=== PATIENT | male | born 1940 | race Caucasian/White ===

== ENCOUNTER → 2017-09-01 10:52 | Outpatient (CLI) | payer MEDICARE, OTHER, SELFPAY ==
[2017-09-01 13:25] LABS: BUN Creatinine Ratio 23.3 (6-22); Calcium 9.1 mg/dL (8.4-10.2); Estimated Glomerular Filt Rate > 60.0 mL/min (>60); Glucose 84 mg/dL (80-110); HEMOLYSIS < 15 (0-50); Potassium 4.6 mmol/L (3.4-5.1); Sodium 142 mmol/L (137-145)
== END ==
PROVIDERS: Family Provider Internal Medicine; PCP Internal Medicine; Visit Provider Internal Medicine
DX: I10 Essential (primary) hypertension (principal)
CPT/HCPCS: 36415; 80048

== ENCOUNTER 2018-10-09 16:04 | Inpatient (IN) | payer MEDICARE, OTHER, SELFPAY ==
[2018-10-09] VITALS (11 sets, daily range): BP systolic 101–149; BP diastolic 64–86; PULSE 66–85; RESP 10–22; TEMP 36.3–37.1; O2SAT 95–98; BMI 24.4
--- NOTE | 2018-10-09 | DI.RAD.S_ITS ---
PROCEDURE: XR HIP W PEL IF DONE RT 2V INDICATIONS: ORIF RIGHT HIP TECHNIQUE: 6 operative views of the hip were acquired. COMPARISON: [facility], , XR HIP W PEL IF DONE RT 2V, 10/09/2018, 19:44. FINDINGS: 6 images demonstrate ORIF of the right hip. There is no evidence of complications. IMPRESSION: Operative imaging required during ORIF of the right hip. Dictated by: Mulugeta Matos M.D. on 10/09/2018 at 20:41 Approved by: Mulugeta Matos M.D. on 10/09/2018 at 20:42
--- NOTE | 2018-10-09 | DI.RAD.S_ITS ---
PROCEDURE: XR HIP W PEL IF DONE RT 2V INDICATIONS: ORIF RIGHT HIP POST OPERATIVE TECHNIQUE: 2 views of the hip were acquired. COMPARISON: [facility], CR, XR HIP W PEL IF DONE RT 2V, 10/09/2018, 18:13. FINDINGS: Bones: Expected immediate postoperative appearance, status post ORIF of the right hip. No evidence of hardware failure or loosening. Soft tissues: No suspicious soft tissue calcifications or masses. IMPRESSION: Expected immediate postoperative appearance of the right hip. Dictated by: Mulugeta Matos M.D. on 10/09/2018 at 20:42 Approved by: Mulugeta Matos M.D. on 10/09/2018 at 20:43
--- NOTE | 2018-10-09 16:53 | PM.HP.1 ---
History of Present Illness Date Patient Seen: 10/09/18 Time Patient Seen: 16:53 Chief complaint: RIGHT HIP FRACTURE Narrative: This is a 78-year-old gentleman who tripped today and fell and noted the acute onset of right hip pain. He was in [place] at the time and was seen at [facility] where a right hip fracture was diagnosed. All of his cares previously been at [facility] as well as his primary care doctor and he requested to be transferred to [facility] for orthopedic consultation repair of his hip and medical management. He notes severe right hip pain. Patient History Medical History Essential hypertension (Chronic 07/25/17) Allergic rhinitis due to other allergen (Chronic 09/16/11) Back pain (Acute) Eczema (Acute) Former cigarette smoker (Acute) Irregular heartbeat (Acute) Social History Smoking Status: Former smoker alcohol intake: current Family & Social History Tobacco & Substance use: Tobacco type cigarettes Smoking Status Former smoker alcohol intake current Substance Use Type does not use Meds Home Medications Medication Instructions Recorded Confirmed Type cholecalciferol (vitamin D3) 5,000 5,000 unit PO DAILY 09/26/18 10/05/18 History unit capsule cyanocobalamin (vitamin B-12) 1,000 mcg PO DAILY 09/26/18 10/05/18 History 1,000 mcg capsule thyroid (pork) 15 mg tablet 15 mg PO DAILY 09/26/18 10/05/18 History Allergies Allergy/AdvReac Type Severity Reaction Status Date / Time colistin [COLISTIN] Allergy Unknown PAIN AND Verified 09/26/18 13:14 SWELLING (FROM CORTISPORIN TC) hydrocortisone Allergy Unknown LOCAL PAIN Verified 09/26/18 13:14 [HYDROCORTISONE] AND SWELLING (FROM CORTISPORIN TC) neomycin [NEOMYCIN] Allergy Unknown LOCAL PAIN Verified 09/26/18 13:14 AND SWELLING (FROM CORTISPORIN TC) THONZONIUM Allergy Unknown LOCAL PAIN Uncoded 09/26/18 13:14 AND SWELLING (FROM CORTISPORIN TC) Review of Systems Review of Systems He specifically denied being lightheaded dizzy having chest pain or other syncopal symptoms prior to his fall. He stated that he just tripped. He does have a history of a longstanding tremor but has not been diagnosed with Parkinson's. He does not get up at night to urinate. He notes that he is being been feeling well with no recent abdominal problems lung problems he does have some mild eczema on his leg. Exam Narrative Exam Narrative: He is alert he is oriented, his HEENT is atraumatic, pupils are equal round and reactive, lungs are clear, cor is regular rate and rhythm there is no murmur abdomen is benign, the right lower extremity is remarkable for moderate foreshortening with an external rotation deformity of his right leg he is able to fire his toe flexors and extensors in bilateral lower extremities, there is adequate capillary refill, skins noted to be intact. Objective Labs Labs: Hematocrit 40 at [facility], x-rays show a comminuted right intertrochanteric hip fracture, his chest x-ray is benign Assessment & Plan Assessment & Plan narrative: Impression comminuted right intertrochanteric proximal femur fracture. Plan is for open reduction internal fixation with a dynamic hip screw. The procedure, alternatives, and risks including but not limited to bleeding, infection, failure of fixation, malunion, nonunion, failure of bone and possibility of additional requirements for operative intervention or additional surgeries was discussed in detail. It is a comminuted proximal femur fracture. Risk of anesthetic or medical complications including but not limited to bleeding, infection, stroke, cardiovascular event or even were discussed in detail. He will likely at best be only partial weight-bearing postoperatively. He understands and agrees and consents to surgery.
[2018-10-09] MEDS: LACTATED RINGERS 1,000 ML 42 ML IV ×2 (17:38→19:20)
[2018-10-09] MEDS: CEFAZOLIN 2 GM/100 ML FROZ.PIGGY IV (17:40)
--- NOTE | 2018-10-09 18:28 | SUR.OPER ---
Head on pillow. Supine on fracture table with operative leg secured in traction. Other leg secured in padded stirrup. Arms across chest, secured with sheet.
[2018-10-09] MEDS: BUPIVACAINE 0.5% W/ EPI (PF) VIAL 30 ML INJ (18:33)
--- NOTE | 2018-10-09 20:16 | SUR.PHASEI ---
stable pacu stay, report attempted x2 RN not available
--- NOTE | 2018-10-09 20:23 | SUR.PHASEI ---
Ashutosh returned called, report given. pt left pacu in stable condition.
--- NOTE | 2018-10-09 20:29 | P.OP_ITS ---
Operative Date/Time/Diagnoses Date of procedure: 10/09/18 Time of procedure: 17:29 Pre-op diagnosis: Right intertrochanteric hip fracture Post-op diagnosis: same Procedure & Clinicians Procedure: Open reduction internal fixation right intertrochanteric hip fracture Same procedure as scheduled: Yes Indications: This is a 78-year-old gentleman who fell and sustained a right intertrochanteric hip fracture. The procedure alternatives risks benefits and complications was discussed in detail and he is brought to the operating room for open reduction internal fixation. Surgeon: Shannan Sun Click Yes if Unassisted: Yes Anesthesia Type: Spinal Operative Notes Findings: Comminuted fracture, anatomic reduction, fairly good quality bone. Closure Type: primary Specimen(s): none sent Prosthetic devices, grafts, tissues, transplants, or devices: Dynamic hip screw 135?, 4 hole sideplate Estimated Blood Loss (mL): 250 Blood products transfused: none Procedure in detail: Patient was brought to the operating room and underwent the induction of a spinal anesthetic. He was carefully positioned on the fracture table. A time-out was performed. His right lower extremity was prepped and draped in a standard sterile fashion. He was given IV antibiotics and transiemic acid. A lateral skin incision was made dissection was carried out through skin and subcutaneous tissues. Hemostasis was achieved with the Bovie cautery. The lateral fascia was incised. Vastus lateralis was retracted anteriorly and was gently elevated off of the lateral femur. Hemostasis was achieved posteriorly. A Lyons retractor was placed around the femur. Guide was placed along the femur and a pin was placed in the femoral head slightly posterior but in the central aspect of the femoral head. AP and lateral image confirmed the position of the guidewire. It was advanced and then measured and the dynamic hip screw Reamer was used to prepare the screw insertion to site. A 4 hole side plate was applied. I used the set screw to further impact the fracture and then removed it. Side plate was filled using standard AO technique. AP lateral and oblique images confirmed anatomic reduction and acceptable position of the fixation. The hip was meticulously irrigated with normal saline. Final hemostasis was achieved. Marcaine was injected. The wound was closed with interrupted Vicryl, barbed stitches and surgical glue. The wound was dressed sterilely. An Aquacel was applied. Patient was transferred to recovery room in satisfactory condition. Complications: none Condition: stable Disposition: Acute Care Plan for aftercare: Aspirin for DVT prophylaxis. Out of bed 50 lb weight- bearing on the right lower extremity. Patient has a supportive family and the goal is discharged to home when safe.
--- NOTE | 2018-10-09 20:39 | SUR.PHASEI ---
Pt left with georges and chealsea in [address] and in stable condition.
--- NOTE | 2018-10-09 20:52 | PC.NURSE ---
2034 - Patient brought to room from PACU in bed by nursing staff. Family at bedside. Report given to receiving nurse JEANIE Gloria. Alert and oriented with pleasant affect. Denies pain at this time. Oriented to room and call light, call light within reach.
[2018-10-09] MEDS: LACTATED RINGERS 1,000 ML 125 ML IV (21:06)
--- NOTE | 2018-10-09 22:12 | PC.NURSE ---
Pt awake, watching TV. Denies discomfort at this time. Tele shows NSR per ICU staff. Aquacell dsg to right hip CDI. SCD in place, IS to 3000 Lungs clear, SpO2 97% RA Stable post op course. Call two [facility] w/in reach, Bed alarm on for pt safety. Continue w/plan of care.
[2018-10-10] MEDS: CEFAZOLIN 2 GM/100 ML FROZ.PIGGY IV ×2 (02:42→10:14)
[2018-10-10 04:25] VITALS: BP 139/65; PULSE 70; RESP 16; TEMP 37.1; O2SAT 99
[2018-10-10] MEDS: LACTATED RINGERS 1,000 ML 125 ML IV (05:26)
[2018-10-10] MEDS: ACETAMINOPHEN 325 MG TABLET 975 MG PO ×3 (05:54→19:59)
[2018-10-10 05:58] LABS: Hematocrit 33.5 % (41-53); Hemoglobin 11.5 g/dL (13.5-17.5); Mean Corpuscular HGB Conc 34.3 % (30-36); Mean Corpuscular Volume 90.4 fL (80-100); Platelet Count 159 X10^3/uL (150-400); Red Blood Cell Count 3.71 X10^6/uL (4.5-5.9); Red Cell Distribution Width 12.8 % (11.6-14.8); White Blood Cell Count 9.6 X10^3/uL (4.5-11.0)
--- NOTE | 2018-10-10 06:49 | PM.CN ---
History of Present Illness Date Patient Seen: 10/10/18 Chief complaint: RIGHT HIP FRACTURE Reason for consult: Medical care Narrative: 78-year-old male who I see only rarely, last seen in August 2017, who apparently fell while in [place] sustaining a fracture to his right hip. He was evaluated at [facility] and his request was transported to [facility] for definitive care with Dr. Shannan Sun accepting patient in transfer and surgically repairing his hip. Patient's only medical problem that has been followed on a long-term basis appears to be mild hypertension. Patient was started on lisinopril little over year ago but appears to have discontinued this on his own. [facility] Medical History Essential hypertension (Chronic 07/25/17) Allergic rhinitis due to other allergen (Chronic 09/16/11) Back pain (Chronic) Eczema (Chronic) Irregular heartbeat (Chronic) Former cigarette smoker (Inactive) Social History household members: family Smoking Status: Former smoker alcohol intake: current Social History household members: family Smoking Status: Former smoker alcohol intake: current Meds Home Medications Medication Instructions Recorded Confirmed Type cholecalciferol (vitamin D3) 5,000 5,000 unit PO DAILY 09/26/18 10/09/18 History unit capsule cyanocobalamin (vitamin B-12) 1,000 mcg PO DAILY 09/26/18 10/09/18 History 1,000 mcg capsule thyroid (pork) 15 mg tablet 15 mg PO DAILY 09/26/18 10/09/18 History Allergies Allergy/AdvReac Type Severity Reaction Status Date / Time colistin [COLISTIN] Allergy Unknown PAIN AND Verified 09/26/18 13:14 SWELLING (FROM CORTISPORIN TC) hydrocortisone Allergy Unknown LOCAL PAIN Verified 09/26/18 13:14 [HYDROCORTISONE] AND SWELLING (FROM CORTISPORIN TC) neomycin [NEOMYCIN] Allergy Unknown LOCAL PAIN Verified 09/26/18 13:14 AND SWELLING (FROM CORTISPORIN TC) THONZONIUM Allergy Unknown LOCAL PAIN Uncoded 09/26/18 13:14 AND SWELLING (FROM CORTISPORIN TC) Review of Systems Constitutional Constitutional: Denies excessive sweating, Denies fever(s), Denies headache(s), Denies weakness, Denies weight gain and Denies weight loss Eyes Eyes: Denies change in vision, Denies itchy eyes, Denies loss of vision and Denies other visual disturbances ENT Ears, Nose, Mouth, and Throat: No difficulty swallowing, No headache(s) and No neck pain Cardiovascular Cardiovascular: Denies chest pain, Denies fainting, Denies fast heart rate, Denies irregular heart rhythm, Denies rapid, pounding, or irregular heartbeat, Denies shortness of breath, Denies shortness of breath with activity and Denies slow heart rate Respiratory Respiratory: Denies dyspnea and Denies dyspnea on exertion Gastrointestinal Gastrointestinal: Denies abdominal pain, Denies bloating, Denies change in bowel habits, Denies change in stool character, Denies dysphagia, Denies nausea, Denies vomiting and Denies hematemesis Genitourinary Genitourinary: Denies hematuria, Denies difficulty urinating and Denies urinary frequency Musculoskeletal Musculoskeletal: Denies neck pain Integumentary/Breasts Skin/Breast: Denies bleeding lesions, Denies change in pigmentation, Denies changing lesions, Denies new lesions, Denies rash, Denies skin swelling, Denies sores and Denies jaundice Neurologic Neurologic: Denies behavioral changes, Denies confusion, Denies syncope, Denies headache(s), Denies loss of vision, Denies memory loss and Denies weakness Psychiatric Psychiatric: Denies behavioral changes, Denies change in appetite, Denies confusion, Denies difficulty concentrating, Denies auditory hallucinations, Denies memory loss, Denies mood swings and Denies suicidal ideation Endocrine Endocrine: Denies excessive sweating and Denies palpitations Hematologic/Lymphatic Hematologic/Lymphatic: Denies easy bleeding, Denies easy bruising and Denies lymphadenopathy Allergic/Immunologic Allergic/Immunologic: Denies itchy eyes Exam Vital Signs (past 8 hours): - 10/09/18 23:32 10/10/18 04:25 Temperature 98.5 F 98.8 F Pulse Rate 74 70 Respiratory Rate 16 16 Blood Pressure 139/65 139/65 Pulse Oximetry 97 99 Oxygen Delivery Method Room Air Oxygen Flow Rate 0 Narrative Exam Narrative: HEENT-unremarkable, normocephalic atraumatic Neck-no lymphadenopathy no bruits Lungs-clear anteriorly and posteriorly no wheezes no crackles good breath sounds Heart-regular rate and rhythm, no murmur, rub, or gallop. normal S1-S2 Abdomen-positive bowel tones, soft, nontender, nondistended, no hepatosplenomegaly, no masses palpable Neuro-normal to screening exam, gait not tested Extremities-no cyanosis clubbing or edema Objective Labs Result Diagrams: 10/10/18 05:24 Labs: Laboratory Results - last 24 hr 10/10/18 05:24 WBC 9.6 RBC 3.71 L Hgb 11.5 L Hct 33.5 L MCV 90.4 MCH 31.0 MCHC 34.3 RDW 12.8 Plt Count 159 Assessment & Plan Assessment & Plan narrative: 1. 78-year-old male now status post ORIF fractured hip. Postoperative care and decision making regarding discharge, and whether patient can be discharged home versus alternative facility will be determined by Orthopedic Surgery 2. Hypertension-patient has self-discontinued his antihypertensives. Continue follow numbers here and can restart lisinopril at any point should he be significantly hypertensive. At this point however, if anything, he is modestly hypotensive. Otherwise medically he is quite stable with no active issues. Standard orthopedic surgery postoperative VTE prophylaxis appears to have been ordered. I will sign off the case at this point as are no active medical issues on this patient. The remainder of his care in the hospital really will be postoperative orthopedic care. Please re-consult if further input regarding medical issues is desired.
--- NOTE | 2018-10-10 06:55 | P.CONS_ITS ---
History of Present Illness Date Patient Seen: 10/10/18 Chief complaint: RIGHT HIP FRACTURE Reason for consult: Medical care Narrative: 78-year-old male who I see only rarely, last seen in August 2017, who apparently fell while in [place] sustaining a fracture to his right hip. He was evaluated at [facility] and his request was transported to [facility] for definitive care with Dr. Shannan Sun accepting patient in transfer and surgically repairing his hip. Patient's only medical problem that has been followed on a long-term basis appears to be mild hypertension. Patient was started on lisinopril little over year ago but appears to have discontinued this on his own. [facility] Medical History Essential hypertension (Chronic 07/25/17) Allergic rhinitis due to other allergen (Chronic 09/16/11) Back pain (Chronic) Eczema (Chronic) Irregular heartbeat (Chronic) Former cigarette smoker (Inactive) Social History household members: family Smoking Status: Former smoker alcohol intake: current Social History household members: family Smoking Status: Former smoker alcohol intake: current Meds Home Medications Medication Instructions Recorded Confirmed Type cholecalciferol (vitamin D3) 5,000 5,000 unit PO DAILY 09/26/18 10/09/18 History unit capsule cyanocobalamin (vitamin B-12) 1,000 mcg PO DAILY 09/26/18 10/09/18 History 1,000 mcg capsule thyroid (pork) 15 mg tablet 15 mg PO DAILY 09/26/18 10/09/18 History Allergies Allergy/AdvReac Type Severity Reaction Status Date / Time colistin [COLISTIN] Allergy Unknown PAIN AND Verified 09/26/18 13:14 SWELLING (FROM CORTISPORIN TC) hydrocortisone Allergy Unknown LOCAL PAIN Verified 09/26/18 13:14 [HYDROCORTISONE] AND SWELLING (FROM CORTISPORIN TC) neomycin [NEOMYCIN] Allergy Unknown LOCAL PAIN Verified 09/26/18 13:14 AND SWELLING (FROM CORTISPORIN TC) THONZONIUM Allergy Unknown LOCAL PAIN Uncoded 09/26/18 13:14 AND SWELLING (FROM CORTISPORIN TC) Review of Systems Constitutional Constitutional: Denies excessive sweating, Denies fever(s), Denies headache(s), Denies weakness, Denies weight gain and Denies weight loss Eyes Eyes: Denies change in vision, Denies itchy eyes, Denies loss of vision and Denies other visual disturbances ENT Ears, Nose, Mouth, and Throat: No difficulty swallowing, No headache(s) and No neck pain Cardiovascular Cardiovascular: Denies chest pain, Denies fainting, Denies fast heart rate, Denies irregular heart rhythm, Denies rapid, pounding, or irregular heartbeat, Denies shortness of breath, Denies shortness of breath with activity and Denies slow heart rate Respiratory Respiratory: Denies dyspnea and Denies dyspnea on exertion Gastrointestinal Gastrointestinal: Denies abdominal pain, Denies bloating, Denies change in bowel habits, Denies change in stool character, Denies dysphagia, Denies nausea, Denies vomiting and Denies hematemesis Genitourinary Genitourinary: Denies hematuria, Denies difficulty urinating and Denies urinary frequency Musculoskeletal Musculoskeletal: Denies neck pain Integumentary/Breasts Skin/Breast: Denies bleeding lesions, Denies change in pigmentation, Denies changing lesions, Denies new lesions, Denies rash, Denies skin swelling, Denies sores and Denies jaundice Neurologic Neurologic: Denies behavioral changes, Denies confusion, Denies syncope, Denies headache(s), Denies loss of vision, Denies memory loss and Denies weakness Psychiatric Psychiatric: Denies behavioral changes, Denies change in appetite, Denies confusion, Denies difficulty concentrating, Denies auditory hallucinations, Denies memory loss, Denies mood swings and Denies suicidal ideation Endocrine Endocrine: Denies excessive sweating and Denies palpitations Hematologic/Lymphatic Hematologic/Lymphatic: Denies easy bleeding, Denies easy bruising and Denies lymphadenopathy Allergic/Immunologic Allergic/Immunologic: Denies itchy eyes Exam Vital Signs (past 8 hours): - 10/09/18 23:32 10/10/18 04:25 Temperature 98.5 F 98.8 F Pulse Rate 74 70 Respiratory Rate 16 16 Blood Pressure 139/65 139/65 Pulse Oximetry 97 99 Oxygen Delivery Method Room Air Oxygen Flow Rate 0 Narrative Exam Narrative: HEENT-unremarkable, normocephalic atraumatic Neck-no lymphadenopathy no bruits Lungs-clear anteriorly and posteriorly no wheezes no crackles good breath sounds Heart-regular rate and rhythm, no murmur, rub, or gallop. normal S1-S2 Abdomen-positive bowel tones, soft, nontender, nondistended, no hepatosplenomegaly, no masses palpable Neuro-normal to screening exam, gait not tested Extremities-no cyanosis clubbing or edema Objective Labs Result Diagrams: 10/10/18 05:24 Labs: Laboratory Results - last 24 hr 10/10/18 05:24 WBC 9.6 RBC 3.71 L Hgb 11.5 L Hct 33.5 L MCV 90.4 MCH 31.0 MCHC 34.3 RDW 12.8 Plt Count 159 Assessment & Plan Assessment & Plan narrative: 1. 78-year-old male now status post ORIF fractured hip. Postoperative care and decision making regarding discharge, and whether patient can be discharged home versus alternative facility will be determined by Orthopedic Surgery 2. Hypertension-patient has self-discontinued his antihypertensives. Continue follow numbers here and can restart lisinopril at any point should he be significantly hypertensive. At this point however, if anything, he is modestly hypotensive. Otherwise medically he is quite stable with no active issues. Standard orthopedic surgery postoperative VTE prophylaxis appears to have been ordered. I will sign off the case at this point as are no active medical issues on this patient. The remainder of his care in the hospital really will be postoperative orthopedic care. Please re-consult if further input regarding medical issues is desired.
[2018-10-10 07:28] VITALS: BP 102/52; PULSE 65; RESP 18; TEMP 36.9; O2SAT 100
[2018-10-10] MEDS: THYROID, PORK 30 MG TABLET 15 MG PO (08:16)
[2018-10-10] MEDS: CYANOCOBALAMIN (VITAMIN B-12) 500 MCG TABLET 1000 MCG PO (08:16)
[2018-10-10] MEDS: POLYETHYLENE GLYCOL 3350 17 GM POWD.PACK PO (08:16)
[2018-10-10] MEDS: ASPIRIN EC 81 MG TABLET PO ×2 (08:16→19:59)
[2018-10-10] MEDS: DOCUSATE 100 MG CAPSULE PO ×2 (08:16→19:59)
[2018-10-10] MEDS: CHOLECALCIFEROL (VITAMIN D3) 5,000 UNIT TABLET 5000 UNIT PO (08:16)
--- NOTE | 2018-10-10 09:57 | PT.IIE ---
Current Diagnoses Unspecified fracture of right femur, initial encounter for closed fracture (10/09/18) Surgery Performed Operation Date: 10/09/18 17:00 Actual Procedures p ORIF Hip/Intramedullary Hip Screw(Right) - Shannan Sun MD Medical History Essential hypertension (Chronic 07/25/17) Allergic rhinitis due to other allergen (Chronic 09/16/11) Back pain (Chronic) Eczema (Chronic) Irregular heartbeat (Chronic) Former cigarette smoker (Inactive) Physical Therapy Inpatient Evaluation/Re-Eval M1 PT/OT-IP Prior Functional Status Start: 10/10/18 12:14 Freq: NEEDED Status: Active Protocol: Document 10/10/18 09:57 AB (Rec: 10/10/18 12:25 AB [id number]) Medical Review Prior Functional Status Medical History Reviewed Yes Communication able to make needs known Mobility and Gait pt stated that he is independent with all mobilities and ambulation without AD Social History Household Members children Living Arrangements House Number of Floors (Floors) Two Floors Number of Stairs To Enter/Railing? pt lives with his son but plans to stay in his daughter' s house and her daughter can assist him information regarding home set up is regarding pt's daughter 's house pt will stay on main floor has 3 in step to enter the house Home Environment Standard Height Toilet Tub/Shower Home Equipment Hand Held Shower Grab Bars In Shower Employment Status Retired M2 PT-IP Current Condition Start: 10/10/18 12:14 Freq: NEEDED Status: Active Protocol: Document 10/10/18 09:57 AB (Rec: 10/10/18 12:25 AB [id number]) Physical Therapy Current Condition Current Condition Evaluation Date 10/10/18 Treatment Diagnosis R intertrochanteric hip fx s/p ORIF; difficulty in walking Onset Date 10/09/18 Weight Bearing Status Weight Bearing Status Touch Down Weight Bearing Allowed Weight Bearing Amount (enter % TDWB RLE: 50# max or #) (%) M3 PT-IP Subjective Start: 10/10/18 12:14 Freq: NEEDED Status: Active Protocol: Document 10/10/18 09:57 AB (Rec: 10/10/18 12:25 AB [id number]) Subjective Physical Therapy Visit Type Type Initial Evaluation Visit Start Time 09:57 Visit Stop Time 10:51 Total Visit Minutes 54 Number of RADIOLOGY TEACHER Visits 0 Physical Therapy Visit Comments Patient Comments pt agreeable to do PT Therapy Pain Assessment Pain When Pain Assessed During Mobility Pain Present Pain Present Pain Reported Location Right Hip Intensity 11 Scale Used Numeric (1 - 10) Pain Management Techniques Apply Cold Re-positioning Timing of Activity with Medications M4 PT-IP Mobility and Gait Start: 10/10/18 12:14 Freq: NEEDED Status: Active Protocol: Document 10/10/18 09:57 AB (Rec: 10/10/18 12:25 AB [id number]) PT-Bed Mobility Assessment Supine to Sit Supine to Sit Moderate Assistance Scooting Scooting to Edge of Bed Moderate Assistance PT-Transfer Assessment Sit to and From Stand Sit to and from Stand Maximum Assistance 1 Person Assistance 2 Person Assistance Use of Upper Extremities Equipment Transfer Assistive Device Front Wheeled Walker Orthotic/Prosthetic Devices or Brace: No Transfers Transfer Destination Chair Transfer Technique Stand Step Pivot Transfer Ability Level of Assist Maximum Assistance 2 Person Assistance Use of Upper Extremities Comments Mobility Comments pt required assistance to maintain TDWB on RLE Gait Assessment Comments Gait Comments unable at this time PT-Balance Assessment Sitting Balance and Reactions Static Sitting Balance Ability Good Dynamic Sitting Balance Ability Fair Standing Balance and Reactions Static Standing Balance Ability Fair Dynamic Standing Balance Ability Poor Device Used FWW M5 PT-IP Objective Assessments Start: 10/10/18 12:14 Freq: NEEDED Status: Active Protocol: Document 10/10/18 09:57 AB (Rec: 10/10/18 12:25 AB [id number]) Orientation Orientation/Cognition Level of Alertness Alert Orientation Name Place Situation Gross Range of Motion Lower Extremity ROM Assessment Within Functional Limits Impairments R hip tightness during PROM Strength Lower Extremity Strength Assessment Right Impaired Hip 3-/5 Knee 3-/5 Coordination Assessment Gross Coordination Gross Coordination WNL Sensation Assessment Sensation Gross Sensation WNL Muscle Tone Muscle Tone WNL Yes M6 PT-IP Treatment Start: 10/10/18 12:14 Freq: NEEDED Status: Active Protocol: Document 10/10/18 09:57 AB (Rec: 10/10/18 12:25 AB [id number]) Physical Therapy Treatment Exercises Exercises Quad Sets Heel Slides Education Education Provided Precautions Weight Bearing Status Post-Op Packet Safety M7 PT-IP Assessment and Plan Start: 10/10/18 12:14 Freq: NEEDED Status: Active Protocol: Document 10/10/18 09:57 AB (Rec: 07/03/19 12:25 AB [id number]) PT Summary Assessment and Plan Potential Rehabilitation Potential Good Status of Condition at Evaluation Evolving Summary Impairments Pain ROM Strength Balance Coordination Bed Mobility Transfers Gait Activity Tolerance Assessment Summary pt requiring max A x 1-2 for transfers using FWW at this time and requires assist to maintain RLE weight bearing restriction. pt unable to tolerate much activity with c/ o increase pain on R hip with mobility. pt will need SNF rehab to improve strength and functional independence. Goals Bed Mobility Goal Standby Assistance Transfer Goal Contact Guard Assistance Front Wheeled Walker Gait Goal Contact Guard Assistance Front Wheel Walker Gait Distance 50 Other Goals up/down 3 inch step using FWW min A Days to Meet Goals 10 Frequency of Treatment Frequency Of Treatment Twice a Day Treatment Plan Physical Therapy Treatment Plan Bed Mobility Training Transfer Training Gait Training Therapeutic Exercise Balance Retraining Post Op Education Discharge Planning Hot or Cold Pack Neuromuscular Re-ed Coordination Retraining Manual Therapy Recommendations To Nursing Amount of Assist Needed 2 Person Assist Mechanical Lift Discharge Recommendations PT Discharge Recommendations SNF Rehab Equipment Needed for Home Before FWW and w/c if pt is going Discharge home
[2018-10-10] MEDS: OXYCODONE IR 5 MG TABLET PO (10:12)
--- NOTE | 2018-10-10 11:07 | PM.PN.1 ---
Subjective Date Patient Seen: 10/10/18 Time Patient Seen: 09:07 Interval history: PAtient is POD#1 s/p open reduction internal fixation right intertrochanteric hip fracture with Dr. Sun. He is doing well post operatively. Pain is being well managed mostly with Tylenol. He has not been out of bed or worked with PT yet. Mckeon catheter in place. He denies chest pain, shortness of breath, fever, chills. Exam Vital Signs (past 8 hours): - 10/10/18 04:25 10/10/18 07:28 Temperature 98.8 F 98.5 F Pulse Rate 70 65 Respiratory Rate 16 18 Blood Pressure 139/65 102/52 L Pulse Oximetry 99 100 Oxygen Delivery Method Room Air Oxygen Flow Rate 0 Narrative Exam Narrative: Pleasant 78 year old male resting in bed. No acute distress, alert and oriented. Dressing in place over right hip is clean, dry, and intact. Intact flexion/extension of the foot. Palpable pedal pulses. Calves soft, compressible bilaterally. Objective Labs Result Diagrams: 10/10/18 05:24 Labs: Laboratory Results - last 24 hr 10/10/18 05:24 WBC 9.6 RBC 3.71 L Hgb 11.5 L Hct 33.5 L MCV 90.4 MCH 31.0 MCHC 34.3 RDW 12.8 Plt Count 159 Assessment & Plan Assessment & Plan narrative: Per Dr. Sun's operative notepatient is to be out of bed 50 lb weight-bearing on the right lower extremity. Goals for today are to mobilize with PT and continue pain control. Possible discharge to home tomorrow.
[2018-10-10 11:25] VITALS: BP 92/59; PULSE 80; RESP 16; TEMP 36.4; O2SAT 99
[2018-10-10] MEDS: HYDROMORPHONE 2 MG TABLET PO (13:24)
--- NOTE | 2018-10-10 13:40 | PT.IPTN ---
Current Diagnoses Unspecified fracture of right femur, initial encounter for closed fracture (10/09/18) Surgery Performed Operation Date: 10/09/18 17:00 Actual Procedures p ORIF Hip/Intramedullary Hip Screw(Right) - Shannan Sun MD Physical Therapy Treatment Note M2 PT-IP Current Condition Start: 10/10/18 12:14 Freq: NEEDED Status: Active Protocol: Document 10/10/18 09:57 AB (Rec: 10/10/18 12:25 AB [id number]) Physical Therapy Current Condition Current Condition Evaluation Date 10/10/18 Treatment Diagnosis R intertrochanteric hip fx s/p ORIF; difficulty in walking Onset Date 10/09/18 Weight Bearing Status Weight Bearing Status Touch Down Weight Bearing Allowed Weight Bearing Amount (enter % TDWB RLE: 50# max or #) (%) M3 PT-IP Subjective Start: 10/10/18 12:14 Freq: NEEDED Status: Active Protocol: Document 10/10/18 13:40 AB (Rec: 10/10/18 17:59 AB [id number]) Subjective Physical Therapy Visit Type Type Treatment Note Visit Start Time 13:40 Visit Stop Time 14:15 Total Visit Minutes 25 Number of DIESEL FLEET MECHANIC Visits 0 Physical Therapy Visit Comments Patient Comments pt agreeable to do PT Therapy Pain Assessment Pain When Pain Assessed At Rest Pain Present Pain Present Pain Reported Location Right Hip Intensity 8 Scale Used Numeric (1 - 10) M4 PT-IP Mobility and Gait Start: 10/10/18 12:14 Freq: NEEDED Status: Active Protocol: Document 10/10/18 13:40 AB (Rec: 10/10/18 17:59 AB [id number]) PT-Bed Mobility Assessment Sit to Supine Sit to Supine Maximum Assistance 2 Person Assistance Bedrails PT-Transfer Assessment Sit to and From Stand Sit to and from Stand Maximum Assistance 2 Person Assistance Use of Upper Extremities Equipment Transfer Assistive Device Bed Rail Front Wheeled Walker Orthotic/Prosthetic Devices or Brace: No Transfers Transfer Destination Bed Bedside Commode Transfer Technique Stand Step Pivot Transfer Ability Level of Assist Maximum Assistance 2 Person Assistance Use of Upper Extremities Comments Mobility Comments pt requested to use the toilet . positioned bedside commode next to pt. Pt completed sit to stand from chair requiring max A x 2 and max cues and completed stand step transfer using FWW max A x 2 and max cues. required assistance and max cues to maintain TDWB on RLE. pt was able to complete sit to stand from the bedside commode max A x 2 and max cues and maintain standing max A x 2 using FWW while NAC assisted with hygiene care. pt completed stand step pivot transfer to the bed using FWW max A x 2 and max cues. Has to position bed closer to pt towards end of transfer due to pt having difficulty with stepping backwards. Pt presents with (+) R hand tremors Gait Assessment Comments Gait Comments unable at this time M5 PT-IP Objective Assessments Start: 10/10/18 12:14 Freq: NEEDED Status: Active Protocol: Document 10/10/18 09:57 AB (Rec: 10/10/18 12:25 AB [id number]) Orientation Orientation/Cognition Level of Alertness Alert Orientation Name Place Situation Gross Range of Motion Lower Extremity ROM Assessment Within Functional Limits Impairments R hip tightness during PROM Strength Lower Extremity Strength Assessment Right Impaired Hip 3-/5 Knee 3-/5 Coordination Assessment Gross Coordination Gross Coordination WNL Sensation Assessment Sensation Gross Sensation WNL Muscle Tone Muscle Tone WNL Yes M6 PT-IP Treatment Start: 10/10/18 12:14 Freq: NEEDED Status: Active Protocol: Document 10/10/18 13:40 AB (Rec: 10/10/18 17:59 AB [id number]) Physical Therapy Treatment Education Education Provided Precautions Weight Bearing Status Safety M7 PT-IP Assessment and Plan Start: 10/10/18 12:14 Freq: NEEDED Status: Active Protocol: Document 10/10/18 13:40 AB (Rec: 10/10/18 17:59 AB [id number]) PT Summary Assessment and Plan Potential Rehabilitation Potential Good Summary Impairments Pain ROM Strength Balance Coordination Sensation Tone Cognition Bed Mobility Transfers Gait Activity Tolerance Progress Towards Goals Slow Progress due to Medical Issues Slow Progress due to Activity Tolerance Assessment Summary pt continues to require 2 person assist with transfers and has decrease activity tolerance. also requires assistance with maintaining TDWB on RLE. Pt will benefit from SNF rehab. Goals Bed Mobility Goal Standby Assistance Transfer Goal Contact Guard Assistance Front Wheeled Walker Gait Goal Contact Guard Assistance Front Wheel Walker Gait Distance 50 Other Goals up/down 3 inch step using FWW min A Days to Meet Goals 10 Frequency of Treatment Frequency Of Treatment Twice a Day Treatment Plan Physical Therapy Treatment Plan Bed Mobility Training Transfer Training Gait Training Therapeutic Exercise Balance Retraining Post Op Education Discharge Planning Hot or Cold Pack Neuromuscular Re-ed Coordination Retraining Manual Therapy Recommendations To Nursing Amount of Assist Needed 2 Person Assist Mechanical Lift Discharge Recommendations PT Discharge Recommendations SNF Rehab Equipment Needed for Home Before FWW and w/c if pt is going Discharge home
--- NOTE | 2018-10-10 13:51 | CM.DANOTE ---
Addendum entered by Yarely Rivas LPN 10/10/18 15:09: September/[facility] called back to confirm acceptance at [facility] when stable for same. Pt is updated and given [facility] brochure. He notes relief at the plan. Confirms that after snf rehab he plans to still go to his daughter's home for further recovery and she lives right across from an OUTPT PT clinic where he plans to go after the snf stay. Original Note: Discharge Planning/Care Management DCP: continued: Case received, EMR reviewed and met with pt. Introduced self and role. Pt is a 78 year old male who admitted yesterday afternoon to care of [facility]: Dr. Sun. PCP: Dr. Garsia: consulting Payer: Medicare and [employer]. Pt had surgery yesterday with Dr. Sun to repair his R hip fracture. PT Tg saw pt this morning and recommended snf rehab. Pt is very agreeable to same and wishes [facility]. (he has initially planned to go to his daughter's home for care but at this point he is a 2 person max assist for mobility. OT is co-treating this afternoon. P: [facility]/referral given to September who is reviewing with acceptance anticipated. PASRR: not started. Likely d/c to snf 4/5 or > Advanced directive, confirm from FAMILY Start: 10/09/18 20:44 Freq: Q24H Status: Active Protocol: Document 10/09/18 21:17 KMD (Rec: 10/09/18 21:17 KMD [id number]) Advance Directive, confirm on record Time 21:17 Person contacted Patient Copy received No CM Discharge Assessment Start: 10/10/18 13:49 Freq: Status: Active Protocol: Document 10/10/18 13:50 ITV (Rec: 10/10/18 13:51 ITV [id number]) Discharge Planning Assessment Advance Directives? Yes: Durable Power of Cement Block Maker , Living Will with Health Care Directive, HIPAA jose carlos of medical records Advance Directives on File No History Provided By Patient Medical Record Prior Living Arrangements House Household Members children Comment lives with son. Has planned to go to daughter's home after surgery. Independent with ADL's Yes Is patient alert and oriented? Yes Discharge Plan Alf Facility Referrals Initiated Alf Medicare Choice List Provided Yes SNF/HH Preference [facility] Whiteboard Updated in Patient Room with Yes name and ext. # of Digital Content Manager Review Status In Process
--- NOTE | 2018-10-10 14:49 | PC.NURSE ---
In the morning, Pt rates pain at 0/10 with rest and severe pain with movement after oxycodone 5mg; similary, after lunch patient rates pain 0/10 at rest and severe pain with movement after administration of 2 mg dilaudid; pt thinks that Tylenol works better but declines any more pain medication, at this time; Mckeon still in place; SL; Tele SR, VSS; RA; PPP and C/M/S to right foot present; Aquacell to right hip c/d/i; bed alarm active due to hx of fall; patient is using call light, as needed
[2018-10-10 16:05] VITALS: BP 101/57; PULSE 75; RESP 18; TEMP 36.6; O2SAT 98
--- NOTE | 2018-10-10 18:59 | OT.IP.EVAL ---
Current Diagnoses Unspecified fracture of right femur, initial encounter for closed fracture (10/09/18) Surgery Performed Operation Date: 10/09/18 17:00 Actual Procedures p ORIF Hip/Intramedullary Hip Screw(Right) - Shannan Sun MD Past Medical History Essential hypertension (Chronic 07/25/17) Allergic rhinitis due to other allergen (Chronic 09/16/11) Back pain (Chronic) Eczema (Chronic) Irregular heartbeat (Chronic) Former cigarette smoker (Inactive) Occupational Therapy Inpatient Evaluation/Re-Eval M1 PT/OT-IP Prior Functional Status Start: 10/10/18 18:29 Freq: NEEDED Status: Active Protocol: Document 10/10/18 13:40 [facility] (Rec: 10/10/18 18:58 [facility] [id number]) Medical Review Prior Functional Status Medical History Reviewed Yes Communication able to make needs known Mobility and Gait pt stated that he is independent with all mobilities and ambulation without AD Social History Household Members children Living Arrangements House Number of Floors (Floors) Two Floors Number of Stairs To Enter/Railing? pt lives with his son but plans to stay in his daughter' s house and her daughter can assist him information regarding home set up is regarding pt's daughter 's house pt will stay on main floor has 3 in step to enter the house Home Environment Standard Height Toilet Tub/Shower Home Equipment Hand Held Shower Grab Bars In Shower Employment Status Retired M2 OT-IP Current Condition Start: 10/10/18 18:29 Freq: Status: Active Protocol: Document 10/10/18 13:40 [facility] (Rec: 10/10/18 18:58 [facility] [id number]) Occupational Therapy Current Condition Current Condition Evaluation Date 10/10/18 Treatment Diagnosis Right Hip Intertrochan Diagnosis Onset Date 10/09/18 Weight Bearing Status Weight Bearing Status Partial Weight Bearing Allowed Weight Bearing Amount (enter % 50 lbs for RLE or #) (%) M3 OT- IP Subjective and Pain Start: 10/10/18 18:29 Freq: Status: Active Protocol: Document 10/10/18 13:40 [facility] (Rec: 10/10/18 18:58 [facility] [id number]) OT- Subjective Occupational Therapy Visit Type Type Initial Evaluation Visit Start Time 13:40 Visit Stop Time 14:15 Total Visit Minutes 35 Notes PT/OT co-txt due to extensive assist for transfer. Occupational Therapy Visit Comments Patient Comments Pt wanting to use the BSC. OT Pain Assessment Pain When Pain Assessed During Mobility Pain Present Pain Present Pain Reported Location Right Hip Intensity 4 M4 OT- IP ADL's Start: 10/10/18 18:29 Freq: Status: Active Protocol: Document 10/10/18 13:40 [facility] (Rec: 10/10/18 18:58 [facility] [id number]) OT ADL-Grooming General Evaluation Grooming Ability Standby Assistance Areas Needing Assistance Retrieving/Set-up of Grooming Items Comments OT Grooming Comments After set-up pt able to do all grooming needs while seated. OT ADL-Oral Care General Eval Oral Care Ability Independent OT ADL-Dressing General Eval Lower Body Dressing Ability Maximum Assistance Areas Needing Assistance Socks OT ADL-Toileting General Evaluation Toileting Ability Maximum Assistance Areas Needing Assistance Manage Clothing Perform Perineal Hygiene Comments OT Toileting Comments MAX A X 2 to stand pt while aid able to assist for hygiene and brief management needs. OT ADL-Bathing Comments OT Bathing Comments Not ready at this time, sponge bath more appropriate. M5 OT- IP IADL's Start: 10/10/18 18:29 Freq: Status: Active Protocol: Document 10/10/18 13:40 [facility] (Rec: 10/10/18 18:58 [facility] [id number]) OT-Instrumental Activities of Daily Living Home Safety Awareness Home Safety Comments Prior pt states did all medications, money management, and drives. M6 OT- IP Functional Cognition Start: 10/10/18 18:29 Freq: Status: Active Protocol: Document 10/10/18 13:40 [facility] (Rec: 10/10/18 18:58 [facility] [id number]) Cognitive Factors Limiting Selfcare Function Cognitive Ability Level of Alertness Alert Patient Orientation Name Place Situation Attention Span Ability Capable of Focused Attention Capable of Sustained Attention Ability to Follow Commands Able to Follow Multi-Step Commands Safety Awareness Underestimates Need for Assistance Cognitive Comments Cognitive Assessment Comments Pt able to follow multiple commands and state needs. OT- Vision and Hearing OT- Hearing Assessment OT- Hearing Assessment WFL M7 OT- IP Mobility and Balance Start: 10/10/18 18:29 Freq: Status: Active Protocol: Document 10/10/18 13:40 [facility] (Rec: 10/10/18 18:58 [facility] [id number]) OT- Bed Mobility Assessment Sit to Supine Sit to Supine Assist Maximum Assistance 2 Person Assistance Scooting Scooting to Edge of Bed Maximum Assistance 2 Person Assistance OT-Transfer Assessment Sit to and From Stand Sit to and from Stand Maximum Assistance 2 Person Assistance Transfers Transfer Ability Maximum Assistance 2 Person Assistance Technique Transfer Destination Bed Bedside Commode Chair Devices Transfer Assistive Devices Gait Belt Front Wheeled Walker Comments Mobility Comments MAX A X2 to stand and to be able to follow 50lbs WB status for RLE. Pt needing assist for balance, guide FWW, and to be sure pt following weight bearing status. Pt take small hop or slide his left foot for transfer with FWW and MAX A X2. OT- Balance Assessment Sitting Balance and Reactions Static Sitting Balance Ability Normal Dynamic Sitting Balance Ability Good Standing Balance and Reactions Static Standing Balance Ability Poor M8 OT- IP Objective Assessments Start: 10/10/18 18:29 Freq: Status: Active Protocol: Document 10/10/18 13:40 [facility] (Rec: 10/10/18 18:58 [facility] [id number]) OT Gross Range of Motion Upper Extremity Range of Motion Assessment Bilaterally Impaired ROM Impairments Pt states has bad shoulders 0- 80 shoulder flexion. OT Strength Upper Extremity Strength Elbow 4/5 Forearm 4/5 Wrist 4/5 Hand 4/5 OT- Coordination Assessment Upper Extremity Finger to Nose Test Within Functional Limits Comments Coordination Comments Pt needing assist to open film on toothpaste top. M9 OT- IP Assessment and Plan Start: 10/10/18 18:29 Freq: Status: Active Protocol: Document 10/10/18 13:40 [facility] (Rec: 10/10/18 18:58 [facility] [id number]) OT Summary Assessment and Plan Potential Rehabilitation Potential Good Analytic Complexity at Evaluation Low Summary OT Impairments Pain Range of Motion Strength Balance Coordination Functional Mobility Dressing Toileting Bathing Toilet Transfers Shower Transfers Progress Towards Goals Slow Progress due to Pain Slow Progress due to Medical Issues Slow Progress due to Activity Tolerance Assessment Summary Pt low complexity and main barrier is steps, now only able to do transfers only with MAX A X2 and FWW, needing extensive assist for ADl needs and will benefit from skilled rehab prior to going home. Goals Dressing Goal Minimal Assistance Toileting Goal Standby Assistance Bathing Goal Minimal Assistance Toilet Transfer Goal Minimal Assistance Shower Transfer Goal Moderate Assistance Days to Meet Goals 10 Frequency of Treatment Frequency Of Treatment Once a Day Treatment Plan OT Treatment Plan ADL Training Functional Mobility Patient/Family Education Discharge Planning Other Treatment Recommendations and Next Practice LB dressing with AED Treatment Focus Discharge Recommendations OT Discharge Recommendations SNF Rehab Home Equipment Needs Tub bench, BSC, FWW, LB AED
[2018-10-10 19:30] VITALS: BP 114/64; PULSE 76; RESP 18; TEMP 37; O2SAT 98
[2018-10-10] MEDS: diphenhydrAMINE 50 MG/ML VIAL 25 MG IV (22:18)
--- NOTE | 2018-10-10 22:24 | PC.NURSE ---
Pt reports he is not happy with taking narcotics, they haven't been working, I like tylenol. Scheduled APAP given and effective for pain and remains 2-3/. No residual urine in bladder after removal of jones @ 1700. Pt is urinating using urinal x 2. 98%RA, LS clear. Right hip aquacell CDI. LAC SL. BP a bit hypotensive this shift, but asymptomatic. 1PA FWW. Pt reports doing exercises while lying in bed. Bed alarm on.
[2018-10-10 23:45] VITALS: BP 113/55; PULSE 71; RESP 16; TEMP 37.2; O2SAT 95
[2018-10-11] MEDS: OXYCODONE IR 5 MG TABLET PO ×2 (00:38→06:35)
--- NOTE | 2018-10-11 00:43 | PC.NURSE ---
patient sadiq has refused any q 2 turning
[2018-10-11 03:30] VITALS: BP 122/83; PULSE 74; RESP 16; TEMP 37.4; O2SAT 96
[2018-10-11] MEDS: ACETAMINOPHEN 325 MG TABLET 975 MG PO ×3 (07:36→20:01)
[2018-10-11 07:45] VITALS: BP 112/67; PULSE 72; RESP 16; TEMP 36.8; O2SAT 97
--- NOTE | 2018-10-11 08:09 | P.PN_ITS ---
Subjective Date Patient Seen: 10/11/18 Time Patient Seen: 08:06 Interval history: Patient is POD#2 s/p open reduction internal fixation right intertrochanteric hip fracture with Dr. Sun. He is doing well post operatively. Had some issues with pain control yesterday and felt that oxycodone 5mg did not help, feels he gets more relief with Tylenol. Mobilized some with PT yesterday but remains a 2 person assist which he feels was limited by pain. Mckeon catheter removed yesterday. Denies chest pain, shortness of breath, fevers. Exam Vital Signs (past 8 hours): - 10/11/18 03:30 Temperature 99.3 F Pulse Rate 74 Respiratory Rate 16 Blood Pressure 122/83 Pulse Oximetry 96 Oxygen Delivery Method Room Air Oxygen Flow Rate 0 Narrative Exam Narrative: 78 year old male resting comfortably in bed, in no acute distress. Alert and oriented. Dressing in place over right hip is clean, dry, and intact. Active dorsiflexion and plantar flexion of the ankle. Palpable pulses. Calves soft, compressible. Objective Labs Result Diagrams: 10/10/18 05:24 Assessment & Plan Post-op Postoperative Procedures Operation Date: 10/09/18 17:00 Actual Procedures Side Surgeon p ORIF Hip/Intramedullary Hip Screw Right Shannan Nathan Sun MD Continue to mobilize with physical therapy today. Increased oxycodone to 10mg for severe pain as needed. Patient may require SNF if no improvement in mobility .
[2018-10-11] MEDS: ASPIRIN EC 81 MG TABLET PO ×2 (08:44→20:01)
[2018-10-11] MEDS: CYANOCOBALAMIN (VITAMIN B-12) 500 MCG TABLET 1000 MCG PO (08:44)
[2018-10-11] MEDS: THYROID, PORK 30 MG TABLET 15 MG PO (08:44)
[2018-10-11] MEDS: CHOLECALCIFEROL (VITAMIN D3) 5,000 UNIT TABLET 5000 UNIT PO (08:45)
[2018-10-11] MEDS: DOCUSATE 100 MG CAPSULE PO ×2 (08:45→20:01)
[2018-10-11] MEDS: SODIUM CHLORIDE 0.9% FLUSH 10 ML IV ×2 (08:46→20:01)
[2018-10-11] MEDS: POLYETHYLENE GLYCOL 3350 17 GM POWD.PACK PO (08:46)
[2018-10-11 11:15] VITALS: BP 114/62; PULSE 73; RESP 16; TEMP 37.2; O2SAT 96
--- NOTE | 2018-10-11 13:29 | PT.IPTN ---
Current Diagnoses Unspecified fracture of right femur, initial encounter for closed fracture (10/09/18) Surgery Performed Operation Date: 10/09/18 17:00 Actual Procedures p ORIF Hip/Intramedullary Hip Screw(Right) - Shannan Sun MD Physical Therapy Treatment Note M2 PT-IP Current Condition Start: 10/10/18 12:14 Freq: NEEDED Status: Active Protocol: Document 10/10/18 09:57 AB (Rec: 10/10/18 12:25 AB [id number]) Physical Therapy Current Condition Current Condition Evaluation Date 10/10/18 Treatment Diagnosis R intertrochanteric hip fx s/p ORIF; difficulty in walking Onset Date 10/09/18 Weight Bearing Status Weight Bearing Status Touch Down Weight Bearing Allowed Weight Bearing Amount (enter % TDWB RLE: 50# max or #) (%) M3 PT-IP Subjective Start: 10/10/18 12:14 Freq: NEEDED Status: Active Protocol: Document 10/11/18 13:24 [facility] (Rec: 10/11/18 13:29 [facility] [id number]) Subjective Physical Therapy Visit Type Type Treatment Note Visit Start Time 13:00 Visit Stop Time 13:25 Total Visit Minutes 25 Number of BEHAVIORAL HEALTH ASSISTANT Visits 0 Physical Therapy Visit Comments Patient Comments Pt agress to PT and reports his pain currently is 1/10 Therapy Pain Assessment Pain When Pain Assessed At Rest Pain Present Pain Present Pain Reported Location Right Hip Intensity 1 Pain Management Techniques Apply Cold Re-positioning Timing of Activity with Medications M4 PT-IP Mobility and Gait Start: 10/10/18 12:14 Freq: NEEDED Status: Active Protocol: Document 10/10/18 13:40 AB (Rec: 10/10/18 17:59 AB [id number]) PT-Bed Mobility Assessment Sit to Supine Sit to Supine Maximum Assistance 2 Person Assistance Bedrails PT-Transfer Assessment Sit to and From Stand Sit to and from Stand Maximum Assistance 2 Person Assistance Use of Upper Extremities Equipment Transfer Assistive Device Bed Rail Front Wheeled Walker Orthotic/Prosthetic Devices or Brace: No Transfers Transfer Destination Bed Bedside Commode Transfer Technique Stand Step Pivot Transfer Ability Level of Assist Maximum Assistance 2 Person Assistance Use of Upper Extremities Comments Mobility Comments pt requested to use the toilet . positioned bedside commode next to pt. Pt completed sit to stand from chair requiring max A x 2 and max cues and completed stand step transfer using FWW max A x 2 and max cues. required assistance and max cues to maintain TDWB on RLE. pt was able to complete sit to stand from the bedside commode max A x 2 and max cues and maintain standing max A x 2 using FWW while NAC assisted with hygiene care. pt completed stand step pivot transfer to the bed using FWW max A x 2 and max cues. Has to position bed closer to pt towards end of transfer due to pt having difficulty with stepping backwards. Pt presents with (+) R hand tremors Gait Assessment Comments Gait Comments unable at this time M5 PT-IP Objective Assessments Start: 10/10/18 12:14 Freq: NEEDED Status: Active Protocol: Document 10/10/18 09:57 AB (Rec: 10/10/18 12:25 AB [id number]) Orientation Orientation/Cognition Level of Alertness Alert Orientation Name Place Situation Gross Range of Motion Lower Extremity ROM Assessment Within Functional Limits Impairments R hip tightness during PROM Strength Lower Extremity Strength Assessment Right Impaired Hip 3-/5 Knee 3-/5 Coordination Assessment Gross Coordination Gross Coordination WNL Sensation Assessment Sensation Gross Sensation WNL Muscle Tone Muscle Tone WNL Yes M6 PT-IP Treatment Start: 10/10/18 12:14 Freq: NEEDED Status: Active Protocol: Document 10/11/18 13:24 [facility] (Rec: 10/11/18 13:29 [facility] [id number]) Physical Therapy Treatment Exercises Exercises Quad Sets Heel Slides Education Education Provided Precautions Weight Bearing Status Safety M7 PT-IP Assessment and Plan Start: 10/10/18 12:14 Freq: NEEDED Status: Active Protocol: Document 10/11/18 13:24 [facility] (Rec: 10/11/18 13:29 [facility] [id number]) PT Summary Assessment and Plan Potential Rehabilitation Potential Good Summary Impairments Pain ROM Strength Balance Coordination Sensation Tone Cognition Bed Mobility Transfers Gait Activity Tolerance Progress Towards Goals Slow Progress due to Medical Issues Slow Progress due to Activity Tolerance Assessment Summary pt continues to require 2 person assist with transfers but did better today with assisting with both bed mobility and transfers. He is aware of his precautions and maintained his 50% weightbearing precautions. Pt will benefit from SNF rehab. Goals Bed Mobility Goal Standby Assistance Transfer Goal Contact Guard Assistance Front Wheeled Walker Gait Goal Contact Guard Assistance Front Wheel Walker Gait Distance 50 Other Goals up/down 3 inch step using FWW min A Days to Meet Goals 10 Frequency of Treatment Frequency Of Treatment Twice a Day Treatment Plan Physical Therapy Treatment Plan Bed Mobility Training Transfer Training Gait Training Therapeutic Exercise Balance Retraining Post Op Education Discharge Planning Hot or Cold Pack Neuromuscular Re-ed Coordination Retraining Manual Therapy Recommendations To Nursing Amount of Assist Needed 2 Person Assist Mechanical Lift Discharge Recommendations PT Discharge Recommendations SNF Rehab Equipment Needed for Home Before FWW and w/c if pt is going Discharge home
--- NOTE | 2018-10-11 14:30 | PC.NURSE ---
PT given tylenol twice this shift, which is routine. He states that tylenol is working better than percolone. PA in and pt did have his oxycodone increased to 10mg if he wants to have it. Up with PT x2, states that he is doing better with moving today then yesterday. Grandsons visited earlier. Pt is sitting up in chair and comfortable.
[2018-10-11 15:15] VITALS: BP 120/61; PULSE 71; RESP 18; TEMP 36.8; O2SAT 98
--- NOTE | 2018-10-11 16:00 | OT.IP.TRT ---
Current Diagnoses Unspecified fracture of right femur, initial encounter for closed fracture (10/09/18) Surgery Performed Operation Date: 10/09/18 17:00 Actual Procedures p ORIF Hip/Intramedullary Hip Screw(Right) - Shannan Sun MD Occupational Therapy Treatment Note M2 OT-IP Current Condition Start: 10/10/18 18:29 Freq: Status: Active Protocol: Document 10/10/18 13:40 [facility] (Rec: 10/10/18 18:58 [facility] [id number]) Occupational Therapy Current Condition Current Condition Evaluation Date 10/10/18 Treatment Diagnosis Right Hip Intertrochan Diagnosis Onset Date 10/09/18 Weight Bearing Status Weight Bearing Status Partial Weight Bearing Allowed Weight Bearing Amount (enter % 50 lbs for RLE or #) (%) M3 OT- IP Subjective and Pain Start: 10/10/18 18:29 Freq: Status: Active Protocol: Document 10/11/18 15:56 [facility] (Rec: 10/11/18 16:00 [facility] [email or web address]) OT- Subjective Occupational Therapy Visit Type Type Progress Note Visit Start Time 13:40 Visit Stop Time 13:57 Total Visit Minutes 17 Occupational Therapy Visit Comments Patient Comments I will give it a try on my left leg. (in response to LB dressing) OT Pain Assessment Pain When Pain Assessed At Rest Pain Present Pain Present Pain Reported Location Right Hip Intensity 4 Scale Used Numeric (1 - 10) Management Techniques Modification of Treatment Re-positioning Timing of Activity with Medications M4 OT- IP ADL's Start: 10/10/18 18:29 Freq: Status: Active Protocol: Document 10/11/18 15:56 [facility] (Rec: 10/11/18 16:00 [facility] [id number]) OT [id number] Comments OT Self-Feeding Comments Not meal time OT ADL-Grooming General Evaluation Grooming Ability Standby Assistance Areas Needing Assistance Retrieving/Set-up of Grooming Items Face Washing Comments OT Grooming Comments Seated in chair at sink OT ADL-Oral Care General Eval Oral Care Ability Standby Assistance Areas of Assistance Brushing Teeth Retrieving/Set-Up of Items Comments Oral Care Comments Seated in chair at sink OT ADL-Dressing General Eval Lower Body Dressing Ability Minimal Assistance Areas Needing Assistance Socks Assistive Devices Dressing Assistive Devices Dressing Stick Customer Development Representative Sock Aid Comments OT Dressing Comments Doffed and donned sock to the LLE. OT ADL-Toileting Comments OT Toileting Comments Pt declined need M5 OT- IP IADL's Start: 10/10/18 18:29 Freq: Status: Active Protocol: Document 10/10/18 13:40 [facility] (Rec: 10/10/18 18:58 [facility] [id number]) OT-Instrumental Activities of Daily Living Home Safety Awareness Home Safety Comments Prior pt states did all medications, money management, and drives. M6 OT- IP Functional Cognition Start: 10/10/18 18:29 Freq: Status: Active Protocol: Document 10/10/18 13:40 [facility] (Rec: 10/10/18 18:58 [facility] [id number]) Cognitive Factors Limiting Selfcare Function Cognitive Ability Level of Alertness Alert Patient Orientation Name Place Situation Attention Span Ability Capable of Focused Attention Capable of Sustained Attention Ability to Follow Commands Able to Follow Multi-Step Commands Safety Awareness Underestimates Need for Assistance Cognitive Comments Cognitive Assessment Comments Pt able to follow multiple commands and state needs. OT- Vision and Hearing OT- Hearing Assessment OT- Hearing Assessment WFL M7 OT- IP Mobility and Balance Start: 10/10/18 18:29 Freq: Status: Active Protocol: Document 10/10/18 13:40 [facility] (Rec: 10/10/18 18:58 [facility] [id number]) OT- Bed Mobility Assessment Sit to Supine Sit to Supine Assist Maximum Assistance 2 Person Assistance Scooting Scooting to Edge of Bed Maximum Assistance 2 Person Assistance OT-Transfer Assessment Sit to and From Stand Sit to and from Stand Maximum Assistance 2 Person Assistance Transfers Transfer Ability Maximum Assistance 2 Person Assistance Technique Transfer Destination Bed Bedside Commode Chair Devices Transfer Assistive Devices Gait Belt Front Wheeled Walker Comments Mobility Comments MAX A X2 to stand and to be able to follow 50lbs WB status for RLE. Pt needing assist for balance, guide FWW, and to be sure pt following weight bearing status. Pt take small hop or slide his left foot fro transfer with FWW and MAX A X2. OT- Balance Assessment Sitting Balance and Reactions Static Sitting Balance Ability Normal Dynamic Sitting Balance Ability Good Standing Balance and Reactions Static Standing Balance Ability Poor M8 OT- IP Objective Assessments Start: 10/10/18 18:29 Freq: Status: Active Protocol: Document 10/10/18 13:40 [facility] (Rec: 10/10/18 18:58 [facility] [id number]) OT Gross Range of Motion Upper Extremity Range of Motion Assessment Bilaterally Impaired ROM Impairments Pt states has bad shoulders 0- 80 shoulder flexion. OT Strength Upper Extremity Strength Elbow 4/5 Forearm 4/5 Wrist 4/5 Hand 4/5 OT- Coordination Assessment Upper Extremity Finger to Nose Test Within Functional Limits Comments Coordination Comments Pt needing assist to open film on toothpaste top. M9 OT- IP Assessment and Plan Start: 10/10/18 18:29 Freq: Status: Active Protocol: Document 10/11/18 15:56 [facility] (Rec: 10/11/18 16:00 [facility] [id number]) OT Summary Assessment and Plan Potential Rehabilitation Potential Good Analytic Complexity at Evaluation Low Summary OT Impairments Pain Range of Motion Strength Balance Coordination Functional Mobility Dressing Toileting Bathing Toilet Transfers Shower Transfers Progress Towards Goals Slow Progress due to Pain Slow Progress due to Medical Issues Slow Progress due to Activity Tolerance Assessment Summary Pt is progressing and is agreeable to participating in self care. Pt's main barrier at this time is his mobility. Goals Dressing Goal Minimal Assistance Toileting Goal Standby Assistance Bathing Goal Minimal Assistance Toilet Transfer Goal Minimal Assistance Shower Transfer Goal Moderate Assistance Days to Meet Goals 9 Frequency of Treatment Frequency Of Treatment Once a Day Treatment Plan OT Treatment Plan ADL Training Functional Mobility Patient/Family Education Discharge Planning Other Treatment Recommendations and Next Practice LB dressing with AED Treatment Focus Discharge Recommendations OT Discharge Recommendations SNF Rehab Home Equipment Needs Tub bench, BSC, FWW, LB AED
[2018-10-11 19:35] VITALS: BP 125/71; PULSE 74; RESP 18; TEMP 37.4; O2SAT 99
[2018-10-11] MEDS: MAGNESIUM HYDROXIDE 30 ML UDC PO (20:03)
[2018-10-12 01:05] VITALS: BP 127/70; PULSE 71; RESP 18; TEMP 37; O2SAT 98
[2018-10-12 05:00] VITALS: BP 120/70; PULSE 81; RESP 18; TEMP 37.2; O2SAT 97
[2018-10-12] MEDS: OXYCODONE/ACETAMINOPHEN 5/325 TABLET 1 TAB PO (06:18)
[2018-10-12 07:45] VITALS: BP 120/60; PULSE 63; RESP 16; TEMP 37.3; O2SAT 97
--- NOTE | 2018-10-12 10:01 | OT.IP.TRT ---
Current Diagnoses Unspecified fracture of right femur, initial encounter for closed fracture (10/09/18) Surgery Performed Operation Date: 10/09/18 17:00 Actual Procedures p ORIF Hip/Intramedullary Hip Screw(Right) - Shannan Sun MD Occupational Therapy Treatment Note M2 OT-IP Current Condition Start: 10/10/18 18:29 Freq: Status: Active Protocol: Document 10/10/18 13:40 [facility] (Rec: 10/10/18 18:58 [facility] [id number]) Occupational Therapy Current Condition Current Condition Evaluation Date 10/10/18 Treatment Diagnosis Right Hip Intertrochan Diagnosis Onset Date 10/09/18 Weight Bearing Status Weight Bearing Status Partial Weight Bearing Allowed Weight Bearing Amount (enter % 50 lbs for RLE or #) (%) M3 OT- IP Subjective and Pain Start: 10/10/18 18:29 Freq: Status: Active Protocol: Document 10/12/18 09:47 [facility] (Rec: 10/12/18 10:01 [facility] [id number]) OT- Subjective Occupational Therapy Visit Type Type Treatment Note Visit Start Time 09:08 Visit Stop Time 09:47 Total Visit Minutes 39 Occupational Therapy Visit Comments Patient Comments Pt agreeable to get up to do grooming. OT Pain Assessment Pain When Pain Assessed During Mobility Pain Present Pain Present Pain Reported Location Right Hip Intensity 12 Scale Used Numeric (1 - 10) M4 OT- IP ADL's Start: 10/10/18 18:29 Freq: Status: Active Protocol: Document 10/12/18 09:47 [facility] (Rec: 10/12/18 10:01 [facility] [id number]) OT ADL-Grooming General Evaluation Grooming Ability Contact Guard Assistance Areas Needing Assistance Retrieving/Set-up of Grooming Items Face Washing Comments OT Grooming Comments CGA with FWW for balance. Pt able to hold to counter for balance while standing to do grooming needs and good safety awareness for 50# WB. OT ADL-Oral Care General Eval Oral Care Ability Standby Assistance Areas of Assistance Brushing Teeth Retrieving/Set-Up of Items OT ADL-Dressing General Eval Lower Body Dressing Ability Moderate Assistance Areas Needing Assistance Socks Assistive Devices Dressing Assistive Devices Dressing Stick Sock Aid Comments OT Dressing Comments MODA to help lift R foot into sock aid and guide sock aid to celsa right sock. Pt independent with left foot with sock aid. OT ADL-Bathing Bathing Type Bathing Type Sponge Bath General Evaluation Bathing Ability Moderate Assistance Areas Needing Assistance Wash/Dry Back Wash/Dry Lower Extremities Comments OT Bathing Comments SPonge bath while sitting in the recliner, pt needing assist to wash/dry back and LLE. Pt able to get front perineal area and not wanting to stand again to get his bottom at this time. M5 OT- IP IADL's Start: 10/10/18 18:29 Freq: Status: Active Protocol: Document 10/10/18 13:40 [facility] (Rec: 10/10/18 18:58 [facility] [id number]) OT-Instrumental Activities of Daily Living Home Safety Awareness Home Safety Comments Prior pt states did all medications, money management, and drives. M6 OT- IP Functional Cognition Start: 10/10/18 18:29 Freq: Status: Active Protocol: Document 10/12/18 09:47 [facility] (Rec: 10/12/18 10:01 [facility] [id number]) Cognitive Factors Limiting Selfcare Function Cognitive Ability Level of Alertness Alert Patient Orientation Name Place Situation Attention Span Ability Capable of Focused Attention Capable of Sustained Attention Ability to Follow Commands Able to Follow Multi-Step Commands Memory Description No Deficits Noted Safety Awareness Underestimates Need for Assistance Cognitive Comments Cognitive Assessment Comments Occasional VC for safety of right LE management needs. M7 OT- IP Mobility and Balance Start: 10/10/18 18:29 Freq: Status: Active Protocol: Document 10/12/18 09:47 [facility] (Rec: 10/12/18 10:01 [facility] [email or web address]) OT- Bed Mobility Assessment Supine to Sit Supine to Sit Assist Maximum Assistance 1 Person Assistance Head of Bed Elevated OT-Transfer Assessment Sit to and From Stand Sit to and from Stand Maximum Assistance 1 Person Assistance Transfers Transfer Ability Moderate Assistance 1 Person Assistance Technique Transfer Destination Bed Chair Devices Transfer Assistive Devices Gait Belt Front Wheeled Walker Comments Mobility Comments Heavy use of FWW or armrests to come to stand. Once up able to maintain 50lb weight bearing status and do transfer , with MODA amd MODA to help lower to the recliner as pt tends to give out due to weakness. OT- Balance Assessment Sitting Balance and Reactions Static Sitting Balance Ability Normal Dynamic Sitting Balance Ability Good Standing Balance and Reactions Static Standing Balance Ability Fair M8 OT- IP Objective Assessments Start: 10/10/18 18:29 Freq: Status: Active Protocol: Document 10/10/18 13:40 [facility] (Rec: 10/10/18 18:58 [facility] [id number]) OT Gross Range of Motion Upper Extremity Range of Motion Assessment Bilaterally Impaired ROM Impairments Pt states has bad shoulders 0- 80 shoulder flexion. OT Strength Upper Extremity Strength Elbow 4/5 Forearm 4/5 Wrist 4/5 Hand 4/5 OT- Coordination Assessment Upper Extremity Finger to Nose Test Within Functional Limits Comments Coordination Comments Pt needing assist to open film on toothpaste top. M9 OT- IP Assessment and Plan Start: 10/10/18 18:29 Freq: Status: Active Protocol: Document 10/12/18 09:47 [facility] (Rec: 10/12/18 10:01 [facility] [email or web address]) OT Summary Assessment and Plan Potential Rehabilitation Potential Good Analytic Complexity at Evaluation Low Summary OT Impairments Pain Range of Motion Strength Balance Coordination Functional Mobility Dressing Toileting Bathing Toilet Transfers Shower Transfers Progress Towards Goals Progressing Toward Goals Assessment Summary Pt able to do grooming while standing today and participate in sponge bath. Pt's main limitation is his strength and mobility. Pt looking to go to skilled rehab soon. Goals Grooming Goal Standby Assistance Dressing Goal Minimal Assistance Toileting Goal Standby Assistance Bathing Goal Minimal Assistance Toilet Transfer Goal Minimal Assistance Shower Transfer Goal Moderate Assistance OT-Other Goals grooming done in standing Days to Meet Goals 7 Frequency of Treatment Frequency Of Treatment Once a Day Treatment Plan OT Treatment Plan ADL Training Functional Mobility Patient/Family Education Discharge Planning Discharge Recommendations OT Discharge Recommendations SNF Rehab Home Equipment Needs Tub bench, BSC, FWW, LB AED
--- NOTE | 2018-10-12 10:05 | PM.DS.1 ---
History of Present Illness Date Patient Seen: 10/12/18 Time Patient Seen: 10:05 Chief complaint: RIGHT HIP FRACTURE Narrative: Hospital day 4, postop day 3 following right intertrochanteric fracture with dynamic hip screw done on 10/09/[address] Sun. Patient's BP remained stable. 50 lb weight-bearing to right leg. He has been seen by PT/OT who both recommend SNF because of 2 person assist. Pain control with Tylenol. He states oxycodone is not do anything for him. Patient also seen today by Dr. Sun. Discharge Providers Date of admission: 10/09/18 16:04 Discharge Date: 10/12/18 Primary care physician: Kt Garsia MD Consults: 10/09/18 20:34 Consult to Discharge Planning Routine Comment: Consult to Physical Therapy Evaluate & Treat Comment: 50 lbs max right LE, home when safe Physician Instructions: Evaluate and Treat Consult to Physician Routine Comment: Consulting Provider: Kt Garsia Reason for consultation: medical Has provider been notified: Yes Consult to Respiratory Therapy Evaluate & Treat Comment: Physician Instructions: Evaluate and treat 10/10/18 11:56 Consult to Occupational Therapy Evaluate & Treat Comment: hip fracture Physician Instructions: Evaluate and treat 10/10/18 13:35 Consult to Occupational Therapy Evaluate & Treat Comment: Physician Instructions: Evaluate and treat Discharge provider: Chintan Curry PA-C Summary Discharge Diagnosis: Status post right intertrochanteric hip fracture with dynamic hip screw Hospital Course: Patient sustained a fall on 10/09/2018 and brought to [facility]. He was seen by Dr. Sun and had surgery for right intertrochanteric fracture with dynamic hip screw placed. He remained stable postoperatively. Knee did it continued 2 person assist for transfers and help with ambulation. 50 lb weight-bearing to right leg. Patient was ready for discharge to SNF on postop day 3 for further rehab. Status at Discharge Cognitive/behavioral status at discharge: oriented Functional status at discharge: uses cane/walker Overall status at discharge: patient is progressing back to baseline Time Spent with Patient Less than 30 minutes Exam Vital Signs (past 8 hours): - 10/12/18 05:00 10/12/18 07:45 Temperature 98.9 F 99.2 F Pulse Rate 81 63 Respiratory Rate 18 16 Blood Pressure 120/70 120/60 Pulse Oximetry 97 97 Oxygen Delivery Method Room Air Oxygen Flow Rate 0 Narrative Exam Narrative: Alert, oriented no acute distress resting in bed. Legs. Aquacel dressing to right hip is dry without drainage or inflammation. No calf pain or swelling. Pulses symmetrical. Objective Labs Result Diagrams: 10/10/18 05:24 Discharge Plan Discharge Plan Patient Disposition: SNF Transfer to: [facility] Under care of provider: Facility MD or PCP Transportation: Facility vehicle Discharge comment: 50 lb weight-bearing to right leg I certify the postop hospital nursing home care is medically necessary on a continuing basis for any conditions for which he/ she received care during this hospitalization.: Yes The receiving facility has agreed to accept transfer and provide medical treatment.: Yes Discharge Med Rec/Prescriptions Prescriptions: New acetaminophen 325 mg Tablet 975 mg PO TID Qty: 60 RF: 0 aspirin 81 mg Tablet,Delayed Release (Dr/Ec) 81 mg PO BID Qty: 60 RF: 0 hydromorphone 2 mg Tablet 2 mg PO Q3H PRN (Reason: Pain, Severe (7-10)) Qty: 15 RF: 0 Continued cholecalciferol (vitamin D3) 5,000 unit capsule 5,000 unit PO DAILY RF: 0 cyanocobalamin (vitamin B-12) 1,000 mcg capsule 1,000 mcg PO DAILY RF: 0 thyroid (pork) [Kerrick Thyroid] 15 mg tablet 15 mg PO DAILY RF: 0 Follow up/Referrals: Kt Garsia MD [Primary Care Provider] - Discharge Health Status Brief summary of current health status: Patient had of fall causing right hip fracture. He underwent right hip dynamic hip screw surgery on 10/09/2018. Has remained stable. Needs continued assist for transfers and ambulation. Multidrug resistant organism: No MDRO Provider Discharge Instructions Diet: Diet as Tolerated Liquid consistency: Normal/Thin Food texture: Regular Activity: Ambulate as tolerated with 50 lb weight-bearing to the right leg. Use walker as needed and assist. Skin/Wound/Dressing Care Report to your healthcare provider any signs of infection, such as:: chills, fever, night sweats, increased pain, unusual drainage and unusual redness Dressing: Keep Aquacel dressing to right hip in place until postop visit. Special Rehabilitation Services Reason for rehabilitation: Post-operative therapy Rehab type: Physical therapy and Occupational therapy Visit Report/Discharge Packet Instructions: DI for Open Reduction Internal Fixation Surgery Discharge Data Primary Care Provider: Kt Garsia Attending Provider: Shannan Sun Admit Date/Time: 10/09/18 16:04
--- NOTE | 2018-10-12 10:06 | CM.DPC ---
DCP: continued: Case discussed in Team Rounds and ortho GAEL Curry noted that pt was stable for transition to snf level care today. He is currently completing the orders. Left a vm on the admission cell/[facility] and with request for time of w/c van transport. September has called back: 1530 is only time they can manage. Will have day shift RN call report and will have all orders faxed to [facility] this morning. PASRR is completed: Will check d/c orders and then fax to [facility], give copy to [facility] to scan to EMR and place original into snf packet. Will update pt and his nursing team now.
--- NOTE | 2018-10-12 10:09 | P.DS_ITS ---
History of Present Illness Date Patient Seen: 10/12/18 Time Patient Seen: 10:05 Chief complaint: RIGHT HIP FRACTURE Narrative: Hospital day 4, postop day 3 following right intertrochanteric f racture with dynamic hip screw done on 10/09/[address] Sun. Patient's BP remained stable. 50 lb weight-bearing to right leg. He has been seen by PT/OT who both recommend SNF because of 2 person assist. Pain control with Tylenol. He states oxycodone is not do anything for him. Patient also seen today by Dr. Sun. Discharge Providers Date of admission: 10/09/18 16:04 Discharge Date: 10/12/18 Primary care physician: Kt Garsia MD Consults: 10/09/18 20:34 Consult to Discharge Planning Routine Comment: Consult to Physical Therapy Evaluate & Treat Comment: 50 lbs max right LE, home when safe Physician Instructions: Evaluate and Treat Consult to Physician Routine Comment: Consulting Provider: Kt Garsia Reason for consultation: medical Has provider been notified: Yes Consult to Respiratory Therapy Evaluate & Treat Comment: Physician Instructions: Evaluate and treat 10/10/18 11:56 Consult to Occupational Therapy Evaluate & Treat Comment: hip fracture Physician Instructions: Evaluate and treat 10/10/18 13:35 Consult to Occupational Therapy Evaluate & Treat Comment: Physician Instructions: Evaluate and treat Discharge provider: Chintan Curry PA-C Summary Discharge Diagnosis: Status post right intertrochanteric hip fracture with dynamic hip screw Hospital Course: Patient sustained a fall on 10/09/2018 and brought to [facility]. He was seen by Dr. Sun and had surgery for right intertrochanteric fracture with dynamic hip screw placed. He remained stable postoperatively. Knee did it continued 2 person assist for transfers and help with ambulation. 50 lb weight-bearing to right leg. Patient was ready for discharge to SNF on postop day 3 for further rehab. Status at Discharge Cognitive/behavioral status at discharge: oriented Functional status at discharge: uses cane/walker Overall status at discharge: patient is progressing back to baseline Time Spent with Patient Less than 30 minutes Exam Vital Signs (past 8 hours): - 10/12/18 05:00 10/12/18 07:45 Temperature 98.9 F 99.2 F Pulse Rate 81 63 Respiratory Rate 18 16 Blood Pressure 120/70 120/60 Pulse Oximetry 97 97 Oxygen Delivery Method Room Air Oxygen Flow Rate 0 Narrative Exam Narrative: Alert, oriented no acute distress resting in bed. Legs. Aquacel dressing to right hip is dry without drainage or inflammation. No calf pain or swelling. Pulses symmetrical. Objective Labs Result Diagrams: 10/10/18 05:24 Discharge Plan Discharge Plan Patient Disposition: SNF Transfer to: [facility] Under care of provider: Facility MD or PCP Transportation: Facility vehicle Discharge comment: 50 lb weight-bearing to right leg I certify the postop hospital prison care is medically necessary on a continuing basis for any conditions for which he/ she received care during this hospitalization.: Yes The receiving facility has agreed to accept transfer and provide medical treatment.: Yes Discharge Med Rec/Prescriptions Prescriptions: New acetaminophen 325 mg Tablet 975 mg PO TID Qty: 60 RF: 0 aspirin 81 mg Tablet,Delayed Release (Dr/Ec) 81 mg PO BID Qty: 60 RF: 0 hydromorphone 2 mg Tablet 2 mg PO Q3H PRN (Reason: Pain, Severe (7-10)) Qty: 15 RF: 0 Continued cholecalciferol (vitamin D3) 5,000 unit capsule 5,000 unit PO DAILY RF: 0 cyanocobalamin (vitamin B-12) 1,000 mcg capsule 1,000 mcg PO DAILY RF: 0 thyroid (pork) [Ke[place] Thyroid] 15 mg tablet 15 mg PO DAILY RF: 0 Follow up/Referrals: Kt Garsia MD [Primary Care Provider] - Discharge Health Status Brief summary of current health status: Patient had of fall causing right hip fracture. He underwent right hip dynamic hip screw surgery on 10/09/2018. Has remained stable. Needs continued assist for transfers and ambulation. Multidrug resistant organism: No MDRO Provider Discharge Instructions Diet: Diet as Tolerated Liquid consistency: Normal/Thin Food texture: Regular Activity: Ambulate as tolerated with 50 lb weight-bearing to the right leg. Use walker as needed and assist. Skin/Wound/Dressing Care Report to your healthcare provider any signs of infection, such as:: chills, fever, night sweats, increased pain, unusual drainage and unusual redness Dressing: Keep Aquacel dressing to right hip in place until postop visit. Special Rehabilitation Services Reason for rehabilitation: Post-operative therapy Rehab type: Physical therapy and Occupational therapy Visit Report/Discharge Packet Instructions: DI for Open Reduction Internal Fixation Surgery Discharge Data Primary Care Provider: Kt Garsia Attending Provider: Shannan Sun Admit Date/Time: 10/09/18 16:04
[2018-10-12] MEDS: CYANOCOBALAMIN (VITAMIN B-12) 500 MCG TABLET 1000 MCG PO (10:15)
[2018-10-12] MEDS: CHOLECALCIFEROL (VITAMIN D3) 5,000 UNIT TABLET 5000 UNIT PO (10:16)
[2018-10-12] MEDS: THYROID, PORK 30 MG TABLET 15 MG PO (10:18)
[2018-10-12] MEDS: POLYETHYLENE GLYCOL 3350 17 GM POWD.PACK PO (10:18)
[2018-10-12] MEDS: ACETAMINOPHEN 325 MG TABLET 975 MG PO ×2 (10:19→14:37)
[2018-10-12] MEDS: DOCUSATE 100 MG CAPSULE PO (10:19)
[2018-10-12] MEDS: ASPIRIN EC 81 MG TABLET PO (10:19)
[2018-10-12] MEDS: SODIUM CHLORIDE 0.9% FLUSH 10 ML IV (10:20)
--- NOTE | 2018-10-12 11:05 | PT.IPTN ---
Current Diagnoses Unspecified fracture of right femur, initial encounter for closed fracture (10/09/18) Surgery Performed Operation Date: 10/09/18 17:00 Actual Procedures p ORIF Hip/Intramedullary Hip Screw(Right) - Shannan Sun MD Physical Therapy Treatment Note M2 PT-IP Current Condition Start: 10/10/18 12:14 Freq: NEEDED Status: Active Protocol: Document 10/10/18 09:57 AB (Rec: 10/10/18 12:25 AB [id number]) Physical Therapy Current Condition Current Condition Evaluation Date 10/10/18 Treatment Diagnosis R intertrochanteric hip fx s/p ORIF; difficulty in walking Onset Date 10/09/18 Weight Bearing Status Weight Bearing Status Touch Down Weight Bearing Allowed Weight Bearing Amount (enter % TDWB RLE: 50# max or #) (%) M3 PT-IP Subjective Start: 10/10/18 12:14 Freq: NEEDED Status: Active Protocol: Document 10/12/18 11:05 GGD (Rec: 10/12/18 12:05 GGD [id number]) Subjective Physical Therapy Visit Type Type Treatment Note Visit Start Time 10:40 Visit Stop Time 11:05 Total Visit Minutes 25 Number of MEASUREMENT SUPERINTENDENT Visits 1 Physical Therapy Visit Comments Patient Comments Pt willing to work with therapy. Therapy Pain Assessment Pain When Pain Assessed At Rest Pain Present Pain Present Pain Reported M4 PT-IP Mobility and Gait Start: 10/10/18 12:14 Freq: NEEDED Status: Active Protocol: Document 10/12/18 11:05 GGD (Rec: 10/12/18 12:05 GGD [id number]) PT-Transfer Assessment Sit to and From Stand Sit to and from Stand Maximum Assistance 1 Person Assistance Use of Upper Extremities Equipment Transfer Assistive Device Gait Belt Front Wheeled Walker Orthotic/Prosthetic Devices or Brace: No Transfers Transfer Destination Chair Transfer Ability Level of Assist Minimal Assistance 1 Person Assistance Use of Upper Extremities Gait Assessment Gait Gait Assistance Required: Minimum Assistance Distance (Feet) 10 Able to Maintain Weight Bearing Status Yes During Gait Assistive Devices Assistive Device Gait Belt Front Wheeled Walker Orthotic/Prosthetic Devices or Brace: Yes Gait Deviations General Gait Pattern Antalgic Decreased Stride Length Decreased Feet Clearance Factors Limiting Gait Function Factors Limiting Gait Function Decreased Activity Tolerance Limited Range of Motion Pain Poor Balance M5 PT-IP Objective Assessments Start: 10/10/18 12:14 Freq: NEEDED Status: Active Protocol: Document 10/10/18 09:57 AB (Rec: 10/10/18 12:25 AB [id number]) Orientation Orientation/Cognition Level of Alertness Alert Orientation Name Place Situation Gross Range of Motion Lower Extremity ROM Assessment Within Functional Limits Impairments R hip tightness during PROM Strength Lower Extremity Strength Assessment Right Impaired Hip 3-/5 Knee 3-/5 Coordination Assessment Gross Coordination Gross Coordination WNL Sensation Assessment Sensation Gross Sensation WNL Muscle Tone Muscle Tone WNL Yes M6 PT-IP Treatment Start: 10/10/18 12:14 Freq: NEEDED Status: Active Protocol: Document 10/12/18 11:05 GGD (Rec: 10/12/18 12:05 GGD [id number]) Physical Therapy Treatment Exercises Exercises Gluteal Sets Quad Sets Heel Slides Education Education Provided Precautions Weight Bearing Status M7 PT-IP Assessment and Plan Start: 10/10/18 12:14 Freq: NEEDED Status: Active Protocol: Document 10/12/18 11:05 GGD (Rec: 10/12/18 12:05 GGD [id number]) PT Summary Assessment and Plan Summary Assessment Summary Pt needed less assist with sit to stand. He was able to progress short distance gait. Pt would benefit from SNF rehab to improve functional mobility. Frequency of Treatment Frequency Of Treatment Twice a Day Treatment Plan Physical Therapy Treatment Plan Bed Mobility Training Transfer Training Gait Training Therapeutic Exercise Balance Retraining Post Op Education Discharge Planning Hot or Cold Pack Neuromuscular Re-ed Coordination Retraining Manual Therapy Recommendations To Nursing Amount of Assist Needed 2 Person Assist Discharge Recommendations PT Discharge Recommendations SNF Rehab
[2018-10-12 11:14] VITALS: BP 123/55; PULSE 74; RESP 16; TEMP 36.9; O2SAT 100
--- NOTE | 2018-10-12 12:14 | PC.NURSE ---
Addendum entered by Lisa Gomes R.N. 10/12/18 15:16: Report called to [facility] and pt will be picked up here at 1530. Original Note: Pt is discharging to care center today. Given tylenol for pain and discomfort. Up with 2pa to xfer and with bed mobility. Dressing to r.hip is cdi.
[2018-10-12] MEDS: BISACODYL 10 MG SUPP PR (12:45)
--- NOTE | 2018-10-12 15:50 | PC.NURSE ---
Pt off ac unit via wheelchair with facility staff member. All belongings with pt and discharge packet given to facility staff. Denies further questions/or needs.
== END 2018-10-12 15:45 | DRG 482 ==
PROVIDERS: Admitting Provider Orthopaedic Surgery; PCP Internal Medicine; Visit Provider Orthopaedic Surgery
PROC: 0QS604Z Reposition Right Upper Femur with Internal Fixation Device, Open Approach (ICD-10-PCS; CPT 27245; principal; 2018-10-09 17:00)
DX: S72.144A Nondisplaced intertrochanteric fracture of right femur, initial encounter for closed fracture (principal); W01.0XXA Fall on same level from slipping, tripping and stumbling without subsequent striking against object, initial encounter; Z87.891 Personal history of nicotine dependence
CPT/HCPCS: 36415; 73502; 76000; 85027; 94762; 97116; 97162; 97165; 97530; 97535; 99223; J0690; J1100; J1200; J2250; J2274; J2405; J2704; J3010

== ENCOUNTER → 2019-02-13 15:40 | Outpatient (CLI) | payer MEDICARE, OTHER, SELFPAY ==
[2018-10-09 20:43] VITALS: BMI 24.4
== END ==
PROVIDERS: Family Provider Internal Medicine; PCP Internal Medicine; Visit Provider Specialist
DX: I49.9 Cardiac arrhythmia, unspecified (principal)
CPT/HCPCS: 93005; 93010; 99213

== ENCOUNTER 2019-02-18 11:33 | Day surgery (SDC) | payer MEDICARE, OTHER, SELFPAY ==
[2018-10-09 20:43] VITALS: BMI 24.4
[2019-02-11 15:14] VITALS: BMI 25.0
[2019-02-18] VITALS (8 sets, daily range): BP systolic 126–163; BP diastolic 71–85; PULSE 63–74; RESP 11–16; TEMP 36.2–37; O2SAT 95–99; BMI 24.4
[2019-02-18] MEDS: LACTATED RINGERS 1,000 ML 100 ML IV (14:24)
--- NOTE | 2019-02-18 14:56 | PM.PREOP ---
Pre-operative Note Interval Note History & Physical reviewed/Exam performed by Physician: Yes Changes to H&P: No
--- NOTE | 2019-02-18 15:01 | PM.PREOP ---
Pre-operative Note Interval Note History & Physical reviewed/Exam performed by Physician: Yes Changes to H&P: No
[2019-02-18] MEDS: CEFAZOLIN 2 GM/100 ML FROZ.PIGGY IV (15:05)
--- NOTE | 2019-02-18 15:30 | SUR.OPER ---
Supine on padded OR bed, head on pillow, arms secured on padded arm boards at <90 degrees abduction, legs uncrossed, safety belt at thigh, tape over blanket over lower legs. Supine on padded OR bed, head on pillow, arms secured on padded arm boards at <90 degrees abduction, legs uncrossed, safety belt at thigh, tape over blanket over lower legs.
[2019-02-18] MEDS: BUPIVACAINE 0.5% (PF) VIAL 30 ML INJ (15:39)
--- NOTE | 2019-02-18 16:54 | PM.OP.1 ---
Operative Date/Time/Diagnoses Date of procedure: 02/18/19 Time of procedure: 16:30 Pre-op diagnosis: Right inguinal hernia reducible Post-op diagnosis: same (Large indirect sac With large lipoma in the region.) Procedure & Clinicians Procedure: Repair with plug and patch technique Same procedure as scheduled: Yes Indications: Symptomatic right inguinal hernia Surgeon: Carlo Espinoza Click Yes if Unassisted: Yes Anesthesia Type: General Operative Notes Findings: Large lipoma anterior to the cord. Cord contained a large hernia sac. Closure Type: primary Specimen(s): none sent Prosthetic devices, grafts, tissues, transplants, or devices: Mesh Estimated Blood Loss (mL): 5 Blood products transfused: none Procedure in detail: The patient was placed supine on the operating room table and underwent general LMA anesthesia. He was prepped and draped in the usual fashion. A transverse incision was made overlying the right internal ring and carried down to the level of the external oblique. The external oblique was opened parallel with its fibers through the external ring. The cord structures were elevated. There was a large lipoma that was pedunculated in the area and attached to the cremaster externally. It was from surrounding structures and ligated at the base of its protrusion. The cremaster was opened proximally and search made for an indirect sac. One was found and from surrounding structures. It was a large chronic sac. It had no contents. It was suture ligated with a 2 0 silk suture.. The floor was examined and was found to be mildly weakened. The patient had a medium plug placed in the defect created by the hernia sac. It was tacked into place with 0 Tycron sutures. The cremaster was closed over it with 3 0 Vicryl.. A patch was placed across the floor and tacked at the pubic tubercle, the posterior lamella of the anterior rectus sheath, the ilioinguinal ligament, and superior lateral to the cord. The opening was modified as necessary to prevent tight constriction of the cord. Sutures of 0 Tycron were used to secure the mesh. The external oblique was closed with a running 3 0 Vicryl. The subcu was closed with interrupted 3 0 Vicryl. The skin was closed with a running 4 0 Vicryl subcuticular stitch and Steri-Strips. Dressing was applied, the patient was awakened, and the patient was taken to the recovery area in good condition. Complications: none Post-operative Condition: stable Disposition: PACU
[2019-02-18] MEDS: OXYCODONE IR 5 MG TABLET PO (17:47)
== END 2019-02-18 18:38 | disposition home or self-care (01) ==
PROVIDERS: Family Provider Internal Medicine; PCP Internal Medicine; Visit Provider Specialist
PROC: (CPT 49505; principal; 2019-02-18 13:45)
DX: K40.90 Unilateral inguinal hernia, without obstruction or gangrene, not specified as recurrent (principal); E03.9 Hypothyroidism, unspecified; I10 Essential (primary) hypertension; R00.8 Other abnormalities of heart beat; D17.5 Benign lipomatous neoplasm of intra-abdominal organs
CPT/HCPCS: 49505; 94762; C1781; J0690; J1100; J2405; J2704; J3010

== ENCOUNTER 2019-05-08 08:50 | Emergency (ER) | payer MEDICARE, OTHER, SELFPAY ==
[2019-05-06 10:38] VITALS: BMI 24.4
[2019-05-08 09:03] VITALS: BP 193/86; PULSE 61; RESP 14; TEMP 36.9; O2SAT 100; BMI 24.4
--- NOTE | 2019-05-08 10:14 | DI.RAD.S_ITS ---
PROCEDURE: XR FINGER LT MIN 2V INDICATIONS: abscess, r/o foreign body TECHNIQUE: AP hand, 2 views of the first finger(s) acquired. COMPARISON: None. FINDINGS: Bones: No fractures or dislocations. No suspicious bony lesions. Mild to moderate multifocal joint space narrowing and degenerative change. Soft tissues: No suspicious soft tissue calcifications. Punctate calcifications in the fourth/fifth metacarpal interdigital space. No radiopaque foreign body. IMPRESSION: No acute osseous abnormality. No radiopaque foreign body. Ultrasound could be considered for further evaluation for non-radiopaque foreign body or abscess. Dictated by: Gutierrez Lugo M.D. on 05/08/2019 at 10:30 Approved by: Gutierrez Lugo M.D. on 05/08/2019 at 10:36
--- NOTE | 2019-05-08 11:19 | ED_ITS ---
HPI - Skin/Abscess/Foreign Bdy <KEON Alexander - Last Filed: 05/08/19 22:26> General Chief complaint: Skin/Abscess/Foreign Body Stated complaint: INFECTED LEFT INDEX FINGER Time Seen by Provider: 05/08/19 10:49 Source: patient Mode of arrival: Ambulatory Limitations: no limitations History of Present Illness HPI narrative: 78-year-old male presents emergency department complaining of finger swelling to his left index finger for the past week from a sliver. Patient was started on Keflex on 05/02/19, and then started on Bactrim on 05/06/19. Patient states over the past 2 days he has noted increased swelling and pain. Patient states he squeezed his finger last night and noted a moderate amount of purulent drainage. Today he has had serosanguineous drainage. Patient is worried that it might getting worse. Patient denies any fevers, chills, nausea, vomiting, diarrhea, chest pain, shortness of breath, or other concerns. Related Data Home Medications Medication Instructions Recorded Confirmed acetaminophen [Tylenol] 650 mg PO Q4-6H PRN 02/18/19 05/06/19 Previous Rx's Medication Instructions Recorded sulfamethoxazole 800 1 tab PO Q12H #14 tab 05/06/19 mg-trimethoprim 160 mg tablet omeprazole 20 mg PO DAILY 14 Days #14 cap 05/08/19 Allergies Allergy/AdvReac Type Severity Reaction Status Date / Time colistin [COLISTIN] Allergy Unknown PAIN AND Verified 05/08/19 09:03 SWELLING (FROM CORTISPORIN TC) THONZONIUM Allergy Unknown LOCAL PAIN Uncoded 05/06/19 10:48 AND SWELLING (FROM CORTISPORIN TC) Review of Systems <KEON Alexander - Last Filed: 05/08/19 22:26> Review of Systems Narrative: REVIEW OF SYSTEMS: GENERAL: Denies fever or chills. HENT: No head trauma. EYES: No double vision or vision loss. CARDIOVASCULAR: No chest pain or syncope. RESPIRATORY: No shortness of breath or cough. GASTROINTESTINAL: No nausea, vomiting, diarrhea, or constipation. GENITOURINARY: No flank pain or dysuria. MUSCULOSKELETAL: Complains of left index finger pain and swelling, see HPI. INTEGUMENTARY: No rash, lesions, or pruritus. NEURO: No numbness, tingling. PSYCH: No behavior or mood changes. Patient History <KEON Alexander - Last Filed: 05/08/19 22:26> Medical History Acquired hypothyroidism (Chronic) Allergic rhinitis due to other allergen (Chronic 09/16/11) Back pain (Chronic) Eczema (Chronic) Essential hypertension (Chronic 07/25/17) Former cigarette smoker (Inactive) Irregular heartbeat (Chronic) Surgical History History of hip surgery (Acute 10/09/18) S/P right inguinal hernia repair (Acute ~02/2019) Social History household members: children Smoking Status: Former smoker alcohol intake: current Smoking Status: Former smoker alcohol intake frequency: holidays/special occasions only Substance Use Type: does not use Exam <KEON Alexander - Last Filed: 05/08/19 22:26> Initial Vital Signs Initial Vital Signs: Vital Signs Temperature 98.4 F 05/08/19 09:03 Pulse Rate 61 05/08/19 09:03 Respiratory Rate 14 05/08/19 09:03 Blood Pressure 193/86 H 05/08/19 09:03 Pulse Oximetry 100 05/08/19 09:03 PHYSICAL EXAMINATION: GENERAL: Well groomed, alert, and cooperative. Answers questions promptly and appropriately. Vital signs noted. HENT: Normocephalic, atraumatic. EYES: Symmetrical, sclera white, no periorbital swelling. CARDIOVASCULAR: S1 and S2 sounds normal. Regular rate and rhythm, no murmurs, clicks, or bruits. No pedal edema. RESPIRATORY: Normal respiratory rate, trachea midline, airway patent. No stri norma, nasal flaring or accessory muscle use. Lungs are clear in all mckeon. MUSCULOSKELETAL: Significant erythematous swelling from MCP to the MIP joint. Very limited flexion due to significant swelling, full extension. Equal flexor and extension strength against resistance. Normal gait and coordination. Equal tone and mass bilaterally. No spinal tenderness or deformities. EXTREMITIES: CMS intact. No pedal edema. SKIN: Warm, dry, soft, appropriate color for ethnicity. No lesions, rashes, or wounds. NEURO: Alert and Oriented X 3. No sensory deficits. PSYCH: Appropriate affect and mood. <Kt Pichardo MD - Last Filed: 05/09/19 20:13> Initial Vital Signs Initial Vital Signs: Vital Signs Temperature 98.4 F 05/08/19 09:03 Pulse Rate 61 05/08/19 09:03 Respiratory Rate 14 05/08/19 09:03 Blood Pressure 193/86 H 05/08/19 09:03 Pulse Oximetry 100 05/08/19 09:03 Course <KEON Alexander - Last Filed: 05/08/19 22:26> Orders Ordered: ED Orders 05/08/19 10:10 Wound Culture and Gram Stain Stat 05/08/19 10:14 XR finger LT min 2V Stat 05/08/19 11:45 Complete Blood Count AUTO DIFF Stat Comprehensive Metabolic Panel Stat Erythrocyte Sedimentation Rate Stat Consultations Consultation #1: I spoke with Dr. Ladd about concern for tenosynovitis and failed 2 trials of outpatient antibiotics, Dr. Ladd stated that he would like to see the patient in the office this afternoon. Patient is to present directly to the [facility] office for an appointment at 2:10pm. Patient was instructed per request to not eat or drink anything until he was evaluated and instructed to do so. Patient was discharged without laboratory results, no as IV antibiotics indicated after discussion with Dr. Ladd as they will not change the plan of care at this time. Time: 11:40 Consultation #2: Patient staffed with Dr. Pichardo Vital Signs Vital signs: Vital Signs - 8 hr 05/08/19 09:03 Temperature 98.4 F Pulse Rate 61 Respiratory Rate 14 Blood Pressure 193/86 H Pulse Oximetry 100 <Kt Pichardo MD - Last Filed: 05/09/19 20:13> Orders Ordered: ED Orders 05/08/19 10:10 Wound Culture and Gram Stain Stat 05/08/19 10:14 XR finger LT min 2V Stat 05/08/19 11:45 Complete Blood Count AUTO DIFF Stat Comprehensive Metabolic Panel Stat Erythrocyte Sedimentation Rate Stat Vital Signs Vital signs: Vital Signs - 8 hr 05/08/19 09:03 Temperature 98.4 F Pulse Rate 61 Respiratory Rate 14 Blood Pressure 193/86 H Pulse Oximetry 100 MDM - Skin/Abscess/Foreign Bdy <KEON Alexander - Last Filed: 05/08/19 22:26> Medical Records Attestation: I reviewed the patient's medical records. Lab Data Attestation: I reviewed the patient's lab results. Result diagrams: 05/08/19 11:45 05/08/19 11:45 Labs: Lab Results 05/08/19 05/08/19 Range/Units 11:45 11:45 WBC 5.0 (4.5-11.0) X10^3/uL RBC 4.37 L (4.5-5.9) X10^6/uL Hgb 13.5 (13.5-17.5) g/dL Hct 39.5 L (41-53) % MCV 90.2 (80-100) fL MCH 30.9 (26-34) PG MCHC 34.3 (30-36) % RDW 12.2 (11.6-14.8) % Plt Count 185 (150-400) X10^3/uL Neut % (Auto) 65.8 (50-75) % Lymph % (Auto) 24.6 L (25-40) % [place] % (Auto) 7.0 (3-14) % Eos % (Auto) 1.6 L (2-4) % Baso % (Auto) 1.0 (0-2) % Neut # (Auto) 3300 (5225-2924) /uL Lymph # (Auto) 1200 (5107-0746) /uL [place] # (Auto) 300 (0-900) /uL Eos # (Auto) 100 (0-450) /uL Baso # (Auto) 100 (0-100) /uL ESR 13 (0-15) MM/HR Sodium 139 (137-145) mmol/L Potassium 4.1 (3.4-5.1) mmol/L Chloride 105 (98-107) mmol/L Carbon Dioxide 25 (22-32) mmol/L BUN 15 (9-20) mg/dL Creatinine 1.00 (0.66-1.25) mg/dL Estimated GFR > 60.0 (>60) mL/min BUN/Creatinine Ratio 15.0 (6-22) Glucose 92 (80-110) mg/dL Calcium 9.1 (8.4-10.2) mg/dL Total Bilirubin 1.1 (0.2-1.3) mg/dL AST 23 (17-59) IU/L ALT 13 (<50) IU/L Alkaline Phosphatase 82 (38-126) U/L Total Protein 7.3 (6.3-8.2) g/dL Albumin 4.2 (3.5-5.0) g/dL Globulin 3.1 (1.7-4.1) g/dL Albumin/Globulin Ratio 1.4 (1.0-2.8) Imaging Data Finger Xray: Radiologist's Impression: [address] [address] XRay Report Signed Patient: Dariusz Aguilar GMR#: [id number] : 3Acct:[id number] Age/Sex: 78 / MDate of Service: 05/08/19 Loc: ED Accession Number: [id number] Procedure: XR finger LT min 2V Ordering Provider: Kt Pichardo MD PROCEDURE: XR FINGER LT MIN 2V INDICATIONS: abscess, r/o foreign body TECHNIQUE: AP hand, 2 views of the first finger(s) acquired. COMPARISON: None. FINDINGS: Bones: No fractures or dislocations. No suspicious bony lesions. Mild to moderate multifocal joint space narrowing and degenerative change. Soft tissues: No suspicious soft tissue calcifications. Punctate calcifications in the fourth/fifth metacarpal interdigital space. No radiopaque foreign body. IMPRESSION: No acute osseous abnormality. No radiopaque foreign body. Ultrasound could be considered for further evaluation for non-radiopaque foreign body or abscess. Dictated by: Gutierrez Lugo M.D. on 05/08/2019 at 10:30 Approved by: Gutierrez Lugo M.D. on 05/08/2019 at 10:36 [facility] Narrative Medical decision making narrative: 78-year-old male who presents to the emergency department for continued finger swelling despite to different outpatient antibiotics. There is an increased concern for tenosynovitis, abscess, significant cellulitis with failed outpatient treatment, and retained foreign body. After consultation with orthopedic, patient was discharged and told to go directly to the office for further examination. Patient was not septic, he was hemodynamically stable and states he is capable of presenting to the office. He was instructed not to eat or drink anything per request of an orthopedic. Patient agrees with plan of care reveals understanding. <Kt Pichardo MD - Last Filed: 05/09/19 20:13> Lab Data Labs: Lab Results 05/08/19 05/08/19 Range/Units 11:45 11:45 WBC 5.0 (4.5-11.0) X10^3/uL RBC 4.37 L (4.5-5.9) X10^6/uL Hgb 13.5 (13.5-17.5) g/dL Hct 39.5 L (41-53) % MCV 90.2 (80-100) fL MCH 30.9 (26-34) PG MCHC 34.3 (30-36) % RDW 12.2 (11.6-14.8) % Plt Count 185 (150-400) X10^3/uL Neut % (Auto) 65.8 (50-75) % Lymph % (Auto) 24.6 L (25-40) % [place] % (Auto) 7.0 (3-14) % Eos % (Auto) 1.6 L (2-4) % Baso % (Auto) 1.0 (0-2) % Neut # (Auto) 3300 (9944-3318) /uL Lymph # (Auto) 1200 (8610-2501) /uL [place] # (Auto) 300 (0-900) /uL Eos # (Auto) 100 (0-450) /uL Baso # (Auto) 100 (0-100) /uL ESR 13 (0-15) MM/HR Sodium 139 (137-145) mmol/L Potassium 4.1 (3.4-5.1) mmol/L Chloride 105 (98-107) mmol/L Carbon Dioxide 25 (22-32) mmol/L BUN 15 (9-20) mg/dL Creatinine 1.00 (0.66-1.25) mg/dL Estimated GFR > 60.0 (>60) mL/min BUN/Creatinine Ratio 15.0 (6-22) Glucose 92 (80-110) mg/dL Calcium 9.1 (8.4-10.2) mg/dL Total Bilirubin 1.1 (0.2-1.3) mg/dL AST 23 (17-59) IU/L ALT 13 (<50) IU/L Alkaline Phosphatase 82 (38-126) U/L Total Protein 7.3 (6.3-8.2) g/dL Albumin 4.2 (3.5-5.0) g/dL Globulin 3.1 (1.7-4.1) g/dL Albumin/Globulin Ratio 1.4 (1.0-2.8) Discharge Plan Departure Patient Disposition: Home Clinical Impression: Finger swelling Cellulitis Qualifiers: Site of cellulitis: extremity Site of cellulitis of extremity: upper extremity Laterality: left Qualified Code(s): L03.114 - Cellulitis of left upper limb Discharge Date/Time: 05/08/19 12:08 Instructions: DI for Wound Infection Activity Restrictions/Additional Instructions: Thank you for entrusting me with your care today. As discussed, in concerned that you have an infection deep in the tissues of the finger. I spoke with Dr. Ladd, an orthopedic surgeon who suggested you be seen in the office immediately. Please drive directly to [address] [place] [address] for an appointment at 2:10PM. Office . Do not eat or drink anything until you are evaluated by the doctor. Prescriptions: New omeprazole 20 mg capsule,delayed release(DR/EC) 20 mg PO DAILY 14 Days Qty: 14 RF: 0 No Action sulfamethoxazole-trimethoprim 800-160 mg tablet 1 tab PO Q12H Qty: 14 RF: 0 acetaminophen [Tylenol] 325 mg Capsule 650 mg PO Q4-6H PRN (Reason: Pain (Scale Score 1-3)) RF: 0 Referrals: Kt Garsia MD [Primary Care Provider] -
[2019-05-08 11:53] LABS: Add Manual Diff / Slide Review NO; Basophils Absolute Auto 100 /uL (0-100); Eosinophils Absolute Auto 100 /uL (0-450); Eosinophils Percent Auto 1.6 % (2-4); Hematocrit 39.5 % (41-53); Hemoglobin 13.5 g/dL (13.5-17.5); Lymphocytes Absolute Auto 1200 /uL (1100-4500); Lymphocytes Percent Auto 24.6 % (25-40); Mean Corpuscular HGB Conc 34.3 % (30-36); Mean Corpuscular Hemoglobin 30.9 PG (26-34); Mean Corpuscular Volume 90.2 fL (80-100); Monocytes Absolute Auto 300 /uL (0-900); Neutrophils Absolute Auto 3300 /uL (1500-7000); Neutrophils Percent Auto 65.8 % (50-75); Platelet Count 185 X10^3/uL (150-400); Red Blood Cell Count 4.37 X10^6/uL (4.5-5.9); Red Cell Distribution Width 12.2 % (11.6-14.8)
[2019-05-08 12:06] LABS: Alanine Aminotransferase 13 IU/L (<50); Albumin 4.2 g/dL (3.5-5.0); Albumin Globulin Ratio 1.4 (1.0-2.8); Alkaline Phosphatase 82 U/L (38-126); Aspartate Aminotransferase 23 IU/L (17-59); Bilirubin Total 1.1 mg/dL (0.2-1.3); Blood Urea Nitrogen 15 mg/dL (9-20); Calcium 9.1 mg/dL (8.4-10.2); Carbon Dioxide 25 mmol/L (22-32); Chloride 105 mmol/L (98-107); Estimated Glomerular Filt Rate > 60.0 mL/min (>60); Globulin 3.1 g/dL (1.7-4.1); Glucose 92 mg/dL (80-110); HEMOLYSIS 22 (0-50); Potassium 4.1 mmol/L (3.4-5.1); Sodium 139 mmol/L (137-145); Total Protein 7.3 g/dL (6.3-8.2)
[2019-05-08 12:07] VITALS: BP 180/75; PULSE 76; RESP 16; O2SAT 97
[2019-05-08 12:13] LABS: Erythrocyte Sedimentation Rate 13 MM/HR (0-15)
== END 2019-05-08 12:08 | disposition home or self-care (01) ==
PROVIDERS: Emergency Provider Nurse Practitioner; Family Provider Internal Medicine; PCP Internal Medicine
DX: L03.114 Cellulitis of left upper limb (principal); M79.89 Other specified soft tissue disorders
CPT/HCPCS: 36415; 73140; 80053; 85025; 85651; 87070; 87077; 87186; 87205; 99284

== ENCOUNTER 2019-06-25 08:22 | Day surgery (SDC) | payer MEDICARE, OTHER, SELFPAY ==
[2019-05-06 10:38] VITALS: BMI 24.4
[2019-06-25] MEDS: PROPARACAINE 0.5% OPHTH SOL 2 DROPS EYE-OP (09:25)
[2019-06-25] MEDS: CATARACT EYE COMPOUND (10 DROPS/SYRINGE) 3 DROPS EYE-OP (09:27)
[2019-06-25 09:33] VITALS: BP 161/84; PULSE 63; RESP 17; TEMP 36.7; O2SAT 99; BMI 24.7
--- NOTE | 2019-06-25 10:37 | PM.PREOP ---
Pre-operative Note Interval Note History & Physical reviewed/Exam performed by Physician: No Changes to H&P: No
--- NOTE | 2019-06-25 10:37 | PM.OP.1 ---
Operative Date/Time/Diagnoses Pre-op diagnosis: Nuclear Cataract Left eye Post-op diagnosis: same Procedure & Clinicians Same procedure as scheduled: Yes Surgeon: Vishal Thomas Anesthesia Type: MAC +/- and Sedation Operative Notes Procedure in detail: Patient brought to the operating suite. Tetracaine drops placed in the left eye. Patient was prepped and draped in sterile manner. Wire lid speculum was placed in the eye. Betadine drops were placed on the eye. This was irrigated. Lidocaine jelly was placed on the eye. A paracentesis port was created with a side-port blade. 0.1 mL 1% preservative free lidocaine was injected into the anterior chamber. The anterior chamber was deepened with viscoelastic. 2.6 mm keratome was used to create a temporal clear corneal incision. Cystotome and Utrata forceps were used to create continuous tear capsulorrhexis. Balanced salt solution was used to hydro dissect the nucleus. The phacoemulsification handpiece was inserted and the nucleus was removed using the stop and chop technique. The irrigation aspiration handpiece was inserted and the remaining cortex was removed. Anterior chamber was deepened with viscoelastic. An Lovell ZCB00 intraocular lens with a power of 19.0 was injected into the capsular bag. Irrigation aspiration handpiece was inserted and the remaining viscoelastic was removed. Incision was hydrated with balanced salt solution and found to be leak free with pressure with Weck-Annabella sponges. 0.1 mL Vigamox injected anterior chamber. 0.3 mL Kenalog 10 mg was injected subconjunctivally. Lid speculum was removed. The patient left the operating room in excellent condition. Complications: none Post-operative Condition: stable Disposition: same day surgery
[2019-06-25] MEDS: PHENYLEPHRINE/LIDOCAINE VIAL (OR) 0.2 ML EYE-OP (11:01)
[2019-06-25] MEDS: CHONDROIDTIN/SOD HYALURONATE 1.05 ML SYRINGE INTRAOCULA (11:01)
[2019-06-25] MEDS: MOXIFLOXACIN INJ 5 MG/ML VIAL EYE-OP (11:01)
[2019-06-25] MEDS: TRIAMCINOLONE 50 MG/5 ML VIAL INJ (11:01)
[2019-06-25] MEDS: LIDOCAINE JELLY 2% 5 ML 1 APPLIC TOP (11:02)
[2019-06-25] MEDS: TETRACAINE 0.5% OPHTH DROPS 4 ML 2 DROPS EYE-OP (11:02)
[2019-06-25] MEDS: BALANCED SALT IRRIG SOLN NO.2 500 ML, EPINEPHrine 1 MG IRR (11:02)
[2019-06-25 11:15] VITALS: BP 155/79; PULSE 62; RESP 14; TEMP 36.6; O2SAT 100
== END 2019-06-25 11:50 | disposition home or self-care (01) ==
PROVIDERS: Family Provider Internal Medicine; PCP Internal Medicine; Referring Provider Internal Medicine; Visit Provider Ophthalmology
PROC: (CPT 66984; principal; 2019-06-25 10:15)
DX: H25.12 Age-related nuclear cataract, left eye (principal); I10 Essential (primary) hypertension
CPT/HCPCS: 66984; J0171; J2250; J3010; J3301

== ENCOUNTER → 2019-09-07 13:48 | Outpatient (CLI) | payer MEDICARE, OTHER, SELFPAY ==
[2019-09-05 10:35] VITALS: BMI 24.4
[2019-09-09 02:15] LABS: COVID19 Sendout Not Detected (Not Detect)
== END ==
PROVIDERS: PCP Internal Medicine; Visit Provider Physician Assistant
DX: Z01.818 Encounter for other preprocedural examination (principal)
CPT/HCPCS: 87635

== ENCOUNTER 2019-09-10 07:21 | Day surgery (SDC) | payer MEDICARE, OTHER, SELFPAY ==
[2019-09-05 10:35] VITALS: BMI 24.4
[2019-09-10] MEDS: PROPARACAINE 0.5% OPHTH SOL 2 DROPS EYE-OP (07:42)
[2019-09-10 07:45] VITALS: BP 135/78; PULSE 8; RESP 15; TEMP 36.7; O2SAT 100
[2019-09-10] MEDS: CATARACT EYE COMPOUND (10 DROPS/SYRINGE) 3 DROPS EYE-OP (07:46)
[2019-09-10 07:48] VITALS: BMI 24.7
--- NOTE | 2019-09-10 08:45 | PM.PREOP ---
Pre-operative Note Interval Note History & Physical reviewed/Exam performed by Physician: Yes Changes to H&P: No
--- NOTE | 2019-09-10 08:45 | PM.OP.1 ---
Operative Date/Time/Diagnoses Pre-op diagnosis: Nuclear cataract right eye Procedure & Clinicians Procedure: Cataract Surgery Same procedure as scheduled: Yes Surgeon: Vishal Thomas Anesthesia Type: MAC +/- and Sedation Operative Notes Procedure in detail: Patient brought to the operating suite. Tetracaine drops placed in the right eye. Patient was prepped and draped in sterile manner. Wire lid speculum was placed in the eye. Betadine drops were placed on the eye. This was irrigated. Lidocaine jelly was placed on the eye. A paracentesis port was created with a side-port blade. 0.1 mL 1% preservative free lidocaine was injected into the anterior chamber. The anterior chamber was deepened with viscoelastic. 2.6 mm keratome was used to create a temporal clear corneal incision. Cystotome and Utrata forceps were used to create continuous tear capsulorrhexis. Balanced salt solution was used to hydro dissect the nucleus. The phacoemulsification handpiece was inserted and the nucleus was removed using the stop and chop technique. The irrigation aspiration handpiece was inserted and the remaining cortex was removed. Anterior chamber was deepened with viscoelastic. An Lovell ZCB00 intraocular lens with a power of 19.5 was injected into the capsular bag. Irrigation aspiration handpiece was inserted and the remaining viscoelastic was removed. Incision was hydrated with balanced salt solution and found to be leak free with pressure with Weck-Annabella sponges. 0.1 mL Vigamox injected anterior chamber. 0.3 mL Kenalog 10 mg was injected subconjunctivally. Lid speculum was removed. The patient left the operating room in excellent condition. Complications: none Post-operative Condition: stable Disposition: same day surgery
--- NOTE | 2019-09-10 08:57 | SUR.OPER ---
Supine on eye stretcher, head on extension cradle secured with tape. Arms tucked at sides with blanket. Pillow under knees.
[2019-09-10] MEDS: PHENYLEPHRINE/LIDOCAINE VIAL (OR) 0.2 ML EYE-OP (09:03)
[2019-09-10] MEDS: MOXIFLOXACIN INJ 5 MG/ML VIAL EYE-OP (09:04)
[2019-09-10] MEDS: TRIAMCINOLONE 50 MG/5 ML VIAL INJ (09:04)
[2019-09-10] MEDS: CHONDROIDTIN/SOD HYALURONATE 1.05 ML SYRINGE INTRAOCULA (09:04)
[2019-09-10] MEDS: LIDOCAINE JELLY 2% 5 ML 1 APPLIC TOP (09:04)
[2019-09-10] MEDS: BALANCED SALT IRRIG SOLN NO.2 500 ML, EPINEPHrine 1 MG IRR (09:05)
[2019-09-10] MEDS: TETRACAINE 0.5% OPHTH DROPS 4 ML 2 DROPS EYE-OP (09:05)
[2019-09-10 09:20] VITALS: BP 139/81; PULSE 63; RESP 20; TEMP 36.3; O2SAT 98
== END 2019-09-10 09:30 | disposition home or self-care (01) ==
PROVIDERS: PCP Internal Medicine; Referring Provider Ophthalmology; Visit Provider Ophthalmology
PROC: (CPT 66984; principal; 2019-09-10 09:15)
DX: H25.11 Age-related nuclear cataract, right eye (principal); I10 Essential (primary) hypertension
CPT/HCPCS: 66984; J0171; J2250; J3010; J3301

== ENCOUNTER → 2019-11-30 09:57 | Outpatient (CLI) | payer MEDICARE, OTHER, SELFPAY ==
[2019-09-05 10:35] VITALS: BMI 24.4
[2019-12-01 19:11] LABS: COVID19 Sendout Not Detected (Not Detect)
== END ==
PROVIDERS: PCP Internal Medicine; Visit Provider Nurse Practitioner
DX: Z11.59 Encounter for screening for other viral diseases (principal)
CPT/HCPCS: 87635

== ENCOUNTER 2019-12-03 10:27 | Day surgery (SDC) | payer MEDICARE, OTHER, SELFPAY ==
[2019-09-05 10:35] VITALS: BMI 24.4
[2019-12-03 10:57] VITALS: BP 141/80; PULSE 67; RESP 20; TEMP 36.3; O2SAT 98
[2019-12-03 10:59] VITALS: BMI 24.4
--- NOTE | 2019-12-03 12:08 | PM.PREOP ---
Pre-operative Note Interval Note History & Physical reviewed/Exam performed by Physician: Yes Changes to H&P: No
--- NOTE | 2019-12-03 12:08 | PM.OP.1 ---
Operative Date/Time/Diagnoses Date of procedure: 12/03/19 Pre-op diagnosis: Dermatochalasis both upper lids Post-op diagnosis: same Procedure & Clinicians Procedure: Blepharoplasty both upper lids Same procedure as scheduled: Yes Surgeon: Vishal Thomas Anesthesia Type: MAC +/- Operative Notes Procedure in detail: The patient was brought into the operating room. A marking pen and calipers were used to alexandra the excess upper lid skin on both sides. The patient underwent IV sedation. A mixture of 1% lidocaine with epi, Bupivicane, and hayluronidase was preppared. 5ml of this mixture was injected in the both upper lids. Patient was prepped and draped in sterile manor. A 15 blade was used to excise the marked skin of the right upper lid. The orbicularis muscle was excised. The prolapsed fat was excised. Cautery was used to control bleeding. A 6-0 Vicryl suture was used to close the incision. The same procedure was performed on the left upper lid. The patient had good vision and good eyelid closure at the end of surgery. Maxitrol ointment was placed on the incisions. The patient left the operating room in excellent condition. Complications: none Post-operative Condition: stable
[2019-12-03] MEDS: BUPIVACAINE 0.5% (PF) 5 ML, LIDOCAINE 1% W/EPI 5 ML, HYALURONIDASE 150 UNIT INJ (12:45)
[2019-12-03] MEDS: NEOMYCIN/POLY/DEX OPHTH OINT 1 APPLIC EYE-BOTH (12:45)
[2019-12-03 13:08] VITALS: BP 133/80; PULSE 60; RESP 16; TEMP 36.3; O2SAT 100
== END 2019-12-03 13:23 | disposition home or self-care (01) ==
PROVIDERS: PCP Internal Medicine; Referring Provider Internal Medicine; Visit Provider Ophthalmology
PROC: (CPT 15823; principal; 2019-12-03 12:15)
DX: H02.831 Dermatochalasis of right upper eyelid (principal); H02.834 Dermatochalasis of left upper eyelid; I10 Essential (primary) hypertension
CPT/HCPCS: 15823; J2250; J2704; J3010; J3470

== ENCOUNTER → 2020-08-06 08:59 | Outpatient (CLI) | payer MEDICARE, OTHER, SELFPAY ==
[2019-09-05 10:35] VITALS: BMI 24.4
--- NOTE | 2020-08-06 | DI.RAD.S_ITS ---
PROCEDURE: FL BARIUM SWALLOW W SPEECH INDICATIONS: Dysphagia, unspecified COMPARISON: TECHNIQUE: Examination was conducted in conjunction with speech pathology per standard protocol. In the lateral projection, filming was performed of the patient swallowing. AP projection filming may also be performed with patient swallowing. COMPARISON: None. FINDINGS: Function: The oral preparatory phase appears normal, with proper containment. The subsequent oral propulsive phase, pharyngeal phase, and esophageal phase of swallowing also appear normal with all proffered substances. No laryngotracheal penetration or aspiration. No pathologic vallecular pooling. Morphology: No cricopharyngeal bar is identified. No cervical esophageal webs. No Zenker's diverticulum. No strictures. IMPRESSION: No laryngeal penetration or aspiration. Please see speech pathologist's report for detail. Dictated by: Shoaib Venegas M.D. on 08/06/2020 at 11:05 Approved by: Shoaib Venegas M.D. on 08/06/2020 at 11:06
--- NOTE | 2020-08-06 12:31 | ST.SWALLOW ---
Visit Care Team Role Provider Type Milagro Walters PA-C Attending Provider Non-Staff Primary Care Provider Referring Provider Specialty: Medical Address: [address] [place] [address], [id number] Email: ST Modified Barium Swallow Study FRAMING CONSULTANT Modified Barium Swallow Study Start: 08/06/20 10:54 Freq: Status: Active Protocol: Document 08/06/20 10:56 LNK (Rec: 08/06/20 11:26 LNK [id number]) Modified Barium Swallow Study Total Time Visit Start Time 09:30 Visit Stop Time 10:00 Total Visit Minutes 30 Referral Referring Physician Milagro Walters PA-C Reason for Referral dysphagia Setting Setting Outpatient Care Patient Information Identification Type Name,Date of Patient History Pt was seen for a Modified Barium Swallow Study (MBSS) at the referral of hid PCP. Pt reportes that he has been diagnosed with Parkinson's Disease recently. When asked about his swallowing, he reported dthat he has been having two areas of concern: the first is pain below his jaw (right side) that occurs after he has been chewing, at the end of the meal. He added that when he is finished with the meal, the pain goes away. Second, he reported a sense of food getting stuck in his esophagus, pointing to his mid -chest area. He stated that when foods get stuck (solids only - mainly cooked chicken ), he experiences pain and it takes time for the globus sense to go away. This does not occur with liquids, he said. Pt noted that he has not seen an ENT or a GI specialist for this problem Subjective Observations Pt is very soft spoken with a slight dave of speech. With mask on it was hard to hear him talk. Flat affect, shuffling gait and hand tremor noted. This FRAMING CONSULTANT recommends that the pt begin LSVT LOUD and BIG programs. At this early in his Parkinson's, LSVT LOUD has been shown to be very effective in achieving and maintaining adequate vocal loudness and vocal fold strength over time. Patient Positioning Position View Lateral Imaging Lateral View Textures Administered Trials Presented Thin Liquid via Spoon,Thin Liquid via Cup,Pudding Thick Liquid via Spoon,Regular Textures Oral Phase Source: MBSIMP (TM) (C) Bolus Specific Scoring Grid Lip Closure WFL Tongue Control During Bolus Hold WFL Bolus Prep/Mastication WFL Bolus Transport/Lingual Motion WFL A/P Lingual Propulsion Delay Yes: with semi solids and solids, a rocking motion of the tongue was observed Number of Seconds Delayed (seconds) ~1-2 sec Oral Residue Minimal Impairment Residue Clearing Minimal Impairment Nasal Regurgitation No Additional Oral Phase Observations OME indicated structures to be WFL for mastication. Good ROM , strength and accuracy. Natural teeth in good health Pharyngeal Phase Source: MBSIMP (TM) (C) Bolus Specific Scoring Grid Delayed Initiation of Pharyngeal Swallow Yes: Premature spillage to the valeculla pre-swallow response Number of Seconds Delayed (seconds) <1 sec Soft Palate Elevation No Impairment (WNL) Tongue Base Strength/Range of Motion WFL Residue Along the Tongue Base Yes: trace to minimal; cleared with subsequent swallows Laryngeal Elevation WFL Anterior Hyoid Movement WFL Epiglottic Range of Motion WFL Vallecular Residue Yes: trace to minimal; cleared with subsequent swallows Clearance of Vallecular Residue WFL Laryngeal Vestibular Closure WFL Pharyngeal Stripping Wave WFL Posterior Pharyngeal Wall Residue No Upper Esophageal Sphincter Opening WFL Residue in the Pyriform Sinuses Yes: trace to minimal; cleared with subsequent swallows Clearance of Residue in the Pyriform WFL Sinuses Esophageal Clearance Upright Position WFL Pharyngoesophageal Backflow Observed No Additional Pharyngeal Phase Observations Pharyngeal swallow phase was observed to be WFL. Some minimal contrast residue was observed, but cleared with subsequent swallowing. No penetration into the laryngeal vestibule was observed. No aspiration observed. A/P View Textures Administered Trials Presented Barium Tablet A/P View Observations Esophageal Function Slowed Clearing,Poor Motility, Reverse Peristalsis Esophageal Clearance Upright Position Minimal Impairment Additional Observations Esophageal dysmotility observed with the tablet stopping at the mid-chest area , requiring more water. The tablet paused slightly at the LES before clearing into the stomach Esophageal Observations Esophageal Function Esophagus was scanned to observe tablet transition to the stomach. The tablet stopped near the mid chest area. With a second swallow the tablet transitioned eventually to the stomach. Esophageal dysmotility with a slight reversal of the tablet was noted. Clinical Impressions Dysphagia Type No oropharyngeal dysphagia Findings Pt's swallowing was observed to be WNL for the pt's age. Contrast residue was noted within the pharynx but was safely cleared with subsequent swallows. No aspiration of penetration was observed. No penetration into the laryngeal vestibule. Mild tongue rocking to move the bolus AP was noted. Most likely this is related to Parkinsons' diagnosis. Patient Appropriate for Therapy No Recommendations Treatment Plan Additional Therapy Recommendations Suggested that pt alternate solids and liquids to assist bolus flow Recommended Referrals GI Consult Additional Recommended Referrals Referral for LSVT LOUD program to improve pt's vocal strength Compensatory Strategies Recommendations Alternate Liquids/Solids
== END ==
PROVIDERS: PCP Physician Assistant; Referring Provider Physician Assistant; Visit Provider Physician Assistant
DX: R13.10 Dysphagia, unspecified (principal)
CPT/HCPCS: 74230; 92611

== ENCOUNTER 2020-09-27 10:10 | Emergency (ER) | payer MEDICARE, OTHER, SELFPAY ==
[2019-09-05 10:35] VITALS: BMI 24.4
[2020-09-27] VITALS (22 sets, daily range): BP systolic 143–190; BP diastolic 64–83; PULSE 53–72; RESP 14–19; TEMP 36.6; O2SAT 84–100; BMI 23.1
--- NOTE | 2020-09-27 10:32 | DI.RAD.S_ITS ---
PROCEDURE: XR CHEST 1V INDICATIONS: chest pain TECHNIQUE: One view of the chest was acquired. COMPARISON: [facility], , CHEST 2 VIEW, 06/20/2007, 9:30. FINDINGS: Surgical changes and devices: None. Lungs and pleura: Lungs are clear. No pleural effusions or pneumothorax. Bilateral calcified granulomata. Incidental note made of prominent bilateral nipple shadows. Mediastinum: Mediastinal contours appear normal. Heart size is normal. Calcified left hilar lymph nodes. Bones and chest wall: No suspicious bony lesions. Overlying soft tissues appear unremarkable. IMPRESSION: Chronic granulomatous disease. No evidence acute pulmonary process. Dictated by: Mulugeta Matos M.D. on 09/27/2020 at 9:50 Approved by: Mulugeta Matos M.D. on 09/27/2020 at 9:51
[2020-09-27 10:46] LABS: Add Manual Diff / Slide Review NO; Basophils Absolute Auto 100 /uL (0-100); Basophils Percent Auto 0.9 % (0-2); Eosinophils Absolute Auto 200 /uL (0-450); Eosinophils Percent Auto 3.4 % (2-4); Hematocrit 45.8 % (41-53); Hemoglobin 15.4 g/dL (13.5-17.5); Lymphocytes Absolute Auto 1800 /uL (1100-4500); Lymphocytes Percent Auto 24.8 % (25-40); Mean Corpuscular HGB Conc 33.7 % (30-36); Mean Corpuscular Hemoglobin 30.8 PG (26-34); Mean Corpuscular Volume 91.3 fL (80-100); Monocytes Absolute Auto 500 /uL (0-900); Monocytes Percent Auto 6.4 % (3-14); Neutrophils Absolute Auto 4600 /uL (1500-7000); Neutrophils Percent Auto 64.5 % (50-75); Platelet Count 206 X10^3/uL (150-400); Red Blood Cell Count 5.02 X10^6/uL (4.5-5.9); Red Cell Distribution Width 12.9 % (11.6-14.8); White Blood Cell Count 7.1 X10^3/uL (4.5-11.0)
[2020-09-27 10:55] LABS: Alanine Aminotransferase 19 IU/L (<50); Albumin 4.4 g/dL (3.5-5.0); Albumin Globulin Ratio 1.4 (1.0-2.8); Alkaline Phosphatase 83 U/L (38-126); Aspartate Aminotransferase 23 IU/L (17-59); BUN Creatinine Ratio 17.6 (6-22); Bilirubin Total 0.9 mg/dL (0.2-1.3); Blood Urea Nitrogen 15 mg/dL (9-20); Calcium 9.2 mg/dL (8.4-10.2); Carbon Dioxide 26 mmol/L (22-32); Chloride 105 mmol/L (98-107); Creatine Kinase 82 U/L (55-170); Estimated Glomerular Filt Rate > 60.0 mL/min (>60); Globulin 3.2 g/dL (1.7-4.1); Glucose 120 mg/dL (80-110); HEMOLYSIS 25 (0-50); Lipase 64 U/L (23-300); Potassium 3.9 mmol/L (3.4-5.1); Sodium 140 mmol/L (137-145); Total Protein 7.6 g/dL (6.3-8.2)
[2020-09-27 11:07] LABS: NT-proBNP (BNP-Adult 18+) 300 pg/mL (<450); Troponin I < 0.012 ng/mL (0.01-0.034)
[2020-09-27 11:39] LABS: Bacteria Urine None Seen; RBC Urine None Seen (0-5/HPF); WBC Urine None Seen (0-5/HPF)
[2020-09-27 11:40] LABS: Appearance Urine UA CLEAR; Bilirubin Urine UA NEGATIVE (NEGATIVE); Color Urine UA YELLOW; Glucose Urine UA NEGATIVE (Negative); Ketones Urine UA NEGATIVE (NEGATIVE); Leukocyte Esterase Urine UA NEGATIVE (NEGATIVE); Nitrite Urine UA NEGATIVE (Negative); Occult Blood Urine UA NEGATIVE (Negative); Protein Urine UA NEGATIVE (Negative); Urobilinogen Urine UA 0.2 E.U./dL (0.2)
[2020-09-27 11:44] LABS: Culture Indicated Urine Cult Not Indicated; Urine Comments Microscopic Normal
[2020-09-27] MEDS: ASPIRIN 81 MG CHEW TAB 324 MG PO (11:45)
[2020-09-27] MEDS: SODIUM CHLORIDE 0.9% 1,000 ML 150 ML IV (11:46)
[2020-09-27 12:43] LABS: INR 1.2 (0.9-1.3); Prothrombin Time 13.5 SECONDS (10.1-12.7)
[2020-09-27 12:45] LABS: PTT Partial Thromboplastin Tim 30 SECONDS (26.4-36.2)
[2020-09-27 12:55] LABS: Troponin I < 0.012 ng/mL (0.01-0.034)
--- NOTE | 2020-09-27 13:06 | ED.CHESTPAIN ---
HPI - Chest Pain General Chief Complaint: Chest Pain Stated Complaint: CHEST PAIN SEVERAL DAYS,GETTING WORSE Time Seen by Provider: 09/27/20 10:32 Source: patient Mode of arrival: Ambulatory Limitations: no limitations History of Present Illness HPI narrative: This a 80-year-old male who emergency department several days of chest pressure which he describes as left substernal. His worse with movement, particularly rotational. Patient states he has been using a total home gym and using it with upper extremity workouts. Patient states that does seem to exacerbate his symptoms. He did try some Tylenol today which also seemed to help somewhat. He states that he walks regularly and this does not seem to worsen his symptoms. Going upstairs does not seem to worsen his symptoms. He denies any fevers, chills or diaphoresis. No shortness of breath. No nausea or vomiting other GI or urinary symptoms. He has noticed some mild swelling in his lower extremities. Not had any skin changes. Patient does take carbidopa levodopa for Parkinson's. Patient does not take any other medications regularly. He does not have any known cardiac history. He has never had a stress test. Patient. States he did have his hip replaced several years ago. No allergies to medications. No tobacco, occasional alcohol, no illicit. Dr. mullins is his primary care. Patient states he has a half sister with some cardiac history but parents do not have any known cardiac, pulmonary bowel history. Related Data Home Medications Medication Instructions Recorded Confirmed No Known Home Medications 04/02/20 04/02/20 Allergies Allergy/AdvReac Type Severity Reaction Status Date / Time colistin [COLISTIN] Allergy Unknown PAIN AND Verified 04/02/20 09:07 SWELLING (FROM CORTISPORIN TC) THONZONIUM Allergy Unknown LOCAL PAIN Uncoded 04/02/20 09:07 AND SWELLING (FROM CORTISPORIN TC) Review of Systems Review of Systems ROS Unobtainable: All systems reviewed & are unremarkable except as noted in HPI and below Patient History Medical History Acquired hypothyroidism Allergic rhinitis due to other allergen (09/16/11) Back pain Eczema Essential hypertension (07/25/17) Former cigarette smoker Irregular heartbeat Parkinson disease Surgical History History of hip surgery (10/09/18) S/P right inguinal hernia repair (~02/2019) Social History household members: none Smoking Status: Former smoker alcohol intake: current Smoking Status: Former smoker alcohol intake frequency: 0-2 drinks per day Substance Use Type: does not use Exam Narrative Exam Narrative: GENERAL: Alert and oriented x three, tall, thin elderly male in mild distress. HEENT: Head normocephalic, atraumatic, EOMI, pupils reactive, face symmetric, moist mucous membranes NECK: Supple, full range of motion CARDIOVASCULAR: Regular rate and rhythm without murmurs, rubs or gallops. No rash, erythema or skin changes of the anterior chest unable to reproduce pain with palpation. RESPIRATORY: Breath sounds equal bilaterally, no wheezes rales or rhonchi. ABDOMEN: Soft, nontender. Normoactive bowel sounds all 4 quadrants. No guarding or rebound, rigidity, no mass : No CVA tenderness EXTREMITIES: Normal range of motion, no clubbing or edema. Neurovascularly intact NEUROLOGICAL: Cranial nerves II through XII grossly intact. Moving all extremities SKIN: Warm, dry, no petechiae, no rashes or lesions. Initial Vital Signs Initial Vital Signs: Vital Signs Pulse Rate 72 09/27/20 10:14 Respiratory Rate 17 09/27/20 10:14 Pulse Oximetry 84 L 09/27/20 10:14 Scores HEART Score Heart Score history: Moderately Suspicious Heart Score EKG: Normal Heart Score Age: > or = 65 years old Heart Score risk factors: No known risk factors Heart Score troponin: < or = to normal limit Heart Score Total: 3 Course Orders Ordered: Discontinued Medications Aspirin (Aspirin 81 Mg Chew Tab) 324 mg PO NOW ONE Stop: 09/27/20 10:33 Last Admin: 09/27/20 11:45 Dose: 324 mg Documented by: BEBA Sodium Chloride (Normal Saline 0.9%) 1,000 mls @ 150 mls/hr IV CONT ADRIENNE Last Infusion: 09/27/20 14:45 Dose: 0 mls/hr Documented by: Admin: 09/27/20 11:46 Dose: 150 mls/hr Documented by: BEBA Vital Signs Vital signs: Vital Signs - 8 hr 09/27/20 10:14 09/27/20 10:16 09/27/20 10:30 Temperature Pulse Rate 72 66 63 Respiratory Rate 17 17 14 Blood Pressure 190/80 H 163/72 H Pulse Oximetry 84 L 100 99 09/27/20 10:45 09/27/20 10:50 09/27/20 11:00 Temperature 97.8 F Pulse Rate 62 62 62 Respiratory Rate 16 16 17 Blood Pressure 168/79 H 168/79 H 147/69 H Pulse Oximetry 99 98 98 09/27/20 11:15 09/27/20 11:30 09/27/20 11:31 Temperature Pulse Rate 61 63 60 Respiratory Rate 17 18 19 Blood Pressure 166/78 H 160/70 H Pulse Oximetry 97 98 99 09/27/20 11:45 09/27/20 12:00 09/27/20 12:15 Temperature Pulse Rate 62 60 59 L Respiratory Rate 17 16 19 Blood Pressure 144/64 H 143/68 H 143/69 H Pulse Oximetry 98 98 99 09/27/20 12:30 09/27/20 12:45 09/27/20 13:00 Temperature Pulse Rate 59 L 57 L 55 L Respiratory Rate 17 17 15 Blood Pressure 153/73 H 144/69 H 149/73 H Pulse Oximetry 99 99 99 09/27/20 13:15 09/27/20 13:30 09/27/20 13:45 Temperature Pulse Rate 54 L 54 L 53 L Respiratory Rate 16 16 16 Blood Pressure 147/73 H 154/73 H 165/79 H Pulse Oximetry 99 98 98 09/27/20 14:00 09/27/20 14:15 Temperature Pulse Rate 53 L 54 L Respiratory Rate 17 17 Blood Pressure 164/75 H 158/75 H Pulse Oximetry 99 99 MDM - Chest Pain Lab Data Attestation: I reviewed the patient's lab results. Result diagrams: 09/27/20 10:20 09/27/20 10:20 Labs: Lab Results 09/27/20 09/27/20 09/27/20 Range/Units 10:20 10:20 11:30 WBC 7.1 (4.5-11.0) X10^3/uL RBC 5.02 (4.5-5.9) X10^6/uL Hgb 15.4 (13.5-17.5) g/dL Hct 45.8 (41-53) % MCV 91.3 (80-100) fL MCH 30.8 (26-34) PG MCHC 33.7 (30-36) % RDW 12.9 (11.6-14.8) % Plt Count 206 (150-400) X10^3/uL Neut % (Auto) 64.5 (50-75) % Lymph % (Auto) 24.8 L (25-40) % [place] % (Auto) 6.4 (3-14) % Eos % (Auto) 3.4 (2-4) % Baso % (Auto) 0.9 (0-2) % Neut # (Auto) 4600 (7605-5484) /uL Lymph # (Auto) 1800 (3607-4437) /uL [place] # (Auto) 500 (0-900) /uL Eos # (Auto) 200 (0-450) /uL Baso # (Auto) 100 (0-100) /uL PT (10.1-12.7) SECONDS INR (0.9-1.3) APTT (26.4-36.2) SECONDS Sodium 140 (137-145) mmol/L Potassium 3.9 (3.4-5.1) mmol/L Chloride 105 (98-107) mmol/L Carbon Dioxide 26 (22-32) mmol/L BUN 15 (9-20) mg/dL Creatinine 0.85 (0.66-1.25) mg/dL Estimated GFR > 60.0 (>60) mL/min BUN/Creatinine Ratio 17.6 (6-22) Glucose 120 H (80-110) mg/dL Calcium 9.2 (8.4-10.2) mg/dL Total Bilirubin 0.9 (0.2-1.3) mg/dL AST 23 (17-59) IU/L ALT 19 (<50) IU/L Alkaline Phosphatase 83 (38-126) U/L Total Creatine Kinase 82 (55-170) U/L CK-MB (CK-2) TNP CK-MB (CK-2) Rel Index TNP Troponin I < 0.012 (0.01-0.034) ng/mL NT-Pro-B Natriuret Pep 300 (<450) pg/mL Total Protein 7.6 (6.3-8.2) g/dL Albumin 4.4 (3.5-5.0) g/dL Globulin 3.2 (1.7-4.1) g/dL Albumin/Globulin Ratio 1.4 (1.0-2.8) Lipase 64 (23-300) U/L Urine Color Yellow Urine Appearance Clear Urine pH 7.0 (4.5-8.0) Ur Specific [place] 1.010 (1.000-1.035) Urine Protein Negative (Negative) Urine Glucose (UA) Negative (Negative) g/dL Urine Ketones Negative (NEGATIVE) Urine Occult Blood Negative (Negative) Urine Nitrate Negative (Negative) Urine Bilirubin Negative (NEGATIVE) Urine Urobilinogen 0.2 (0.2) E.U./dL Ur Leukocyte Esterase Negative (NEGATIVE) Urine RBC None seen (0-5/HPF) Urine WBC None seen (0-5/HPF) Urine Bacteria None seen (None) Ur Culture Indicated? Cult not indicated Micro UA Comment Microscopic normal 09/27/20 09/27/20 Range/Units 12:19 12:28 WBC (4.5-11.0) X10^3/uL RBC (4.5-5.9) X10^6/uL Hgb (13.5-17.5) g/dL Hct (41-53) % MCV (80-100) fL MCH (26-34) PG MCHC (30-36) % RDW (11.6-14.8) % Plt Count (150-400) X10^3/uL Neut % (Auto) (50-75) % Lymph % (Auto) (25-40) % [place] % (Auto) (3-14) % Eos % (Auto) (2-4) % Baso % (Auto) (0-2) % Neut # (Auto) (8725-6768) /uL Lymph # (Auto) (6012-9013) /uL [place] # (Auto) (0-900) /uL Eos # (Auto) (0-450) /uL Baso # (Auto) (0-100) /uL PT 13.5 H (10.1-12.7) SECONDS INR 1.2 (0.9-1.3) APTT 30 (26.4-36.2) SECONDS Sodium (137-145) mmol/L Potassium (3.4-5.1) mmol/L Chloride (98-107) mmol/L Carbon Dioxide (22-32) mmol/L BUN (9-20) mg/dL Creatinine (0.66-1.25) mg/dL Estimated GFR (>60) mL/min BUN/Creatinine Ratio (6-22) Glucose (80-110) mg/dL Calcium (8.4-10.2) mg/dL Total Bilirubin (0.2-1.3) mg/dL AST (17-59) IU/L ALT (<50) IU/L Alkaline Phosphatase (38-126) U/L Total Creatine Kinase (55-170) U/L CK-MB (CK-2) CK-MB (CK-2) Rel Index Troponin I < 0.012 (0.01-0.034) ng/mL NT-Pro-B Natriuret Pep (<450) pg/mL Total Protein (6.3-8.2) g/dL Albumin (3.5-5.0) g/dL Globulin (1.7-4.1) g/dL Albumin/Globulin Ratio (1.0-2.8) Lipase (23-300) U/L Urine Color Urine Appearance Urine pH (4.5-8.0) Ur Specific [place] (1.000-1.035) Urine Protein (Negative) Urine Glucose (UA) (Negative) g/dL Urine Ketones (NEGATIVE) Urine Occult Blood (Negative) Urine Nitrate (Negative) Urine Bilirubin (NEGATIVE) Urine Urobilinogen (0.2) E.U./dL Ur Leukocyte Esterase (NEGATIVE) Urine RBC (0-5/HPF) Urine WBC (0-5/HPF) Urine Bacteria (None) Ur Culture Indicated? Micro UA Comment Imaging Data Chest x-ray: Radiologist's Impression: [address] [id number] ReportSigned Patient: Dariusz Aguilar GMR#: [id number]: 3Acct:[id number]/Sex: 80 / MDate of Service: 09/27/20Loc: EDAccession Number: [id number] Procedure: XR chest 1V Ordering Provider: Ksenia Martell D.O. PROCEDURE: XR CHEST 1V INDICATIONS: chest pain TECHNIQUE: One view of the chest was acquired. COMPARISON: [facility], , CHEST 2 VIEW, 06/20/2007, 9:30. FINDINGS: Surgical changes and devices: None. Lungs and pleura: Lungs are clear. No pleural effusions or pneumothorax. Bilateral calcified granulomata. Incidental note made of prominent bilateral nipple shadows. Mediastinum: Mediastinal contours appear normal. Heart size is normal. Calcified left hilar lymph nodes. Bones and chest wall: No suspicious bony lesions. Overlying soft tissues appear unremarkable. IMPRESSION: Chronic granulomatous disease. No evidence acute pulmonary process. Dictated by: Mulugeta Matos M.D. on 09/27/2020 at 9:50 Approved by: Mulugeta Matos M.D. on 09/27/2020 at 9:51 ECG Data Attestation: I personally reviewed and interpreted this ECG as follows: Prior ECG tracings: available for review Interpretation: Sinus rhythm, rate of 66 P are 156 QRS 90 and QTC of 421. No acute ST elevation appreciated. Patient EKG appears similar from 02/13/19. Sinus Kevin rate of 59 P are 172 QRS 86 and QTC of 427. No acute ST elevation depression noted. MDM Narrative Medical decision making narrative: This is a 80-year-old male comes in with complaint of chest pain which has been intermittent and worsened with movement. Discussed with patient this may be musculoskeletal but there was some concern for cardiac involvement. He is a symptomatic here. He states his symptoms have been constant without any resolution at any point with no acute EKG and negative troponin. His symptoms do not seem consistent with unstable angina. Patient was offered observation he prefers to return home plan for an aspirin daily contact his primary care to set up for stress testing in the short-term. Discharge Plan Departure Patient Disposition: Home Clinical Impression: Chest pain Instructions: DI for Chest Pain Activity Restrictions/Additional Instructions: Follow-up with your physician this week for recheck and stress testing as elected to return home today. I would recommend taking an aspirin 81mg daily until gone You may continue home medications as prescribed. You may try Tylenol to a 1000 mg every 8 hours as needed for pain. Please return for new or worsening chest pain, shortness of breath, lightheadedness or passing out, diaphoresis or sweatiness, persistent nausea or vomiting, worsening swelling in her extremities or other new or concerning symptoms. Prescriptions: No Action No Known Home Medications RF: 0 Referrals: Milagro Mullins PA-C [Primary Care Provider] -
== END 2020-09-27 14:45 | disposition home or self-care (01) ==
PROVIDERS: Emergency Provider Emergency Medicine; PCP Physician Assistant
DX: R07.9 Chest pain, unspecified (principal)
CPT/HCPCS: 36415; 71045; 80053; 81001; 82550; 83690; 83880; 84484; 85025; 85610; 85730; 93005; 93010; 96360; 96361; 99284

== ENCOUNTER 2021-01-06 10:36 | Observation (INO) | payer MEDICARE, OTHER, SELFPAY ==
[2019-09-05 10:35] VITALS: BMI 24.4
[2021-01-06] VITALS (11 sets, daily range): BP systolic 143–183; BP diastolic 75–88; PULSE 52–64; RESP 14–19; TEMP 36.1–36.9; O2SAT 96–100; BMI 24.4; BMI 25.0
--- NOTE | 2021-01-06 10:43 | DI.RAD.S_ITS ---
PROCEDURE: XR HIP W PEL IF DONE LT 2V INDICATIONS: fall with hip pain TECHNIQUE: AP pelvis x2 with lateral view(s) of the left hip(s). COMPARISON: , CT, CT PEL WO CON, 01/06/2021, 11:14. , CR, XR HIP W PEL IF DONE RT 2V, 10/09/2018, 19:44. , CR, XR HIP W PEL IF DONE RT 2V, 10/09/2018, 18:13. FINDINGS: Bones: Subtle lucency left intertrochanteric. No dislocations. Pelvic ring appears intact. No suspicious bony lesions. Prior right dynamic hip screw fixation. Soft tissues: The visualized bowel gas pattern is normal. No suspicious soft tissue calcifications. Vascular calcifications. IMPRESSION: Suspect nondisplaced left hip intertrochanteric fracture. Right dynamic hip screw appears stable. Dictated by: Gutierrez Lugo M.D. on 01/06/2021 at 11:40 Approved by: Gutierrez Lugo M.D. on 01/06/2021 at 11:42
--- NOTE | 2021-01-06 11:06 | DI.CT.S_ITS ---
PROCEDURE: CT PEL WO CON INDICATIONS: fall with hip pain TECHNIQUE: Noncontrast 3 mm axial sections acquired through the bony pelvis, with coronal and sagittal reformatting. COMPARISON: [facility], CR, XR HIP W PEL IF DONE LT 2V, 01/06/2021, 10:37. FINDINGS: Image quality: Excellent. Bones: Mildly comminuted fracture of the greater trochanter and base of the femoral neck/intertrochanteric region, which is concordant with the radiographic appearance on the prior study. Remaining osseous structures appear grossly intact. There is anatomic alignment of the left hip joint. Scattered degenerative subchondral sclerosis and spurring. Chronic bilateral L5 pars defects. Lumbar spondylosis and facet disease. Grade 1 anterolisthesis of L5 on S1. Soft tissues: Left gluteal and periarticular soft tissue swelling. No intrapelvic acute abnormalities. Incidentally noted enlarged prostate. Bilateral fat containing inguinal hernias also noted. IMPRESSION: Mildly comminuted fracture of the left greater trochanter and base of the femoral neck. Associated adjacent soft tissue swelling. Dictated by: Derek Patel M.D. on 01/06/2021 at 12:02 Approved by: Derek Patel M.D. on 01/06/2021 at 12:10
[2021-01-06 11:18] LABS: Add Manual Diff / Slide Review NO; Basophils Absolute Auto 100 /uL (0-100); Eosinophils Absolute Auto 200 /uL (0-450); Eosinophils Percent Auto 2.7 % (2-4); Hematocrit 43.8 % (41-53); Hemoglobin 14.8 g/dL (13.5-17.5); Lymphocytes Absolute Auto 800 /uL (1100-4500); Lymphocytes Percent Auto 11.3 % (25-40); Mean Corpuscular HGB Conc 33.7 % (30-36); Mean Corpuscular Hemoglobin 30.8 PG (26-34); Mean Corpuscular Volume 91.4 fL (80-100); Monocytes Absolute Auto 400 /uL (0-900); Monocytes Percent Auto 5.8 % (3-14); Neutrophils Absolute Auto 5900 /uL (1500-7000); Neutrophils Percent Auto 79.2 % (50-75); Platelet Count 187 X10^3/uL (150-400); Red Cell Distribution Width 12.6 % (11.6-14.8); White Blood Cell Count 7.4 X10^3/uL (4.5-11.0)
[2021-01-06 11:34] LABS: Alanine Aminotransferase 8 IU/L (<50); Albumin 4.6 g/dL (3.5-5.0); Albumin Globulin Ratio 1.6 (1.0-2.8); Alkaline Phosphatase 80 U/L (38-126); Aspartate Aminotransferase 22 IU/L (17-59); BUN Creatinine Ratio 19.4 (6-22); Bilirubin Total 0.8 mg/dL (0.2-1.3); Blood Urea Nitrogen 18 mg/dL (9-20); Carbon Dioxide 29 mmol/L (22-32); Chloride 106 mmol/L (98-107); Estimated Glomerular Filt Rate > 60.0 mL/min (>60); Globulin 2.9 g/dL (1.7-4.1); Glucose 93 mg/dL (80-110); HEMOLYSIS < 15 (0-50); Sodium 141 mmol/L (137-145); Total Protein 7.5 g/dL (6.3-8.2)
[2021-01-06] MEDS: fentaNYL 100 MCG/2 ML INJ 50 MCG IV (11:37)
--- NOTE | 2021-01-06 11:44 | ED.LOWEXIN ---
HPI - Extremity Injury (Lower) General Chief Complaint: Extremity Injury, Lower Stated Complaint: Lt Hip Pain Post Fall Time Seen by Provider: 01/06/21 10:36 Source: patient Mode of arrival: EMS Limitations: no limitations History of Present Illness HPI Narrative: 80-year-old male former smoker with history of Parkinson's presents by EMS for evaluation of left hip pain after a fall from ground level. He has taken directly into room to an activated as a modified trauma. He was in his normal state of health and states he frequently has troubles with balance given his Parkinson's. He got tangled up in his own feet and fell onto his left hip. He denies any head neck or back pain. He has full recall of the event. He has severe pain in his left hip with motion, palpation or attempts at ambulation. He denies any numbness, tingling or weakness Related Data Home Medications Medication Instructions Recorded Confirmed carbidopa 25 mg-levodopa 100 mg 25 - 100 tab TID 01/06/21 01/06/21 tablet Allergies Allergy/AdvReac Type Severity Reaction Status Date / Time colistin [COLISTIN] Allergy Unknown PAIN AND Verified 01/06/21 10:46 SWELLING (FROM CORTISPORIN TC) THONZONIUM Allergy Unknown LOCAL PAIN Uncoded 04/02/20 09:07 AND SWELLING (FROM CORTISPORIN TC) Review of Systems Review of Systems Narrative: GENERAL: Denies chills, fatigue, malaise, fever, sweats. HEENT: Denies sinus pain, ear pain, sore throat, difficulty swallowing, dizziness. RESPIRATORY: Denies dyspnea, cough, wheezing, hemoptysis, sputum. CARDIOVASCULAR: Denies chest pain, palpitations, orthopnea, edema, GASTROINTESTINAL: Denies nausea, vomiting, abdominal pain, diarrhea, constipation, melena. : Denies dysuria, frequency, incontinence, hematuria, urinary retention. MUSCULOSKELETAL: See HPI SKIN: Denies rash, skin lesions, or other NEUROLOGIC: Denies weakness, headache, numbness, change in speech, confusion, seizures, incoordination. PSYCHIATRIC: No concerning psychosocial issues. 12 point review of systems is negative except for those stated above Patient History Medical History Acquired hypothyroidism Allergic rhinitis due to other allergen (09/16/11) Back pain Eczema Essential hypertension (07/25/17) Former cigarette smoker Irregular heartbeat Parkinson disease Surgical History History of hip surgery (10/09/18) S/P right inguinal hernia repair (~02/2019) Social History household members: none Smoking Status: Former smoker alcohol intake: current Smoking Status: Former smoker alcohol intake frequency: 0-2 drinks per day Substance Use Type: does not use Exam Narrative Exam Narrative: GENERAL: 80] year old patient appears stated age. Well-developed patient, in mild distress. GCS 15 HEAD: Atraumatic. Normocephalic. EYES: Pupils equal round and reactive. Extraocular motions intact. No scleral icterus. No injection or drainage. ENT: Nose without bleeding, purulent drainage. Throat without erythema, tonsillar hypertrophy or exudate. Airway patent. NECK: Trachea midline. Non tender CARDIOVASCULAR: Regular rate and rhythm without murmurs, gallops, or rubs. RESPIRATORY: Clear to auscultation. Breath sounds equal bilaterally. No wheezes, rales, or rhonchi. GASTROINTESTINAL: Abdomen soft, non-tender, nondistended. EXTREMITIES: Pain on palpation of left hip, closed, isolated and neurovascularly intact. No shortening or external rotation BACK: Nontender without deformity or crepitance. No flank tenderness. NEURO: AOx3. SKIN: No rash or erythema of visible areas Initial Vital Signs Initial Vital Signs: Vital Signs Temperature 97.5 F L 01/06/21 10:40 Pulse Rate 62 01/06/21 10:40 Respiratory Rate 14 01/06/21 10:40 Blood Pressure 183/88 H 01/06/21 10:40 Pulse Oximetry 99 01/06/21 10:40 Course Orders Ordered: Acetaminophen (Acetaminophen 325 Mg Tablet) 975 mg PO Q8H PRN PRN Reason: Pain, Mild (1-3) Hydrocodone Bitart/Acetaminophen (Hydrocodone/Acet 5/325 Tablet) 1 tab PO Q4HR PRN PRN Reason: Pain, Moderate (4-6) Last Admin: 01/07/21 04:51 Dose: 1 tab Documented by: Admin: 01/07/21 01:15 Dose: 1 tab Documented by: Admin: 01/06/21 16:00 Dose: 1 tab Documented by: JAREN Bisacodyl (Bisacodyl 10 Mg Supp) 10 mg TX DAILY PRN PRN Reason: Constipation Carbidopa/Levodopa (Carbidopa-Levodopa 25/100 Tablet) 1 each PO TID [facility] Last Admin: 01/06/21 20:43 Dose: 1 each Documented by: Admin: 01/06/21 16:00 Dose: 1 each Documented by: JAREN Docusate Sodium (Docusate 100 Mg Capsule) 100 mg PO BID [facility] Last Admin: 01/06/21 20:43 Dose: 100 mg Documented by: JAREN Enoxaparin Sodium (Enoxaparin 40 Mg/0.4 Ml Syringe) 40 mg SUBCUT DAILY [facility] Last Admin: 01/06/21 15:31 Dose: 40 mg Documented by: JAREN Ibuprofen (Ibuprofen 600 Mg Tablet) 600 mg PO Q6HR PRN PRN Reason: Fever/Mild Pain (1-3) Influenza Virus Vaccine (Influenza Hd Vaccine 0.7 Ml Syringe) 0.7 ml IM .ONCE ONE Stop: 01/07/21 09:01 Ketorolac Tromethamine (Ketorolac 30 Mg/Ml Vial) 30 mg IV Q6HR PRN PRN Reason: Pain, Severe (7-10) Stop: 01/11/21 14:45 Last Admin: 01/06/21 15:27 Dose: 30 mg Documented by: JAREN Naloxone HCl (Naloxone 0.4 Mg/Ml Vial) 0.2 mg IV Q2MIN PRN PRN Reason: Opiate Reversal Ondansetron HCl (Ondansetron 4 Mg/2 Ml Inj) 4 mg IV Q8HR PRN PRN Reason: Nausea And Vomiting Sodium Chloride (Sodium Chloride 0.9% Flush) 10 ml IV PRN PRN PRN Reason: Flush Sodium Chloride (Sodium Chloride 0.9% Flush) 10 ml IV BID [facility] Discontinued Medications Fentanyl (Fentanyl 100 Mcg/2 Ml Inj) 50 mcg IV NOW ONE Stop: 01/06/21 11:24 Last Admin: 01/06/21 11:37 Dose: 50 mcg Documented by: ALFONSO Consultations Consultation #1: case discussed with ortho, recommends admit to hospitalist, not likely surgical but will see patient Consultation #2: discussed with hospitalist, happy to admit Vital Signs Vital signs: Vital Signs - 8 hr 09/29/21 10:40 01/06/21 11:19 01/06/21 11:44 Temperature 97.5 F L Pulse Rate 62 64 Pulse Rate [Bilateral Radial] 60 Respiratory Rate 14 Blood Pressure 183/88 H Pulse Oximetry 99 99 01/06/21 11:45 01/06/21 12:00 01/06/21 12:30 Temperature Pulse Rate 62 59 L 61 Pulse Rate [Bilateral Radial] Respiratory Rate Blood Pressure 154/75 H 156/76 H 162/77 H Pulse Oximetry 98 99 100 MDM - Extremity Injury (Lower) Lab Data Result diagrams: 01/06/21 11:09 01/06/21 11:09 Labs: Lab Results 01/06/21 01/06/21 01/06/21 Range/Units 11:09 11:09 11:09 WBC 7.4 (4.5-11.0) X10^3/uL RBC 4.80 (4.5-5.9) X10^6/uL Hgb 14.8 (13.5-17.5) g/dL Hct 43.8 (41-53) % MCV 91.4 (80-100) fL MCH 30.8 (26-34) PG MCHC 33.7 (30-36) % RDW 12.6 (11.6-14.8) % Plt Count 187 (150-400) X10^3/uL Neut % (Auto) 79.2 H (50-75) % Lymph % (Auto) 11.3 L (25-40) % [place] % (Auto) 5.8 (3-14) % Eos % (Auto) 2.7 (2-4) % Baso % (Auto) 1.0 (0-2) % Neut # (Auto) 5900 (9088-9694) /uL Lymph # (Auto) 800 L (9006-8240) /uL [place] # (Auto) 400 (0-900) /uL Eos # (Auto) 200 (0-450) /uL Baso # (Auto) 100 (0-100) /uL Sodium 141 (137-145) mmol/L Potassium 4.0 (3.4-5.1) mmol/L Chloride 106 (98-107) mmol/L Carbon Dioxide 29 (22-32) mmol/L BUN 18 (9-20) mg/dL Creatinine 0.93 (0.66-1.25) mg/dL Estimated GFR > 60.0 (>60) mL/min BUN/Creatinine Ratio 19.4 (6-22) Glucose 93 (80-110) mg/dL Calcium 9.0 (8.4-10.2) mg/dL Total Bilirubin 0.8 (0.2-1.3) mg/dL AST 22 (17-59) IU/L ALT 8 (<50) IU/L Alkaline Phosphatase 80 (38-126) U/L Total Protein 7.5 (6.3-8.2) g/dL Albumin 4.6 (3.5-5.0) g/dL Globulin 2.9 (1.7-4.1) g/dL Albumin/Globulin Ratio 1.6 (1.0-2.8) SARS-CoV-2 (PCR) Negative (Negative) Imaging Data Extremity x-ray #1: Radiologist's Impression: [address] [address] XRay Report Signed Patient: Dariusz Aguilar MR#: [id number] : 1940 Acct:[id number] Age/Sex: 80 / M Date of Service: 01/06/21 Loc: ED Accession Number: [id number] ?? Procedure: XR hip w pel if done LT 2V Ordering Provider: Kavon Mclean D.O. PROCEDURE:? XR HIP W PEL IF DONE LT 2V ? INDICATIONS:? fall with hip pain ? TECHNIQUE:? AP pelvis x2 with lateral view(s) of the left hip(s).? ? COMPARISON:? [facility], CT, CT PEL WO CON, 01/06/2021, 11:14.? [facility], CR, XR HIP W PEL IF DONE RT 2V, 10/09/2018, 19:44.? [facility], CR, XR HIP W PEL IF DONE RT 2V, 10/09/2018, 18:13. ? FINDINGS:? ? Bones:? Subtle lucency left intertrochanteric.? No dislocations.? Pelvic ring appears intact.? No suspicious bony lesions.? Prior right dynamic hip screw fixation. ? Soft tissues:? The visualized bowel gas pattern is normal.? No suspicious soft tissue calcifications.? Vascular calcifications.? ? ? IMPRESSION:? Suspect nondisplaced left hip intertrochanteric fracture. ? Right dynamic hip screw appears stable. ? ? ? Dictated by: Gutierrez Lugo M.D. on 01/06/2021 at 11:40 ? ? Approved by: Gutierrez Lugo M.D. on 01/06/2021 at 11:42 ? Pelvis CT: Radiologist's Impression: [address] [address] [address] Scan Report Signed Patient: Dariusz Aguilar MR#: [id number] : 1940 Acct:[id number] Age/Sex: 80 / M Date of Service: 01/06/21 Loc: ED Accession Number: [id number] ?? Procedure: CT pelvis wo con Ordering Provider: Kavon Mclean D.O. PROCEDURE:? CT PEL WO CON ? INDICATIONS:? fall with hip pain ? TECHNIQUE:? Noncontrast 3 mm axial sections acquired through the bony pelvis, with coronal and sagittal reformatting.? ? COMPARISON:? [facility], CR, XR HIP W PEL IF DONE LT 2V, 01/06/2021, 10:37. ? FINDINGS:? Image quality:? Excellent.? ? Bones:? Mildly comminuted fracture of the greater trochanter and base of the femoral neck/intertrochanteric region, which is concordant with the radiographic appearance on the prior study.? Remaining osseous structures appear grossly intact.? There is anatomic alignment of the left hip joint. Scattered degenerative subchondral sclerosis and spurring.? ? Chronic bilateral L5 pars defects.? Lumbar spondylosis and facet disease.? Grade 1 anterolisthesis of L5 on S1. ? Soft tissues:? Left gluteal and periarticular soft tissue swelling.? No intrapelvic acute abnormalities.? Incidentally noted enlarged prostate.? Bilateral fat containing inguinal hernias also noted. ? IMPRESSION:? ? Mildly comminuted fracture of the left greater trochanter and base of the femoral neck.? Associated adjacent soft tissue swelling. ? Dictated by: Derek Patel M.D. on 01/06/2021 at 12:02 ? ? Approved by: Derek Patel M.D. on 01/06/2021 at 12:10 ? Discharge Plan Departure Patient Disposition: Admitted As Inpatient Clinical Impression: Closed fracture of left hip Qualifiers: Encounter type: initial encounter Qualified Code(s): S72.002A - Fracture of unspecified part of neck of left femur, initial encounter for closed fracture Admit Date/Time: 01/06/21 13:24 Admit Provider: Rubia Stoll
[2021-01-06 12:09] LABS: COVID19 - ADMIT (NP swab/PCR) Negative (Negative)
--- NOTE | 2021-01-06 14:49 | PC.NURSE ---
Patient admitted to room 221, he states that he has Parkinsons and he was trying to ambulate but his feet would not move and he fell. Patient has some abrasions to his left knee, dry feet, and bruising to his l.hand and shoulder. He is in pain with movement but at rest does better. putting orders in for patient at this time. He is alert and oriented x3. He has a wallet that he wants to keep in his pants and this has been put into a belongings bag with his other items. Resting supine at this time.
[2021-01-06] MEDS: KETOROLAC 30 MG/ML VIAL IV (15:27)
[2021-01-06] MEDS: ENOXAPARIN 40 MG/0.4 ML SYRINGE SUBCUT (15:31)
--- NOTE | 2021-01-06 15:40 | P.HP_ITS ---
History of Present Illness History of Present Illness Date Patient Seen: 01/06/21 Chief complaint: Decreased LOC Narrative: The patient is a 80-year-old male with a history of Parkinson's di sease, hypothyroidism, hypertension, who tripped and fell today. He has significant right hip pain. He was seen and evaluated in the emergency room for significant pain. He underwent an x-ray of the hip in addition to a pelvic CT. The pelvic CT revealed a comminuted fracture of the left greater trochanter and at the base of the femoral neck. There was associated soft tissue swelling. Based on consultation with Orthopedic surgery was felt that this is non operative. The patient is admitted for pain control as it is difficult for him to ambulate. He does live at home with his daughter. He is hopeful that once his pain is controlled he will be able to return home. Patient states that as long as he is not moving he does not have pain however with any activity as significant pain in the hip. Patient History Medical History Acquired hypothyroidism Allergic rhinitis due to other allergen (09/16/11) Back pain Eczema Essential hypertension (07/25/17) Former cigarette smoker Irregular heartbeat Parkinson disease Surgical History History of hip surgery (10/09/18) S/P right inguinal hernia repair (~02/2019) Family & Social History Social History: household members none Safety & Behavioral: Feels Safe in Current Yes Environment Been Physically Hurt or No Threatened By a Person Tobacco & Substance use: Tobacco type cigarettes,pipe Smoking Status Former smoker alcohol intake current alcohol intake frequency 0-2 drinks per day Substance Use Type does not use Meds Home Medications and Allergies Home Medications Medication Instructions Recorded Confirmed Type carbidopa 25 mg-levodopa 100 mg 25 - 100 tab TID 01/06/21 01/06/21 History tablet Allergies Allergy/AdvReac Type Severity Reaction Status Date / Time colistin [COLISTIN] Allergy Unknown PAIN AND Verified 01/06/21 10:46 SWELLING (FROM CORTISPORIN TC) THONZONIUM Allergy Unknown LOCAL PAIN Uncoded 04/02/20 09:07 AND SWELLING (FROM CORTISPORIN TC) Review of Systems Review of Systems Narrative: Ten point review of systems is negative Exam Vital Signs (past 8 hours): - 01/06/21 10:40 01/06/21 11:19 01/06/21 11:44 Temperature 97.5 F L Pulse Rate 62 64 Pulse Rate [Bilateral Radial] 60 Respiratory Rate 14 Blood Pressure 183/88 H Pulse Oximetry 99 99 01/06/21 11:45 01/06/21 12:00 01/06/21 12:30 Temperature Pulse Rate 62 59 L 61 Pulse Rate [Bilateral Radial] Respiratory Rate Blood Pressure 154/75 H 156/76 H 162/77 H Pulse Oximetry 98 99 100 Oxygen Delivery Method Room Air Narrative Exam Narrative: Pleasant elderly male lying in bed in no acute distress [facility] Other: HEENT: Normocephalic atraumatic, extraocular muscles are intact, oropharynx is clear, neck is supple without adenopathy Resp Other: Lungs: Clear to auscultation Cardio Other: Cardiac exam: Regular rate and rhythm normal S1-S2 GI Other: Abdomen: Soft nontender nondistended Back/Spine/Pelvis Other: Left hip tender to palpation Neuro Other: No tremor, nonfocal Psych Other: No agitation, hallucinations, or delusions Objective Labs Result Diagrams: 01/06/21 11:09 01/06/21 11:09 Labs: Laboratory Results - last 24 hr 01/06/21 01/06/21 01/06/21 11:09 11:09 11:09 WBC 7.4 RBC 4.80 Hgb 14.8 Hct 43.8 MCV 91.4 MCH 30.8 MCHC 33.7 RDW 12.6 Plt Count 187 Neut % (Auto) 79.2 H Lymph % (Auto) 11.3 L [place] % (Auto) 5.8 Eos % (Auto) 2.7 Baso % (Auto) 1.0 Neut # (Auto) 5900 Lymph # (Auto) 800 L [place] # (Auto) 400 Eos # (Auto) 200 Baso # (Auto) 100 Sodium 141 Potassium 4.0 Chloride 106 Carbon Dioxide 29 BUN 18 Creatinine 0.93 Estimated GFR > 60.0 BUN/Creatinine Ratio 19.4 Glucose 93 Calcium 9.0 Total Bilirubin 0.8 AST 22 ALT 8 Alkaline Phosphatase 80 Total Protein 7.5 Albumin 4.6 Globulin 2.9 Albumin/Globulin Ratio 1.6 SARS-CoV-2 (PCR) Negative Assessment & Plan Assessment & Plan narrative: 80-year-old male admitted to the hospital following a ground level fall -patient sustained a comminuted fracture of the greater trochanter and base of femur femoral neck intertrochanteric area -non operative conservative treatment recommended -will consult PT and OT -Tylenol, hydrocodone for pain -DVT prophylaxis Parkinson's disease Continue carbidopa levodopa at home dose Hypertension -patient reports his blood pressure is not treated likely related to his Parkinson's disease will continue to monitor Patient reports he is a full code His daughter, is his surrogate decision maker The goal is for the patient to return home Time Spent With Patient Critical Care time: I spent a total of [] minutes of critical care time on this patient's care today; this time is exclusive of procedural time.
--- NOTE | 2021-01-06 15:46 | PT-IP ANOTE ---
Physical therapy order received and chart reviewed. Noted X-rays show Suspect nondisplaced left hip intertrochanteric fracture. Will hold physical therapy evaluation until he has a weight bearing status and cleared for gait/mobility.
[2021-01-06] MEDS: HYDROCODONE/ACET 5/325 TABLET 1 TAB PO (16:00)
[2021-01-06] MEDS: CARBIDOPA-LEVODOPA 25/100 TABLET 1 EACH PO ×2 (16:00→20:43)
--- NOTE | 2021-01-06 19:54 | PM.HP.1 ---
History of Present Illness History of Present Illness Date Patient Seen: 01/06/21 Time Patient Seen: 20:00 Date of Onset of Symptoms: 01/06/21 Chief complaint: Decreased LOC Narrative: left hip pain after ground level fall. H/O parkinson's and prior right hip fracture Patient History Medical History Acquired hypothyroidism Allergic rhinitis due to other allergen (09/16/11) Back pain Eczema Essential hypertension (07/25/17) Former cigarette smoker Irregular heartbeat Parkinson disease Surgical History History of hip surgery (10/09/18) S/P right inguinal hernia repair (~02/2019) Family & Social History Social History: household members none Prior Living Arrangements House Safety & Behavioral: Feels Safe in Current Yes Environment Been Physically Hurt or No Threatened By a Person Suicidal Ideation Description None Suicide Plan Description No Plan Tobacco & Substance use: Tobacco type cigarettes,pipe Smoking Status Former smoker alcohol intake current alcohol intake frequency 0-2 drinks per day Substance Use Type does not use Meds Home Medications and Allergies Home Medications Medication Instructions Recorded Confirmed Type carbidopa 25 mg-levodopa 100 mg 25 - 100 tab TID 01/06/21 01/06/21 History tablet Allergies Allergy/AdvReac Type Severity Reaction Status Date / Time colistin [COLISTIN] Allergy Unknown PAIN AND Verified 01/06/21 10:46 SWELLING (FROM CORTISPORIN TC) THONZONIUM Allergy Unknown LOCAL PAIN Uncoded 04/02/20 09:07 AND SWELLING (FROM CORTISPORIN TC) Review of Systems Allergic/Immunologic Comments: He notes that he was not lightheaded prior to his fall, he did not notice any significant weakness. He notes with his Parkinson's occasionally when he starts to walk his feet just cannot go in almost a spastic way and that is why he fell. Did not have any chest pain or other problems prior to his fall. Exam Vital Signs (past 8 hours): - 01/06/21 12:00 01/06/21 12:30 01/06/21 16:35 Temperature 98.5 F Pulse Rate 59 L 61 61 Respiratory Rate 19 Blood Pressure 156/76 H 162/77 H 155/76 H Pulse Oximetry 99 100 100 01/06/21 16:58 Temperature Pulse Rate Respiratory Rate Blood Pressure Pulse Oximetry 100 Oxygen Delivery Method Room Air Oxygen Flow Rate 0 Narrative Exam Narrative: HEENT is benign, lungs are clear, cor regular rate and rhythm abdomen soft and benign, S right lower extremity is remarkable for a healed incision, there is no pain with range of motion in the right hip, his left knee has an obvious anterior contusion, there is a minimal left knee effusion, his left knee is stable, his right hip has focal tenderness over the greater trochanter, there is no specific pain with axial loading, has mild pain with internal and external rotation of his hip, he can fire his toe flexors and extensors distally. Objective Labs Result Diagrams: 01/06/21 11:01/06/21 11:09 Labs: Laboratory Results - last 24 hr 01/06/21 01/06/21 01/06/21 11:09 11:09 11:09 WBC 7.4 RBC 4.80 Hgb 14.8 Hct 43.8 MCV 91.4 MCH 30.8 MCHC 33.7 RDW 12.6 Plt Count 187 Neut % (Auto) 79.2 H Lymph % (Auto) 11.3 L [place] % (Auto) 5.8 Eos % (Auto) 2.7 Baso % (Auto) 1.0 Neut # (Auto) 5900 Lymph # (Auto) 800 L [place] # (Auto) 400 Eos # (Auto) 200 Baso # (Auto) 100 Sodium 141 Potassium 4.0 Chloride 106 Carbon Dioxide 29 BUN 18 Creatinine 0.93 Estimated GFR > 60.0 BUN/Creatinine Ratio 19.4 Glucose 93 Calcium 9.0 Total Bilirubin 0.8 AST 22 ALT 8 Alkaline Phosphatase 80 Total Protein 7.5 Albumin 4.6 Globulin 2.9 Albumin/Globulin Ratio 1.6 SARS-CoV-2 (PCR) Negative Assessment & Plan Assessment and plan (1) Closed fracture of left hip: Qualifiers: Encounter type: initial encounter Qualified Code(s): S72.002A - Fracture of unspecified part of neck of left femur, initial encounter for closed fracture Status: Acute (2) Parkinson disease: Status: Suspected Plan: Dez has an acute left hip trochanteric fracture. I reviewed his x-rays and a CT scan in great detail. I do not see any specific extension along the intertrochanteric line. I think it likely represents a stable fracture which can be treated with close management. He can be weight-bearing as tolerated on the left lower extremity but anticipate that he will need the full-time use of a walker. He feels that he potentially can be discharged to his daughter's house that she has fewer steps and can provide some support. He needs admission for physical therapy and gait training as well as stabilizing his Parkinson's to the best of our ability in order to make him safe for discharge and to prevent additional falls. He can follow-up with me in the office or 1 of my PAs in about 2 weeks with x-rays. Time Spent With Patient Critical Care time: I spent a total of [] minutes of critical care time on this patient's care today; this time is exclusive of procedural time.
[2021-01-06] MEDS: DOCUSATE 100 MG CAPSULE PO (20:43)
[2021-01-07] VITALS (9 sets, daily range): BP systolic 120–149; BP diastolic 75–81; PULSE 60–67; RESP 16–18; TEMP 36.3–36.7; O2SAT 96–99
[2021-01-07] MEDS: HYDROCODONE/ACET 5/325 TABLET 1 TAB PO ×4 (01:15→13:55)
[2021-01-07] MEDS: CARBIDOPA-LEVODOPA 25/100 TABLET 1 EACH PO ×3 (08:31→21:06)
[2021-01-07] MEDS: DOCUSATE 100 MG CAPSULE PO ×2 (08:31→21:05)
[2021-01-07] MEDS: IBUPROFEN 600 MG TABLET PO ×2 (08:40→21:06)
[2021-01-07] MEDS: ACETAMINOPHEN 325 MG TABLET 975 MG PO (08:41)
[2021-01-07] MEDS: SODIUM CHLORIDE 0.9% FLUSH 10 ML IV ×2 (08:43→21:06)
--- NOTE | 2021-01-07 08:43 | CM.DANOTE ---
Addendum entered by Stacia Austin R.N. 01/07/21 15:29: Jayne at [facility] has confirmed acceptance for patient. He does not need an updated COVID swab, but does need copy of vaccine card. He is currently sleeping, and have not yet heard back from daughter. Asked pm nurse if she can obtain his card if he has it and make a copy for care management. Went ahead and completed his PASSR. He will be going over on a Medicare COVID waiver. Addendum entered by Stacia Austin R.N. 01/07/21 15:02: Spoke to patient and he is willing to go to a skilled facility for short term if needed. He gave this telehealth case manager permission to call his daughter as well. Attempted to get in touch with patient's daughter, left her a message to call this telehealth case manager back. Jayne will review, at [facility] to see if he is appropriate. Will fax referral over to [facility] as well, as she indicated that they do have openings as well., and accept COVID waiver. Addendum entered by Stacia Austin R.N. 01/07/21 14:39: Patient is having increased pain upon ambulation and is not yet ready to go home. He is hoping to go home with family, but may possibly need skilled rehab. Asked Jayne at [facility] if she can review for possible COVID waiver. She will review today. Will speak to patient again and ask if it would be permissable to call his daughter. Original Note: DCP: Case received, EMR reviewed and met with patient. Introduced self and role. Was able to obtain information from patient regarding his current living situation, as well as his baseline activity status prior to hospitalization. DCP assessment completed with information currently available. Patient is a 80 year old male who admitted yesterday afternoon to the care of the hospitalist team. PCP: Dr. Walters. Payer: confirmed: Medicare/[employer]. Patient came to the hospital via ambulance secondary to a ground level fall that occurred at home. Patient had tripped, he has history of Parkinson's, and ended up landing on his hip. He inherited a comminuted fracture non displaced of his greater trochanter. He has already had ortho consult, is non-operative. He is here for pain control and to work with P.T. Met with patient in his room. He was sitting up in bed, alert and oriented. He confirmed that he resides alone, does not have a life line. Stated, he has Parkinsons, and sometimes his feet don't always work well. He stated that he does not use any DME, but has walker and wheel-chair available if needed. He did say that he is still driving. Patient also indicated that he should be able to stay with his daughter at discharge, who lives nearby. Briefly mentioned home health option to patient. Daughter will be in some time today. He has not yet worked with P.T. as of yet. P: DCP to continue to follow for needs. Will have to see how he does with P.T, and will attempt to meet with daughter today. Stacia Austin RN/Optical Technician Discharge Planning/Care Management CM Discharge Assessment Start: 01/07/21 08:41 Freq: Status: Active Protocol: Document 01/07/21 08:41 (Rec: 01/07/21 08:43 [id number]) Discharge Planning Assessment Assigned Studio Operations Engineer In Charge Stacia Austin RN/Optical Technician Advance Directives? Yes: Durable Power of Skiver Operator , Living Will with Health Care Directive, HIPAA jose carlos of medical records Advance Directives on File No History Provided By Patient,Medical Record Prior Living Arrangements House Household Members none Type of transporation used prior to Drives own vehicle admit Independent with ADL's Yes Is patient alert and oriented? Yes Needs Assistance With Home Chores / Shopping DME Already Rented / Owned Wheelchair,FWW / Walker Patient/Family Preference Home with Home Health Comment May be an option for patient, he has not yet worked with P.T . Barriers to Discharge Yes Comment Lives alone, but he indicated that he can stay with his daughter. Discharge Plan Home with Home Health Transportation Arrangement Family Additional Comment Have not yet initiated referral, will see how he does with P.T, Whiteboard Updated in Patient Room with Yes name and ext. # of Studio Operations Engineer In Charge Review Status In Process Next Review Type Continued Stay Review
[2021-01-07] MEDS: ENOXAPARIN 40 MG/0.4 ML SYRINGE SUBCUT (09:00)
--- NOTE | 2021-01-07 10:35 | PT.IIE ---
Current Diagnoses Parkinson's disease (01/06/21) Fracture of unspecified part of neck of left femur, initial encounter for closed fracture (01/06/21) Medical History (Last Reviewed 01/06/21 @ 19:55 by Shannan Sun MD) Acquired hypothyroidism Allergic rhinitis due to other allergen (09/16/11) Back pain Eczema Essential hypertension (07/25/17) Former cigarette smoker Irregular heartbeat Parkinson disease Physical Therapy Inpatient Evaluation/Re-Eval M1 PT/OT-IP Prior Functional Status Start: 01/07/21 12:43 Freq: NEEDED Status: Active Protocol: Document 01/07/21 10:35 DLM (Rec: 01/07/21 13:26 DLM [id number]) Medical Review Prior Functional Status Medical History Reviewed Yes Diet/Fluid Consistency Regular Communication WNL Mobility and Gait Independent without a device, walks miles for exercise, tremors from Parkinsons is managed with medication, when he first gets up sometimes he has trouble with his feet not doing what he tells them Activities of Daily Living and IADL's Independent Prior Functional Level (Other details) he attended SNF rehab after right hip sx in 2019 with good recovery Social History Household Members none Living Arrangements House Number of Floors (Floors) One Floor Number of Stairs To Enter/Railing? one step, no rail Home Environment Standard Height Toilet Home Equipment Front Wheel Walker Additional Social History Comment he reports his Son has a FWW he can use M2 PT-IP Current Condition Start: 01/07/21 12:43 Freq: NEEDED Status: Active Protocol: Document 01/07/21 10:35 DLM (Rec: 01/07/21 13:26 DLM [id number]) Physical Therapy Current Condition Current Condition Evaluation Date 01/07/21 Treatment Diagnosis fall with left intertrochanteric fx, impaired gait Onset Date 01/06/21 Precautions Other Precautions No active left hip abduction due to fracture WBAT left LE with use of FWW Weight Bearing Status Weight Bearing Status Weight Bear as Tolerated M3 PT-IP Subjective Start: 01/07/21 12:43 Freq: NEEDED Status: Active Protocol: Document 01/07/21 10:35 DLM (Rec: 01/07/21 13:26 DLM [id number]) Subjective Physical Therapy Visit Type Type Initial Evaluation Visit Start Time 10:00 Visit Stop Time 10:35 Total Visit Minutes 35 Number of OUTSIDE ENERGY SALES REPRESENTATIVES Visits 0 Physical Therapy Visit Comments Patient Comments He does not want to go to SNF Patient Goals He wants to discharge home with help from his Son Therapy Pain Assessment Pain When Pain Assessed During Mobility Pain Present Pain Present Pain Reported Location Left Hip Intensity 10 Scale Used Numeric (0 - 10) Description Aching,Sharp,With Movement Pain Behaviors Facial Grimacing,Moaning, Wincing Pain Management Techniques Modification of Treatment,Re- positioning M4 PT-IP Mobility and Gait Start: 01/07/21 12:43 Freq: NEEDED Status: Active Protocol: Document 01/07/21 10:35 DLM (Rec: 01/07/21 13:26 DL [id number]) PT-Bed Mobility Assessment Supine to Sit Supine to Sit Minimal Assistance,Moderate Assistance Scooting Scooting to Edge of Bed Minimal Assistance,Moderate Assistance PT-Transfer Assessment Sit to and From Stand Sit to and from Stand Minimal Assistance,Moderate Assistance,Use of Upper Extremities Equipment Transfer Assistive Device Gait Belt,Front Wheeled Walker Transfers Transfer Destination Chair Transfer Technique Stand Step Pivot Transfer Ability Level of Assist Minimal Assistance,Use of Upper Extremities Comments Mobility Comments Pt up to recliner, he report pain is ok weight bearing but severe when he tries to lift left LE to take a step. He has a posterior lean with initial standing that he needed extra time and assist to manage. Gait Assessment Gait Gait Assistance Required: Minimum Assistance Distance (Feet) 3 Assistive Devices Assistive Device Gait Belt,Front Wheeled Walker Gait Deviations General Gait Pattern Decreased Stride Length Factors Limiting Gait Function Factors Limiting Gait Function Decreased Activity Tolerance, Decreased Strength, Incoordination,Limited Range of Motion,Pain,Poor Balance Comments Gait Comments left hip pain during swing phase of gait limits his distance of gait at this time. Pt up to recliner at this time with needs close. Stair Climbing Assessment Comments Stair Climbing Comments unable this visit PT-Balance Assessment Sitting Balance and Reactions Static Sitting Balance Ability Good Dynamic Sitting Balance Ability Good Standing Balance and Reactions Static Standing Balance Ability Fair Dynamic Standing Balance Ability Fair Device Used FWW M5 PT-IP Objective Assessments Start: 01/07/21 12:43 Freq: NEEDED Status: Active Protocol: Document 01/07/21 10:35 DLM (Rec: 01/07/21 13:26 DL [id number]) Orientation Orientation/Cognition Level of Alertness Alert Orientation Name,Age,Birthday,Month,Date, Year,Day of Week,Place, Situation Language Function Ability No Deficits Noted Safety Awareness Understands Safety Issues Memory Description No Deficits Noted Gross Range of Motion Upper Extremity ROM Assessment Within Functional Limits Lower Extremity ROM Assessment Left Impaired Impairments pain left hip limits ROM Strength Upper Extremity Strength Assessment Within Functional Limits Lower Extremity Strength Assessment Left Impaired Hip flexion 2+/5 Knee ext 3-/5 Ankle DF 5/5 Comments Strength Comments he c/o increase left hip pain with manual muscle testing left UE Coordination Assessment Gross Coordination Gross Coordination Impaired Assessment Coordination Comments good functional coordination of UE's for reaching for items and eating, mild incoordination of feet, no tremors noted at this time Sensation Assessment Sensation Gross Sensation WNL Comments Sensation Comments no numbness/tingling reported by pt Muscle Tone Comments Muscle Tone Comments mild rigidity noted throughout M6 PT-IP Treatment Start: 01/07/21 12:43 Freq: NEEDED Status: Active Protocol: Document 01/07/21 10:35 DLM (Rec: 01/07/21 13:26 [facility] [id number]) Physical Therapy Treatment Exercises Exercises Ankle Pumps Education Education Provided Precautions,Weight Bearing Status,Safety M7 PT-IP Assessment and Plan Start: 01/07/21 12:43 Freq: NEEDED Status: Active Protocol: Document 01/07/21 10:35 DLM (Rec: 01/07/21 13:26 DL [id number]) PT Summary Assessment and Plan Potential Rehabilitation Potential Good Status of Condition at Evaluation Evolving Summary Impairments Pain,ROM,Strength,Balance, Coordination,Tone,Bed Mobility ,Transfers,Gait,Activity Tolerance Assessment Summary Dariusz is alert and resting in bed. He agreed to get up with therapy. He shows good effort with therapy. His left hip pain with lifting his left LE limited his ability to ambulate. He is motivated to return home but his distances of gait are not functional for household distance yet. Will continue to work towards his goal of home but depending on his progress he may needs SNF rehab before home. Goals Bed Mobility Goal Independent Transfer Goal Standby Assistance,Front Wheeled Walker Gait Goal Standby Assistance,Front Wheel Walker Gait Distance 150 feet Other Goals up and down one step with FWW and CG/min assist Days to Meet Goals 3 Frequency of Treatment Frequency Of Treatment Twice a Day Treatment Plan Physical Therapy Treatment Plan Bed Mobility Training,Transfer Training,Gait Training, Therapeutic Exercise,Balance Retraining,Discharge Planning, Hot or Cold Pack,Neuromuscular Re-ed,Coordination Retraining Other Recommendations and Next Treatment assess if wheelchair use is an Focus option at home Recommendations To Nursing Amount of Assist Needed 1 Person Assist Discharge Recommendations PT Discharge Recommendations Home vs SNF Other Discharge Recommendations pt wants to discharge home with Son to help, he needs to be able to ambulate household distances to go home Transportation Needs at Discharge Private Vehicle
[2021-01-07] MEDS: INFLUENZA HD VACCINE 0.7 ML SYRINGE IM (11:02)
--- NOTE | 2021-01-07 13:52 | P.PN_ITS ---
Subjective Subjective Interval history: The patient is a 80 y/o male who tripped and fell yesterday. He sustained a left hip trochanteric fracture. It is felt to be a stable fracture which can be treated conservatively. Patient reports continued pain with ambulation/weight bearing. He got up with PT and was unable to get to a commode. Exam Vital Signs (past 8 hours): - 01/07/21 07:00 01/07/21 07:22 01/07/21 11:00 Temperature 97.5 F L 97.3 F L Pulse Rate 60 67 Respiratory Rate 16 16 Blood Pressure 148/75 H 120/75 Pulse Oximetry 99 96 99 Oxygen Delivery Method Room Air Oxygen Flow Rate 0 Narrative Exam Narrative: Pleasant gentleman resting comfortably in no obvious distress Resp Other: Lungs clear to auscultation Cardio Other: Cardiac exam: Regular rate and rhythm normal S1-S2 GI Other: Abdomen: Soft and nontender Extrem Other: Extremity no edema Objective Labs Result Diagrams: 01/06/21 11:09 01/06/21 11:09 [facility] Medical History Acquired hypothyroidism Allergic rhinitis due to other allergen (09/16/11) Back pain Eczema Essential hypertension (07/25/17) Former cigarette smoker Irregular heartbeat Parkinson disease Surgical History History of hip surgery (10/09/18) S/P right inguinal hernia repair (~02/2019) Social History household members: none Smoking Status: Former smoker alcohol intake: current Assessment & Plan Assessment & Plan narrative: 80-year-old male admitted to the hospital following a ground level fall -patient sustained a comminuted fracture of the greater trochanter and base of femoral neck/ non displaced -non operative conservative treatment recommended, patient was in significant pain today and unable to tolerate ambulation -continue PT -he may require SNF at discharge if unable to be independent --Tylenol, hydrocodone for pain -DVT prophylaxis Parkinson's disease Continue carbidopa levodopa at home dose Hypertension -patient reports his blood pressure is not treated likely related to his Parkinson's disease will continue to monitor Patient reports he is a full code Time Spent With Patient Critical Care time: I spent a total of [] minutes of critical care time on this patient's care today; this time is exclusive of procedural time.
[2021-01-07] MEDS: KETOROLAC 30 MG/ML VIAL IV (13:55)
--- NOTE | 2021-01-07 15:38 | PT.IPTN ---
Current Diagnoses Parkinson's disease (01/06/21) Fracture of unspecified part of neck of left femur, initial encounter for closed fracture (01/06/21) Physical Therapy Treatment Note M2 PT-IP Current Condition Start: 01/07/21 12:43 Freq: NEEDED Status: Active Protocol: Document 01/07/21 10:35 DLM (Rec: 01/07/21 13:26 DLM [id number]) Physical Therapy Current Condition Current Condition Evaluation Date 01/07/21 Treatment Diagnosis fall with left intertrochanteric fx, impaired gait Onset Date 01/06/21 Precautions Other Precautions No active left hip abduction due to fracture WBAT left LE with use of FWW Weight Bearing Status Weight Bearing Status Weight Bear as Tolerated M3 PT-IP Subjective Start: 01/07/21 12:43 Freq: NEEDED Status: Active Protocol: Document 01/07/21 15:18 CLB (Rec: 01/07/21 16:12 CLB [id number]) Subjective Physical Therapy Visit Type Type Treatment Note Visit Start Time 15:18 Visit Stop Time 15:38 Total Visit Minutes 20 Notes CG training with izzy Mcintosh 10:30 on Monday 01/08 Number of LOCAL COMPANY REFRIGERATED TRUCK DRIVER Visits 1 Physical Therapy Visit Comments Patient Comments He does not want to go to SNF Patient Goals Plans to d/c home to daughters home. Therapy Pain Assessment Pain When Pain Assessed During Mobility Pain Present Pain Present Pain Reported Location Left Hip Intensity 10 Scale Used Numeric (0 - 10) Description Aching,Sharp,With Movement Pain Behaviors Facial Grimacing,Moaning, Wincing Pain Management Techniques Modification of Treatment,Re- positioning M4 PT-IP Mobility and Gait Start: 01/07/21 12:43 Freq: NEEDED Status: Active Protocol: Document 01/07/21 15:18 CLB (Rec: 01/07/21 16:12 CLB [id number]) PT-Bed Mobility Assessment Sit to Supine Sit to Supine Minimal Assistance,1 Person Assistance PT-Transfer Assessment Sit to and From Stand Sit to and from Stand Contact Guard Assistance,1 Person Assistance,Use of Upper Extremities Equipment Transfer Assistive Device Gait Belt,Front Wheeled Walker Transfers Transfer Destination Bed Transfer Technique Stand Step Pivot Transfer Ability Level of Assist Contact Guard Assistance,1 Person Assistance,Use of Upper Extremities Comments Mobility Comments Pt in recliner standing CGA and ambulated to foot of bed then ambulated backwards to bedside. Pt then side stepped to right towards HOB. Pt performed standing hip/knee flx stating there is no pain with that movement. Pt sat with raised bed for ease of sitting as pt states his bed is high. Pt then required Min A of LE's onto bed. Pt left in bed with all needs within reach and SCD's on. Bed alarm on. Daughter present. Gait Assessment Gait Gait Assistance Required: Contact Guard Assist,1 Person Assist Distance (Feet) 3 Assistive Devices Assistive Device Gait Belt,Front Wheeled Walker Gait Deviations General Gait Pattern Decreased Stride Length Factors Limiting Gait Function Factors Limiting Gait Function Decreased Activity Tolerance, Decreased Strength, Incoordination,Limited Range of Motion,Pain,Poor Balance Comments Gait Comments left hip pain during swing phase of gait limits his distance of gait at this time. Stair Climbing Assessment Comments Stair Climbing Comments Does not have step at daughter home. PT-Balance Assessment Sitting Balance and Reactions Static Sitting Balance Ability Good Dynamic Sitting Balance Ability Good Standing Balance and Reactions Static Standing Balance Ability Fair Dynamic Standing Balance Ability Fair Device Used FWW M5 PT-IP Objective Assessments Start: 01/07/21 12:43 Freq: NEEDED Status: Active Protocol: Document 01/07/21 10:35 DLM (Rec: 01/07/21 13:26 DLM [id number]) Orientation Orientation/Cognition Level of Alertness Alert Orientation Name,Age,Birthday,Month,Date, Year,Day of Week,Place, Situation Language Function Ability No Deficits Noted Safety Awareness Understands Safety Issues Memory Description No Deficits Noted Gross Range of Motion Upper Extremity ROM Assessment Within Functional Limits Lower Extremity ROM Assessment Left Impaired Impairments pain left hip limits ROM Strength Upper Extremity Strength Assessment Within Functional Limits Lower Extremity Strength Assessment Left Impaired Hip flexion 2+/5 Knee ext 3-/5 Ankle DF 5/5 Comments Strength Comments he c/o increase left hip pain with manual muscle testing left UE Coordination Assessment Gross Coordination Gross Coordination Impaired Assessment Coordination Comments good functional coordination of UE's for reaching for items and eating, mild incoordination of feet, no tremors noted at this time Sensation Assessment Sensation Gross Sensation WNL Comments Sensation Comments no numbness/tingling reported by pt Muscle Tone Comments Muscle Tone Comments mild rigidity noted throughout M6 PT-IP Treatment Start: 01/07/21 12:43 Freq: NEEDED Status: Active Protocol: Document 01/07/21 15:18 CLB (Rec: 01/07/21 16:12 CLB [id number]) Physical Therapy Treatment Exercises Exercises Ankle Pumps Education Education Provided Precautions,Weight Bearing Status,Safety M7 PT-IP Assessment and Plan Start: 01/07/21 12:43 Freq: NEEDED Status: Active Protocol: Document 01/07/21 15:18 CLB (Rec: 01/07/21 16:12 CLB [id number]) PT Summary Assessment and Plan Potential Rehabilitation Potential Good Status of Condition at Evaluation Evolving Summary Impairments Pain,ROM,Strength,Balance, Coordination,Tone,Bed Mobility ,Transfers,Gait,Activity Tolerance Assessment Summary Pt improving with sit-stand but continues to be limited with ambulation distance due to 10/10 pain when advancing LLE. Pt plans to d/c to daughter's home and her boyfriend to assist. Daughter will get walker and has WC for home use if needed but pt may require SNF rehab before returning home depending on progress. Will continue to assess. Goals Bed Mobility Goal Independent Transfer Goal Standby Assistance,Front Wheeled Walker Gait Goal Standby Assistance,Front Wheel Walker Gait Distance 150 feet Other Goals up and down one step with FWW and CG/min assist Days to Meet Goals 3 Frequency of Treatment Frequency Of Treatment Twice a Day Treatment Plan Physical Therapy Treatment Plan Bed Mobility Training,Transfer Training,Gait Training, Therapeutic Exercise,Balance Retraining,Discharge Planning, Hot or Cold Pack,Neuromuscular Re-ed,Coordination Retraining Other Recommendations and Next Treatment CG training with daughter Dayna Focus @ 10:30 assess if wheelchair use is an option at home Recommendations To Nursing Amount of Assist Needed 1 Person Assist Discharge Recommendations PT Discharge Recommendations Home vs SNF Other Discharge Recommendations pt wants to discharge home with Son to help, he needs to be able to ambulate household distances to go home Transportation Needs at Discharge Private Vehicle
--- NOTE | 2021-01-07 18:43 | PC.NURSE ---
Addendum entered by Angeli Hamm R.N. 01/07/21 21:48: Pt reports needs to use commode to stool. Two assist with difficulty to transfer to commode. Pt is reluctant to put weight on LLE. No stool, but passing flatus. Ibuprofen administered to manage pain. Returned to bed and ice to left hip. Reports pain improved with rest. Original Note: Pt resting quietly in bed @ beginning of shift. Ice placed to left hip. Pt denies pain @ rest. BL feet are cool to touch with weak pedal pulses BL. Brawny discoloration to feet BL. Pt admits to full sensation to BL LE's. BL calf scd's in place. Mentating appropriately. Encouraged to call for needs.
[2021-01-08 00:04] VITALS: BP 151/71; PULSE 67; RESP 18; TEMP 36.6; O2SAT 98
[2021-01-08 04:08] VITALS: BP 149/89; PULSE 59; RESP 18; TEMP 36.1; O2SAT 98
[2021-01-08] MEDS: ACETAMINOPHEN 325 MG TABLET 975 MG PO (05:43)
[2021-01-08] MEDS: IBUPROFEN 600 MG TABLET PO (07:10)
[2021-01-08 07:22] VITALS: BP 138/78; PULSE 64; RESP 14; TEMP 36.3; O2SAT 96
[2021-01-08 07:42] VITALS: O2SAT 96
[2021-01-08 08:00] VITALS: O2SAT 97
[2021-01-08] MEDS: CARBIDOPA-LEVODOPA 25/100 TABLET 1 EACH PO (08:39)
[2021-01-08] MEDS: ENOXAPARIN 40 MG/0.4 ML SYRINGE SUBCUT (08:39)
[2021-01-08] MEDS: SODIUM CHLORIDE 0.9% FLUSH 10 ML IV (08:39)
[2021-01-08] MEDS: DOCUSATE 100 MG CAPSULE PO (08:39)
[2021-01-08] MEDS: HYDROCODONE/ACET 5/325 TABLET 1 TAB PO (10:21)
--- NOTE | 2021-01-08 10:35 | CM.DPC ---
Addendum entered by Stacia Austin R.N. 01/08/21 11:37: Received signed orders and prescription for patient. Faxed over prescription, signed med sheets, DC Summary, and recent COVID swab over to [facility]. PASSR included as well. Addendum entered by Stacia Austin R.N. 01/08/21 11:21: YESY Dent, finished working with patient and indicated, he wants to go to custodial, he is having pain when he tries to move. DaughterYvonne, is in room. Gave her Jayne's phone number at [facility], and she will take a picture of his vaccine card and text it to September. Updated Dr. Stoll, and she will work on orders. Updated Jayne at [facility], and she set up time of oyster picker between [phone]. Updated white board in main nursing station. Also, updated nurse, Yvonne. Will await orders and fax over to [facility]. Original Note: DCP Cont: Daughter, Yvonne, is here for caregiver training with P.T. Introduced self and role. Let her know, and reminded patient that if he needs some skilled rehab, he can go to [facility] today, she would just need to provide proof of his COVID vaccine. He stated that his card is not with him, but at home in his drawer. Daughter indicated that she can get it and bring it. Jayne at [facility] indicated that patient's daughter can take a picture and send it via text to Jayne at [facility] as well. P: DCP to either set up patient to go to [facility], or home with home health. Will see what the therapy team recommends. Stacia Austin, JEANIE/Mucker [place]fferdam
--- NOTE | 2021-01-08 10:55 | PT.IPTN ---
Current Diagnoses Parkinson's disease (01/06/21) Fracture of unspecified part of neck of left femur, initial encounter for closed fracture (01/06/21) Physical Therapy Treatment Note M2 PT-IP Current Condition Start: 01/07/21 12:43 Freq: NEEDED Status: Active Protocol: Document 01/07/21 10:35 DLM (Rec: 01/07/21 13:26 DLM [id number]) Physical Therapy Current Condition Current Condition Evaluation Date 01/07/21 Treatment Diagnosis fall with left intertrochanteric fx, impaired gait Onset Date 01/06/21 Precautions Other Precautions No active left hip abduction due to fracture WBAT left LE with use of FWW Weight Bearing Status Weight Bearing Status Weight Bear as Tolerated M3 PT-IP Subjective Start: 01/07/21 12:43 Freq: NEEDED Status: Active Protocol: Document 01/08/21 10:26 CLB (Rec: 01/08/21 12:07 CLB [id number]) Subjective Physical Therapy Visit Type Type Treatment Note Visit Start Time 10:26 Visit Stop Time 10:55 Total Visit Minutes 29 Notes daughter present for CG training Number of ENVIRONMENTAL HEALTH MANAGER Visits 2 Physical Therapy Visit Comments Patient Comments Pt states he wants to go to SNF due to high pain and the extra help he will get there. Therapy Pain Assessment Pain When Pain Assessed During Mobility Pain Present Pain Present Pain Reported Location Left Hip Intensity 8 Scale Used Numeric (0 - 10) Description Aching,Sharp,With Movement Pain Behaviors Facial Grimacing,Moaning, Wincing Pain Management Techniques Modification of Treatment,Re- positioning,Timing of Activity with Medications M4 PT-IP Mobility and Gait Start: 01/07/21 12:43 Freq: NEEDED Status: Active Protocol: Document 01/08/21 10:26 CLB (Rec: 01/08/21 12:07 CLB [id number]) PT-Bed Mobility Assessment Sit to Supine Sit to Supine Minimal Assistance,1 Person Assistance Scooting Scooting to Edge of Bed Standby Assistance PT-Transfer Assessment Sit to and From Stand Sit to and from Stand Contact Guard Assistance,1 Person Assistance,Use of Upper Extremities Equipment Transfer Assistive Device Gait Belt,Front Wheeled Walker Transfers Transfer Destination Chair Transfer Technique Stand Step Pivot Transfer Ability Level of Assist Contact Guard Assistance,1 Person Assistance,Use of Upper Extremities Comments Mobility Comments Pt daughter assisted pt LLE off bed then pt able to sit up and scoot to EOB. Pt bed raised and pt able to stand with daughter providing CGA. Pt ambulated ~7ft w/FWW/CGA using small step to gait and heavy use of UE's. Pt sat in chair requiring CGA. Pt left in chair pain 4/10 once sitting. Pt states he thinks it best to go to rehab. RN and CM Shayna informed of pt decision. Gait Assessment Gait Gait Assistance Required: Contact Guard Assist,1 Person Assist Distance (Feet) 7 Assistive Devices Assistive Device Gait Belt,Front Wheeled Walker Gait Deviations General Gait Pattern Antalgic,Decreased Stride Length,Step-to Gait Factors Limiting Gait Function Factors Limiting Gait Function Decreased Activity Tolerance, Decreased Strength, Incoordination,Limited Range of Motion,Pain,Poor Balance Comments Gait Comments see mobility comments PT-Balance Assessment Sitting Balance and Reactions Static Sitting Balance Ability Good Dynamic Sitting Balance Ability Good Standing Balance and Reactions Static Standing Balance Ability Fair Dynamic Standing Balance Ability Fair Device Used FWW M5 PT-IP Objective Assessments Start: 01/07/21 12:43 Freq: NEEDED Status: Active Protocol: Document 01/07/21 10:35 DLM (Rec: 01/07/21 13:26 DLM [id number]) Orientation Orientation/Cognition Level of Alertness Alert Orientation Name,Age,Birthday,Month,Date, Year,Day of Week,Place, Situation Language Function Ability No Deficits Noted Safety Awareness Understands Safety Issues Memory Description No Deficits Noted Gross Range of Motion Upper Extremity ROM Assessment Within Functional Limits Lower Extremity ROM Assessment Left Impaired Impairments pain left hip limits ROM Strength Upper Extremity Strength Assessment Within Functional Limits Lower Extremity Strength Assessment Left Impaired Hip flexion 2+/5 Knee ext 3-/5 Ankle DF 5/5 Comments Strength Comments he c/o increase left hip pain with manual muscle testing left UE Coordination Assessment Gross Coordination Gross Coordination Impaired Assessment Coordination Comments good functional coordination of UE's for reaching for items and eating, mild incoordination of feet, no tremors noted at this time Sensation Assessment Sensation Gross Sensation WNL Comments Sensation Comments no numbness/tingling reported by pt Muscle Tone Comments Muscle Tone Comments mild rigidity noted throughout M6 PT-IP Treatment Start: 01/07/21 12:43 Freq: NEEDED Status: Active Protocol: Document 01/07/21 15:18 CLB (Rec: 01/07/21 16:12 CLB [id number]) Physical Therapy Treatment Exercises Exercises Ankle Pumps Education Education Provided Precautions,Weight Bearing Status,Safety M7 PT-IP Assessment and Plan Start: 01/07/21 12:43 Freq: NEEDED Status: Active Protocol: Document 01/08/21 10:26 CLB (Rec: 01/08/21 12:07 CLB [id number]) PT Summary Assessment and Plan Potential Rehabilitation Potential Good Status of Condition at Evaluation Evolving Summary Impairments Pain,ROM,Strength,Balance, Coordination,Tone,Bed Mobility ,Transfers,Gait,Activity Tolerance Progress Towards Goals Slow Progress due to Pain Assessment Summary Pt continues to have high pain level during mobility which is effecting pt's ability to ambulate household distances safely. Pt will benefit from SNF rehab to improve activity tolerance and functional mobility. Goals Bed Mobility Goal Independent Transfer Goal Standby Assistance,Front Wheeled Walker Gait Goal Standby Assistance,Front Wheel Walker Gait Distance 150 feet Other Goals up and down one step with FWW and CG/min assist Days to Meet Goals 3 Frequency of Treatment Frequency Of Treatment Twice a Day Treatment Plan Physical Therapy Treatment Plan Bed Mobility Training,Transfer Training,Gait Training, Therapeutic Exercise,Balance Retraining,Discharge Planning, Hot or Cold Pack,Neuromuscular Re-ed,Coordination Retraining Recommendations To Nursing Amount of Assist Needed 1 Person Assist Discharge Recommendations PT Discharge Recommendations SNF Rehab Transportation Needs at Discharge Wheelchair/Cabulance
--- NOTE | 2021-01-08 11:07 | P.DS_ITS ---
History of Present Illness History of Present Illness Chief complaint: Decreased LOC Narrative: The patient is a 80-year-old male with a history of Parkinson's disease, hypothyroidism, hypertension, who tripped and fell today. He has significant right hip pain. He was seen and evaluated in the emergency room for significant pain. He underwent an x-ray of the hip in addition to a pelvic CT. The pelvic CT revealed a comminuted fracture of the left greater trochanter and at the base of the femoral neck. There was associated soft tissue swelling. Based on consultation with Orthopedic surgery was felt that this is non operative. The patient is admitted for pain control as it is difficult for him to ambulate. He does live at home with his daughter. He is hopeful that once his pain is controlled he will be able to return home. Patient states that as long as he is not moving he does not have pain however with any activity as significant pain in the hip. Discharge Providers Provider Date of admission: 01/06/21 13:24 Discharge Date: 01/08/21 Primary care physician: Milagro Walters PA-C Consults: 01/06/21 14:45 Consult to Physical Therapy Evaluate & Treat Comment: Physician Instructions: Evaluate and Treat 01/06/21 20:00 Consult to Physical Therapy Evaluate & Treat Comment: Left hip troch fracture, WBAT, no abduction exe Physician Instructions: Evaluate and Treat Discharge provider: Rubia Stoll MD Summary Hospital Course Discharge Diagnosis: 1. Acute left hip trochanteric fracture 2. Parkinson's disease 3. Probable underlying osteoporosis Hospital Course: Patient was admitted to the hospital following a fall due to his Parkinson's disease. He suffered a left hip trochanteric fracture. This was nondisplaced and felt to be stable. He did not require surgery for this fracture. The patient can be weight-bearing as tolerated. It was also recommended that he needed a full-time walker. He was seen by physical therapy. He was unable to manage going from bed to chair. The daughter came in for caregiver training today and it was decided that the patient would best be served by going [facility] prior to returning home. Patient is agreeable to the plan. Arrangements will be made for him to go to [facility] today. Patient has no complaints. His only complaint is pain when ambulating. Otherwise at rest he has no specific complaints Status at Discharge Cognitive/behavioral status at discharge: oriented Functional status at discharge: uses cane/walker Overall status at discharge: patient is progressing back to baseline Exam Vital Signs (past 8 hours): - 01/08/21 04:08 01/08/21 07:22 01/08/21 07:42 Temperature 97 F L 97.4 F L Pulse Rate 59 L 64 Respiratory Rate 18 14 Blood Pressure 149/89 H 138/78 Pulse Oximetry 98 96 96 01/08/21 08:00 Temperature Pulse Rate Respiratory Rate Blood Pressure Pulse Oximetry 97 Oxygen Delivery Method Room Air Oxygen Flow Rate 0 Narrative Exam Narrative: Pleasant male sitting in bed in no obvious distress Resp Other: Lungs: Clear to auscultation Cardio Other: Cardiac exam: Regular rate and rhythm normal S1-S2 GI Other: Abdomen: Soft and nontender Extrem Other: Extremities: No edema Objective Labs Result Diagrams: 01/06/21 11:09 01/06/21 11:09 [facility] Medical History Acquired hypothyroidism Allergic rhinitis due to other allergen (09/16/11) Back pain Eczema Essential hypertension (07/25/17) Former cigarette smoker Irregular heartbeat Parkinson disease Surgical History History of hip surgery (10/09/18) S/P right inguinal hernia repair (~02/2019) Social History household members: none Smoking Status: Former smoker alcohol intake: current Discharge Assessment & Plan Assessment and Plan Assessment: 1. Left hip trochanter fracture, non operative treatment, weight-bearing as tolerated 2. Parkinson's disease 3. Probable osteoporosis Plan of Treatment: Patient will discharge on his usual Parkinson's medication He will continue PT OT and rehab bed [facility] Will defer initiating treatment for osteoporosis until his fracture has healed Discharge Plan Discharge Plan Patient Disposition: SNF Transfer to: [facility] Transportation: Cabulance Consult as needed: Dental, Hearing, Mental health, Podiatry and Vision I certify the [facility] care is medically necessary on a continuing basis for any conditions for which he/ she received care during this hospitalization.: Yes The receiving facility has agreed to accept transfer and provide medical treatment.: Yes Discharge orders & Medications Prescriptions: New hydrocodone-acetaminophen 5-325 mg Tablet 1 tab PO Q4HR PRN (Reason: Pain, Moderate (4-6)) Qty: 20 RF: 0 Continued carbidopa-levodopa 25-100 mg tablet 25 - 100 tab TID RF: 0 Follow up/Referrals: Milagro Walters PA-C [Primary Care Provider] - Discharge Health Status Multidrug resistant organism: No MDRO Diet/Activity/Treatments Diet: Diet as Tolerated and Low-sodium Liquid consistency: Normal/Thin Food texture: Regular [facility] Reason for rehabilitation: Recovery r/t decondition Rehab type: Physical therapy and Occupational therapy Discharge Data Primary Care Provider: Milagro Walters Attending Provider: Rubia Stoll
--- NOTE | 2021-01-08 12:43 | PC.NURSE ---
Report called to Katie at [facility]. Verbalized understanding, denied any further questions.
--- NOTE | 2021-01-08 13:50 | CM.DANOTE ---
Patient discharged to [facility]. [facility] employee and [place], escorted patient out in wheelchair. All belongings given back to patient and discharge paperwork given to facility designee.
== END 2021-01-08 13:51 ==
LOC: ED 13:15 → AC 15:02
PROVIDERS: Admitting Provider Internal Medicine; Emergency Provider Emergency Medicine; PCP Physician Assistant; Referring Provider Emergency Medicine; Visit Provider Internal Medicine
DX: S72.145A Nondisplaced intertrochanteric fracture of left femur, initial encounter for closed fracture (principal); G20 Parkinson's disease; Y92.009 Unspecified place in unspecified non-institutional (private) residence as the place of occurrence of the external cause; W01.0XXA Fall on same level from slipping, tripping and stumbling without subsequent striking against object, initial encounter; E03.9 Hypothyroidism, unspecified; I10 Essential (primary) hypertension; Z20.822 Contact with and (suspected) exposure to COVID-19
CPT/HCPCS: 36415; 72192; 73502; 80053; 85025; 87635; 90471; 90662; 94760; 96372; 96374; 96375; 96376; 97116; 97162; 97530; 99284; C9803; G0378; J1650; J1885; J3010

== ENCOUNTER 2021-07-13 14:15 | Outpatient (RCR) | payer MEDICARE, OTHER, SELFPAY ==
[2021-01-06 16:58] VITALS: BMI 25.0
[2021-06-09 15:15] VITALS: BP 130/72
--- NOTE | 2021-06-09 17:39 | PT.OIE ---
Current Diagnoses Parkinson's disease (06/09/21) Difficulty in walking, not elsewhere classified (06/09/21) Abnormal posture (06/09/21) Past Medical History (Last Reviewed 01/06/21 @ 19:55 by Shannan Sun MD) Acquired hypothyroidism Allergic rhinitis due to other allergen (09/16/11) Back pain Eczema Essential hypertension (07/25/17) Former cigarette smoker History of hip surgery (10/09/18) Irregular heartbeat Parkinson disease S/P right inguinal hernia repair (~02/2019) Past Surgical History (Last Reviewed 01/06/21 @ 19:55 by Shannan Snu MD) History of hip surgery (10/09/18) S/P right inguinal hernia repair (~02/2019) Visit Care Team Role Provider Type Milagro Walters PA-C Attending Provider Non-Staff Family Provider Primary Care Provider Referring Provider Specialty: Medical Address: [address] [place] [address] Email: Physical Therapy Initial Evaluation PT-OP-A Visit Information Start: 06/06/21 15:44 Freq: Status: Active Protocol: Document 06/09/21 15:15 AW (Rec: 06/06/21 16:19 AW [id number]) Out-Patient Physical Therapy Visit Information Visit Information Visit Type Initial Evaluation Visit Start Time 14:15 Visit Stop Time 15:15 Total Visit Minutes 60 Visit Number 1 Evaluation Information Evaluation Date 06/09/21 PT-OP-B Current Condition Start: 06/06/21 15:44 Freq: Status: Active Protocol: Document 06/09/21 15:15 AW (Rec: 06/06/21 16:19 AW [id number]) Current Condition History of Current Condition Onset Date 2017 Current Complaints freezing of gait; decreased balance; falls History of Current Condition In , Dariusz began to notice a tremor in his left hand. He also began to appreciate declining balance and freezing of gait to the point that he could no longer dance and falls frequency increased. He was referred to neurology (sees Dr. Alvarez at [facility]) and was diagnosed with Parkinson's disease. One fall in October 2018 resulted in right femur fracture. Another fall in December 2020 resulted in left femur fracture which was treated non-operatively. He was discharged from the hospital to SNF rehab. After a month, he went home with home health and some family assist . He now uses a 4WW in the house most of the time. He occasionally uses a cane when out of the house. He always uses a cart for grocery shopping. He lives alone. He states he has trouble sleeping but CBD gummies help. He is independent to modified independent with ADL's and he does drive. He uses an improvised tub bench to sit and wash his teeth. He has to pull on pant legs to cross legs and don shoes and socks. Pt reports left knee pain. Orthovisc injections have been somewhat helpful. He now wears a brace on his left knee . Pt endorses some difficulty with swallowing and plans to do LOUD after completing BIGSteven Arzola typically takes his carbidopa-levodopa 3x daily - first thing in the morning (06 :30), 10-11:00, and 15:00. Prior Treatments and Tests PT for knee and hip. No PT for PD. Treatment Goals Patient/Caregiver Goals Have better balance and feel more confident about starting out. Reduce freezing of gait Prior Functional Status Baseline Function- ADL's Independent Baseline Function- Mobility Independent PT-OP-C Subjective Start: 06/06/21 15:44 Freq: Status: Active Protocol: Document 06/09/21 15:15 AW (Rec: 06/10/21 14:16 AW [id number]) OP-PT Subjective Patient Comments Patient Comments My biggest problem is just getting started. OP-PT Pain Assessment Pain Assessment Grid Paper Pain Assessment Grid Completed No: Pt reports significant left knee and right hip pain. PT-OP-D Balance Start: 06/06/21 15:44 Freq: Status: Active Protocol: Document 06/09/21 15:15 AW (Rec: 06/10/21 14:16 AW [id number]) Balance Tests Romberg Romberg WNL EO and EC PT-OP-E Functional Tests Start: 06/06/21 15:44 Freq: Status: Active Protocol: Document 06/09/21 15:15 AW (Rec: 06/10/21 14:16 AW [id number]) Functional Tests 2 Minute Walk Test Distance 357 feet Device Used no AD; SBA; 2 episodes FOG Comments average gait speed 0.91 m/s Dynamic Gait Index (DGI) Score 18 DGI Impairment Rating 20 to <40% Impaired (Score 15- 19) Five Times Sit to Stand Test Score 12.6 seconds Comments standard height chair; no use of UE PT-OP-H Neuro Start: 06/06/21 15:44 Freq: Status: Active Protocol: Document 06/09/21 15:15 AW (Rec: 06/10/21 14:26 AW [id number]) Sensation Evaluation Gross Sensation Gross Sensation WNL Coordination Evaluation Comments Coordination Comments Finger to nose and foot tapping in seated WNL. rapid alternating pronation/ supination mildly impaired secondary to LUE tremor. Deep Tendon Reflex & Clonus Assessment Deep Tendon Reflex Bilateral Achilles Deep Tendon Reflex 1+ Diminished Bilateral Patellar Deep Tendon Reflex 1+ Diminished Vital Signs Blood Pressure Sitting Blood Pressure (90/60-120/80 mmHg) 130/72 H Blood Pressure Source Manual Cuff,Right Upper Extremity PT-OP-J Posture/Palpation/Skin Start: 06/06/21 15:44 Freq: Status: Active Protocol: Document 06/09/21 15:15 AW (Rec: 06/10/21 14:26 AW [id number]) Posture Evaluation Comments Posture Comments Significantly forward head with tragus 10 cm ahead of A/C joint. Rigidity through trunk . Pt has bilateral genu varum with left more affected than right. PT-OP-M Strength Start: 06/06/21 15:44 Freq: Status: Active Protocol: Document 06/09/21 15:15 AW (Rec: 06/10/21 14:26 AW [id number]) Shoulder Strength Shoulder Manual Muscle Testing bilat Flexion 4+ Good+ Abduction (C5) 4+ Good+ External Rotation 4+ Good+ Internal Rotation 5 Normal Hip Strength Hip Manual Muscle Testing bilat Flexion (L2) 4+ Good+ Abduction 4 Good External Rotation 4+ Good+ Internal Rotation 4+ Good+ Knee Strength Knee Manual Muscle Testing bilat Flexion (S2) 4+ Good+ Extension (L3) 5 Normal Ankle/Foot Strength Ankle and Foot Manual Muscle Testing bilat Dorsiflexion (L4) 5 Normal Plantarflexion (S1) 4+ Good+ PT-OP-Q Treatments Start: 06/06/21 15:44 Freq: Status: Active Protocol: Document 06/09/21 15:15 AW (Rec: 06/10/21 14:29 AW [id number]) Therapeutic Exercises Sitting Exercises BIG sit to stand Sitting Exercise Name BIG sit to stand Reps/Minutes 2x10 Comments cues for anterior weight shift , arms forward Self-Care/Home Management Treatment Education Patient Education Fall Risk Other Education Educated pt extensively on LSVT protocol and rationale for amplitude-based therapy. Pt verbalized understanding of re-calibration goals and agrees to daily homework. PT-OP-T Assessment and Plan Start: 06/06/21 15:44 Freq: Status: Active Protocol: Document 06/09/21 15:15 AW (Rec: 06/10/21 14:31 AW [id number]) Physical Therapy Assessment Rehab Potential Rehabilitation Potential Good Evaluation Complexity Number of Personal Factors/Comorbidities 3 or More Number of Body Systems Impaired 4 or More Clinical Presentation at Evaluation Evolving Impairments Impairments Balance,Gait,Pain,Posture, Sensation,Tone,Transfers Other Concerns Fall Risk elevated per DGI score Goals Four Impairment gait speed Short Term Goal (STG) Pt will improve self-selected gait speed on 2MWT from 0.96 m /s to 1.1 m/s for functional community ambulation. STG Duration 06/25/21 Fpc Goal (LTG) Pt will improve self-selected gait speed on 2MWT from 0.96 m /s to 1.2 m/s or greater for functional community ambulation. LTG Duration 07/16/21 Three Impairment balance Fpc Goal (LTG) Pt will improve DGI score from 1824 to 21/24 or greater as a measure of reduced falls risk. LTG Duration 07/16/21 Two Impairment freezing of gait Short Term Goal (STG) Pt will identify FOG triggers and PT will incorporate at least two into daily treatment . STG Duration 06/25/21 Fpc Goal (LTG) Pt will successfully implement strategies to reduce FOG episodes by 50% LTG Duration 07/16/21 One Impairment lacks HEP Solid Waste Facility Operator Goal (LTG) Pt will be independent with LSVT BIG daily maximal exercises to improve movement amplitude and sustain therapy gains. LTG Duration 07/16/21 Assessment Summary Assessment Dariusz attends physical therapy with complaints of impaired balance, freezing of gait, and reduced confidence with community ambulation secondary to Parkinson's disease. He presents with increased falls risk, increased difficulty with functional tasks, and impaired mobility. He has significant falls history including injurious falls resulting in fractured femurs. Dariusz is an excellent candidate for LSVT BIG which is an evidence-based treatment protocol shown to improve gait speed, step length, balance, and function with activities of daily living in people with movement disorders. Treatment will focus on increasing amplitude of movement as well as patient self-calibration so that the patient can effectively override the primary impairments of bradykinesia and hypokinesia. Physical Therapy Plan Frequency and Duration Frequency of Treatment 4x/Week Duration of Treatment 16 treatment visits Plan of Care Start Date 06/09/21 Plan of Care End Date 07/16/21 Therapeutic Interventions Therapeutic Interventions Balance Training,Gait Training ,Home Exercise Program, Neuromuscular Re-education, Self-Care/Home Management, Therapeutic Activities, Therapeutic Exercises Modalities Cold Pack/Ice Massage,Hot Packs Next Visit Focus/Plan Next Note Type Treatment Note Next Visit Plan Initiate instruction in daily maximal exercises and assess for safety of independent performance at home (seated vs standard). Initiate BIG walking with cues for FOG to stop BIG, stand BIG, shift weight onto one leg, and step BIG. Issue handout for home exercise as well as exercise log.
--- NOTE | 2021-06-09 17:42 | PT.OPPOC ---
Physical, Occupational & Speech Therapy At [facility] Current Diagnoses Parkinson's disease (06/09/21) Difficulty in walking, not elsewhere classified (06/09/21) Abnormal posture (06/09/21) Visit Care Team Role Provider Type Milagro Walters PA-C Attending Provider Non-Staff Family Provider Primary Care Provider Referring Provider Specialty: Medical Address: [address] [place] [address], [id number] Email: Plan Of Care PT-OP-T Assessment and Plan Start: 06/06/21 15:44 Freq: Status: Active Protocol: Document 06/09/21 15:15 AW (Rec: 06/10/21 14:31 AW [id number]) Physical Therapy Assessment Rehab Potential Rehabilitation Potential Good Evaluation Complexity Number of Personal Factors/Comorbidities 3 or More Number of Body Systems Impaired 4 or More Clinical Presentation at Evaluation Evolving Impairments Impairments Balance,Gait,Pain,Posture, Sensation,Tone,Transfers Other Concerns Fall Risk elevated per DGI score Goals Four Impairment gait speed Short Term Goal (STG) Pt will improve self-selected gait speed on 2MWT from 0.96 m /s to 1.1 m/s for functional community ambulation. STG Duration 06/25/21 [facility] Goal (LTG) Pt will improve self-selected gait speed on 2MWT from 0.96 m /s to 1.2 m/s or greater for functional community ambulation. LTG Duration 07/16/21 Three Impairment balance Apprentice Painter Neckties Goal (LTG) Pt will improve DGI score from 1824 to 21/24 or greater as a measure of reduced falls risk. LTG Duration 07/16/21 Two Impairment freezing of gait Short Term Goal (STG) Pt will identify FOG triggers and PT will incorporate at least two into daily treatment . STG Duration 06/25/21 Apprentice Painter Neckties Goal (LTG) Pt will successfully implement strategies to reduce FOG episodes by 50% LTG Duration 07/16/21 One Impairment lacks HEP [facility] Goal (LTG) Pt will be independent with LSVT BIG daily maximal exercises to improve movement amplitude and sustain therapy gains. LTG Duration 07/16/21 Assessment Summary Assessment Dariusz attends physical therapy with complaints of impaired balance, freezing of gait, and reduced confidence with community ambulation secondary to Parkinson's disease. He presents with increased falls risk, increased difficulty with functional tasks, and impaired mobility. He has significant falls history including injurious falls resulting in fractured femurs. Dariusz is an excellent candidate for LSVT BIG which is an evidence-based treatment protocol shown to improve gait speed, step length, balance, and function with activities of daily living in people with movement disorders. Treatment will focus on increasing amplitude of movement as well as patient self-calibration so that the patient can effectively override the primary impairments of bradykinesia and hypokinesia. Physical Therapy Plan Frequency and Duration Frequency of Treatment 4x/Week Duration of Treatment 16 treatment visits Plan of Care Start Date 06/09/21 Plan of Care End Date 07/16/21 Therapeutic Interventions Therapeutic Interventions Balance Training,Gait Training ,Home Exercise Program, Neuromuscular Re-education, Self-Care/Home Management, Therapeutic Activities, Therapeutic Exercises Modalities Cold Pack/Ice Massage,Hot Packs Next Visit Focus/Plan Next Note Type Treatment Note Next Visit Plan Initiate instruction in daily maximal exercises and assess for safety of independent performance at home (seated vs standard). Initiate BIG walking with cues for FOG to stop BIG, stand BIG, shift weight onto one leg, and step BIG. Issue handout for home exercise as well as exercise log. Plan of Care Dates Plan of Care Start Date 06/09/21 Plan of Care End Date 07/16/21 Electronically Signed by: Anum Bowers PT 06/10/21 1189 Please Sign and Return: I have reviewed this Plan of Care and certify that the skilled therapy services above are required to meet the patient?s needs. Physician Signature Date Printed Name and Credentials Clinical Instructor Signature Printed Name and Credentials
--- NOTE | 2021-06-14 13:44 | PT.OTN ---
Current Diagnoses Parkinson's disease (06/14/21) Difficulty in walking, not elsewhere classified (06/14/21) Abnormal posture (06/14/21) Physical Therapy Treatment Note PT-OP-A Visit Information Start: 06/06/21 15:44 Freq: Status: Active Protocol: Document 06/14/21 09:57 MA (Rec: 06/14/21 11:02 MA [id number]) Out-Patient Physical Therapy Visit Information Visit Information Visit Type Treatment Note Visit Start Time 10:00 Visit Stop Time 10:55 Total Visit Minutes 55 Visit Number 2 Number of MAT PUNCHER Visits 1 PT-OP-B Current Condition Start: 06/06/21 15:44 Freq: Status: Active Protocol: Document 06/09/21 15:15 AW (Rec: 06/06/21 16:19 AW [id number]) Current Condition History of Current Condition Onset Date 2017 Current Complaints freezing of gait; decreased balance; falls History of Current Condition In , Dariusz began to notice a tremor in his left hand. He also began to appreciate declining balance and freezing of gait to the point that he could no longer dance and falls frequency increased. He was referred to neurology (sees Dr. Alvarez at [facility]) and was diagnosed with Parkinson's disease. One fall in October 2018 resulted in right femur fracture. Another fall in December 2020 resulted in left femur fracture which was treated non-operatively. He was discharged from the hospital to SNF rehab. After a month, he went home with home health and some family assist . He now uses a 4WW in the house most of the time. He occasionally uses a cane when out of the house. He always uses a cart for grocery shopping. He lives alone. He states he has trouble sleeping but CBD gummies help. He is independent to modified independent with ADL's and he does drive. He uses an improvised tub bench to sit and wash his teeth. He has to pull on pant legs to cross legs and don shoes and socks. Pt reports left knee pain. Orthovisc injections have been somewhat helpful. He now wears a brace on his left knee . Pt endorses some difficulty with swallowing and plans to do LOUD after completing BIG. Dariusz typically takes his carbidopa-levodopa 3x daily - first thing in the morning (06 :30), 10-11:00, and 15:00. Prior Treatments and Tests PT for knee and hip. No PT for PD. Treatment Goals Patient/Caregiver Goals Have better balance and feel more confident about starting out. Reduce freezing of gait Prior Functional Status Baseline Function- ADL's Independent Baseline Function- Mobility Independent PT-OP-C Subjective Start: 06/06/21 15:44 Freq: Status: Active Protocol: Document 06/14/21 09:57 MA (Rec: 06/14/21 13:30 MA [id number]) OP-PT Subjective Patient Comments Patient Comments Pt is ready to start BIG program and states he sometimes freezes when initiating a movement but once he gets going he is fine. PT-OP-D Balance Start: 06/06/21 15:44 Freq: Status: Active Protocol: Document 06/09/21 15:15 AW (Rec: 06/10/21 14:16 AW [id number]) Balance Tests Romberg Romberg WNL EO and EC PT-OP-E Functional Tests Start: 06/06/21 15:44 Freq: Status: Active Protocol: Document 06/09/21 15:15 AW (Rec: 06/10/21 14:16 AW [id number]) Functional Tests 2 Minute Walk Test Distance 357 feet Device Used no AD; SBA; 2 episodes FOG Comments average gait speed 0.91 m/s Dynamic Gait Index (DGI) Score 18 DGI Impairment Rating 20 to <40% Impaired (Score 15- 19) Five Times Sit to Stand Test Score 12.6 seconds Comments standard height chair; no use of UE PT-OP-H Neuro Start: 06/06/21 15:44 Freq: Status: Active Protocol: Document 06/09/21 15:15 AW (Rec: 06/10/21 14:26 AW [id number]) Sensation Evaluation Gross Sensation Gross Sensation WNL Coordination Evaluation Comments Coordination Comments Finger to nose and foot tapping in seated WNL. rapid alternating pronation/ supination mildly impaired secondary to LUE tremor. Deep Tendon Reflex & Clonus Assessment Deep Tendon Reflex Bilateral Achilles Deep Tendon Reflex 1+ Diminished Bilateral Patellar Deep Tendon Reflex 1+ Diminished Vital Signs Blood Pressure Sitting Blood Pressure (90/60-120/80 mmHg) 130/72 H Blood Pressure Source Manual Cuff,Right Upper Extremity PT-OP-J Posture/Palpation/Skin Start: 06/06/21 15:44 Freq: Status: Active Protocol: Document 06/09/21 15:15 AW (Rec: 06/10/21 14:26 AW [id number]) Posture Evaluation Comments Posture Comments Significantly forward head with tragus 10 cm ahead of A/C joint. Rigidity through trunk . Pt has bilateral genu varum with left more affected than right. PT-OP-M Strength Start: 06/06/21 15:44 Freq: Status: Active Protocol: Document 06/09/21 15:15 AW (Rec: 06/10/21 14:26 AW [id number]) Shoulder Strength Shoulder Manual Muscle Testing bilat Flexion 4+ Good+ Abduction (C5) 4+ Good+ External Rotation 4+ Good+ Internal Rotation 5 Normal Hip Strength Hip Manual Muscle Testing bilat Flexion (L2) 4+ Good+ Abduction 4 Good External Rotation 4+ Good+ Internal Rotation 4+ Good+ Knee Strength Knee Manual Muscle Testing bilat Flexion (S2) 4+ Good+ Extension (L3) 5 Normal Ankle/Foot Strength Ankle and Foot Manual Muscle Testing bilat Dorsiflexion (L4) 5 Normal Plantarflexion (S1) 4+ Good+ PT-OP-Q Treatments Start: 06/06/21 15:44 Freq: Status: Active Protocol: Document 06/14/21 09:57 MA (Rec: 06/14/21 11:02 MA [id number]) Therapeutic Activity Therapeutic Activity Handwriting Reps/Minutes 5' Comments BIG writing with breaks for finger flicks Gait Training Gait Activity Hurdles Description 6 hurdles Level of Assistance dilan rails prn Surface level Distance/Duration 2x fwd, 2x laterally Treatment Focus BIG steps BIG Device Used none Level of Assistance CGA-SBA Surface level Distance/Duration 200 ft Treatment Focus arm swings, increasing step height and length Stairs Description 6 therapy stairs Level of Assistance Right rail Distance/Duration 2x 4 steps Treatment Focus big steps, getting whole foot on step Neuro Re-Education Treatment Other Activities Sit<>stand Details std height chair Reps/Duration x10 Sideways rock & reach Details CGA Reps/Duration x10 ea Rock & reach Details modified using chair Reps/Duration x10 ea Comments needed occassional Min A for balance backwards step Details chair prn Reps/Duration x10 ea sideways step Details chair prn Reps/Duration x10 ea fwd step Details chair prn Reps/Duration x10 ea [id number] Details std height chair- finger flicks x10 Reps/Duration x10 Floor to ceiling Details std height chair- finger flicks x10 Reps/Duration x10 Comments pt has shd pain Self-Care/Home Management Treatment Education Patient Education Body Mechanics,Fall Risk,Home Exercise Program,Posture, Safety Other Education Dispensed LSVT BIG exercise packet, exercise log, and functional task form. Discussed the purpose of BIG program, how to safely perform exercises at home to avoid LOB, and discussed pt's posture. PT-OP-T Assessment and Plan Start: 06/06/21 15:44 Freq: Status: Active Protocol: Document 06/14/21 09:57 MA (Rec: 06/14/21 11:02 MA [id number]) Physical Therapy Assessment Goals Four Impairment gait speed Short Term Goal (STG) Pt will improve self-selected gait speed on 2MWT from 0.96 m /s to 1.1 m/s for functional community ambulation. STG Duration 06/25/21 Residential Goal (LTG) Pt will improve self-selected gait speed on 2MWT from 0.96 m /s to 1.2 m/s or greater for functional community ambulation. LTG Duration 07/16/21 Three Impairment balance Residential Goal (LTG) Pt will improve DGI score from 18/24 to 21/24 or greater as a measure of reduced falls risk. LTG Duration 07/16/21 Two Impairment freezing of gait Short Term Goal (STG) Pt will identify FOG triggers and PT will incorporate at least two into daily treatment . STG Duration 06/25/21 Invasive Manager Goal (LTG) Pt will successfully implement strategies to reduce FOG episodes by 50% LTG Duration 07/16/21 One Impairment lacks HEP Residential Goal (LTG) Pt will be independent with LSVT BIG daily maximal exercises to improve movement amplitude and sustain therapy gains. LTG Duration 07/16/21 Assessment Summary Assessment Dez is able to complete all BIG exercises but requires some modifications with arm movements due to dilan shd pain. Pt's had previously told him he needed a L shd replacement but pt does not want to do sx. Dez is able to do all standing exercises with a chair beside him for balance as needed. He does require his hand to be on the chair during rock & reach exercise and requires 2x Janeen for lateral LOB. Pt is able to complete stairs with R single rail but requires minor cues to get most of foot on step to avoid posterior LOB. He is Min A when stepping over 6 hurdles both fwd and laterally . Pt tends to shuffle when turning 180 degrees like when going to sit in a chair. Worked on BIG walking and 'big ' turns, trying to take 3-4 big steps to turn vs ~8 small shuffling steps. Pt fills out functional task form at end of session and lists five tasks he has most difficutly with including handwriting, standing up from a chair, freezing during gait, getting out of his car, and buttoning clothing. Pt will benefit greatly from BIG program to address these listed issues as well as improve balance and gait. Physical Therapy Plan Frequency and Duration Frequency of Treatment 4x/Week Duration of Treatment 16 treatment visits Plan of Care Start Date 06/09/21 Plan of Care End Date 07/16/21 Therapeutic Interventions Therapeutic Interventions Balance Training,Gait Training ,Home Exercise Program, Neuromuscular Re-education, Self-Care/Home Management, Therapeutic Activities, Therapeutic Exercises Modalities Cold Pack/Ice Massage,Hot Packs Next Visit Focus/Plan Next Note Type Treatment Note Next Visit Plan BIG exercises with chair prn for standing exercises. Pt requires hand on chair for rock/reach exercise and CGA. Continue BIG walking with cues for FOG to stop BIG, stand BIG, shift weight onto one leg , and step BIG. If weather permits, practice car transfers.
--- NOTE | 2021-06-15 17:00 | PT.OTN ---
Current Diagnoses Parkinson's disease (06/15/21) Difficulty in walking, not elsewhere classified (06/15/21) Abnormal posture (06/15/21) Physical Therapy Treatment Note PT-OP-A Visit Information Start: 06/06/21 15:44 Freq: Status: Active Protocol: Document 06/15/21 14:10 AW (Rec: 06/15/21 15:30 AW [id number]) Out-Patient Physical Therapy Visit Information Visit Information Visit Type Treatment Note Visit Start Time 14:30 Visit Stop Time 15:30 Total Visit Minutes 60 Visit Number 3 Number of MANUFACTURING ACCOUNTANT Visits 0 Evaluation Information Evaluation Date 06/09/21 PT-OP-B Current Condition Start: 06/06/21 15:44 Freq: Status: Active Protocol: Document 06/09/21 15:15 AW (Rec: 06/06/21 16:19 AW [id number]) Current Condition History of Current Condition Onset Date 2017 Current Complaints freezing of gait; decreased balance; falls History of Current Condition In , Dariusz began to notice a tremor in his left hand. He also began to appreciate declining balance and freezing of gait to the point that he could no longer dance and falls frequency increased. He was referred to neurology (sees Dr. Alvarez at [facility]) and was diagnosed with Parkinson's disease. One fall in October 2018 resulted in right femur fracture. Another fall in December 2020 resulted in left femur fracture which was treated non-operatively. He was discharged from the hospital to SNF rehab. After a month, he went home with home health and some family assist . He now uses a 4WW in the house most of the time. He occasionally uses a cane when out of the house. He always uses a cart for grocery shopping. He lives alone. He states he has trouble sleeping but CBD gummies help. He is independent to modified independent with ADL's and he does drive. He uses an improvised tub bench to sit and wash his teeth. He has to pull on pant legs to cross legs and don shoes and socks. Pt reports left knee pain. Orthovisc injections have been somewhat helpful. He now wears a brace on his left knee . Pt endorses some difficulty with swallowing and plans to do LOUD after completing BIG. Dariusz typically takes his carbidopa-levodopa 3x daily - first thing in the morning (06 :30), 10-11:00, and 15:00. Prior Treatments and Tests PT for knee and hip. No PT for PD. Treatment Goals Patient/Caregiver Goals Have better balance and feel more confident about starting out. Reduce freezing of gait Prior Functional Status Baseline Function- ADL's Independent Baseline Function- Mobility Independent PT-OP-C Subjective Start: 06/06/21 15:44 Freq: Status: Active Protocol: Document 06/15/21 14:10 AW (Rec: 06/15/21 16:40 AW [id number]) OP-PT Subjective Patient Comments Patient Comments Pt has no questions about HEP, feels ready to engage. PT-OP-D Balance Start: 06/06/21 15:44 Freq: Status: Active Protocol: Document 06/09/21 15:15 AW (Rec: 06/10/21 14:16 AW [id number]) Balance Tests Romberg Romberg WNL EO and EC PT-OP-E Functional Tests Start: 06/06/21 15:44 Freq: Status: Active Protocol: Document 06/09/21 15:15 AW (Rec: 06/10/21 14:16 AW [id number]) Functional Tests 2 Minute Walk Test Distance 357 feet Device Used no AD; SBA; 2 episodes FOG Comments average gait speed 0.91 m/s Dynamic Gait Index (DGI) Score 18 DGI Impairment Rating 20 to <40% Impaired (Score 15- 19) Five Times Sit to Stand Test Score 12.6 seconds Comments standard height chair; no use of UE PT-OP-H Neuro Start: 06/06/21 15:44 Freq: Status: Active Protocol: Document 06/09/21 15:15 AW (Rec: 06/10/21 14:26 AW [id number]) Sensation Evaluation Gross Sensation Gross Sensation WNL Coordination Evaluation Comments Coordination Comments Finger to nose and foot tapping in seated WNL. rapid alternating pronation/ supination mildly impaired secondary to LUE tremor. Deep Tendon Reflex & Clonus Assessment Deep Tendon Reflex Bilateral Achilles Deep Tendon Reflex 1+ Diminished Bilateral Patellar Deep Tendon Reflex 1+ Diminished Vital Signs Blood Pressure Sitting Blood Pressure (90/60-120/80 mmHg) 130/72 H Blood Pressure Source Manual Cuff,Right Upper Extremity PT-OP-J Posture/Palpation/Skin Start: 06/06/21 15:44 Freq: Status: Active Protocol: Document 06/09/21 15:15 AW (Rec: 06/10/21 14:26 AW [id number]) Posture Evaluation Comments Posture Comments Significantly forward head with tragus 10 cm ahead of A/C joint. Rigidity through trunk . Pt has bilateral genu varum with left more affected than right. PT-OP-M Strength Start: 06/06/21 15:44 Freq: Status: Active Protocol: Document 06/09/21 15:15 AW (Rec: 06/10/21 14:26 AW [id number]) Shoulder Strength Shoulder Manual Muscle Testing bilat Flexion 4+ Good+ Abduction (C5) 4+ Good+ External Rotation 4+ Good+ Internal Rotation 5 Normal Hip Strength Hip Manual Muscle Testing bilat Flexion (L2) 4+ Good+ Abduction 4 Good External Rotation 4+ Good+ Internal Rotation 4+ Good+ Knee Strength Knee Manual Muscle Testing bilat Flexion (S2) 4+ Good+ Extension (L3) 5 Normal Ankle/Foot Strength Ankle and Foot Manual Muscle Testing bilat Dorsiflexion (L4) 5 Normal Plantarflexion (S1) 4+ Good+ PT-OP-Q Treatments Start: 06/06/21 15:44 Freq: Status: Active Protocol: Document 06/15/21 14:10 AW (Rec: 06/15/21 15:30 AW [id number]) Therapeutic Activity Therapeutic Activity buttoning Name buttoning Reps/Minutes 3' Comments Unbuttoned and buttoned 5 shirt buttons in sitting. One rep for demonstration and one rep cued for BIG energy conservation director, push, and pull. Untimed but pt did improve time and had less fumbling on cued rep. Handwriting Reps/Minutes 5' Comments BIG writing with breaks for finger flicks. Started with OOO across page with emphasis on maintaining size all the way across. Ended with writing name across page as many times as possible with BIG letters. Pt needs cues to think BIG, not fast. Gait Training Gait Activity turns Description turns Device Used none Level of Assistance CGA>SBA Surface carpet Treatment Focus arresting FOG Comments - 90-degree transfers chair <> chair 3 steps or less - 180 and 360-deg turns slow and fast with cues for 4 S's BIG Device Used none Level of Assistance CGA-SBA Surface level Distance/Duration 15 min Treatment Focus arm swings, increasing step height and length Comments Around clinic several laps and through as many doorways as possible. Cued 4 S's for FOG episodes as needed. Neuro Re-Education Treatment Other Activities Sit<>stand Details std height chair Reps/Duration 2x10 Sideways rock & reach Details CGA Reps/Duration x10 ea Comments with chair support Rock & reach Details modified using chair Reps/Duration x10 ea Comments Cues for BIG weight shift and arm swing backwards step Details modified with chair Reps/Duration x10 ea Comments Assessed with and without chair. Pt able to generate bigger movement with chair support. sideways step Details chair prn Reps/Duration x10 ea Comments Cued increased foot clearance on return step fwd step Details chair prn Reps/Duration x10 ea Comments Cued increased foot clearance on return step [id number] Details std height chair- finger flicks x10 Reps/Duration x10 Floor to ceiling Details std height chair- finger flicks x10 Reps/Duration x10 Comments noted uncued postural correction; cued for BIG hands Self-Care/Home Management Treatment Education Patient Education Fall Risk,Safety Other Education Asked pt to identify FOG triggers. His list includes: - any time feels hurried ( doorbell, phone rings) - narrow doorways - turns - initiation PT-OP-T Assessment and Plan Start: 06/06/21 15:44 Freq: Status: Active Protocol: Document 06/15/21 14:10 AW (Rec: 06/15/21 15:30 AW [id number]) Physical Therapy Assessment Goals Four Impairment gait speed Short Term Goal (STG) Pt will improve self-selected gait speed on 2MWT from 0.96 m /s to 1.1 m/s for functional community ambulation. STG Duration 06/25/21 Penitentiary Goal (LTG) Pt will improve self-selected gait speed on 2MWT from 0.96 m /s to 1.2 m/s or greater for functional community ambulation. LTG Duration 07/16/21 Three Impairment balance Penit[facility]iary Goal (LTG) Pt will improve DGI score from 18/24 to 21/24 or greater as a measure of reduced falls risk. LTG Duration 07/16/21 Two Impairment freezing of gait Short Term Goal (STG) Pt will identify FOG triggers and PT will incorporate at least two into daily treatment . STG Duration 06/25/21 Buttonhole Maker Goal (LTG) Pt will successfully implement strategies to reduce FOG episodes by 50% LTG Duration 07/16/21 One Impairment lacks HEP Buttonhole Maker Goal (LTG) Pt will be independent with LSVT BIG daily maximal exercises to improve movement amplitude and sustain therapy gains. LTG Duration 07/16/21 Assessment Summary Assessment Reviewed maximal daily exercises and pt did require chair support for several. Educated pt that primary target of BIG therapy is amplitude and that balance will follow. Chair support required for several exercises to increase amplitude. PT will continually assess for safety and amplitude without the chair. BIG gait today included several fast stops and starts as well as passing through doorways multiple times in an attempt to elicit FOG. Reviewed 4 S's to mitigate freezing episodes and pt understands well. Physical Therapy Plan Frequency and Duration Frequency of Treatment 4x/Week Duration of Treatment 16 treatment visits Plan of Care Start Date 06/09/21 Plan of Care End Date 07/16/21 Therapeutic Interventions Therapeutic Interventions Balance Training,Gait Training ,Home Exercise Program, Neuromuscular Re-education, Self-Care/Home Management, Therapeutic Activities, Therapeutic Exercises Modalities Cold Pack/Ice Massage,Hot Packs Next Visit Focus/Plan Next Note Type Treatment Note Next Visit Plan Continue maximal daily exercises, functional tasks to include handwriting, buttoning, (any others?), BIG walking with as many freezing triggers as possible. If weather permits, practice car transfers.
--- NOTE | 2021-06-16 16:11 | PT.OTN ---
Current Diagnoses Parkinson's disease (06/16/21) Difficulty in walking, not elsewhere classified (06/16/21) Abnormal posture (06/16/21) Physical Therapy Treatment Note PT-OP-A Visit Information Start: 06/06/21 15:44 Freq: Status: Active Protocol: Document 06/16/21 14:43 AW (Rec: 06/16/21 15:17 AW [id number]) Out-Patient Physical Therapy Visit Information Visit Information Visit Type Treatment Note Visit Start Time 14:15 Visit Stop Time 15:15 Total Visit Minutes 60 Visit Number 4 Number of PARKING INSPECTOR Visits 0 Evaluation Information Evaluation Date 06/09/21 PT-OP-B Current Condition Start: 06/06/21 15:44 Freq: Status: Active Protocol: Document 06/09/21 15:15 AW (Rec: 06/06/21 16:19 AW [id number]) Current Condition History of Current Condition Onset Date 2017 Current Complaints freezing of gait; decreased balance; falls History of Current Condition In , Dariusz began to notice a tremor in his left hand. He also began to appreciate declining balance and freezing of gait to the point that he could no longer dance and falls frequency increased. He was referred to neurology (sees Dr. Alvarez at [facility]) and was diagnosed with Parkinson's disease. One fall in October 2018 resulted in right femur fracture. Another fall in December 2020 resulted in left femur fracture which was treated non-operatively. He was discharged from the hospital to SNF rehab. After a month, he went home with home health and some family assist . He now uses a 4WW in the house most of the time. He occasionally uses a cane when out of the house. He always uses a cart for grocery shopping. He lives alone. He states he has trouble sleeping but CBD gummies help. He is independent to modified independent with ADL's and he does drive. He uses an improvised tub bench to sit and wash his teeth. He has to pull on pant legs to cross legs and don shoes and socks. Pt reports left knee pain. Orthovisc injections have been somewhat helpful. He now wears a brace on his left knee . Pt endorses some difficulty with swallowing and plans to do LOUD after completing BIG. Dariusz typically takes his carbidopa-levodopa 3x daily - first thing in the morning (06 :30), 10-11:00, and 15:00. Prior Treatments and Tests PT for knee and hip. No PT for PD. Treatment Goals Patient/Caregiver Goals Have better balance and feel more confident about starting out. Reduce freezing of gait Prior Functional Status Baseline Function- ADL's Independent Baseline Function- Mobility Independent PT-OP-C Subjective Start: 06/06/21 15:44 Freq: Status: Active Protocol: Document 06/16/21 14:43 AW (Rec: 06/16/21 15:17 AW [id number]) OP-PT Subjective Patient Comments Patient Comments I did my exercises this morning. PT-OP-D Balance Start: 06/06/21 15:44 Freq: Status: Active Protocol: Document 06/09/21 15:15 AW (Rec: 06/10/21 14:16 AW [id number]) Balance Tests Romberg Romberg WNL EO and EC PT-OP-E Functional Tests Start: 06/06/21 15:44 Freq: Status: Active Protocol: Document 06/09/21 15:15 AW (Rec: 06/10/21 14:16 AW [id number]) Functional Tests 2 Minute Walk Test Distance 357 feet Device Used no AD; SBA; 2 episodes FOG Comments average gait speed 0.91 m/s Dynamic Gait Index (DGI) Score 18 DGI Impairment Rating 20 to <40% Impaired (Score 15- 19) Five Times Sit to Stand Test Score 12.6 seconds Comments standard height chair; no use of UE PT-OP-H Neuro Start: 06/06/21 15:44 Freq: Status: Active Protocol: Document 06/09/21 15:15 AW (Rec: 06/10/21 14:26 AW [id number]) Sensation Evaluation Gross Sensation Gross Sensation WNL Coordination Evaluation Comments Coordination Comments Finger to nose and foot tapping in seated WNL. rapid alternating pronation/ supination mildly impaired secondary to LUE tremor. Deep Tendon Reflex & Clonus Assessment Deep Tendon Reflex Bilateral Achilles Deep Tendon Reflex 1+ Diminished Bilateral Patellar Deep Tendon Reflex 1+ Diminished Vital Signs Blood Pressure Sitting Blood Pressure (90/60-120/80 mmHg) 130/72 H Blood Pressure Source Manual Cuff,Right Upper Extremity PT-OP-J Posture/Palpation/Skin Start: 06/06/21 15:44 Freq: Status: Active Protocol: Document 06/09/21 15:15 AW (Rec: 06/10/21 14:26 AW [id number]) Posture Evaluation Comments Posture Comments Significantly forward head with tragus 10 cm ahead of A/C joint. Rigidity through trunk . Pt has bilateral genu varum with left more affected than right. PT-OP-M Strength Start: 06/06/21 15:44 Freq: Status: Active Protocol: Document 06/09/21 15:15 AW (Rec: 06/10/21 14:26 AW [id number]) Shoulder Strength Shoulder Manual Muscle Testing bilat Flexion 4+ Good+ Abduction (C5) 4+ Good+ External Rotation 4+ Good+ Internal Rotation 5 Normal Hip Strength Hip Manual Muscle Testing bilat Flexion (L2) 4+ Good+ Abduction 4 Good External Rotation 4+ Good+ Internal Rotation 4+ Good+ Knee Strength Knee Manual Muscle Testing bilat Flexion (S2) 4+ Good+ Extension (L3) 5 Normal Ankle/Foot Strength Ankle and Foot Manual Muscle Testing bilat Dorsiflexion (L4) 5 Normal Plantarflexion (S1) 4+ Good+ PT-OP-Q Treatments Start: 06/06/21 15:44 Freq: Status: Active Protocol: Document 06/16/21 14:43 AW (Rec: 06/16/21 15:17 AW [id number]) Therapeutic Activity Therapeutic Activity buttoning Name buttoning Reps/Minutes 5' Comments Unbuttoned and buttoned 4 shirt buttons in sitting. Timed reps aldo 58 and 37. Cued pt to slide fingers along selvage edge to find next hole. Cued to get mad at that button. Handwriting Reps/Minutes 5' Comments BIG writing with breaks for finger flicks. Name in print and cursive. [place] [employer]. Micrographia most evident at end of line. Pt needs cues to think BIG, not fast. Gait Training Gait Activity turns Description turns Device Used none Level of Assistance CGA>SBA Surface carpet Treatment Focus arresting FOG Comments - 180-degree transfers chair < > chair 3 steps or less - 180 and 360-deg turns slow and fast with cues for 4 S's - Noted improvement in fluid movement and no FOG today BIG Device Used none Level of Assistance CGA-SBA Surface level Distance/Duration 15 min Treatment Focus arm swings, increasing step height and length Comments Around clinic two laps and up elevator to second level to elicit FOG. Down 28 stairs near lobby with R rail down. Cued 4 S's for FOG episodes as needed. Neuro Re-Education Treatment Other Activities Sit<>stand Details std height chair Reps/Duration x10 Comments added blue foam on chair since pt is so tall Sideways rock & reach Details SBA Reps/Duration x10 ea Comments with chair support Rock & reach Details modified using chair Reps/Duration x10 ea Comments Cues for BIG weight shift and arm swing backwards step Details modified with chair Reps/Duration x10 ea Comments Improved weight shift today and PT noticed self-correction of arm swing on last reps sideways step Details chair prn Reps/Duration x10 ea Comments Cued increased foot clearance on return step fwd step Details chair prn Reps/Duration x10 ea Comments Cued increased foot clearance with external cue of meter stick on floor [id number] Details std height chair- finger flicks x10 Reps/Duration x10 Floor to ceiling Details std height chair- finger flicks x10 Reps/Duration x10 Comments noted uncued postural correction; cued for BIG hands Self-Care/Home Management Treatment Education Patient Education Home Exercise Program Other Education Assigned homework to approach chairs with BIG steps and turn completely to chair before sitting. PT-OP-T Assessment and Plan Start: 06/06/21 15:44 Freq: Status: Active Protocol: Document 06/16/21 14:43 AW (Rec: 06/16/21 15:17 AW [id number]) Physical Therapy Assessment Goals Four Impairment gait speed Short Term Goal (STG) Pt will improve self-selected gait speed on 2MWT from 0.96 m /s to 1.1 m/s for functional community ambulation. STG Duration 06/25/21 Residential Goal (LTG) Pt will improve self-selected gait speed on 2MWT from 0.96 m /s to 1.2 m/s or greater for functional community ambulation. LTG Duration 07/16/21 Three Impairment balance Residential Goal (LTG) Pt will improve DGI score from 18/24 to 21/24 or greater as a measure of reduced falls risk. LTG Duration 07/16/21 Two Impairment freezing of gait Short Term Goal (STG) Pt will identify FOG triggers and PT will incorporate at least two into daily treatment . STG Duration 06/25/21 Residential Goal (LTG) Pt will successfully implement strategies to reduce FOG episodes by 50% LTG Duration 07/16/21 One Impairment lacks HEP Residential Goal (LTG) Pt will be independent with LSVT BIG daily maximal exercises to improve movement amplitude and sustain therapy gains. LTG Duration 07/16/21 Assessment Summary Assessment Pt is requiring fewer cues with exercises. PT noted self- correction in exercises and in approach to chairs, indicating recalibration in process. Fast stops and passing through elevator doors are good FOG triggers to include in future BIG walking. Physical Therapy Plan Frequency and Duration Frequency of Treatment 4x/Week Duration of Treatment 16 treatment visits Plan of Care Start Date 06/09/21 Plan of Care End Date 07/16/21 Therapeutic Interventions Therapeutic Interventions Balance Training,Gait Training ,Home Exercise Program, Neuromuscular Re-education, Self-Care/Home Management, Therapeutic Activities, Therapeutic Exercises Modalities Cold Pack/Ice Massage,Hot Packs Next Visit Focus/Plan Next Note Type Treatment Note Next Visit Plan Continue maximal daily exercises, functional tasks to include handwriting, buttoning, car transfers, donning/doffing coat, BIG walking with as many freezing triggers as possible.
--- NOTE | 2021-06-17 15:44 | PT.OTN ---
Current Diagnoses Parkinson's disease (06/17/21) Difficulty in walking, not elsewhere classified (06/17/21) Abnormal posture (06/17/21) Physical Therapy Treatment Note PT-OP-A Visit Information Start: 06/06/21 15:44 Freq: Status: Active Protocol: Document 06/17/21 14:32 AW (Rec: 06/17/21 15:44 AW [id number]) Out-Patient Physical Therapy Visit Information Visit Information Visit Type Treatment Note Visit Start Time 14:30 Visit Stop Time 15:25 Total Visit Minutes 55 Visit Number 5 Number of DRY HOUSE TENDER Visits 0 Evaluation Information Evaluation Date 06/09/21 PT-OP-B Current Condition Start: 06/06/21 15:44 Freq: Status: Active Protocol: Document 06/09/21 15:15 AW (Rec: 06/06/21 16:19 AW [id number]) Current Condition History of Current Condition Onset Date 2017 Current Complaints freezing of gait; decreased balance; falls History of Current Condition In , Dariusz began to notice a tremor in his left hand. He also began to appreciate declining balance and freezing of gait to the point that he could no longer dance and falls frequency increased. He was referred to neurology (sees Dr. Alvarez at [facility]) and was diagnosed with Parkinson's disease. One fall in October 2018 resulted in right femur fracture. Another fall in December 2020 resulted in left femur fracture which was treated non-operatively. He was discharged from the hospital to SNF rehab. After a month, he went home with home health and some family assist . He now uses a 4WW in the house most of the time. He occasionally uses a cane when out of the house. He always uses a cart for grocery shopping. He lives alone. He states he has trouble sleeping but CBD gummies help. He is independent to modified independent with ADL's and he does drive. He uses an improvised tub bench to sit and wash his teeth. He has to pull on pant legs to cross legs and don shoes and socks. Pt reports left knee pain. Orthovisc injections have been somewhat helpful. He now wears a brace on his left knee . Pt endorses some difficulty with swallowing and plans to do LOUD after completing BIG. Dariusz typically takes his carbidopa-levodopa 3x daily - first thing in the morning (06 :30), 10-11:00, and 15:00. Prior Treatments and Tests PT for knee and hip. No PT for PD. Treatment Goals Patient/Caregiver Goals Have better balance and feel more confident about starting out. Reduce freezing of gait Prior Functional Status Baseline Function- ADL's Independent Baseline Function- Mobility Independent PT-OP-C Subjective Start: 06/06/21 15:44 Freq: Status: Active Protocol: Document 06/17/21 14:32 AW (Rec: 06/17/21 15:44 AW [id number]) OP-PT Subjective Patient Comments Patient Comments Pt reports another freezing trigger is when he walks up to the pool table to set up his shot. PT-OP-D Balance Start: 06/06/21 15:44 Freq: Status: Active Protocol: Document 06/09/21 15:15 AW (Rec: 06/10/21 14:16 AW [id number]) Balance Tests Romberg Romberg WNL EO and EC PT-OP-E Functional Tests Start: 06/06/21 15:44 Freq: Status: Active Protocol: Document 06/09/21 15:15 AW (Rec: 06/10/21 14:16 AW [id number]) Functional Tests 2 Minute Walk Test Distance 357 feet Device Used no AD; SBA; 2 episodes FOG Comments average gait speed 0.91 m/s Dynamic Gait Index (DGI) Score 18 DGI Impairment Rating 20 to <40% Impaired (Score 15- 19) Five Times Sit to Stand Test Score 12.6 seconds Comments standard height chair; no use of UE PT-OP-H Neuro Start: 06/06/21 15:44 Freq: Status: Active Protocol: Document 06/09/21 15:15 AW (Rec: 06/10/21 14:26 AW [id number]) Sensation Evaluation Gross Sensation Gross Sensation WNL Coordination Evaluation Comments Coordination Comments Finger to nose and foot tapping in seated WNL. rapid alternating pronation/ supination mildly impaired secondary to LUE tremor. Deep Tendon Reflex & Clonus Assessment Deep Tendon Reflex Bilateral Achilles Deep Tendon Reflex 1+ Diminished Bilateral Patellar Deep Tendon Reflex 1+ Diminished Vital Signs Blood Pressure Sitting Blood Pressure (90/60-120/80 mmHg) 130/72 H Blood Pressure Source Manual Cuff,Right Upper Extremity PT-OP-J Posture/Palpation/Skin Start: 06/06/21 15:44 Freq: Status: Active Protocol: Document 06/09/21 15:15 AW (Rec: 06/10/21 14:26 AW [id number]) Posture Evaluation Comments Posture Comments Significantly forward head with tragus 10 cm ahead of A/C joint. Rigidity through trunk . Pt has bilateral genu varum with left more affected than right. PT-OP-M Strength Start: 06/06/21 15:44 Freq: Status: Active Protocol: Document 06/09/21 15:15 AW (Rec: 06/10/21 14:26 AW [id number]) Shoulder Strength Shoulder Manual Muscle Testing bilat Flexion 4+ Good+ Abduction (C5) 4+ Good+ External Rotation 4+ Good+ Internal Rotation 5 Normal Hip Strength Hip Manual Muscle Testing bilat Flexion (L2) 4+ Good+ Abduction 4 Good External Rotation 4+ Good+ Internal Rotation 4+ Good+ Knee Strength Knee Manual Muscle Testing bilat Flexion (S2) 4+ Good+ Extension (L3) 5 Normal Ankle/Foot Strength Ankle and Foot Manual Muscle Testing bilat Dorsiflexion (L4) 5 Normal Plantarflexion (S1) 4+ Good+ PT-OP-Q Treatments Start: 06/06/21 15:44 Freq: Status: Active Protocol: Document 06/17/21 14:32 AW (Rec: 06/17/21 15:44 AW [id number]) Therapeutic Activity Therapeutic Activity Don/doff zipper jacket Name don/doff zipper jacket Reps/Minutes 2' Comments Pt demonstrates technique and he mostly struggles to push second arm through sleeve. He can effectively manage zipper without cues buttoning Name buttoning Reps/Minutes 5' Comments Unbuttoned and buttoned 4 shirt buttons in sitting. Timed reps at 58 and 43. First rep pt struggled with bottom button, improved second rep. Handwriting Reps/Minutes 5' Comments BIG writing - Pt's name in print several lines. Also filled out fake checks as PT gave cues for who to pay and how much. Micrographia most evident at end of line. Pt needs cues to think BIG, not fast. Gait Training Gait Activity BIG Device Used none Level of Assistance CGA-SBA Surface level Distance/Duration 20 min Treatment Focus arm swings, increasing step height and length Comments Up elevator to second level, past ED to end of jensen near lab. Pt reports R hip pain with longer steps and needs a seated rest break. Returned to clinic via elevator. No obvious FOG today Neuro Re-Education Treatment Other Activities Sit<>stand Details lg black tx mat Reps/Duration x10 Sideways rock & reach Details SBA Reps/Duration x10 ea Comments with chair support Rock & reach Details modified using chair Reps/Duration x10 ea Comments Cues for BIG weight shift and arm swing. Assessed without chair and balance is improved but amplitude decreases. Continue with chair support at this time backwards step Details modified with chair Reps/Duration x10 ea Comments Improved weight shift today and PT noticed self-correction of arm swing on last reps sideways step Details chair prn (not touched) Reps/Duration x10 ea Comments Cued increased foot clearance on return step. Self- correction noted on last reps fwd step Details chair prn (not touched) Reps/Duration x10 ea Comments Think BIG and think about the meter stick on the floor even though it's not there [id number] Details std height chair- finger flicks x10 Reps/Duration x10 Comments Cues to slow pace and focus on amplitude Floor to ceiling Details std height chair- finger flicks x10 Reps/Duration x10 Comments min cues/shaping today Self-Care/Home Management Treatment Education Patient Education Home Exercise Program Other Education Assigned homework to work on FOG triggers at the pool table this weekend. Pt understands he is to do maximal daily exercises twice daily on his own over the weekend. PT-OP-T Assessment and Plan Start: 06/06/21 15:44 Freq: Status: Active Protocol: Document 06/17/21 14:32 AW (Rec: 06/17/21 15:44 AW [id number]) Physical Therapy Assessment Goals Four Impairment gait speed Short Term Goal (STG) Pt will improve self-selected gait speed on 2MWT from 0.96 m /s to 1.1 m/s for functional community ambulation. STG Duration 06/25/21 Hand Assembler For Puller Over Goal (LTG) Pt will improve self-selected gait speed on 2MWT from 0.96 m /s to 1.2 m/s or greater for functional community ambulation. LTG Duration 07/16/21 Three Impairment balance Residential Goal (LTG) Pt will improve DGI score from 18/24 to 21/24 or greater as a measure of reduced falls risk. LTG Duration 07/16/21 Two Impairment freezing of gait Short Term Goal (STG) Pt will identify FOG triggers and PT will incorporate at least two into daily treatment . STG Duration 06/25/21 Residential Goal (LTG) Pt will successfully implement strategies to reduce FOG episodes by 50% LTG Duration 07/16/21 One Impairment lacks HEP Hand Assembler For Puller Over Goal (LTG) Pt will be independent with LSVT BIG daily maximal exercises to improve movement amplitude and sustain therapy gains. LTG Duration 07/16/21 Assessment Summary Assessment Balance in daily exercises is improving and pt reports improving control over FOG. Continued to include elevator doors and fast stops/starts to address FOG. Pt understands his weekend homework. Physical Therapy Plan Frequency and Duration Frequency of Treatment 4x/Week Duration of Treatment 16 treatment visits Plan of Care Start Date 06/09/21 Plan of Care End Date 07/16/21 Therapeutic Interventions Therapeutic Interventions Balance Training,Gait Training ,Home Exercise Program, Neuromuscular Re-education, Self-Care/Home Management, Therapeutic Activities, Therapeutic Exercises Modalities Cold Pack/Ice Massage,Hot Packs Next Visit Focus/Plan Next Note Type Treatment Note Next Visit Plan Continue maximal daily exercises, functional tasks to include handwriting, buttoning, car transfers, donning/doffing coat, BIG walking with as many freezing triggers as possible. Consider how to simulate moving around a pool table as another freezing trigger and possible hierarchy task.
--- NOTE | 2021-06-21 18:05 | PT.OTN ---
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 He also began to appreciate declining balance and freezing of gait to the point that he could no longer dance and falls frequency increased. He was referred to neurology (sees Dr. Avlarez at [facility]) and was diagnosed with Parkinson's disease. One fall in October 2018 resulted in right femur fracture. Another fall in December 2020 resulted in left femur fracture which was treated non-operatively. He was discharged from the hospital to SNF rehab. After a month, he went home with home health and some family assist . He now uses a 4WW in the house most of the time. He occasionally uses a cane when out of the house. He always uses a cart for grocery shopping. He lives alone. He states he has trouble sleeping but CBD gummies help. He is independent to modified independent with ADL's and he does drive. He uses an improvised tub bench to sit and wash his teeth. He has to pull on pant legs to cross legs and don shoes and socks. Pt reports left knee pain. Orthovisc injections have been somewhat helpful. He now wears a brace on his left knee . Pt endorses some difficulty with swallowing and plans to do LOUD after completing BIG. Dariusz typically takes his carbidopa-levodopa 3x daily - first thing in the morning (06 :30), 10-11:00, and 15:00. Prior Treatments and Tests PT for knee and hip. No PT for PD. Treatment Goals Patient/Caregiver Goals Have better balance and feel more confident about starting out. Reduce freezing of gait Prior Functional Status Baseline Function- ADL's Independent Baseline Function- Mobility Independent PT-OP-C Subjective Start: 06/06/21 15:44 Freq: Status: Active Protocol: Document 06/21/21 14:05 MA (Rec: 06/21/21 15:18 MA [id number]) OP-PT Subjective Patient Comments Patient Comments Pt reports he had some difficulty with one of the excercises due to his hip locking up this weekend. He saw his neurologists this morning who said he looks better since starting BIG program. PT-OP-D Balance Start: 06/06/21 15:44 Freq: Status: Active Protocol: Document 06/09/21 15:15 AW (Rec: 06/10/21 14:16 AW [id number]) Balance Tests Romberg Romberg WNL EO and EC PT-OP-E Functional Tests Start: 06/06/21 15:44 Freq: Status: Active Protocol: Document 06/09/21 15:15 AW (Rec: 06/10/21 14:16 AW [id number]) Functional Tests 2 Minute Walk Test Distance 357 feet Device Used no AD; SBA; 2 episodes FOG Comments average gait speed 0.91 m/s Dynamic Gait Index (DGI) Score 18 DGI Impairment Rating 20 to <40% Impaired (Score 15- 19) Five Times Sit to Stand Test Score 12.6 seconds Comments standard height chair; no use of UE PT-OP-H Neuro Start: 06/06/21 15:44 Freq: Status: Active Protocol: Document 06/09/21 15:15 AW (Rec: 06/10/21 14:26 AW [id number]) Sensation Evaluation Gross Sensation Gross Sensation WNL Coordination Evaluation Comments Coordination Comments Finger to nose and foot tapping in seated WNL. rapid alternating pronation/ supination mildly impaired secondary to LUE tremor. Deep Tendon Reflex & Clonus Assessment Deep Tendon Reflex Bilateral Achilles Deep Tendon Reflex 1+ Diminished Bilateral Patellar Deep Tendon Reflex 1+ Diminished Vital Signs Blood Pressure Sitting Blood Pressure (90/60-120/80 mmHg) 130/72 H Blood Pressure Source Manual Cuff,Right Upper Extremity PT-OP-J Posture/Palpation/Skin Start: 06/06/21 15:44 Freq: Status: Active Protocol: Document 06/09/21 15:15 AW (Rec: 06/10/21 14:26 AW [id number]) Posture Evaluation Comments Posture Comments Significantly forward head with tragus 10 cm ahead of A/C joint. Rigidity through trunk . Pt has bilateral genu varum with left more affected than right. PT-OP-M Strength Start: 06/06/21 15:44 Freq: Status: Active Protocol: Document 06/09/21 15:15 AW (Rec: 06/10/21 14:26 AW [id number]) Shoulder Strength Shoulder Manual Muscle Testing bilat Flexion 4+ Good+ Abduction (C5) 4+ Good+ External Rotation 4+ Good+ Internal Rotation 5 Normal Hip Strength Hip Manual Muscle Testing bilat Flexion (L2) 4+ Good+ Abduction 4 Good External Rotation 4+ Good+ Internal Rotation 4+ Good+ Knee Strength Knee Manual Muscle Testing bilat Flexion (S2) 4+ Good+ Extension (L3) 5 Normal Ankle/Foot Strength Ankle and Foot Manual Muscle Testing bilat Dorsiflexion (L4) 5 Normal Plantarflexion (S1) 4+ Good+ PT-OP-Q Treatments Start: 06/06/21 15:44 Freq: Status: Active Protocol: Document 06/21/21 14:05 MA (Rec: 06/21/21 15:18 MA [id number]) Therapeutic Activity Therapeutic Activity Pool Name playing pool Comments yardstick as pool stick and small ball. Working on walking around the table and lining up without FOG. Cues to Stop, stand, shift weight, and then step improve pt's freezing while lining up. buttoning Name buttoning Reps/Minutes 5' Comments Unbuttoned and buttoned 4 shirt buttons in sitting. Gait Training Gait Activity turns Description turns Device Used none Level of Assistance CGA>SBA Surface carpet Treatment Focus arresting FOG Comments - 180-degree transfers chair < > chair 3 steps or less - 180 and 360-deg turns slow and fast with cues for 4 S's - Noted improvement in fluid movement and no FOG today BIG Device Used none Level of Assistance CGA-SBA Surface level Distance/Duration 10 min Treatment Focus arm swings, increasing step height and length Comments Up stairs to second level, past ED to end of jensen near lab. No obvious FOG today. No rest breaks. Stairs Description lobby stairs Level of Assistance Right rail Distance/Duration x 26 steps Treatment Focus big steps, getting whole foot on step Comments mod A required for first two steps because pt doesn't get foot on step. Cues to step majority of foot on step shows better balance. Pt often catches heel on step while descending. Neuro Re-Education Treatment Balance Activities Uneven Surfaces Details blue pads Comments 1. WBOS EO/EC 2. staggered stance (modified tandem) EO/EC 3. WBOS throwing ball outside [place] 4. staggered stance throwing ball outside [place] Other Activities Sit<>stand Details lg black tx mat Reps/Duration x10 Sideways rock & reach Details SBA Reps/Duration x10 ea Comments with chair support Rock & reach Details modified using chair Reps/Duration x10 ea Comments Cues for BIG weight shift and arm swing. Assessed without chair and balance is improved but amplitude decreases. Continue with chair support at this time backwards step Details modified with chair Reps/Duration x10 ea Comments Improved weight shift today and PT noticed self-correction of arm swing on last reps sideways step Details chair prn (not touched) Reps/Duration x10 ea Comments Cued increased foot clearance on return step. Self- correction noted on last reps fwd step Details chair prn (not touched) Reps/Duration x10 ea Comments Think BIG and think about the meter stick on the floor even though it's not there [id number] Details std height chair- finger flicks x10 Reps/Duration x10 Comments Cues to slow pace and focus on amplitude Floor to ceiling Details std height chair- finger flicks x10 Reps/Duration x10 Comments min cues/shaping today PT-OP-T Assessment and Plan Start: 06/06/21 15:44 Freq: Status: Active Protocol: Document 06/21/21 14:05 MA (Rec: 06/21/21 15:18 MA [id number]) Physical Therapy Assessment Goals Four Impairment gait speed Short Term Goal (STG) Pt will improve self-selected gait speed on 2MWT from 0.96 m /s to 1.1 m/s for functional community ambulation. STG Duration 06/25/21 Clinical Scientist Goal (LTG) Pt will improve self-selected gait speed on 2MWT from 0.96 m /s to 1.2 m/s or greater for functional community ambulation. LTG Duration 07/16/21 Three Impairment balance Clinical Scientist Goal (LTG) Pt will improve DGI score from 18/24 to 21/24 or greater as a measure of reduced falls risk. LTG Duration 07/16/21 Two Impairment freezing of gait Short Term Goal (STG) Pt will identify FOG triggers and PT will incorporate at least two into daily treatment . STG Duration 06/25/21 Penitentiary Goal (LTG) Pt will successfully implement strategies to reduce FOG episodes by 50% LTG Duration 07/16/21 One Impairment lacks HEP Clinical Scientist Goal (LTG) Pt will be independent with LSVT BIG daily maximal exercises to improve movement amplitude and sustain therapy gains. LTG Duration 07/16/21 Assessment Summary Assessment Pt requires cues throughout BIG exercises to slow down to avoid losing amplitude during movements. Dez completes BIG exercises in 20 min this session. Began working on pt's balance on uneven surfaces with pt able to maintain good balance with eyes closed. Pt is challenged by ball toss while balancing. Simulated playing pool with pt freezing when initating walking around table or displaying a festinating gait pattern when trying to line up body with ball. Cues to 'stop, stand, shift weight, and then step' improves pt's freezing gait. Physical Therapy Plan Frequency and Duration Frequency of Treatment 4x/Week Duration of Treatment 16 treatment visits Plan of Care Start Date 06/09/21 Plan of Care End Date 07/16/21 Therapeutic Interventions Therapeutic Interventions Balance Training,Gait Training ,Home Exercise Program, Neuromuscular Re-education, Self-Care/Home Management, Therapeutic Activities, Therapeutic Exercises Modalities Cold Pack/Ice Massage,Hot Packs Next Visit Focus/Plan Next Note Type Treatment Note Next Visit Plan Continue maximal daily exercises, functional tasks to include handwriting, buttoning, car transfers, donning/doffing coat, BIG walking with as many freezing triggers as possible. Consider how to simulate moving around a pool table as another freezing trigger and possible hierarchy task.
--- NOTE | 2021-06-22 17:25 | PT.OTN ---
Current Diagnoses Parkinson's disease (06/22/21) Difficulty in walking, not elsewhere classified (06/22/21) Abnormal posture (06/22/21) Physical Therapy Treatment Note PT-OP-A Visit Information Start: 06/06/21 15:44 Freq: Status: Active Protocol: Document 06/22/21 12:47 AW (Rec: 06/22/21 15:16 AW [id number]) Out-Patient Physical Therapy Visit Information Visit Information Visit Type Treatment Note Visit Start Time 14:15 Visit Stop Time 15:13 Total Visit Minutes 58 Visit Number 7 Number of RAKER BUFFING WHEEL Visits 0 Evaluation Information Evaluation Date 06/09/21 PT-OP-B Current Condition Start: 06/06/21 15:44 Freq: Status: Active Protocol: Document 06/09/21 15:15 AW (Rec: 06/06/21 16:19 AW [id number]) Current Condition History of Current Condition Onset Date 2017 Current Complaints freezing of gait; decreased balance; falls History of Current Condition In , Dariusz began to notice a tremor in his left hand. He also began to appreciate declining balance and freezing of gait to the point that he could no longer dance and falls frequency increased. He was referred to neurology (sees Dr. Alvarez at [facility]) and was diagnosed with Parkinson's disease. One fall in October 2018 resulted in right femur fracture. Another fall in December 2020 resulted in left femur fracture which was treated non-operatively. He was discharged from the hospital to SNF rehab. After a month, he went home with home health and some family assist . He now uses a 4WW in the house most of the time. He occasionally uses a cane when out of the house. He always uses a cart for grocery shopping. He lives alone. He states he has trouble sleeping but CBD gummies help. He is independent to modified independent with ADL's and he does drive. He uses an improvised tub bench to sit and wash his teeth. He has to pull on pant legs to cross legs and don shoes and socks. Pt reports left knee pain. Orthovisc injections have been somewhat helpful. He now wears a brace on his left knee . Pt endorses some difficulty with swallowing and plans to do LOUD after completing BIG. Dariusz typically takes his carbidopa-levodopa 3x daily - first thing in the morning (06 :30), 10-11:00, and 15:00. Prior Treatments and Tests PT for knee and hip. No PT for PD. Treatment Goals Patient/Caregiver Goals Have better balance and feel more confident about starting out. Reduce freezing of gait Prior Functional Status Baseline Function- ADL's Independent Baseline Function- Mobility Independent PT-OP-C Subjective Start: 06/06/21 15:44 Freq: Status: Active Protocol: Document 06/22/21 12:47 AW (Rec: 06/22/21 17:16 AW [id number]) OP-PT Subjective Patient Comments Patient Comments Pt states his neurologist and his girlfriend both gave him feedback that his movement is improving. Pt reports feeling more in control of freezing episodes. Patient Reported Progress Improving PT-OP-D Balance Start: 06/06/21 15:44 Freq: Status: Active Protocol: Document 06/09/21 15:15 AW (Rec: 06/10/21 14:16 AW [id number]) Balance Tests Romberg Romberg WNL EO and EC PT-OP-E Functional Tests Start: 06/06/21 15:44 Freq: Status: Active Protocol: Document 06/09/21 15:15 AW (Rec: 06/10/21 14:16 AW [id number]) Functional Tests 2 Minute Walk Test Distance 357 feet Device Used no AD; SBA; 2 episodes FOG Comments average gait speed 0.91 m/s Dynamic Gait Index (DGI) Score 18 DGI Impairment Rating 20 to <40% Impaired (Score 15- 19) Five Times Sit to Stand Test Score 12.6 seconds Comments standard height chair; no use of UE PT-OP-H Neuro Start: 06/06/21 15:44 Freq: Status: Active Protocol: Document 06/09/21 15:15 AW (Rec: 06/10/21 14:26 AW [id number]) Sensation Evaluation Gross Sensation Gross Sensation WNL Coordination Evaluation Comments Coordination Comments Finger to nose and foot tapping in seated WNL. rapid alternating pronation/ supination mildly impaired secondary to LUE tremor. Deep Tendon Reflex & Clonus Assessment Deep Tendon Reflex Bilateral Achilles Deep Tendon Reflex 1+ Diminished Bilateral Patellar Deep Tendon Reflex 1+ Diminished Vital Signs Blood Pressure Sitting Blood Pressure (90/60-120/80 mmHg) 130/72 H Blood Pressure Source Manual Cuff,Right Upper Extremity PT-OP-J Posture/Palpation/Skin Start: 06/06/21 15:44 Freq: Status: Active Protocol: Document 06/09/21 15:15 AW (Rec: 06/10/21 14:26 AW [id number]) Posture Evaluation Comments Posture Comments Significantly forward head with tragus 10 cm ahead of A/C joint. Rigidity through trunk . Pt has bilateral genu varum with left more affected than right. PT-OP-M Strength Start: 06/06/21 15:44 Freq: Status: Active Protocol: Document 06/09/21 15:15 AW (Rec: 06/10/21 14:26 AW [id number]) Shoulder Strength Shoulder Manual Muscle Testing bilat Flexion 4+ Good+ Abduction (C5) 4+ Good+ External Rotation 4+ Good+ Internal Rotation 5 Normal Hip Strength Hip Manual Muscle Testing bilat Flexion (L2) 4+ Good+ Abduction 4 Good External Rotation 4+ Good+ Internal Rotation 4+ Good+ Knee Strength Knee Manual Muscle Testing bilat Flexion (S2) 4+ Good+ Extension (L3) 5 Normal Ankle/Foot Strength Ankle and Foot Manual Muscle Testing bilat Dorsiflexion (L4) 5 Normal Plantarflexion (S1) 4+ Good+ PT-OP-Q Treatments Start: 06/06/21 15:44 Freq: Status: Active Protocol: Document 06/22/21 12:47 AW (Rec: 06/22/21 15:16 AW [id number]) Therapeutic Exercises Sitting Exercises lumbar flexion stretch Sitting Exercise Name lumbar flexion stretch Comments after exercises to address lbp ; pt reports effective Therapeutic Activity Therapeutic Activity Pool Name playing pool Comments Sit to stand + pvc as pool stick and small ball. Working on walking around the table and lining up without FOG. Cues to Stop, stand, shift weight, and then step improve pt's freezing while lining up. buttoning Name buttoning Reps/Minutes 5' Comments Unbuttoned and buttoned 4 shirt buttons in sitting. Pt frustrated with lack of progress but PT explains different shirt, different results. Handwriting Reps/Minutes 5' Comments BIG writing - Pt's name in print several lines. Girlfriend's and grandkids' names. Improving with more attention to BIG writing as speed decreases. Gait Training Gait Activity turns Description turns Device Used none Level of Assistance CGA>SBA Surface carpet Treatment Focus arresting FOG Comments - 180-degree transfers chair < > chair 3 steps or less - 180 and 360-deg turns slow and fast with cues for 4 S's - decreases # steps in 360 turn from 10 to 6-7. BIG Device Used none Level of Assistance CGA-SBA Surface level Distance/Duration 10 min Treatment Focus arm swings, increasing step height and length Comments Stairs, elevator doors, laps around the gym. Cued pt to think BIG. Will need to work on dual tasking (carrying, cognitive fabby) in future sessions. Stairs Description lobby stairs Level of Assistance Right rail Distance/Duration x 28 steps Treatment Focus big steps, getting whole foot on step Comments Cues but no physical assist required for full foot on step . Neuro Re-Education Treatment Other Activities Sit<>stand Details lg black tx mat Reps/Duration 2x10 Comments second set with blue foam under feet for increased balance challenge. Pt required min assist for weight shift first reps on blue foam but was able to stand without LOB Sideways rock & reach Details SBA Reps/Duration x10 ea Comments with and without chair support ; good amplitude in both conditions Rock & reach Details modified using chair Reps/Duration x10 ea Comments Continue with chair support at this time. Cued head up, look forward. backwards step Details modified with chair Reps/Duration x10 ea sideways step Details chair prn (not touched) Reps/Duration x10 ea Comments Cued increased foot clearance on return step. Self- correction noted on last reps fwd step Details chair prn (not touched) Reps/Duration x10 ea Comments attempted alternating LEs but lost amplitude. Continue with one side at a time [id number] Details std height chair- finger flicks x10 Reps/Duration x10 Comments Cues to slow pace and focus on amplitude Floor to ceiling Details std height chair- finger flicks x10 Reps/Duration x10 Comments cued increased effort from 5/ 10 to 6-7/10 - bigger hands, wider reach, taller posture PT-OP-T Assessment and Plan Start: 06/06/21 15:44 Freq: Status: Active Protocol: Document 06/22/21 12:47 AW (Rec: 06/22/21 15:16 AW [id number]) Physical Therapy Assessment Goals Four Impairment gait speed Short Term Goal (STG) Pt will improve self-selected gait speed on 2MWT from 0.96 m /s to 1.1 m/s for functional community ambulation. STG Duration 06/25/21 Tie Man Goal (LTG) Pt will improve self-selected gait speed on 2MWT from 0.96 m /s to 1.2 m/s or greater for functional community ambulation. LTG Duration 07/16/21 Three Impairment balance Tie Man Goal (LTG) Pt will improve DGI score from 18/24 to 21/24 or greater as a measure of reduced falls risk. LTG Duration 07/16/21 Two Impairment freezing of gait Short Term Goal (STG) Pt will identify FOG triggers and PT will incorporate at least two into daily treatment . STG Duration 06/25/21 Long-Term Goal (LTG) Pt will successfully implement strategies to reduce FOG episodes by 50% LTG Duration 07/16/21 One Impairment lacks HEP Long-Term Goal (LTG) Pt will be independent with LSVT BIG daily maximal exercises to improve movement amplitude and sustain therapy gains. LTG Duration 07/16/21 Assessment Summary Assessment Attempted alternating sides during exercises today but pt unable to maintain amplitude. Will continue with unilateral for now. Increased balance challenge during sit to stand and pt needed min assist for BIG weight shift but was otherwise able to balance on blue foam in standing. Pt reports overall improvement in FOG symptoms. Physical Therapy Plan Frequency and Duration Frequency of Treatment 4x/Week Duration of Treatment 16 treatment visits Plan of Care Start Date 06/09/21 Plan of Care End Date 07/16/21 Therapeutic Interventions Therapeutic Interventions Balance Training,Gait Training ,Home Exercise Program, Neuromuscular Re-education, Self-Care/Home Management, Therapeutic Activities, Therapeutic Exercises Modalities Cold Pack/Ice Massage,Hot Packs Next Visit Focus/Plan Next Note Type Treatment Note Next Visit Plan Practice carrying a load. Dual task gait. Continue maximal daily exercises, functional tasks to include handwriting, buttoning, car transfers, pool table simulation, donning/ doffing coat, BIG walking with as many freezing triggers as possible.
--- NOTE | 2021-06-23 17:08 | PT.OTN ---
Current Diagnoses Parkinson's disease (06/23/21) Difficulty in walking, not elsewhere classified (06/23/21) Abnormal posture (06/23/21) Physical Therapy Treatment Note PT-OP-A Visit Information Start: 06/06/21 15:44 Freq: Status: Active Protocol: Document 06/23/21 13:55 AW (Rec: 06/23/21 15:16 AW [id number]) Out-Patient Physical Therapy Visit Information Visit Information Visit Type Treatment Note Visit Start Time 14:15 Visit Stop Time 15:10 Total Visit Minutes 55 Visit Number 8 Number of [employer] Visits 0 Evaluation Information Evaluation Date 06/09/21 PT-OP-B Current Condition Start: 06/06/21 15:44 Freq: Status: Active Protocol: Document 06/09/21 15:15 AW (Rec: 06/06/21 16:19 AW [id number]) Current Condition History of Current Condition Onset Date 2017 Current Complaints freezing of gait; decreased balance; falls History of Current Condition In , Dariusz began to notice a tremor in his left hand. He also began to appreciate declining balance and freezing of gait to the point that he could no longer dance and falls frequency increased. He was referred to neurology (sees Dr. Alvarez at [facility]) and was diagnosed with Parkinson's disease. One fall in October 2018 resulted in right femur fracture. Another fall in December 2020 resulted in left femur fracture which was treated non-operatively. He was discharged from the hospital to SNF rehab. After a month, he went home with home health and some family assist . He now uses a 4WW in the house most of the time. He occasionally uses a cane when out of the house. He always uses a cart for grocery shopping. He lives alone. He states he has trouble sleeping but CBD gummies help. He is independent to modified independent with ADL's and he does drive. He uses an improvised tub bench to sit and wash his teeth. He has to pull on pant legs to cross legs and don shoes and socks. Pt reports left knee pain. Orthovisc injections have been somewhat helpful. He now wears a brace on his left knee . Pt endorses some difficulty with swallowing and plans to do LOUD after completing BIG. Dariusz typically takes his carbidopa-levodopa 3x daily - first thing in the morning (06 :30), 10-11:00, and 15:00. Prior Treatments and Tests PT for knee and hip. No PT for PD. Treatment Goals Patient/Caregiver Goals Have better balance and feel more confident about starting out. Reduce freezing of gait Prior Functional Status Baseline Function- ADL's Independent Baseline Function- Mobility Independent PT-OP-C Subjective Start: 06/06/21 15:44 Freq: Status: Active Protocol: Document 06/23/21 13:55 AW (Rec: 06/23/21 15:16 AW [id number]) OP-PT Subjective Patient Comments Patient Comments I think my balance is better. Pt does report left knee, right hip pain is slightly worse than when began tx. PT-OP-D Balance Start: 06/06/21 15:44 Freq: Status: Active Protocol: Document 06/09/21 15:15 AW (Rec: 06/10/21 14:16 AW [id number]) Balance Tests Romberg Romberg WNL EO and EC PT-OP-E Functional Tests Start: 06/06/21 15:44 Freq: Status: Active Protocol: Document 06/09/21 15:15 AW (Rec: 06/10/21 14:16 AW [id number]) Functional Tests 2 Minute Walk Test Distance 357 feet Device Used no AD; SBA; 2 episodes FOG Comments average gait speed 0.91 m/s Dynamic Gait Index (DGI) Score 18 DGI Impairment Rating 20 to <40% Impaired (Score 15- 19) Five Times Sit to Stand Test Score 12.6 seconds Comments standard height chair; no use of UE PT-OP-H Neuro Start: 06/06/21 15:44 Freq: Status: Active Protocol: Document 06/09/21 15:15 AW (Rec: 06/10/21 14:26 AW [id number]) Sensation Evaluation Gross Sensation Gross Sensation WNL Coordination Evaluation Comments Coordination Comments Finger to nose and foot tapping in seated WNL. rapid alternating pronation/ supination mildly impaired secondary to LUE tremor. Deep Tendon Reflex & Clonus Assessment Deep Tendon Reflex Bilateral Achilles Deep Tendon Reflex 1+ Diminished Bilateral Patellar Deep Tendon Reflex 1+ Diminished Vital Signs Blood Pressure Sitting Blood Pressure (90/60-120/80 mmHg) 130/72 H Blood Pressure Source Manual Cuff,Right Upper Extremity PT-OP-J Posture/Palpation/Skin Start: 06/06/21 15:44 Freq: Status: Active Protocol: Document 06/09/21 15:15 AW (Rec: 06/10/21 14:26 AW [id number]) Posture Evaluation Comments Posture Comments Significantly forward head with tragus 10 cm ahead of A/C joint. Rigidity through trunk . Pt has bilateral genu varum with left more affected than right. PT-OP-M Strength Start: 06/06/21 15:44 Freq: Status: Active Protocol: Document 06/09/21 15:15 AW (Rec: 06/10/21 14:26 AW [id number]) Shoulder Strength Shoulder Manual Muscle Testing bilat Flexion 4+ Good+ Abduction (C5) 4+ Good+ External Rotation 4+ Good+ Internal Rotation 5 Normal Hip Strength Hip Manual Muscle Testing bilat Flexion (L2) 4+ Good+ Abduction 4 Good External Rotation 4+ Good+ Internal Rotation 4+ Good+ Knee Strength Knee Manual Muscle Testing bilat Flexion (S2) 4+ Good+ Extension (L3) 5 Normal Ankle/Foot Strength Ankle and Foot Manual Muscle Testing bilat Dorsiflexion (L4) 5 Normal Plantarflexion (S1) 4+ Good+ PT-OP-Q Treatments Start: 06/06/21 15:44 Freq: Status: Active Protocol: Document 06/23/21 13:55 AW (Rec: 06/23/21 15:16 AW [id number]) Therapeutic Activity Therapeutic Activity buttoning Comments Pt wore shirt with snaps today . Handwriting Reps/Minutes 5' Comments BIG writing - Pt's name in print several lines. Girlfriend's and grandkids' names. Improving with more attention to BIG writing as speed decreases. Gait Training Gait Activity turns Description turns Device Used none Level of Assistance CGA>SBA Surface carpet Treatment Focus arresting FOG Comments - 180-degree transfers chair < > chair while carrying weighted crate 3 steps or less - 180 and 360-deg turns slow and fast with cues for 4 S's - decreases # steps in 360 turn from 10 to 6-7. Hurdles Description 6 hurdles Level of Assistance uni rails prn - not touched Surface level Distance/Duration 2x fwd, 2x laterally Treatment Focus BIG steps Comments carryover to turning tasks BIG Description dual task, carrying Device Used none Level of Assistance CGA-SBA Surface level Distance/Duration 10 min Treatment Focus arm swings, increasing step height and length Comments - Pt picked up crate with weighted balls to carry across the gym and place on a chair. Repeat with cues to think BIG . - Elevator doors - Laps around the gym while pt counting backward from 100 or counting up by three's Neuro Re-Education Treatment Other Activities Sit<>stand Details mesh chair Reps/Duration 1x10; 1 x 7 Comments second set with blue foam on seat and folded yoga mat under feet for increased balance challenge. Pt able to complete without assist Sideways rock & reach Details SBA Reps/Duration x10 ea Comments with and without chair support ; good amplitude in both conditions but better with Rock & reach Details modified using chair Reps/Duration x10 ea Comments Continue with chair support at this time. Cued head up, look forward. backwards step Details modified with chair Reps/Duration x10 ea Comments cued look forward sideways step Details chair prn (not touched) Reps/Duration x10 ea Comments Good rotation fwd step Details chair prn (not touched) Reps/Duration x10 ea [id number] Details std height chair- finger flicks x10 Reps/Duration x10 Comments Shaping for hip extension but pt unable to tolerate much. Able to improve tall posture in response to cues Floor to ceiling Details std height chair- finger flicks x10 Reps/Duration x10 Comments uncued BIG hands today PT-OP-T Assessment and Plan Start: 06/06/21 15:44 Freq: Status: Active Protocol: Document 06/23/21 13:55 AW (Rec: 06/23/21 15:16 AW [id number]) Physical Therapy Assessment Goals Four Impairment gait speed Short Term Goal (STG) Pt will improve self-selected gait speed on 2MWT from 0.96 m /s to 1.1 m/s for functional community ambulation. STG Duration 06/25/21 Loss Control Engineer Goal (LTG) Pt will improve self-selected gait speed on 2MWT from 0.96 m /s to 1.2 m/s or greater for functional community ambulation. LTG Duration 07/16/21 Three Impairment balance Shelter Goal (LTG) Pt will improve DGI score from 18/24 to 21/24 or greater as a measure of reduced falls risk. LTG Duration 07/16/21 Two Impairment freezing of gait Short Term Goal (STG) Pt will identify FOG triggers and PT will incorporate at least two into daily treatment . STG Duration 06/25/21 Loss Control Engineer Goal (LTG) Pt will successfully implement strategies to reduce FOG episodes by 50% LTG Duration 07/16/21 One Impairment lacks HEP Shelter Goal (LTG) Pt will be independent with LSVT BIG daily maximal exercises to improve movement amplitude and sustain therapy gains. LTG Duration 07/16/21 Assessment Summary Assessment Introduced dual task gait today with pt carrying a load and pt counting while walking. Notably, amplitude decreased with added cognitive task. Will continue to work on increasing distraction and cognitive load during gait activities. Physical Therapy Plan Frequency and Duration Frequency of Treatment 4x/Week Duration of Treatment 16 treatment visits Plan of Care Start Date 06/09/21 Plan of Care End Date 07/16/21 Therapeutic Interventions Therapeutic Interventions Balance Training,Gait Training ,Home Exercise Program, Neuromuscular Re-education, Self-Care/Home Management, Therapeutic Activities, Therapeutic Exercises Modalities Cold Pack/Ice Massage,Hot Packs Next Visit Focus/Plan Next Note Type Progress Note Next Visit Plan ASSESS GOALS Continue maximal daily exercises, functional tasks to include handwriting, buttoning, car transfers, pool table simulation, donning/ doffing coat, BIG walking with as many freezing triggers as possible and increased cog load.
--- NOTE | 2021-06-24 11:45 | PT.OTN ---
Current Diagnoses Parkinson's disease (06/24/21) Difficulty in walking, not elsewhere classified (06/24/21) Abnormal posture (06/24/21) Physical Therapy Treatment Note PT-OP-A Visit Information Start: 06/06/21 15:44 Freq: Status: Active Protocol: Document 06/24/21 10:36 AW (Rec: 06/24/21 11:44 AW [id number]) Out-Patient Physical Therapy Visit Information Visit Information Visit Type Progress Note Visit Start Time 10:30 Visit Stop Time 11:30 Total Visit Minutes 60 Visit Number 9 Number of CUSTOMER CONSULTANT Visits 0 Evaluation Information Evaluation Date 06/09/21 PT-OP-B Current Condition Start: 06/06/21 15:44 Freq: Status: Active Protocol: Document 06/09/21 15:15 AW (Rec: 06/06/21 16:19 AW [id number]) Current Condition History of Current Condition Onset Date 2017 Current Complaints freezing of gait; decreased balance; falls History of Current Condition In , Dariusz began to notice a tremor in his left hand. He also began to appreciate declining balance and freezing of gait to the point that he could no longer dance and falls frequency increased. He was referred to neurology (sees Dr. Alvarez at [facility]) and was diagnosed with Parkinson's disease. One fall in October 2018 resulted in right femur fracture. Another fall in December 2020 resulted in left femur fracture which was treated non-operatively. He was discharged from the hospital to SNF rehab. After a month, he went home with home health and some family assist . He now uses a 4WW in the house most of the time. He occasionally uses a cane when out of the house. He always uses a cart for grocery shopping. He lives alone. He states he has trouble sleeping but CBD gummies help. He is independent to modified independent with ADL's and he does drive. He uses an improvised tub bench to sit and wash his teeth. He has to pull on pant legs to cross legs and don shoes and socks. Pt reports left knee pain. Orthovisc injections have been somewhat helpful. He now wears a brace on his left knee . Pt endorses some difficulty with swallowing and plans to do LOUD after completing BIG. Dariusz typically takes his carbidopa-levodopa 3x daily - first thing in the morning (06 :30), 10-11:00, and 15:00. Prior Treatments and Tests PT for knee and hip. No PT for PD. Treatment Goals Patient/Caregiver Goals Have better balance and feel more confident about starting out. Reduce freezing of gait Prior Functional Status Baseline Function- ADL's Independent Baseline Function- Mobility Independent PT-OP-C Subjective Start: 06/06/21 15:44 Freq: Status: Active Protocol: Document 06/24/21 10:36 AW (Rec: 06/24/21 11:44 AW [id number]) OP-PT Subjective Patient Comments Patient Comments Knee feels better today but hip is still bothersome and does limit pt's stride length. PT-OP-D Balance Start: 06/06/21 15:44 Freq: Status: Active Protocol: Document 06/09/21 15:15 AW (Rec: 06/10/21 14:16 AW [id number]) Balance Tests Romberg Romberg WNL EO and EC PT-OP-E Functional Tests Start: 06/06/21 15:44 Freq: Status: Active Protocol: Document 06/09/21 15:15 AW (Rec: 06/10/21 14:16 AW [id number]) Functional Tests 2 Minute Walk Test Distance 357 feet Device Used no AD; SBA; 2 episodes FOG Comments average gait speed 0.91 m/s Dynamic Gait Index (DGI) Score 18 DGI Impairment Rating 20 to <40% Impaired (Score 15- 19) Five Times Sit to Stand Test Score 12.6 seconds Comments standard height chair; no use of UE PT-OP-H Neuro Start: 06/06/21 15:44 Freq: Status: Active Protocol: Document 06/09/21 15:15 AW (Rec: 06/10/21 14:26 AW [id number]) Sensation Evaluation Gross Sensation Gross Sensation WNL Coordination Evaluation Comments Coordination Comments Finger to nose and foot tapping in seated WNL. rapid alternating pronation/ supination mildly impaired secondary to LUE tremor. Deep Tendon Reflex & Clonus Assessment Deep Tendon Reflex Bilateral Achilles Deep Tendon Reflex 1+ Diminished Bilateral Patellar Deep Tendon Reflex 1+ Diminished Vital Signs Blood Pressure Sitting Blood Pressure (90/60-120/80 mmHg) 130/72 H Blood Pressure Source Manual Cuff,Right Upper Extremity PT-OP-J Posture/Palpation/Skin Start: 06/06/21 15:44 Freq: Status: Active Protocol: Document 06/09/21 15:15 AW (Rec: 06/10/21 14:26 AW [id number]) Posture Evaluation Comments Posture Comments Significantly forward head with tragus 10 cm ahead of A/C joint. Rigidity through trunk . Pt has bilateral genu varum with left more affected than right. PT-OP-M Strength Start: 06/06/21 15:44 Freq: Status: Active Protocol: Document 06/09/21 15:15 AW (Rec: 06/10/21 14:26 AW [id number]) Shoulder Strength Shoulder Manual Muscle Testing bilat Flexion 4+ Good+ Abduction (C5) 4+ Good+ External Rotation 4+ Good+ Internal Rotation 5 Normal Hip Strength Hip Manual Muscle Testing bilat Flexion (L2) 4+ Good+ Abduction 4 Good External Rotation 4+ Good+ Internal Rotation 4+ Good+ Knee Strength Knee Manual Muscle Testing bilat Flexion (S2) 4+ Good+ Extension (L3) 5 Normal Ankle/Foot Strength Ankle and Foot Manual Muscle Testing bilat Dorsiflexion (L4) 5 Normal Plantarflexion (S1) 4+ Good+ PT-OP-Q Treatments Start: 06/06/21 15:44 Freq: Status: Active Protocol: Document 06/24/21 10:36 AW (Rec: 06/24/21 11:44 AW [id number]) Therapeutic Activity Therapeutic Activity Pool Name playing pool Comments Sit to stand + pvc as pool stick and small ball. Working on walking around the table and lining up without FOG. Cued pt to line up shot for one pocket and then switched pockets randomly so pt would have to line up differently. FOG observed x 2 but pt able to arrest episode and continue to move with only slight hesitation for re-set. Gait Training Gait Activity 2MWT Description 2MWT Device Used none Level of Assistance IND Surface carpet, tile Distance/Duration 375 feet Treatment Focus assessment Comments Pt completed 2MWT in busy gym. Average gait speed 0.96 m/s which is stable since eval but step length has improved. BIG Description dual task (cog load) Device Used none Level of Assistance CGA-SBA Surface level Distance/Duration 10 min Treatment Focus arm swings, increasing step height and length Comments - Laps around the gym while pt counting backward from random number. Amplitude does decrease with distraction. Neuro Re-Education Treatment Other Activities Sit<>stand Details mesh chair with blue foam on seat Reps/Duration 2x10 Comments second set with band around knees for tracking feedback. Sideways rock & reach Details SBA Reps/Duration x10 ea Comments with and without chair support ; good amplitude in both conditions but better with Rock & reach Details with and without chair Reps/Duration x10 ea Comments Chair available prn but not contacted. Pt swung both arms with good amplitude, imrpoved balance. backwards step Details modified with chair Reps/Duration x10 ea Comments improved forward gaze without cues sideways step Details chair prn (not touched) Reps/Duration x10 ea Comments Good rotation fwd step Details chair prn (not touched) Reps/Duration x10 ea Comments Meter stick on floor for pt to step over. Cued awareness of hip flexion to clear obstacle. [id number] Details std height chair- finger flicks x10 Reps/Duration x10 Comments Able to improve tall posture in response to cues Floor to ceiling Details std height chair- finger flicks x10 Reps/Duration x10 Comments uncued BIG hands today PT-OP-T Assessment and Plan Start: 06/06/21 15:44 Freq: Status: Active Protocol: Document 06/24/21 10:36 AW (Rec: 06/24/21 11:44 AW [id number]) Physical Therapy Assessment Goals Four Impairment gait speed Short Term Goal (STG) Pt will improve self-selected gait speed on 2MWT from 0.96 m /s to 1.1 m/s for functional community ambulation. 06/24/21 2MWT 375 feet 0.96 m/s but with longer stride and improved arm swing. STG Duration 06/25/21 Food Packer Goal (LTG) Pt will improve self-selected gait speed on 2MWT from 0.96 m /s to 1.2 m/s or greater for functional community ambulation. LTG Duration 07/16/21 Three Impairment balance Food Packer Goal (LTG) Pt will improve DGI score from 18/24 to 21/24 or greater as a measure of reduced falls risk. 06/24/21: 23/24 on DGI. 25/30 on FGA. NEW GOAL: Improve FGA score to 28/30 or greater as a measure of reduced falls risk. LTG Duration 07/16/21 Two Impairment freezing of gait Short Term Goal (STG) Pt will identify FOG triggers and PT will incorporate at least two into daily treatment . 06/24/21 GOAL MET - using triggers in daily tx such as starting/stopping, elevator doors, unexpected external stimulus. STG Duration 06/25/21 Halfway Goal (LTG) Pt will successfully implement strategies to reduce FOG episodes by 50% LTG Duration 07/16/21 One Impairment lacks HEP Halfway Goal (LTG) Pt will be independent with LSVT BIG daily maximal exercises to improve movement amplitude and sustain therapy gains. LTG Duration 07/16/21 Progress Towards Goals Progress Towards Goals Progressing Toward Goals Progress Comments Pt has already exceeded initial goal for Dynamic Gait Index. Assessed FGA today and set new goal. Balance has improved significantly. Gait speed remains stable but step length has improved. Freezing of gait episodes have decreased per patient report. Pt has good understanding of rationale for BIG treatment and shows good effort with all activities. Assessment Summary Assessment Reassessed for progress note today and pt is pleased with results. Balance has improved significantly and pt reports decreased freezing of gait episodes. Continue POC. Physical Therapy Plan Frequency and Duration Frequency of Treatment 4x/Week Duration of Treatment 16 treatment visits Plan of Care Start Date 06/09/21 Plan of Care End Date 07/16/21 Therapeutic Interventions Therapeutic Interventions Balance Training,Gait Training ,Home Exercise Program, Neuromuscular Re-education, Self-Care/Home Management, Therapeutic Activities, Therapeutic Exercises Modalities Cold Pack/Ice Massage,Hot Packs Next Visit Focus/Plan Next Note Type Treatment Note Next Visit Plan Continue maximal daily exercises, functional tasks to include handwriting, buttoning, car transfers, pool table simulation, donning/ doffing coat, BIG walking with as many freezing triggers as possible and increased cog load.
--- NOTE | 2021-06-28 18:03 | PT.OTN ---
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 He also began to appreciate declining balance and freezing of gait to the point that he could no longer dance and falls frequency increased. He was referred to neurology (sees Dr. Alvarez at [facility]) and was diagnosed with Parkinson's disease. One fall in October 2018 resulted in right femur fracture. Another fall in December 2020 resulted in left femur fracture which was treated non-operatively. He was discharged from the hospital to SNF rehab. After a month, he went home with home health and some family assist . He now uses a 4WW in the house most of the time. He occasionally uses a cane when out of the house. He always uses a cart for grocery shopping. He lives alone. He states he has trouble sleeping but CBD gummies help. He is independent to modified independent with ADL's and he does drive. He uses an improvised tub bench to sit and wash his teeth. He has to pull on pant legs to cross legs and don shoes and socks. Pt reports left knee pain. Orthovisc injections have been somewhat helpful. He now wears a brace on his left knee . Pt endorses some difficulty with swallowing and plans to do LOUD after completing BIG. Dariusz typically takes his carbidopa-levodopa 3x daily - first thing in the morning (06 :30), 10-11:00, and 15:00. Prior Treatments and Tests PT for knee and hip. No PT for PD. Treatment Goals Patient/Caregiver Goals Have better balance and feel more confident about starting out. Reduce freezing of gait Prior Functional Status Baseline Function- ADL's Independent Baseline Function- Mobility Independent PT-OP-C Subjective Start: 06/06/21 15:44 Freq: Status: Active Protocol: Document 06/28/21 14:02 MA (Rec: 06/28/21 18:03 MA [id number]) OP-PT Subjective Patient Comments Patient Comments Pt reports he was late because he was talking on the phone but he has been doing his exercises at home today. PT-OP-D Balance Start: 06/06/21 15:44 Freq: Status: Active Protocol: Document 06/09/21 15:15 AW (Rec: 06/10/21 14:16 AW [id number]) Balance Tests Romberg Romberg WNL EO and EC PT-OP-E Functional Tests Start: 06/06/21 15:44 Freq: Status: Active Protocol: Document 06/24/21 11:45 AW (Rec: 06/24/21 11:46 AW [id number]) Functional Tests 2 Minute Walk Test Distance 375 Device Used no AD; IND; no FOG episodes Comments average gait speed 0.96 m/s Dynamic Gait Index (DGI) Score 23 DGI Impairment Rating 1 to <20% Impaired (Score 20- 23) Functional Gait Assessment Score 25 Functional Gait Assessment Impairment 1 to <20% Impaired (Score 25- Rating 29) PT-OP-H Neuro Start: 06/06/21 15:44 Freq: Status: Active Protocol: Document 06/09/21 15:15 AW (Rec: 06/10/21 14:26 AW [id number]) Sensation Evaluation Gross Sensation Gross Sensation WNL Coordination Evaluation Comments Coordination Comments Finger to nose and foot tapping in seated WNL. rapid alternating pronation/ supination mildly impaired secondary to LUE tremor. Deep Tendon Reflex & Clonus Assessment Deep Tendon Reflex Bilateral Achilles Deep Tendon Reflex 1+ Diminished Bilateral Patellar Deep Tendon Reflex 1+ Diminished Vital Signs Blood Pressure Sitting Blood Pressure (90/60-120/80 mmHg) 130/72 H Blood Pressure Source Manual Cuff,Right Upper Extremity PT-OP-J Posture/Palpation/Skin Start: 06/06/21 15:44 Freq: Status: Active Protocol: Document 06/09/21 15:15 AW (Rec: 06/10/21 14:26 AW [id number]) Posture Evaluation Comments Posture Comments Significantly forward head with tragus 10 cm ahead of A/C joint. Rigidity through trunk . Pt has bilateral genu varum with left more affected than right. PT-OP-M Strength Start: 06/06/21 15:44 Freq: Status: Active Protocol: Document 06/09/21 15:15 AW (Rec: 06/10/21 14:26 AW [id number]) Shoulder Strength Shoulder Manual Muscle Testing bilat Flexion 4+ Good+ Abduction (C5) 4+ Good+ External Rotation 4+ Good+ Internal Rotation 5 Normal Hip Strength Hip Manual Muscle Testing bilat Flexion (L2) 4+ Good+ Abduction 4 Good External Rotation 4+ Good+ Internal Rotation 4+ Good+ Knee Strength Knee Manual Muscle Testing bilat Flexion (S2) 4+ Good+ Extension (L3) 5 Normal Ankle/Foot Strength Ankle and Foot Manual Muscle Testing bilat Dorsiflexion (L4) 5 Normal Plantarflexion (S1) 4+ Good+ PT-OP-Q Treatments Start: 06/06/21 15:44 Freq: Status: Active Protocol: Document 06/28/21 14:02 MA (Rec: 06/28/21 15:17 MA [id number]) Gym Equipment Shuttle Rebound Throwing Reps/Duration 5' Comments 1. modified tandem stance throwing at rebounder added counting backwards while throwing/catching ball Therapeutic Activity Therapeutic Activity Utensils Name weighted silverware Reps/Minutes 5' Comments working on scooping pom poms out of bowl, stabbing pom poms with fork, pretend cutting buttoning Comments buttoning/unbuttoning chest buttons, breast pockets, and cuff Gait Training Gait Activity turns Description turns Device Used none Level of Assistance CGA>SBA Surface carpet Treatment Focus arresting FOG Comments 1. figure eight around cones 2. turning 180 to sit in chairs Hurdles Description 6 hurdles Level of Assistance uni rails prn - not touched Surface level, uneven with pads between each antonio Distance/Duration 6x fwd Treatment Focus BIG steps Comments carryover to turning tasks turning to sit in chair at end of each lap BIG Description dual task (cog load) Device Used none Level of Assistance CGA-SBA Surface level Distance/Duration 10 min Treatment Focus arm swings, increasing step height and length Comments - Laps around the gym while pt played 'edo' memory game Neuro Re-Education Treatment Other Activities Sit<>stand Details mesh chair with blue foam on seat Reps/Duration 2x10 Comments second set with band around knees for tracking feedback. Sideways rock & reach Details SBA Reps/Duration x10 ea Comments with and without chair support ; good amplitude in both conditions but better with Rock & reach Details with and without chair Reps/Duration x10 ea Comments Chair available prn but not contacted. Pt swung both arms with good amplitude, imrpoved balance. backwards step Details modified with chair Reps/Duration x10 ea Comments improved forward gaze without cues sideways step Details chair prn (not touched) Reps/Duration x10 ea Comments Good rotation fwd step Details chair prn (not touched) Reps/Duration x10 ea Comments Meter stick on floor for pt to step over. Cued awareness of hip flexion to clear obstacle. [id number] Details std height chair- finger flicks x10 Reps/Duration x10 Comments Able to improve tall posture in response to cues Floor to ceiling Details std height chair- finger flicks x10 Reps/Duration x10 Comments uncued BIG hands today PT-OP-T Assessment and Plan Start: 06/06/21 15:44 Freq: Status: Active Protocol: Document 06/28/21 14:02 MA (Rec: 06/28/21 15:17 MA [id number]) Physical Therapy Assessment Goals Four Impairment gait speed Short Term Goal (STG) Pt will improve self-selected gait speed on 2MWT from 0.96 m /s to 1.1 m/s for functional community ambulation. 06/24/21 2MWT 375 feet 0.96 m/s but with longer stride and improved arm swing. STG Duration 06/25/21 Sample Finisher Goal (LTG) Pt will improve self-selected gait speed on 2MWT from 0.96 m /s to 1.2 m/s or greater for functional community ambulation. LTG Duration 07/16/21 Three Impairment balance Sample Finisher Goal (LTG) Pt will improve DGI score from 18/24 to 21/24 or greater as a measure of reduced falls risk. 06/24/21: on DGI. 25/30 on FGA. NEW GOAL: Improve FGA score to 28/30 or greater as a measure of reduced falls risk. LTG Duration 07/16/21 Two Impairment freezing of gait Short Term Goal (STG) Pt will identify FOG triggers and PT will incorporate at least two into daily treatment . 06/24/21 GOAL MET - using triggers in daily tx such as starting/stopping, elevator doors, unexpected external stimulus. STG Duration 06/25/21 Fdc Goal (LTG) Pt will successfully implement strategies to reduce FOG episodes by 50% LTG Duration 07/16/21 One Impairment lacks HEP Sample Finisher Goal (LTG) Pt will be independent with LSVT BIG daily maximal exercises to improve movement amplitude and sustain therapy gains. LTG Duration 07/16/21 Assessment Summary Assessment Dez did well with dual tasks such as playing a memory game while walking and could remember 12 items in order while keeping up with his 'BIG ' walking. He had good balance in modified tandem stance while thowing ball at rebounder when cued to push big when throwing ball fwd. When asked, pt admits he does have some difficulty with eating and often spills on himself as he brings utensils to mouth. Had pt practice with weighted silverware this session on scooping with a spoon and stabbing small objects with fork with pt reporting more control vs when he uses normal silverware at home. Pt continues to have some freezing of gait (FOG) during turns, especially when turning to sit in a chair. Physical Therapy Plan Frequency and Duration Frequency of Treatment 4x/Week Duration of Treatment 16 treatment visits Plan of Care Start Date 06/09/21 Plan of Care End Date 07/16/21 Therapeutic Interventions Therapeutic Interventions Balance Training,Gait Training ,Home Exercise Program, Neuromuscular Re-education, Self-Care/Home Management, Therapeutic Activities, Therapeutic Exercises Modalities Cold Pack/Ice Massage,Hot Packs Next Visit Focus/Plan Next Note Type Treatment Note Next Visit Plan F/u on whether pt bought weighted silverware for home use. Continue maximal daily exercises, functional tasks to include handwriting, buttoning, car transfers, pool table simulation, donning/ doffing coat, BIG walking with as many freezing triggers as possible and increased cog load.
--- NOTE | 2021-06-29 17:06 | PT.OTN ---
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 He also began to appreciate declining balance and freezing of gait to the point that he could no longer dance and falls frequency increased. He was referred to neurology (sees Dr. Alvarez at [facility] [place]) and was diagnosed with Parkinson's disease. One fall in October 2018 resulted in right femur fracture. Another fall in December 2020 resulted in left femur fracture which was treated non-operatively. He was discharged from the hospital to SNF rehab. After a month, he went home with home health and some family assist . He now uses a 4WW in the house most of the time. He occasionally uses a cane when out of the house. He always uses a cart for grocery shopping. He lives alone. He states he has trouble sleeping but CBD gummies help. He is independent to modified independent with ADL's and he does drive. He uses an improvised tub bench to sit and wash his teeth. He has to pull on pant legs to cross legs and don shoes and socks. Pt reports left knee pain. Orthovisc injections have been somewhat helpful. He now wears a brace on his left knee . Pt endorses some difficulty with swallowing and plans to do LOUD after completing BIG. Dariusz typically takes his carbidopa-levodopa 3x daily - first thing in the morning (06 :30), 10-11:00, and 15:00. Prior Treatments and Tests PT for knee and hip. No PT for PD. Treatment Goals Patient/Caregiver Goals Have better balance and feel more confident about starting out. Reduce freezing of gait Prior Functional Status Baseline Function- ADL's Independent Baseline Function- Mobility Independent PT-OP-C Subjective Start: 06/06/21 15:44 Freq: Status: Active Protocol: Document 06/29/21 14:21 AW (Rec: 06/29/21 15:15 AW [id number]) OP-PT Subjective Patient Comments Patient Comments Pt did exercises twice daily over the weekend. His voice is louder today without cues and pt states he has been talking loud to himself at home. Had a busy morning remodeling his garage. PT-OP-D Balance Start: 06/06/21 15:44 Freq: Status: Active Protocol: Document 06/09/21 15:15 AW (Rec: 06/10/21 14:16 AW [id number]) Balance Tests Romberg Romberg WNL EO and EC PT-OP-E Functional Tests Start: 06/06/21 15:44 Freq: Status: Active Protocol: Document 06/24/21 11:45 AW (Rec: 06/24/21 11:46 AW [id number]) Functional Tests 2 Minute Walk Test Distance 375 Device Used no AD; IND; no FOG episodes Comments average gait speed 0.96 m/s Dynamic Gait Index (DGI) Score 23 DGI Impairment Rating 1 to <20% Impaired (Score 20- 23) Functional Gait Assessment Score 25 Functional Gait Assessment Impairment 1 to <20% Impaired (Score 25- Rating 29) PT-OP-H Neuro Start: 06/06/21 15:44 Freq: Status: Active Protocol: Document 06/09/21 15:15 AW (Rec: 06/10/21 14:26 AW [id number]) Sensation Evaluation Gross Sensation Gross Sensation WNL Coordination Evaluation Comments Coordination Comments Finger to nose and foot tapping in seated WNL. rapid alternating pronation/ supination mildly impaired secondary to LUE tremor. Deep Tendon Reflex & Clonus Assessment Deep Tendon Reflex Bilateral Achilles Deep Tendon Reflex 1+ Diminished Bilateral Patellar Deep Tendon Reflex 1+ Diminished Vital Signs Blood Pressure Sitting Blood Pressure (90/60-120/80 mmHg) 130/72 H Blood Pressure Source Manual Cuff,Right Upper Extremity PT-OP-J Posture/Palpation/Skin Start: 06/06/21 15:44 Freq: Status: Active Protocol: Document 06/09/21 15:15 AW (Rec: 06/10/21 14:26 AW [id number]) Posture Evaluation Comments Posture Comments Significantly forward head with tragus 10 cm ahead of A/C joint. Rigidity through trunk . Pt has bilateral genu varum with left more affected than right. PT-OP-M Strength Start: 06/06/21 15:44 Freq: Status: Active Protocol: Document 06/09/21 15:15 AW (Rec: 06/10/21 14:26 AW [id number]) Shoulder Strength Shoulder Manual Muscle Testing bilat Flexion 4+ Good+ Abduction (C5) 4+ Good+ External Rotation 4+ Good+ Internal Rotation 5 Normal Hip Strength Hip Manual Muscle Testing bilat Flexion (L2) 4+ Good+ Abduction 4 Good External Rotation 4+ Good+ Internal Rotation 4+ Good+ Knee Strength Knee Manual Muscle Testing bilat Flexion (S2) 4+ Good+ Extension (L3) 5 Normal Ankle/Foot Strength Ankle and Foot Manual Muscle Testing bilat Dorsiflexion (L4) 5 Normal Plantarflexion (S1) 4+ Good+ PT-OP-Q Treatments Start: 06/06/21 15:44 Freq: Status: Active Protocol: Document 06/29/21 14:21 AW (Rec: 06/29/21 15:15 AW [id number]) Therapeutic Activity Therapeutic Activity Handwriting Reps/Minutes 5' Comments BIG writing - Pt writes grocery list horizontal across page as PT calls out items. Cued to think BIG not fast. Gait Training Gait Activity turns Description turns Device Used none Level of Assistance SBA Surface carpet Treatment Focus arresting FOG Comments Fast turns 360 degrees. No LOB . Minimal FOG and pt is able to use 4 S's Hurdles Description 6 hurdles Level of Assistance uni rails prn - not touched Surface level Distance/Duration 6x fwd Treatment Focus BIG steps Comments carryover to turning tasks turning to sit in chair at end of each lap BIG Description dual task (cog load) Device Used none Level of Assistance CGA-SBA Surface level Distance/Duration 10 min Treatment Focus arm swings, increasing step height and length Comments - Laps around the gym while pt played 'grocery store' memory game Neuro Re-Education Treatment Other Activities Sit<>stand Details mesh chair with blue foam on seat Reps/Duration 2x10 Comments second set with band around knees for tracking feedback. Sideways rock & reach Details SBA Reps/Duration x10 ea Comments NO chair support. Good amplitude. Rock & reach Details with and without chair Reps/Duration x10 ea Comments Still best with chair backwards step Details modified with chair Reps/Duration x10 ea Comments improved forward gaze without cues sideways step Details chair prn (not touched) Reps/Duration x10 ea Comments Good rotation fwd step Details chair prn (not touched) Reps/Duration x10 ea Comments Left knee pain limiting when attempts to respond to high knees. [id number] Details std height chair- finger flicks x10 Reps/Duration x10 Comments Able to improve tall posture in response to cues Floor to ceiling Details std height chair- finger flicks x10 Reps/Duration x10 Comments uncued LOUD voice today PT-OP-T Assessment and Plan Start: 06/06/21 15:44 Freq: Status: Active Protocol: Document 06/29/21 14:21 AW (Rec: 06/29/21 15:15 AW [id number]) Physical Therapy Assessment Goals Four Impairment gait speed Short Term Goal (STG) Pt will improve self-selected gait speed on 2MWT from 0.96 m /s to 1.1 m/s for functional community ambulation. 06/24/21 2MWT 375 feet 0.96 m/s but with longer stride and improved arm swing. STG Duration 06/25/21 Retirement Goal (LTG) Pt will improve self-selected gait speed on 2MWT from 0.96 m /s to 1.2 m/s or greater for functional community ambulation. LTG Duration 07/16/21 Three Impairment balance Retirement Goal (LTG) Pt will improve DGI score from 18/24 to 21/24 or greater as a measure of reduced falls risk. 06/24/21: 23/24 on DGI. 25/30 on FGA. NEW GOAL: Improve FGA score to 28/30 or greater as a measure of reduced falls risk. LTG Duration 07/16/21 Two Impairment freezing of gait Short Term Goal (STG) Pt will identify FOG triggers and PT will incorporate at least two into daily treatment . 06/24/21 GOAL MET - using triggers in daily tx such as starting/stopping, elevator doors, unexpected external stimulus. STG Duration 06/25/21 Retirement Goal (LTG) Pt will successfully implement strategies to reduce FOG episodes by 50% LTG Duration 07/16/21 One Impairment lacks HEP Retirement Goal (LTG) Pt will be independent with LSVT BIG daily maximal exercises to improve movement amplitude and sustain therapy gains. LTG Duration 07/16/21 Assessment Summary Assessment Pt continues with good effort all around. Amplitude in gait does decrease with increased cognitive load. Left knee pain in weightbearing limits gait distance today. Encouraged pt to wear knee compression sleeve tomorrow. Physical Therapy Plan Frequency and Duration Frequency of Treatment 4x/Week Duration of Treatment 16 treatment visits Plan of Care Start Date 06/09/21 Plan of Care End Date 07/16/21 Therapeutic Interventions Therapeutic Interventions Balance Training,Gait Training ,Home Exercise Program, Neuromuscular Re-education, Self-Care/Home Management, Therapeutic Activities, Therapeutic Exercises Modalities Cold Pack/Ice Massage,Hot Packs Next Visit Focus/Plan Next Note Type Treatment Note Next Visit Plan Revisit standing balance with rebounder. F/u on whether pt bought weighted silverware for home use. Continue maximal daily exercises, functional tasks to include handwriting, buttoning, car transfers, pool table simulation, donning/ doffing coat, BIG walking with as many freezing triggers as possible and increased cog load.
--- NOTE | 2021-06-30 15:12 | PT.OTN ---
Current Diagnoses Parkinson's disease (06/30/21) Difficulty in walking, not elsewhere classified (06/30/21) Abnormal posture (06/30/21) Physical Therapy Treatment Note PT-OP-A Visit Information Start: 06/06/21 15:44 Freq: Status: Active Protocol: Document 06/30/21 14:01 AW (Rec: 06/30/21 15:12 AW [id number]) Out-Patient Physical Therapy Visit Information Visit Information Visit Type Treatment Note Visit Start Time 14:15 Visit Stop Time 15:09 Total Visit Minutes 54 Visit Number 12 Number of PORTFOLIO ACCOUNTANT Visits 0 Evaluation Information Evaluation Date 06/09/21 PT-OP-B Current Condition Start: 06/06/21 15:44 Freq: Status: Active Protocol: Document 06/09/21 15:15 AW (Rec: 06/06/21 16:19 AW [id number]) Current Condition History of Current Condition Onset Date 2017 Current Complaints freezing of gait; decreased balance; falls History of Current Condition In , Dariusz began to notice a tremor in his left hand. He also began to appreciate declining balance and freezing of gait to the point that he could no longer dance and falls frequency increased. He was referred to neurology (sees Dr. Alvarez at [facility]) and was diagnosed with Parkinson's disease. One fall in October 2018 resulted in right femur fracture. Another fall in December 2020 resulted in left femur fracture which was treated non-operatively. He was discharged from the hospital to SNF rehab. After a month, he went home with home health and some family assist . He now uses a 4WW in the house most of the time. He occasionally uses a cane when out of the house. He always uses a cart for grocery shopping. He lives alone. He states he has trouble sleeping but CBD gummies help. He is independent to modified independent with ADL's and he does drive. He uses an improvised tub bench to sit and wash his teeth. He has to pull on pant legs to cross legs and don shoes and socks. Pt reports left knee pain. Orthovisc injections have been somewhat helpful. He now wears a brace on his left knee . Pt endorses some difficulty with swallowing and plans to do LOUD after completing BIG. Dariusz typically takes his carbidopa-levodopa 3x daily - first thing in the morning (06 :30), 10-11:00, and 15:00. Prior Treatments and Tests PT for knee and hip. No PT for PD. Treatment Goals Patient/Caregiver Goals Have better balance and feel more confident about starting out. Reduce freezing of gait Prior Functional Status Baseline Function- ADL's Independent Baseline Function- Mobility Independent PT-OP-C Subjective Start: 06/06/21 15:44 Freq: Status: Active Protocol: Document 06/30/21 14:01 AW (Rec: 06/30/21 15:12 AW [id number]) OP-PT Subjective Patient Comments Patient Comments Pt reports significant reduction in freezing episodes - more than 50%. He is wearing sleeve brace on left knee today which he says helps a little. Patient Reported Progress Improving PT-OP-D Balance Start: 06/06/21 15:44 Freq: Status: Active Protocol: Document 06/09/21 15:15 AW (Rec: 06/10/21 14:16 AW [id number]) Balance Tests Romberg Romberg WNL EO and EC PT-OP-E Functional Tests Start: 06/06/21 15:44 Freq: Status: Active Protocol: Document 06/24/21 11:45 AW (Rec: 06/24/21 11:46 AW [id number]) Functional Tests 2 Minute Walk Test Distance 375 Device Used no AD; IND; no FOG episodes Comments average gait speed 0.96 m/s Dynamic Gait Index (DGI) Score 23 DGI Impairment Rating 1 to <20% Impaired (Score 20- 23) Functional Gait Assessment Score 25 Functional Gait Assessment Impairment 1 to <20% Impaired (Score 25- Rating 29) PT-OP-H Neuro Start: 06/06/21 15:44 Freq: Status: Active Protocol: Document 06/09/21 15:15 AW (Rec: 06/10/21 14:26 AW [id number]) Sensation Evaluation Gross Sensation Gross Sensation WNL Coordination Evaluation Comments Coordination Comments Finger to nose and foot tapping in seated WNL. rapid alternating pronation/ supination mildly impaired secondary to LUE tremor. Deep Tendon Reflex & Clonus Assessment Deep Tendon Reflex Bilateral Achilles Deep Tendon Reflex 1+ Diminished Bilateral Patellar Deep Tendon Reflex 1+ Diminished Vital Signs Blood Pressure Sitting Blood Pressure (90/60-120/80 mmHg) 130/72 H Blood Pressure Source Manual Cuff,Right Upper Extremity PT-OP-J Posture/Palpation/Skin Start: 06/06/21 15:44 Freq: Status: Active Protocol: Document 06/09/21 15:15 AW (Rec: 06/10/21 14:26 AW [id number]) Posture Evaluation Comments Posture Comments Significantly forward head with tragus 10 cm ahead of A/C joint. Rigidity through trunk . Pt has bilateral genu varum with left more affected than right. PT-OP-M Strength Start: 06/06/21 15:44 Freq: Status: Active Protocol: Document 06/09/21 15:15 AW (Rec: 06/10/21 14:26 AW [id number]) Shoulder Strength Shoulder Manual Muscle Testing bilat Flexion 4+ Good+ Abduction (C5) 4+ Good+ External Rotation 4+ Good+ Internal Rotation 5 Normal Hip Strength Hip Manual Muscle Testing bilat Flexion (L2) 4+ Good+ Abduction 4 Good External Rotation 4+ Good+ Internal Rotation 4+ Good+ Knee Strength Knee Manual Muscle Testing bilat Flexion (S2) 4+ Good+ Extension (L3) 5 Normal Ankle/Foot Strength Ankle and Foot Manual Muscle Testing bilat Dorsiflexion (L4) 5 Normal Plantarflexion (S1) 4+ Good+ PT-OP-Q Treatments Start: 06/06/21 15:44 Freq: Status: Active Protocol: Document 06/30/21 14:01 AW (Rec: 06/30/21 15:12 AW [id number]) Therapeutic Activity Therapeutic Activity Pool Name playing pool Comments Sit to stand + side stepping around tx table with random cues to switch directions. Pt has more freezing episodes going to the right and states there is an element of pain avoidance related to left knee but also freezing buttoning Comments buttoning/unbuttoning chest buttons. 4 buttons fastened in 31, 37, and 27 seconds. Pt struggled most with top button but responded well to cues for BIG distribution designer Handwriting Reps/Minutes 5' Comments BIG writing - College ruled paper. Pt writes own name, girlfriend's name across page. Cues to slow down and concentrate on BIG. Gait Training Gait Activity turns Description turns Device Used none Level of Assistance SBA Surface carpet Treatment Focus arresting FOG Comments Fast turns 360 degrees. No LOB . Minimal FOG and pt is able to use 4 S's BIG Description dual task (cog load) Device Used none Level of Assistance CGA-SBA Surface level Distance/Duration 10 min Treatment Focus arm swings, increasing step height and length Comments - Laps around the gym while pt counted backward from random numbers. Included narrow passage between tall desks to simulate doors and big turns Neuro Re-Education Treatment Balance Activities Uneven Surfaces Details blue pads Comments 1. WBOS EO 2. staggered stance (modified tandem) EO/EC with weight shifting Other Activities Sit<>stand Details raised black mat Reps/Duration 2x10 Comments Less knee pain today. Sideways rock & reach Details SBA Reps/Duration x10 ea Comments NO chair support. Cued full rotation back and forth. Rock & reach Details no chair Reps/Duration x10 ea Comments Improved arm swing today even without chair backwards step Details no chair Reps/Duration x10 ea Comments improved forward gaze without cues - looking out window sideways step Details no chair Reps/Duration x10 ea Comments Good rotation fwd step Details no chair Reps/Duration x10 ea Comments Left knee pain limiting when attempts to respond to high knees. Coxz-nz-ldby Details std height chair- finger flicks x10 Reps/Duration x10 Comments Able to improve tall posture in response to cues. Still limited in hip extension due to hip pain Floor to ceiling Details std height chair- finger flicks x10 Reps/Duration x10 Comments uncued LOUD voice today PT-OP-T Assessment and Plan Start: 06/06/21 15:44 Freq: Status: Active Protocol: Document 06/30/21 14:01 AW (Rec: 06/30/21 15:12 AW [id number]) Physical Therapy Assessment Goals Four Impairment gait speed Short Term Goal (STG) Pt will improve self-selected gait speed on 2MWT from 0.96 m /s to 1.1 m/s for functional community ambulation. 06/24/21 2MWT 375 feet 0.96 m/s but with longer stride and improved arm swing. STG Duration 06/25/21 Fci Goal (LTG) Pt will improve self-selected gait speed on 2MWT from 0.96 m /s to 1.2 m/s or greater for functional community ambulation. LTG Duration 07/16/21 Three Impairment balance Fci Goal (LTG) Pt will improve DGI score from 1824 to 21/24 or greater as a measure of reduced falls risk. 06/24/21: on DGI. 25/30 on FGA. NEW GOAL: Improve FGA score to 28/30 or greater as a measure of reduced falls risk. LTG Duration 07/16/21 Two Impairment freezing of gait Short Term Goal (STG) Pt will identify FOG triggers and PT will incorporate at least two into daily treatment . 06/24/21 GOAL MET - using triggers in daily tx such as starting/stopping, elevator doors, unexpected external stimulus. STG Duration 06/25/21 Director Of Teenage Activities Goal (LTG) Pt will successfully implement strategies to reduce FOG episodes by 50% LTG Duration 07/16/21 One Impairment lacks HEP Fci Goal (LTG) Pt will be independent with LSVT BIG daily maximal exercises to improve movement amplitude and sustain therapy gains. LTG Duration 07/16/21 Assessment Summary Assessment Left knee pain slightly ortiz controlled today with use of compression sleeve. Several FOG episodes were overcome today with 4 S's during turns, side stepping, and walking narrow passages. Physical Therapy Plan Frequency and Duration Frequency of Treatment 4x/Week Duration of Treatment 16 treatment visits Plan of Care Start Date 06/09/21 Plan of Care End Date 07/16/21 Therapeutic Interventions Therapeutic Interventions Balance Training,Gait Training ,Home Exercise Program, Neuromuscular Re-education, Self-Care/Home Management, Therapeutic Activities, Therapeutic Exercises Next Visit Focus/Plan Next Note Type Treatment Note Next Visit Plan Revisit standing balance. Add carrying objects to gait. with rebounder. Continue maximal daily exercises, functional tasks to include handwriting, buttoning, car transfers, pool table simulation, donning/ doffing coat, BIG walking with as many freezing triggers as possible and increased cog load.
--- NOTE | 2021-07-01 15:28 | PT.OTN ---
Current Diagnoses Parkinson's disease (07/01/21) Difficulty in walking, not elsewhere classified (07/01/21) Abnormal posture (07/01/21) Physical Therapy Treatment Note PT-OP-A Visit Information Start: 06/06/21 15:44 Freq: Status: Active Protocol: Document 07/01/21 14:12 AW (Rec: 07/01/21 15:28 AW [id number]) Out-Patient Physical Therapy Visit Information Visit Information Visit Type Treatment Note Visit Start Time 14:15 Visit Stop Time 15:15 Total Visit Minutes 60 Visit Number 13 Number of FINISHING RANGE OPERATOR Visits 0 Evaluation Information Evaluation Date 06/09/21 PT-OP-B Current Condition Start: 06/06/21 15:44 Freq: Status: Active Protocol: Document 06/09/21 15:15 AW (Rec: 06/06/21 16:19 AW [id number]) Current Condition History of Current Condition Onset Date 2017 Current Complaints freezing of gait; decreased balance; falls History of Current Condition In , Dariusz began to notice a tremor in his left hand. He also began to appreciate declining balance and freezing of gait to the point that he could no longer dance and falls frequency increased. He was referred to neurology (sees Dr. Alvarez at [facility]) and was diagnosed with Parkinson's disease. One fall in October 2018 resulted in right femur fracture. Another fall in December 2020 resulted in left femur fracture which was treated non-operatively. He was discharged from the hospital to SNF rehab. After a month, he went home with home health and some family assist . He now uses a 4WW in the house most of the time. He occasionally uses a cane when out of the house. He always uses a cart for grocery shopping. He lives alone. He states he has trouble sleeping but CBD gummies help. He is independent to modified independent with ADL's and he does drive. He uses an improvised tub bench to sit and wash his teeth. He has to pull on pant legs to cross legs and don shoes and socks. Pt reports left knee pain. Orthovisc injections have been somewhat helpful. He now wears a brace on his left knee . Pt endorses some difficulty with swallowing and plans to do LOUD after completing BIG. Dariusz typically takes his carbidopa-levodopa 3x daily - first thing in the morning (06 :30), 10-11:00, and 15:00. Prior Treatments and Tests PT for knee and hip. No PT for PD. Treatment Goals Patient/Caregiver Goals Have better balance and feel more confident about starting out. Reduce freezing of gait Prior Functional Status Baseline Function- ADL's Independent Baseline Function- Mobility Independent PT-OP-C Subjective Start: 06/06/21 15:44 Freq: Status: Active Protocol: Document 07/01/21 14:12 AW (Rec: 07/01/21 15:28 AW [id number]) OP-PT Subjective Patient Comments Patient Comments Knee feels better today. Pt is doing exercises at home faithfully. PT-OP-D Balance Start: 06/06/21 15:44 Freq: Status: Active Protocol: Document 06/09/21 15:15 AW (Rec: 06/10/21 14:16 AW [id number]) Balance Tests Romberg Romberg WNL EO and EC PT-OP-E Functional Tests Start: 06/06/21 15:44 Freq: Status: Active Protocol: Document 06/24/21 11:45 AW (Rec: 06/24/21 11:46 AW [id number]) Functional Tests 2 Minute Walk Test Distance 375 Device Used no AD; IND; no FOG episodes Comments average gait speed 0.96 m/s Dynamic Gait Index (DGI) Score 23 DGI Impairment Rating 1 to <20% Impaired (Score 20- 23) Functional Gait Assessment Score 25 Functional Gait Assessment Impairment 1 to <20% Impaired (Score 25- Rating 29) PT-OP-H Neuro Start: 06/06/21 15:44 Freq: Status: Active Protocol: Document 06/09/21 15:15 AW (Rec: 06/10/21 14:26 AW [id number]) Sensation Evaluation Gross Sensation Gross Sensation WNL Coordination Evaluation Comments Coordination Comments Finger to nose and foot tapping in seated WNL. rapid alternating pronation/ supination mildly impaired secondary to LUE tremor. Deep Tendon Reflex & Clonus Assessment Deep Tendon Reflex Bilateral Achilles Deep Tendon Reflex 1+ Diminished Bilateral Patellar Deep Tendon Reflex 1+ Diminished Vital Signs Blood Pressure Sitting Blood Pressure (90/60-120/80 mmHg) 130/72 H Blood Pressure Source Manual Cuff,Right Upper Extremity PT-OP-J Posture/Palpation/Skin Start: 06/06/21 15:44 Freq: Status: Active Protocol: Document 06/09/21 15:15 AW (Rec: 06/10/21 14:26 AW [id number]) Posture Evaluation Comments Posture Comments Significantly forward head with tragus 10 cm ahead of A/C joint. Rigidity through trunk . Pt has bilateral genu varum with left more affected than right. PT-OP-M Strength Start: 06/06/21 15:44 Freq: Status: Active Protocol: Document 06/09/21 15:15 AW (Rec: 06/10/21 14:26 AW [id number]) Shoulder Strength Shoulder Manual Muscle Testing bilat Flexion 4+ Good+ Abduction (C5) 4+ Good+ External Rotation 4+ Good+ Internal Rotation 5 Normal Hip Strength Hip Manual Muscle Testing bilat Flexion (L2) 4+ Good+ Abduction 4 Good External Rotation 4+ Good+ Internal Rotation 4+ Good+ Knee Strength Knee Manual Muscle Testing bilat Flexion (S2) 4+ Good+ Extension (L3) 5 Normal Ankle/Foot Strength Ankle and Foot Manual Muscle Testing bilat Dorsiflexion (L4) 5 Normal Plantarflexion (S1) 4+ Good+ PT-OP-Q Treatments Start: 06/06/21 15:44 Freq: Status: Active Protocol: Document 07/01/21 14:12 AW (Rec: 07/01/21 15:28 AW [id number]) Therapeutic Activity Therapeutic Activity Pool Name playing pool Comments Sit to stand + side stepping around tx table with random cues to switch directions. Freezing episodes well-managed with 4 S's buttoning Comments buttoning/unbuttoning chest buttons. 4 buttons fastened in 25, 26, and 27 seconds. Handwriting Reps/Minutes 5' Comments BIG writing - Writing checks x 4. Cues for BIG not fast Gait Training Gait Activity turns Description turns Device Used none Level of Assistance SBA Surface carpet Treatment Focus arresting FOG Comments Two bolsters standing on end used as pillars for pt to figure 8 around normal pattern . Progressed to all steps facing same direction with noted decrease in amplitude. Changed back to forward motion all steps and added counting backwards by 3's. BIG Description dual task (cog load) Device Used none Level of Assistance CGA-SBA Surface level, sidewalk, grassy incline Distance/Duration 15 min Treatment Focus arm swings, increasing step height and length Comments - Outside on sidewalk, grassy hill, up and down curbs. - Laps around the gym while pt counted backward from random numbers. Included narrow passage between tall desks to simulate doors. Included BIG turns Neuro Re-Education Treatment Other Activities Sit<>stand Details mesh chair with blue foam on seat Reps/Duration 2x10 Sideways rock & reach Details SBA Reps/Duration x10 ea Comments NO chair support. Cued full rotation back and forth. Rock & reach Details modified with rail Reps/Duration x10 ea Comments Pt can appreciate bigger movement with rail support backwards step Details modified with rail Reps/Duration x10 ea Comments improved forward gaze without cues - looking out window sideways step Details no chair Reps/Duration x10 ea Comments Good rotation fwd step Details modified with rail Reps/Duration x10 ea Comments Improved foot clearance [id number] Details std height chair- finger flicks x10 Reps/Duration x10 Comments Cued for more rotation Floor to ceiling Details std height chair- finger flicks x10 Reps/Duration x10 Comments Used chair with back support but cued pt to sit TALL. PT-OP-T Assessment and Plan Start: 06/06/21 15:44 Freq: Status: Active Protocol: Document 07/01/21 14:12 AW (Rec: 07/01/21 15:28 AW [id number]) Physical Therapy Assessment Goals Four Impairment gait speed Short Term Goal (STG) Pt will improve self-selected gait speed on 2MWT from 0.96 m /s to 1.1 m/s for functional community ambulation. 06/24/21 2MWT 375 feet 0.96 m/s but with longer stride and improved arm swing. STG Duration 06/25/21 Floor Space Allocator Goal (LTG) Pt will improve self-selected gait speed on 2MWT from 0.96 m /s to 1.2 m/s or greater for functional community ambulation. LTG Duration 07/16/21 Three Impairment balance Floor Space Allocator Goal (LTG) Pt will improve DGI score from 18/24 to 21/24 or greater as a measure of reduced falls risk. 06/24/21: 23/24 on DGI. 25/30 on FGA. NEW GOAL: Improve FGA score to 28/30 or greater as a measure of reduced falls risk. LTG Duration 07/16/21 Two Impairment freezing of gait Short Term Goal (STG) Pt will identify FOG triggers and PT will incorporate at least two into daily treatment . 06/24/21 GOAL MET - using triggers in daily tx such as starting/stopping, elevator doors, unexpected external stimulus. STG Duration 06/25/21 Assisted Goal (LTG) Pt will successfully implement strategies to reduce FOG episodes by 50% LTG Duration 07/16/21 One Impairment lacks HEP Assisted Goal (LTG) Pt will be independent with LSVT BIG daily maximal exercises to improve movement amplitude and sustain therapy gains. LTG Duration 07/16/21 Assessment Summary Assessment Dez had less knee pain today and was able to walk longer distances. Treatment focused on challenging gait with increased cognitive load and pt is improving in self- calibration. Physical Therapy Plan Frequency and Duration Frequency of Treatment 4x/Week Duration of Treatment 16 treatment visits Plan of Care Start Date 06/09/21 Plan of Care End Date 07/16/21 Therapeutic Interventions Therapeutic Interventions Balance Training,Gait Training ,Home Exercise Program, Neuromuscular Re-education, Self-Care/Home Management, Therapeutic Activities, Therapeutic Exercises Modalities Cold Pack/Ice Massage,Hot Packs Next Visit Focus/Plan Next Note Type Treatment Note Next Visit Plan Revisit standing balance. Add carrying objects to gait. with rebounder. Continue maximal daily exercises, functional tasks to include handwriting, buttoning, car transfers, pool table simulation, donning/ doffing coat, BIG walking with as many freezing triggers as possible and increased cog load.
--- NOTE | 2021-07-06 15:15 | PT.OTN ---
Current Diagnoses Parkinson's disease (07/06/21) Difficulty in walking, not elsewhere classified (07/06/21) Abnormal posture (07/06/21) Physical Therapy Treatment Note PT-OP-A Visit Information Start: 06/06/21 15:44 Freq: Status: Active Protocol: Document 07/06/21 14:04 AW (Rec: 07/06/21 15:14 AW [id number]) Out-Patient Physical Therapy Visit Information Visit Information Visit Type Treatment Note Visit Start Time 14:15 Visit Stop Time 15:10 Total Visit Minutes 55 Visit Number 14 Number of ARRT TECHNOLOGIST Visits 0 Evaluation Information Evaluation Date 06/09/21 PT-OP-B Current Condition Start: 06/06/21 15:44 Freq: Status: Active Protocol: Document 06/09/21 15:15 AW (Rec: 06/06/21 16:19 AW [id number]) Current Condition History of Current Condition Onset Date 2017 Current Complaints freezing of gait; decreased balance; falls History of Current Condition In , Dariusz began to notice a tremor in his left hand. He also began to appreciate declining balance and freezing of gait to the point that he could no longer dance and falls frequency increased. He was referred to neurology (sees Dr. Alvarez at [facility]) and was diagnosed with Parkinson's disease. One fall in October 2018 resulted in right femur fracture. Another fall in December 2020 resulted in left femur fracture which was treated non-operatively. He was discharged from the hospital to SNF rehab. After a month, he went home with home health and some family assist . He now uses a 4WW in the house most of the time. He occasionally uses a cane when out of the house. He always uses a cart for grocery shopping. He lives alone. He states he has trouble sleeping but CBD gummies help. He is independent to modified independent with ADL's and he does drive. He uses an improvised tub bench to sit and wash his teeth. He has to pull on pant legs to cross legs and don shoes and socks. Pt reports left knee pain. Orthovisc injections have been somewhat helpful. He now wears a brace on his left knee . Pt endorses some difficulty with swallowing and plans to do LOUD after completing BIG. Dariusz typically takes his carbidopa-levodopa 3x daily - first thing in the morning (06 :30), 10-11:00, and 15:00. Prior Treatments and Tests PT for knee and hip. No PT for PD. Treatment Goals Patient/Caregiver Goals Have better balance and feel more confident about starting out. Reduce freezing of gait Prior Functional Status Baseline Function- ADL's Independent Baseline Function- Mobility Independent PT-OP-C Subjective Start: 06/06/21 15:44 Freq: Status: Active Protocol: Document 07/06/21 14:04 AW (Rec: 07/06/21 15:14 AW [id number]) OP-PT Subjective Patient Comments Patient Comments Pt has been busy working on converting his garage to an apartment. PT-OP-D Balance Start: 06/06/21 15:44 Freq: Status: Active Protocol: Document 06/09/21 15:15 AW (Rec: 06/10/21 14:16 AW [id number]) Balance Tests Romberg Romberg WNL EO and EC PT-OP-E Functional Tests Start: 06/06/21 15:44 Freq: Status: Active Protocol: Document 06/24/21 11:45 AW (Rec: 06/24/21 11:46 AW [id number]) Functional Tests 2 Minute Walk Test Distance 375 Device Used no AD; IND; no FOG episodes Comments average gait speed 0.96 m/s Dynamic Gait Index (DGI) Score 23 DGI Impairment Rating 1 to <20% Impaired (Score 20- 23) Functional Gait Assessment Score 25 Functional Gait Assessment Impairment 1 to <20% Impaired (Score 25- Rating 29) PT-OP-H Neuro Start: 06/06/21 15:44 Freq: Status: Active Protocol: Document 06/09/21 15:15 AW (Rec: 06/10/21 14:26 AW [id number]) Sensation Evaluation Gross Sensation Gross Sensation WNL Coordination Evaluation Comments Coordination Comments Finger to nose and foot tapping in seated WNL. rapid alternating pronation/ supination mildly impaired secondary to LUE tremor. Deep Tendon Reflex & Clonus Assessment Deep Tendon Reflex Bilateral Achilles Deep Tendon Reflex 1+ Diminished Bilateral Patellar Deep Tendon Reflex 1+ Diminished Vital Signs Blood Pressure Sitting Blood Pressure (90/60-120/80 mmHg) 130/72 H Blood Pressure Source Manual Cuff,Right Upper Extremity PT-OP-J Posture/Palpation/Skin Start: 06/06/21 15:44 Freq: Status: Active Protocol: Document 06/09/21 15:15 AW (Rec: 06/10/21 14:26 AW [id number]) Posture Evaluation Comments Posture Comments Significantly forward head with tragus 10 cm ahead of A/C joint. Rigidity through trunk . Pt has bilateral genu varum with left more affected than right. PT-OP-M Strength Start: 06/06/21 15:44 Freq: Status: Active Protocol: Document 06/09/21 15:15 AW (Rec: 06/10/21 14:26 AW [id number]) Shoulder Strength Shoulder Manual Muscle Testing bilat Flexion 4+ Good+ Abduction (C5) 4+ Good+ External Rotation 4+ Good+ Internal Rotation 5 Normal Hip Strength Hip Manual Muscle Testing bilat Flexion (L2) 4+ Good+ Abduction 4 Good External Rotation 4+ Good+ Internal Rotation 4+ Good+ Knee Strength Knee Manual Muscle Testing bilat Flexion (S2) 4+ Good+ Extension (L3) 5 Normal Ankle/Foot Strength Ankle and Foot Manual Muscle Testing bilat Dorsiflexion (L4) 5 Normal Plantarflexion (S1) 4+ Good+ PT-OP-Q Treatments Start: 06/06/21 15:44 Freq: Status: Active Protocol: Document 07/06/21 14:04 AW (Rec: 07/06/21 15:14 AW [id number]) Therapeutic Activity Therapeutic Activity buttoning Comments buttoning/unbuttoning chest buttons. 4 buttons fastened in 35 and 34 seconds. Handwriting Reps/Minutes 5' Comments BIG writing random grocery list items as PT calls out list on [employer] ruled paper Gait Training Gait Activity BIG Description dual task (cog load) Device Used none Level of Assistance CGA-SBA Surface level, sidewalk, paved incline , elevators Distance/Duration 24 min Treatment Focus arm swings, increasing step height and length Comments - Outside on sidewalk, curbs, inclines - Carrying loaded crate - Conversational distraction throughout and pt able to continue with no loss of step length - Pt requires seated rest break x 3 due to R hip fatigue /pain. Step length decreases with distance due to fatigue/ pain Neuro Re-Education Treatment Other Activities Sit<>stand Details mesh chair with blue foam on seat Reps/Duration 2x10 Comments blue foam on seat 1st set; none on 2nd set with good control, no plop Sideways rock & reach Details SBA - alternating, no rail Reps/Duration x10 ea Comments NO chair support. Cued full rotation back and forth. Rock & reach Details modified with rail Reps/Duration x10 ea Comments Pt can appreciate bigger movement with rail support backwards step Details no rail Reps/Duration x10 ea Comments improved amplitude sideways step Details no chair Reps/Duration x10 ea Comments Good rotation fwd step Details alternating, no rail Reps/Duration x10 ea Comments Improved foot clearance Hlag-we-iyob Details std height chair- finger flicks x10 Reps/Duration x10 Comments Cued for more rotation Floor to ceiling Details std height chair- finger flicks x10 Reps/Duration x10 Comments Used chair with back support but cued pt to sit TALL. PT-OP-T Assessment and Plan Start: 06/06/21 15:44 Freq: Status: Active Protocol: Document 07/06/21 14:04 AW (Rec: 07/06/21 15:14 AW [id number]) Physical Therapy Assessment Goals Four Impairment gait speed Short Term Goal (STG) Pt will improve self-selected gait speed on 2MWT from 0.96 m /s to 1.1 m/s for functional community ambulation. 06/24/21 2MWT 375 feet 0.96 m/s but with longer stride and improved arm swing. STG Duration 06/25/21 Newspaper Manager Goal (LTG) Pt will improve self-selected gait speed on 2MWT from 0.96 m /s to 1.2 m/s or greater for functional community ambulation. LTG Duration 07/16/21 Three Impairment balance Newspaper Manager Goal (LTG) Pt will improve DGI score from 18/24 to 21/24 or greater as a measure of reduced falls risk. 06/24/21: 23/24 on DGI. 25/30 on FGA. NEW GOAL: Improve FGA score to 28/30 or greater as a measure of reduced falls risk. LTG Duration 07/16/21 Two Impairment freezing of gait Short Term Goal (STG) Pt will identify FOG triggers and PT will incorporate at least two into daily treatment . 06/24/21 GOAL MET - using triggers in daily tx such as starting/stopping, elevator doors, unexpected external stimulus. STG Duration 06/25/21 Long-Term Goal (LTG) Pt will successfully implement strategies to reduce FOG episodes by 50% LTG Duration 07/16/21 One Impairment lacks HEP Newspaper Manager Goal (LTG) Pt will be independent with LSVT BIG daily maximal exercises to improve movement amplitude and sustain therapy gains. LTG Duration 07/16/21 Assessment Summary Assessment Right hip pain limits gait distance today but he is able to walk 24 minutes on various surfaces with minimal rest breaks. Step length does decrease with distance due to right hip pain and fatigue. Physical Therapy Plan Frequency and Duration Frequency of Treatment 4x/Week Duration of Treatment 16 treatment visits Plan of Care Start Date 06/09/21 Plan of Care End Date 07/16/21 Therapeutic Interventions Therapeutic Interventions Balance Training,Gait Training ,Home Exercise Program, Neuromuscular Re-education, Self-Care/Home Management, Therapeutic Activities, Therapeutic Exercises Modalities Cold Pack/Ice Massage,Hot Packs Next Visit Focus/Plan Next Note Type Treatment Note Next Visit Plan Revisit standing balance. Add carrying objects to gait. with rebounder. Continue maximal daily exercises, functional tasks to include handwriting, buttoning, car transfers, pool table simulation, donning/ doffing coat, BIG walking with as many freezing triggers as possible and increased cog load.
--- NOTE | 2021-07-07 15:15 | PT.OTN ---
Current Diagnoses Parkinson's disease (07/07/21) Difficulty in walking, not elsewhere classified (07/07/21) Abnormal posture (07/07/21) Physical Therapy Treatment Note PT-OP-A Visit Information Start: 06/06/21 15:44 Freq: Status: Active Protocol: Document 07/07/21 14:02 AW (Rec: 07/07/21 15:15 AW [id number]) Out-Patient Physical Therapy Visit Information Visit Information Visit Type Treatment Note Visit Start Time 14:15 Visit Stop Time 15:14 Total Visit Minutes 58 Visit Number 15 Number of ENGINEERING DEPARTMENT CHAIR Visits 0 Evaluation Information Evaluation Date 06/09/21 PT-OP-B Current Condition Start: 06/06/21 15:44 Freq: Status: Active Protocol: Document 06/09/21 15:15 AW (Rec: 06/06/21 16:19 AW [id number]) Current Condition History of Current Condition Onset Date 2017 Current Complaints freezing of gait; decreased balance; falls History of Current Condition In , Dariusz began to notice a tremor in his left hand. He also began to appreciate declining balance and freezing of gait to the point that he could no longer dance and falls frequency increased. He was referred to neurology (sees Dr. Alvarez at [facility]) and was diagnosed with Parkinson's disease. One fall in October 2018 resulted in right femur fracture. Another fall in December 2020 resulted in left femur fracture which was treated non-operatively. He was discharged from the hospital to SNF rehab. After a month, he went home with home health and some family assist . He now uses a 4WW in the house most of the time. He occasionally uses a cane when out of the house. He always uses a cart for grocery shopping. He lives alone. He states he has trouble sleeping but CBD gummies help. He is independent to modified independent with ADL's and he does drive. He uses an improvised tub bench to sit and wash his teeth. He has to pull on pant legs to cross legs and don shoes and socks. Pt reports left knee pain. Orthovisc injections have been somewhat helpful. He now wears a brace on his left knee . Pt endorses some difficulty with swallowing and plans to do LOUD after completing BIG. Dariusz typically takes his carbidopa-levodopa 3x daily - first thing in the morning (06 :30), 10-11:00, and 15:00. Prior Treatments and Tests PT for knee and hip. No PT for PD. Treatment Goals Patient/Caregiver Goals Have better balance and feel more confident about starting out. Reduce freezing of gait Prior Functional Status Baseline Function- ADL's Independent Baseline Function- Mobility Independent PT-OP-C Subjective Start: 06/06/21 15:44 Freq: Status: Active Protocol: Document 07/07/21 14:02 AW (Rec: 07/07/21 15:15 AW [id number]) OP-PT Subjective Patient Comments Patient Comments Pt has already done exercises today and is feeling good. PT-OP-D Balance Start: 06/06/21 15:44 Freq: Status: Active Protocol: Document 06/09/21 15:15 AW (Rec: 06/10/21 14:16 AW [id number]) Balance Tests Romberg Romberg WNL EO and EC PT-OP-E Functional Tests Start: 06/06/21 15:44 Freq: Status: Active Protocol: Document 06/24/21 11:45 AW (Rec: 06/24/21 11:46 AW [id number]) Functional Tests 2 Minute Walk Test Distance 375 Device Used no AD; IND; no FOG episodes Comments average gait speed 0.96 m/s Dynamic Gait Index (DGI) Score 23 DGI Impairment Rating 1 to <20% Impaired (Score 20- 23) Functional Gait Assessment Score 25 Functional Gait Assessment Impairment 1 to <20% Impaired (Score 25- Rating 29) PT-OP-H Neuro Start: 06/06/21 15:44 Freq: Status: Active Protocol: Document 06/09/21 15:15 AW (Rec: 06/10/21 14:26 AW [id number]) Sensation Evaluation Gross Sensation Gross Sensation WNL Coordination Evaluation Comments Coordination Comments Finger to nose and foot tapping in seated WNL. rapid alternating pronation/ supination mildly impaired secondary to LUE tremor. Deep Tendon Reflex & Clonus Assessment Deep Tendon Reflex Bilateral Achilles Deep Tendon Reflex 1+ Diminished Bilateral Patellar Deep Tendon Reflex 1+ Diminished Vital Signs Blood Pressure Sitting Blood Pressure (90/60-120/80 mmHg) 130/72 H Blood Pressure Source Manual Cuff,Right Upper Extremity PT-OP-J Posture/Palpation/Skin Start: 06/06/21 15:44 Freq: Status: Active Protocol: Document 06/09/21 15:15 AW (Rec: 03/03/22 14:26 AW [id number]) Posture Evaluation Comments Posture Comments Significantly forward head with tragus 10 cm ahead of A/C joint. Rigidity through trunk . Pt has bilateral genu varum with left more affected than right. PT-OP-M Strength Start: 06/06/21 15:44 Freq: Status: Active Protocol: Document 06/09/21 15:15 AW (Rec: 06/10/21 14:26 AW [id number]) Shoulder Strength Shoulder Manual Muscle Testing bilat Flexion 4+ Good+ Abduction (C5) 4+ Good+ External Rotation 4+ Good+ Internal Rotation 5 Normal Hip Strength Hip Manual Muscle Testing bilat Flexion (L2) 4+ Good+ Abduction 4 Good External Rotation 4+ Good+ Internal Rotation 4+ Good+ Knee Strength Knee Manual Muscle Testing bilat Flexion (S2) 4+ Good+ Extension (L3) 5 Normal Ankle/Foot Strength Ankle and Foot Manual Muscle Testing bilat Dorsiflexion (L4) 5 Normal Plantarflexion (S1) 4+ Good+ PT-OP-Q Treatments Start: 06/06/21 15:44 Freq: Status: Active Protocol: Document 07/07/21 14:02 AW (Rec: 07/07/21 15:15 AW [id number]) Therapeutic Activity Therapeutic Activity Pool Name playing pool Comments Sit to stand + side stepping around tx table with random cues to switch directions. Freezing episodes well-managed with 4 S's buttoning Comments buttoning/unbuttoning chest buttons. 4 buttons fastened in 35 and 34 seconds. Handwriting Reps/Minutes 5' Comments BIG writing random grocery list items as PT calls out list on [employer] paper Gait Training Gait Activity Hurdles Description 6 hurdles Level of Assistance 4 hurdles, 4 airex pads Treatment Focus BIG steps Comments With BIG turns end of each lap . Started with antonio + pad which was too challenging. Did part practice with hurdles first then pads. FInally added back together and pt able to manage all four with SBA/CGA BIG Description dual task (cog load + carrying ) Device Used none Level of Assistance CGA-SBA Surface indoor tile, carpet Distance/Duration 200' x 5 Treatment Focus arm swings, increasing step height and length Comments - Carrying cup of water - Talking through a recipe Neuro Re-Education Treatment Other Activities Sit<>stand Details green chair Reps/Duration 2x10 Comments much improved control Sideways rock & reach Details SBA - alternating, no rail Reps/Duration x10 ea Comments Chair avail not used Rock & reach Details modified with rail Reps/Duration x10 ea Comments Pt can appreciate bigger movement with rail support backwards step Details with rail Reps/Duration x10 ea Comments improved amplitude sideways step Details rail support Reps/Duration x10 ea Comments Good rotation fwd step Details rail support Reps/Duration x10 ea Comments Improved foot clearance [id number] Details std height chair- finger flicks x10 Reps/Duration x10 Comments Cued for more rotation Floor to ceiling Details std height chair- finger flicks x10 Reps/Duration x10 Comments Used chair with back support but cued pt to sit TALL. PT-OP-T Assessment and Plan Start: 06/06/21 15:44 Freq: Status: Active Protocol: Document 07/07/21 14:02 AW (Rec: 07/07/21 15:15 AW [id number]) Physical Therapy Assessment Goals Four Impairment gait speed Short Term Goal (STG) Pt will improve self-selected gait speed on 2MWT from 0.96 m /s to 1.1 m/s for functional community ambulation. 06/24/21 2MWT 375 feet 0.96 m/s but with longer stride and improved arm swing. STG Duration 06/25/21 Planning Aide Goal (LTG) Pt will improve self-selected gait speed on 2MWT from 0.96 m /s to 1.2 m/s or greater for functional community ambulation. LTG Duration 07/16/21 Three Impairment balance Skilled Nursing Goal (LTG) Pt will improve DGI score from 18/24 to 21/24 or greater as a measure of reduced falls risk. 06/24/21: 23/24 on DGI. 25/30 on FGA. NEW GOAL: Improve FGA score to 28/30 or greater as a measure of reduced falls risk. LTG Duration 07/16/21 Two Impairment freezing of gait Short Term Goal (STG) Pt will identify FOG triggers and PT will incorporate at least two into daily treatment . 06/24/21 GOAL MET - using triggers in daily tx such as starting/stopping, elevator doors, unexpected external stimulus. STG Duration 06/25/21 Skilled Nursing Goal (LTG) Pt will successfully implement strategies to reduce FOG episodes by 50% LTG Duration 07/16/21 One Impairment lacks HEP Planning Aide Goal (LTG) Pt will be independent with LSVT BIG daily maximal exercises to improve movement amplitude and sustain therapy gains. LTG Duration 07/16/21 Assessment Summary Assessment Designed treatment today to focus on amplitude in gait and transitions with shorter bursts of activity to accommodate for hip and knee pain. Pt did very well with all challenges except initial LOB on foam + hurdles. Pt was able to part practice foam and then hurdles before combining again with good result. Physical Therapy Plan Frequency and Duration Frequency of Treatment 4x/Week Duration of Treatment 16 treatment visits Plan of Care Start Date 06/09/21 Plan of Care End Date 07/16/21 Therapeutic Interventions Therapeutic Interventions Balance Training,Gait Training ,Home Exercise Program, Neuromuscular Re-education, Self-Care/Home Management, Therapeutic Activities, Therapeutic Exercises Modalities Cold Pack/Ice Massage,Hot Packs Next Visit Focus/Plan Next Note Type Treatment Note Next Visit Plan Revisit standing balance. Add carrying objects to gait. with rebounder. Continue maximal daily exercises, functional tasks to include handwriting, buttoning, car transfers, pool table simulation, donning/ doffing coat, BIG walking with as many freezing triggers as possible and increased cog load.
--- NOTE | 2021-07-08 16:48 | PT.OTN ---
Current Diagnoses Parkinson's disease (07/08/21) Difficulty in walking, not elsewhere classified (07/08/21) Abnormal posture (07/08/21) Physical Therapy Treatment Note PT-OP-A Visit Information Start: 06/06/21 15:44 Freq: Status: Active Protocol: Document 07/08/21 13:23 AW (Rec: 07/08/21 14:33 AW [id number]) Out-Patient Physical Therapy Visit Information Visit Information Visit Type Treatment Note Visit Start Time 13:30 Visit Stop Time 14:25 Total Visit Minutes 55 Visit Number 16 Number of MEDICAL RECORDS SECRETARY Visits 0 Evaluation Information Evaluation Date 06/09/21 PT-OP-B Current Condition Start: 06/06/21 15:44 Freq: Status: Active Protocol: Document 06/09/21 15:15 AW (Rec: 06/06/21 16:19 AW [id number]) Current Condition History of Current Condition Onset Date 2017 Current Complaints freezing of gait; decreased balance; falls History of Current Condition In , Dariusz began to notice a tremor in his left hand. He also began to appreciate declining balance and freezing of gait to the point that he could no longer dance and falls frequency increased. He was referred to neurology (sees Dr. Alvarez at [facility]) and was diagnosed with Parkinson's disease. One fall in October 2018 resulted in right femur fracture. Another fall in December 2020 resulted in left femur fracture which was treated non-operatively. He was discharged from the hospital to SNF rehab. After a month, he went home with home health and some family assist . He now uses a 4WW in the house most of the time. He occasionally uses a cane when out of the house. He always uses a cart for grocery shopping. He lives alone. He states he has trouble sleeping but CBD gummies help. He is independent to modified independent with ADL's and he does drive. He uses an improvised tub bench to sit and wash his teeth. He has to pull on pant legs to cross legs and don shoes and socks. Pt reports left knee pain. Orthovisc injections have been somewhat helpful. He now wears a brace on his left knee . Pt endorses some difficulty with swallowing and plans to do LOUD after completing BIG. Dariusz typically takes his carbidopa-levodopa 3x daily - first thing in the morning (06 :30), 10-11:00, and 15:00. Prior Treatments and Tests PT for knee and hip. No PT for PD. Treatment Goals Patient/Caregiver Goals Have better balance and feel more confident about starting out. Reduce freezing of gait Prior Functional Status Baseline Function- ADL's Independent Baseline Function- Mobility Independent PT-OP-C Subjective Start: 06/06/21 15:44 Freq: Status: Active Protocol: Document 07/08/21 13:23 AW (Rec: 07/08/21 14:33 AW [id number]) OP-PT Subjective Patient Comments Patient Comments My knee hurts a little more today. Pt reports he went out to play pool last weekend and felt more confident moving around the table. PT-OP-D Balance Start: 06/06/21 15:44 Freq: Status: Active Protocol: Document 06/09/21 15:15 AW (Rec: 06/10/21 14:16 AW [id number]) Balance Tests Romberg Romberg WNL EO and EC PT-OP-E Functional Tests Start: 06/06/21 15:44 Freq: Status: Active Protocol: Document 06/24/21 11:45 AW (Rec: 06/24/21 11:46 AW [id number]) Functional Tests 2 Minute Walk Test Distance 375 Device Used no AD; IND; no FOG episodes Comments average gait speed 0.96 m/s Dynamic Gait Index (DGI) Score 23 DGI Impairment Rating 1 to <20% Impaired (Score 20- 23) Functional Gait Assessment Score 25 Functional Gait Assessment Impairment 1 to <20% Impaired (Score 25- Rating 29) PT-OP-H Neuro Start: 06/06/21 15:44 Freq: Status: Active Protocol: Document 06/09/21 15:15 AW (Rec: 06/10/21 14:26 AW [id number]) Sensation Evaluation Gross Sensation Gross Sensation WNL Coordination Evaluation Comments Coordination Comments Finger to nose and foot tapping in seated WNL. rapid alternating pronation/ supination mildly impaired secondary to LUE tremor. Deep Tendon Reflex & Clonus Assessment Deep Tendon Reflex Bilateral Achilles Deep Tendon Reflex 1+ Diminished Bilateral Patellar Deep Tendon Reflex 1+ Diminished Vital Signs Blood Pressure Sitting Blood Pressure (90/60-120/80 mmHg) 130/72 H Blood Pressure Source Manual Cuff,Right Upper Extremity PT-OP-J Posture/Palpation/Skin Start: 06/06/21 15:44 Freq: Status: Active Protocol: Document 06/09/21 15:15 AW (Rec: 06/10/21 14:26 AW [id number]) Posture Evaluation Comments Posture Comments Significantly forward head with tragus 10 cm ahead of A/C joint. Rigidity through trunk . Pt has bilateral genu varum with left more affected than right. PT-OP-M Strength Start: 06/06/21 15:44 Freq: Status: Active Protocol: Document 06/09/21 15:15 AW (Rec: 06/10/21 14:26 AW [id number]) Shoulder Strength Shoulder Manual Muscle Testing bilat Flexion 4+ Good+ Abduction (C5) 4+ Good+ External Rotation 4+ Good+ Internal Rotation 5 Normal Hip Strength Hip Manual Muscle Testing bilat Flexion (L2) 4+ Good+ Abduction 4 Good External Rotation 4+ Good+ Internal Rotation 4+ Good+ Knee Strength Knee Manual Muscle Testing bilat Flexion (S2) 4+ Good+ Extension (L3) 5 Normal Ankle/Foot Strength Ankle and Foot Manual Muscle Testing bilat Dorsiflexion (L4) 5 Normal Plantarflexion (S1) 4+ Good+ PT-OP-Q Treatments Start: 06/06/21 15:44 Freq: Status: Active Protocol: Document 07/08/21 13:23 AW (Rec: 07/08/21 14:33 AW [id number]) Therapeutic Activity Therapeutic Activity car transfer Comments Pt demonstrated typical in and out of his own vehicle and PT provided feedback on good use of BIG principles. No further repetition required. Pool Name playing pool Comments Sit to stand + side stepping around tx table with random cues to switch directions. Freezing episodes well-managed with 4 S's. Added pushing a chair forward and backward after PT noticed freezing episode during similar task. buttoning Comments buttoning/unbuttoning chest buttons. 4 buttons fastened in 27, 34, and 39 seconds. Handwriting Reps/Minutes 5' Comments BIG writing random grocery list items and phone numbers as PT calls out list. Used [employer] paper Gait Training Gait Activity Hurdles Description 6 hurdles Level of Assistance 4 hurdles, 4 airex pads Treatment Focus BIG steps Comments With BIG turns end of each lap . Started with antonio + pad which was too challenging. Did part practice with hurdles first then pads. FInally added back together and pt able to manage all four with SBA/CGA - Added carrying dumbbells to simulate grocery bags. Pt carried 10# db each hand and improved his performance on uneven and hurdles. BIG Description dual task (cog load + carrying ) Device Used none Level of Assistance CGA-SBA Surface indoor tile, carpet Distance/Duration 200' x 5 Treatment Focus arm swings, increasing step height and length Comments - Carrying cup of water - Talking through a recipe Neuro Re-Education Treatment Other Activities Sit<>stand Details green chair Reps/Duration 2x10 Comments much improved control Sideways rock & reach Details SBA - alternating, no rail Reps/Duration x10 ea Comments Chair avail not used. Good independent performance Rock & reach Details modified with rail Reps/Duration x10 ea Comments Pt can appreciate bigger movement with rail support backwards step Details with rail Reps/Duration x10 ea Comments improved amplitude sideways step Details rail support Reps/Duration x10 ea Comments Good rotation fwd step Details rail support Reps/Duration x10 ea Comments Improved foot clearance Noon-sz-cpyi Details std height chair- finger flicks x10 Reps/Duration x10 Comments Cued for more rotation Floor to ceiling Details std height chair- finger flicks x10 Reps/Duration x10 Comments Used chair with back support but cued pt to sit TALL. PT-OP-T Assessment and Plan Start: 06/06/21 15:44 Freq: Status: Active Protocol: Document 07/08/21 13:23 AW (Rec: 07/08/21 14:33 AW [id number]) Physical Therapy Assessment Goals Four Impairment gait speed Short Term Goal (STG) Pt will improve self-selected gait speed on 2MWT from 0.96 m /s to 1.1 m/s for functional community ambulation. 06/24/21 2MWT 375 feet 0.96 m/s but with longer stride and improved arm swing. STG Duration 06/25/21 Skilled Nursing Goal (LTG) Pt will improve self-selected gait speed on 2MWT from 0.96 m /s to 1.2 m/s or greater for functional community ambulation. LTG Duration 07/16/21 Three Impairment balance Skilled Nursing Goal (LTG) Pt will improve DGI score from 18 to 2124 or greater as a measure of reduced falls risk. 06/24/21: 23/24 on DGI. 25/30 on FGA. NEW GOAL: Improve FGA score to 28/30 or greater as a measure of reduced falls risk. LTG Duration 07/16/21 Two Impairment freezing of gait Short Term Goal (STG) Pt will identify FOG triggers and PT will incorporate at least two into daily treatment . 06/24/21 GOAL MET - using triggers in daily tx such as starting/stopping, elevator doors, unexpected external stimulus. STG Duration 06/25/21 Skilled Nursing Goal (LTG) Pt will successfully implement strategies to reduce FOG episodes by 50% LTG Duration 07/16/21 One Impairment lacks HEP Tail Ripper Goal (LTG) Pt will be independent with LSVT BIG daily maximal exercises to improve movement amplitude and sustain therapy gains. LTG Duration 07/16/21 Assessment Summary Assessment Continued with shorter bursts of activity today and pt improved performance on hurdles and foam pads even while carrying items up to 10# dumbbells. One visit remains in this tx set. Will complete discharge summary next visit. Pt to start LSVT LOUD next week. Physical Therapy Plan Frequency and Duration Frequency of Treatment 4x/Week Duration of Treatment 16 treatment visits Plan of Care Start Date 06/09/21 Plan of Care End Date 07/16/21 Therapeutic Interventions Therapeutic Interventions Balance Training,Gait Training ,Home Exercise Program, Neuromuscular Re-education, Self-Care/Home Management, Therapeutic Activities, Therapeutic Exercises Modalities Cold Pack/Ice Massage,Hot Packs Next Visit Focus/Plan Next Note Type Discharge Summary
--- NOTE | 2021-07-13 15:10 | PT.OTN ---
Current Diagnoses Parkinson's disease (07/13/21) Difficulty in walking, not elsewhere classified (07/13/21) Abnormal posture (07/13/21) Physical Therapy Treatment Note PT-OP-A Visit Information Start: 06/06/21 15:44 Freq: Status: Active Protocol: Document 07/13/21 13:59 AW (Rec: 07/13/21 15:10 AW [id number]) Out-Patient Physical Therapy Visit Information Visit Information Visit Type Discharge Summary Visit Start Time 14:15 Visit Stop Time 15:00 Total Visit Minutes 45 Visit Number 17 Number of PIT CLERK Visits 0 Evaluation Information Evaluation Date 06/09/21 PT-OP-B Current Condition Start: 06/06/21 15:44 Freq: Status: Active Protocol: Document 06/09/21 15:15 AW (Rec: 06/06/21 16:19 AW [id number]) Current Condition History of Current Condition Onset Date 2017 Current Complaints freezing of gait; decreased balance; falls History of Current Condition In , Dariusz began to notice a tremor in his left hand. He also began to appreciate declining balance and freezing of gait to the point that he could no longer dance and falls frequency increased. He was referred to neurology (sees Dr. Alvarez at [facility]) and was diagnosed with Parkinson's disease. One fall in October 2018 resulted in right femur fracture. Another fall in December 2020 resulted in left femur fracture which was treated non-operatively. He was discharged from the hospital to SNF rehab. After a month, he went home with home health and some family assist . He now uses a 4WW in the house most of the time. He occasionally uses a cane when out of the house. He always uses a cart for grocery shopping. He lives alone. He states he has trouble sleeping but CBD gummies help. He is independent to modified independent with ADL's and he does drive. He uses an improvised tub bench to sit and wash his teeth. He has to pull on pant legs to cross legs and don shoes and socks. Pt reports left knee pain. Orthovisc injections have been somewhat helpful. He now wears a brace on his left knee . Pt endorses some difficulty with swallowing and plans to do LOUD after completing BIG. Dariusz typically takes his carbidopa-levodopa 3x daily - first thing in the morning (06 :30), 10-11:00, and 15:00. Prior Treatments and Tests PT for knee and hip. No PT for PD. Treatment Goals Patient/Caregiver Goals Have better balance and feel more confident about starting out. Reduce freezing of gait Prior Functional Status Baseline Function- ADL's Independent Baseline Function- Mobility Independent PT-OP-C Subjective Start: 06/06/21 15:44 Freq: Status: Active Protocol: Document 07/13/21 13:59 AW (Rec: 07/13/21 15:10 AW [id number]) OP-PT Subjective Patient Comments Patient Comments Pt has continued to do daily exercises over the weekend and understands exercise dosing moving forward. PT-OP-D Balance Start: 06/06/21 15:44 Freq: Status: Active Protocol: Document 06/09/21 15:15 AW (Rec: 06/10/21 14:16 AW [id number]) Balance Tests Romberg Romberg WNL EO and EC PT-OP-E Functional Tests Start: 06/06/21 15:44 Freq: Status: Active Protocol: Document 07/13/21 13:59 AW (Rec: 07/13/21 15:10 AW [id number]) Functional Tests 2 Minute Walk Test Distance 407 feet Device Used no AD; IND; no FOG episodes Comments average gait speed 1.04 m/s Functional Gait Assessment Score 26 Functional Gait Assessment Impairment 1 to <20% Impaired (Score 25- Rating 29) PT-OP-H Neuro Start: 06/06/21 15:44 Freq: Status: Active Protocol: Document 06/09/21 15:15 AW (Rec: 06/10/21 14:26 AW [id number]) Sensation Evaluation Gross Sensation Gross Sensation WNL Coordination Evaluation Comments Coordination Comments Finger to nose and foot tapping in seated WNL. rapid alternating pronation/ supination mildly impaired secondary to LUE tremor. Deep Tendon Reflex & Clonus Assessment Deep Tendon Reflex Bilateral Achilles Deep Tendon Reflex 1+ Diminished Bilateral Patellar Deep Tendon Reflex 1+ Diminished Vital Signs Blood Pressure Sitting Blood Pressure (90/60-120/80 mmHg) 130/72 H Blood Pressure Source Manual Cuff,Right Upper Extremity PT-OP-J Posture/Palpation/Skin Start: 06/06/21 15:44 Freq: Status: Active Protocol: Document 06/09/21 15:15 AW (Rec: 06/10/21 14:26 AW [id number]) Posture Evaluation Comments Posture Comments Significantly forward head with tragus 10 cm ahead of A/C joint. Rigidity through trunk . Pt has bilateral genu varum with left more affected than right. PT-OP-M Strength Start: 06/06/21 15:44 Freq: Status: Active Protocol: Document 06/09/21 15:15 AW (Rec: 06/10/21 14:26 AW [id number]) Shoulder Strength Shoulder Manual Muscle Testing bilat Flexion 4+ Good+ Abduction (C5) 4+ Good+ External Rotation 4+ Good+ Internal Rotation 5 Normal Hip Strength Hip Manual Muscle Testing bilat Flexion (L2) 4+ Good+ Abduction 4 Good External Rotation 4+ Good+ Internal Rotation 4+ Good+ Knee Strength Knee Manual Muscle Testing bilat Flexion (S2) 4+ Good+ Extension (L3) 5 Normal Ankle/Foot Strength Ankle and Foot Manual Muscle Testing bilat Dorsiflexion (L4) 5 Normal Plantarflexion (S1) 4+ Good+ PT-OP-Q Treatments Start: 06/06/21 15:44 Freq: Status: Active Protocol: Document 07/13/21 13:59 AW (Rec: 07/13/21 15:10 AW [id number]) Gait Training Gait Activity Hurdles Description 6 hurdles Level of Assistance 4 hurdles, 4 airex pads Treatment Focus BIG steps Comments With BIG turns end of each lap . Started with antonio + pad which was too challenging. Did part practice with hurdles first then pads. FInally added back together and pt able to manage all four with SBA/CGA - Added carrying dumbbells to simulate grocery bags. Pt carried 10# db each hand and improved his performance on uneven and hurdles. BIG Description dual task (cog load + carrying ) Device Used none Level of Assistance CGA-SBA Surface indoor tile, carpet Distance/Duration 200' x 2 Treatment Focus arm swings, increasing step height and length Comments - Carrying cup of water - Talking through pool table strategies Neuro Re-Education Treatment Other Activities Sit<>stand Details green chair Reps/Duration 2x10 Comments much improved control Sideways rock & reach Details SBA - alternating, no rail Reps/Duration x10 ea Comments Chair avail not used. Good independent performance Rock & reach Details modified with rail Reps/Duration x10 ea Comments Pt can appreciate bigger movement with rail support backwards step Details with rail Reps/Duration x10 ea Comments improved amplitude sideways step Details rail support Reps/Duration x10 ea Comments Good rotation fwd step Details rail support Reps/Duration x10 ea Comments Improved foot clearance [id number] Details std height chair- finger flicks x10 Reps/Duration x10 Comments Cued for more rotation Floor to ceiling Details std height chair- finger flicks x10 Reps/Duration x10 Comments Used chair with back support but cued pt to sit TALL. PT-OP-T Assessment and Plan Start: 06/06/21 15:44 Freq: Status: Active Protocol: Document 07/13/21 13:59 AW (Rec: 07/13/21 15:10 AW [id number]) Physical Therapy Assessment Goals Four Impairment gait speed Short Term Goal (STG) Pt will improve self-selected gait speed on 2MWT from 0.96 m /s to 1.1 m/s for functional community ambulation. 06/24/21 2MWT 375 feet 0.96 m/s but with longer stride and improved arm swing. STG Duration 06/25/21 Relay Adjuster Goal (LTG) Pt will improve self-selected gait speed on 2MWT from 0.96 m /s to 1.2 m/s or greater for functional community ambulation. 07/13/21 - Pt completes 2MWT with average gait speed of 1. 04 m/s which represents an improvement. LTG Duration 07/16/21 Three Impairment balance Relay Adjuster Goal (LTG) Pt will improve DGI score from 18/24 to 21/24 or greater as a measure of reduced falls risk. 06/24/21: 23/24 on DGI. 25/30 on FGA. NEW GOAL: Improve FGA score to 28/30 or greater as a measure of reduced falls risk. 07/13/21 - Pt scores 26/30 on FGA today LTG Duration 07/16/21 Two Impairment freezing of gait Short Term Goal (STG) Pt will identify FOG triggers and PT will incorporate at least two into daily treatment . 06/24/21 GOAL MET - using triggers in daily tx such as starting/stopping, elevator doors, unexpected external stimulus. STG Duration 06/25/21 Relay Adjuster Goal (LTG) Pt will successfully implement strategies to reduce FOG episodes by 50% 07/13/21 - Pt reports 90% improvement. LTG Duration 07/16/21 One Impairment lacks HEP Chcf Goal (LTG) Pt will be independent with LSVT BIG daily maximal exercises to improve movement amplitude and sustain therapy gains. LTG Duration 07/16/21 Assessment Summary Assessment Re-assessed goals today and pt improved in gait speed, step length, Functional Gait Assessment, and self-report of difficulty with functional activities. PT reviewed recommendations for continued daily maximal exercises at least once every other day but preferably once daily. Provided referral to local Dance for PD program at [facility]. Physical Therapy Plan Frequency and Duration Frequency of Treatment 4x/Week Duration of Treatment 16 treatment visits Plan of Care Start Date 06/09/21 Plan of Care End Date 07/16/21 Therapeutic Interventions Therapeutic Interventions Balance Training,Gait Training ,Home Exercise Program, Neuromuscular Re-education, Self-Care/Home Management, Therapeutic Activities, Therapeutic Exercises Modalities Cold Pack/Ice Massage,Hot Packs Discharge Physical Therapy Discharge Reasons Goals Met Discharge Comments Dez has completed the LSVT BIG protocol with excellent improvements in gait speed, step length, functional activity performance, and dynamic balance. He self- reports a 90% improvement in freezing of gait episodes. He is now focused on speech therapy for LSVT LOUD. Pt agrees to be called for follow -up in 6-9 months for reassessment.
== END 2021-07-15 13:25 ==
LOC: PHYS 14:15
PROVIDERS: Family Provider Physician Assistant; PCP Physician Assistant; Referring Provider Physician Assistant; Visit Provider Physician Assistant
DX: G20 Parkinson's disease (principal); R26.2 Difficulty in walking, not elsewhere classified; R29.3 Abnormal posture
CPT/HCPCS: 97112; 97116; 97162; 97530; 97535

== ENCOUNTER 2021-08-18 14:30 | Outpatient (RCR) | payer MEDICARE, OTHER, SELFPAY ==
[2021-01-06 16:58] VITALS: BMI 25.0
--- NOTE | 2021-07-12 17:22 | ST.OPIE ---
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 Milagro Walters Reason for Referral Parkinson's disease Setting Setting Outpatient Care Patient History General Information The pt is a 81-yr-old male who was diagnosed with Parkinson's disease 2 yrs ago. He first noticed symptoms 4 yrs ago including slow right foot and leg movements and reduced handwriting ability and legibility and, in fact, reportedly broke his femur d/t bradykinesis 3 yrs ago. About 2 yrs ago he suddenly felt as if his tongue and lips were thick and slow moving, and this continues today in addition to people more frequently asking him to repeat himself. He finds that sometimes he doesn't have enough breath to complete sentences. He also noted occasional swallow difficulty, including coughing with food or liquid and sticking sensation with solids. He reported occasional pain at sternum area with swallow. This and the pharyngeal sticking sensation require liquid wash to clear. As a result, he avoids dry foods such as white meat. The pt also reported occasional WFDs which he thinks is probably age related. He denied other cognitive changes. Hearing Auditory History Cannot hear over 6,000 Hz, per self-testing with an online ross. Pt reports this does not interfere with communication and other daily activities. 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 Was recommended dysphagia therapy at but was unable to get in. Subjective Subjective Pt goals to get louder and not lose breath while talking. Would also like to improve swallow. - Laryngeal Performance Voice Handicap Index Function Subtotal 16 Moderate-Severe Physical Subtotal 27 Severe Emotional Subtotal 11 Mild-Moderate Total Score 54 Severity Moderate (31-60) CAPE-V Overall Severity 46% Moderate Roughness 31% Moderate Breathiness 6% Mild at high pitches only Strain 6% Mild at high pitches Pitch 18% Mild-Mod inc roughness, reduced strength, breaks at higher pitches Loudness 52% Mod-Severe Normal Resonance? Yes Other Features Observed Improved quality with increased loudness Maximum Phonation Time MPT Norms: Women (15-25) Men (25-35) Loudness (50-60 dB); Speaking Rate: Oral Reading of Sentences (190 Words Per Minute); Oral Reading of Paragraphs (160-170 WPM); Speaking Rate in Conversation (150-250 WPM) Maximum Phonation Time 14.6s Maximum Phonation Time Adequate for Speech Maximum Phonation Time Comments Pt reports frequently running out of breath when speaking. Improved vocal quality but reduced duration with increased loudness. Jitter/Shimmer Norms: Jitter (Less than or equal to 1.040% - Frequency) Norms: Shimmer (Less than or equal to 3.810% - Amplitude) Jitter 1.52% (improved to WNL [0.13%] with increased loudness) Shimmer 4.72% (improved to WNL [2.46%] with increased loudness) Pitch [place] Pitch [place] WFL,Pitch Breaks Pitch [place] Comments 102-365 Hz Breath Support Speaks on Room Air Yes Voice Pitch Range Norms: Women (100-300 Hz) Men (70-250 Hz) Fundamental Frequency Norms: Women (Mean: 225 Hz; Range: 155-334 Hz) Men ( Mean: 128 Hz; Range: 85-196 Hz) Voice Pitch Normal Voice Loudness Mildly Soft/Quiet Voice Phonatory-based Quality Breathy,Weak Fundamental Frequency 126 Hz Intensity 68 dB during conversation in a quiet environment Paradoxical Vocal Fold Movement No Indications Resonance Nasal Resonance Normal Oral Resonance Normal Therapeutic Techniques Therapy Tactics Increase Loudness Findings Findings Mild-Moderate Impairment Observations The pt frequently cleared his throat both during and between speaking opportunities. No coughing or throat clearing observed with intake of water. Voice/Resonance Assessment Assessment The pt presents with moderate vocal impairment characterized by mild breathiness, occasional moderate roughness, mild instability, and moderately reduced loudness. Pitch breaks occur at higher frequencies. Speech appears normal and is intelligible. Research of the LSVT-Loud program has demonstrated benefits to swallow function and safety, as well as vocal quality and speech articulation. It is anticipated the pt's swallow function and safety will improve from this treatment. BROACHING MACHINE OPERATOR will monitor and incorporate dysphagia education and treatment into POC as needed. Prognosis Rehabilitation Potential Excellent - Recommendations Treatment Recommended Yes Treatment Frequency/Duration LSVT-Loud protocol: 16 sessions in 4 wks Therapy Recommendations LSVT-Loud treatment; monitor and provide education RE swallow safety Short Term Goals 1. Pt will sustain vowel phonation for 20 sec at 75 dB or greater across 3 trials to increase breath support for speech and improve vocal quality/stability. 2. Pt perform pitch glide exercises with good vocal quality at avg of 75 dB or greater with min cues to increase pitch range and vocal stability at various pitches. 3. Pt will read Functional Phrases at avg of 72 dB or greater across 10 trials to increase speech intelligibility and promote carryover of vocal loudness into her/his functional environment. 4. Pt will read words/phrases with avg of 72 dB or greater with 90% accuracy and min cues to increase speech intelligibility. 5. Pt will maintain loudness levels no lower than 65 dB in [id number] remarks between structured tasks with min cues in 70% of opportunities to increase speech intelligibility and promote carryover of adequate loudness in spontaneous conversation. Shelter Goals 1. Pt will sustain vowel phonation for 25 sec at 75 dB or greater to increase/ maintain breath support for speech and vocal loudness. 2. Pt will produce prosodic features WFL in spontaneous conversation in 80% of opportunities to increase her/ his ability to communicate ideas, opinions, and wants/ needs. 3. Pt will produce vocal loudness in conversation WNL (65-75 dB) in 90% of opportunities to increase speech intelligibility in a variety of settings and with a variety of conversation partners. 4. Pt will report no more than mild impact of voice as measured by VHI (total score of patient perceptual rating). 5. Pt will exhibit vocal quality no greater than mildly impaired as measured by CAPE- V (clinician perceptual rating). Patient/Caregiver Education Patient/Family Education Described results of evaluation,Patient Understanding,Patient Needs More Info
--- NOTE | 2021-07-13 17:58 | ST.OPTN ---
Visit Care Team Role Provider Type Milagro Walters PA-C Attending Provider Non-Staff Family Provider Primary Care Provider Referring Provider Address: [address] [place] [address], [id number] SURGICAL INSTRUMENT REPAIR SPECIALIST Treatment Note SURGICAL INSTRUMENT REPAIR SPECIALIST Treatment Note Start: 07/12/21 10:35 Freq: Status: Active Protocol: Document 07/13/21 16:52 NILA (Rec: 07/13/21 16:53 NILA [id number]) Speech Pathology Treatment Note Session Time Visit Start Time 10:30 Visit Stop Time 11:30 Total Visit Minutes 60 Visit Information Visit Number 04/25 Plan of Care Dates 07/12/21 - 10/07/21 Insurance Information Medicare Setting Treatment Setting Outpatient Care Visit Type Note Type Treatment Note Next Note Type Next Note Type Treatment Note General Information Patient History The pt is a 81-yr-old male who was diagnosed with Parkinson' s 2 yrs ago. He first noticed symptoms 4 yrs ago including slow right foot and leg movements and reduced handwriting ability and legibility and, in fact, reportedly broke his femur d/t bradykinesis 3 yrs ago. About 2 yrs ago he suddenly felt as if his tongue and lips were thick and slow moving, and this continues today in addition to people more frequently asking him to repeat himself. He finds that sometimes he doesn't have enough breath to complete sentences. He also noted occasional swallow difficulty, including coughing with food or liquid and sticking sensation with solids. He reported occasional pain at sternum area with swallow. This and the pharyngeal sticking sensation require liquid wash to clear. As a result, he avoids dry foods such as white meat. The pt also reported occasional WFDs which he thinks is probably age related. He denied other cognitive changes. Subjective Observations/Patient Presentation Pt arrived on time. No new complaints. When asked, pt identified hobbies as fishing and computer programing/ language. He has created complex several remote control tools and devices for his home and shop. Chief Complaint(s) Swallowing,Voice Rehab Expectation/Goals: Patient Goals Improve vocal loudness & quality; improve swallow function Patient Knowledge/Awareness of SURGICAL INSTRUMENT REPAIR SPECIALIST Role Good in Treatment Objective Short Term Goals 1. Pt will sustain vowel phonation for 20 sec at 75 dB or greater across 3 trials to increase breath support for speech and improve vocal quality/stability. 2. Pt perform pitch glide exercises with good vocal quality at avg of 75 dB or greater with min cues to increase pitch range and vocal stability at various pitches. 3. Pt will read Functional Phrases at avg of 72 dB or greater across 10 trials to increase speech intelligibility and promote carryover of vocal loudness into her/his functional environment. 4. Pt will read words/phrases with avg of 72 dB or greater with 90% accuracy and min cues to increase speech intelligibility. 5. Pt will maintain loudness levels no lower than 65 dB in [id number]-[id number] remarks between structured tasks with min cues in 70% of opportunities to increase speech intelligibility and promote carryover of adequate loudness in spontaneous conversation. Fdc Goals 1. Pt will sustain vowel phonation for 25 sec at 75 dB or greater to increase/ maintain breath support for speech and vocal loudness. 2. Pt will produce prosodic features WFL in spontaneous conversation in 80% of opportunities to increase her/ his ability to communicate ideas, opinions, and wants/ needs. Treatment Activities Initiated LSVT-Loud treatment. The pt completed the following: MPT = 18.3 s, Avg loudness 74 dB Pitch Range: 113-449 Hz, Avg loudess highs 76 dB; Lows 72.9 dB Functional Phrases: 72.9 dB avg loudness Reading Words/Phrases: 79.7 avg loudness Minimal prompts required; skilled feedback provided RE breath support and vocal shaping. Assessment Patient Response to Treatment Good Rehab Potential Excellent Impairments Identified Speech Intelligibility,Vocal Quality Additional Impairments Identified Pt also reports occ mild dysphagia symptoms, which will be monitored Progress Towards Goals Good Progress Assessment of Overall Progress Improving Assessment of Improvement The pt demonstrated excellent response to education and feedback, maintaining good loudness levels with off-the- cuff remarks. He appears highly motivated and committed to the POC. Reviewed with Patient Goals,Progress Being Made,Home Exercise Program Patient/Caregiver Understanding Excellent Plan Amount of Therapy Recommended 1-2 Months Frequency of Treatment Four Times a Week Length of Session 60 Minutes Treatment Emphasis Next Session Cont LSVT-Loud protocol with words and phrases Therapeutic Contents Client Education,Home Exercise Program,Voice Training Additional Areas of Treatment Swallowing as indicated Provided Patient/Caregiver Instruction Home Exercise Program,Plan of Care,Questions/Concerns Therapy Recommendations Continue with Current Program
--- NOTE | 2021-07-14 18:08 | ST.OPTN ---
Visit Care Team Role Provider Type Milagro Walters PA-C Attending Provider Non-Staff Family Provider Primary Care Provider Referring Provider Address: [address] [place] [address], [id number] DIRECTOR [employer]AC[employer] DAT[employer]ASE Treatment Note DIRECTOR [employer] DAT[employer]ASE Treatment Note Start: 07/12/21 10:35 Freq: Status: Active Protocol: Document 07/14/21 17:59 NILA (Rec: 07/14/21 18:08 NILA [email or web address]) Speech Pathology Treatment Note Session Time Visit Start Time 10:30 Visit Stop Time 11:30 Total Visit Minutes 60 Visit Information Visit Number 05/26 Plan of Care Dates 07/12/21 - 10/07/21 Insurance Information Medicare Setting Treatment Setting Outpatient Care Visit Type Note Type Treatment Note Next Note Type Next Note Type Treatment Note General Information Patient History The pt is a 81-yr-old male who was diagnosed with Parkinson' s 2 yrs ago. He first noticed symptoms 4 yrs ago including slow right foot and leg movements and reduced handwriting ability and legibility and, in fact, reportedly broke his femur d/t bradykinesis 3 yrs ago. About 2 yrs ago he suddenly felt as if his tongue and lips were thick and slow moving, and this continues today in addition to people more frequently asking him to repeat himself. He finds that sometimes he doesn't have enough breath to complete sentences. He also noted occasional swallow difficulty, including coughing with food or liquid and sticking sensation with solids. He reported occasional pain at sternum area with swallow. This and the pharyngeal sticking sensation require liquid wash to clear. As a result, he avoids dry foods such as white meat. The pt also reported occasional WFDs which he thinks is probably age related. He denied other cognitive changes. Subjective Observations/Patient Presentation Pt arrived on time. No new complaints. He completed home tasks both yesterday afternoon after ST session and this morning ~[address] session. He reported inconsistent phonation durations. He also reported having completed his carryover assignment, intentionally using a loud, strong voice during a phone conversation. Chief Complaint(s) Swallowing,Voice Rehab Expectation/Goals: Patient Goals Improve vocal loudness & quality; improve swallow function Patient Knowledge/Awareness of DIRECTOR [employer] DAT[employer]ASE Role Good in Treatment Objective Short Term Goals 1. Pt will sustain vowel phonation for 20 sec at 75 dB or greater across 3 trials to increase breath support for speech and improve vocal quality/stability. 2. Pt perform pitch glide exercises with good vocal quality at avg of 75 dB or greater with min cues to increase pitch range and vocal stability at various pitches. 3. Pt will read Functional Phrases at avg of 72 dB or greater across 10 trials to increase speech intelligibility and promote carryover of vocal loudness into her/his functional environment. 4. Pt will read words/phrases with avg of 72 dB or greater with 90% accuracy and min cues to increase speech intelligibility. 5. Pt will maintain loudness levels no lower than 65 dB in [id number]-gnnc remarks between structured tasks with min cues in 70% of opportunities to increase speech intelligibility and promote carryover of adequate loudness in spontaneous conversation. Girl Friday Goals 1. Pt will sustain vowel phonation for 25 sec at 75 dB or greater to increase/ maintain breath support for speech and vocal loudness. 2. Pt will produce prosodic features WFL in spontaneous conversation in 80% of opportunities to increase her/ his ability to communicate ideas, opinions, and wants/ needs. Treatment Activities Education and feedback was provided RE HEP tasks and timing. Recommended the pt allow 5-7 hrs between practice sessions to minimize risk of vocal fatigue. Pt verbalized understanding. Continued LSVT-Loud treatment. The pt completed the following: MPT = 17.7 s, Avg loudness 75 dB Pitch Range: 97-446 Hz, Avg loudess highs 77.3 dB; Lows 71.9 dB Functional Phrases: 80.5 dB avg loudness Reading Words/Phrases: 82.5 avg loudness. To target word recall, text used included phrase completion and naming from description tasks. Min prompts required to maintain consistent loudness with added cognitive task. Assessment Patient Response to Treatment Good Rehab Potential Excellent Impairments Identified Speech Intelligibility,Vocal Quality Additional Impairments Identified Pt also reports occ mild dysphagia symptoms, which will be monitored Progress Towards Goals Good Progress Assessment of Overall Progress Improving Assessment of Improvement The pt demonstrated improved vocal range and stability at higher notes. During dual loudness and word recall tasks , the pt maintained target loudness levels with occ prompts, demonstrating good initial ability toward such dual attention that will be necessary for maintaining loudness targets in conversation. Reviewed with Patient Goals,Progress Being Made,Home Exercise Program Patient/Caregiver Understanding Excellent Plan Amount of Therapy Recommended 1-2 Months Frequency of Treatment Four Times a Week Length of Session 60 Minutes Treatment Emphasis Next Session Cont LSVT-Loud protocol with words and phrases Therapeutic Contents Client Education,Home Exercise Program,Voice Training Additional Areas of Treatment Swallowing as indicated Provided Patient/Caregiver Instruction Home Exercise Program,Plan of Care,Questions/Concerns Therapy Recommendations Continue with Current Program
--- NOTE | 2021-07-15 13:48 | ST.OPTN ---
Visit Care Team Role Provider Type Milagro Walters PA-C Attending Provider Non-Staff Family Provider Primary Care Provider Referring Provider Address: [address] [place] [address], [id number] TENNIS CAMP INSTRUCTOR Treatment Note TENNIS CAMP INSTRUCTOR Treatment Note Start: 07/12/21 10:35 Freq: Status: Active Protocol: Document 07/15/21 13:35 ZS (Rec: 07/15/21 13:48 ZS [id number]) Speech Pathology Treatment Note Session Time Visit Start Time 11:30 Visit Stop Time 12:30 Total Visit Minutes 60 Visit Information Visit Number 06/23 Plan of Care Dates 07/12/21 - 10/07/21 Insurance Information Medicare Setting Treatment Setting Outpatient Care Visit Type Note Type Treatment Note Next Note Type Next Note Type Treatment Note General Information Patient History The pt is a 81-yr-old male who was diagnosed with Parkinson' s 2 yrs ago. He first noticed symptoms 4 yrs ago including slow right foot and leg movements and reduced handwriting ability and legibility and, in fact, reportedly broke his femur d/t bradykinesis 3 yrs ago. About 2 yrs ago he suddenly felt as if his tongue and lips were thick and slow moving, and this continues today in addition to people more frequently asking him to repeat himself. He finds that sometimes he doesn't have enough breath to complete sentences. He also noted occasional swallow difficulty, including coughing with food or liquid and sticking sensation with solids. He reported occasional pain at sternum area with swallow. This and the pharyngeal sticking sensation require liquid wash to clear. As a result, he avoids dry foods such as white meat. The pt also reported occasional WFDs which he thinks is probably age related. He denied other cognitive changes. Subjective Observations/Patient Presentation Pt arrived on time. No new complaints. He completed home tasks yesterday afternoon after ST session. He also reported having completed his carryover assignment, intentionally using a loud, strong voice while singing in the shower. Chief Complaint(s) Swallowing,Voice Rehab Expectation/Goals: Patient Goals Improve vocal loudness & quality; improve swallow function Patient Knowledge/Awareness of TENNIS CAMP INSTRUCTOR Role Good in Treatment Objective Short Term Goals 1. Pt will sustain vowel phonation for 20 sec at 75 dB or greater across 3 trials to increase breath support for speech and improve vocal quality/stability. 2. Pt perform pitch glide exercises with good vocal quality at avg of 75 dB or greater with min cues to increase pitch range and vocal stability at various pitches. 3. Pt will read Functional Phrases at avg of 72 dB or greater across 10 trials to increase speech intelligibility and promote carryover of vocal loudness into her/his functional environment. 4. Pt will read words/phrases with avg of 72 dB or greater with 90% accuracy and min cues to increase speech intelligibility. 5. Pt will maintain loudness levels no lower than 65 dB in [id number] remarks between structured tasks with min cues in 70% of opportunities to increase speech intelligibility and promote carryover of adequate loudness in spontaneous conversation. [facility] Goals 1. Pt will sustain vowel phonation for 25 sec at 75 dB or greater to increase/ maintain breath support for speech and vocal loudness. 2. Pt will produce prosodic features WFL in spontaneous conversation in 80% of opportunities to increase her/ his ability to communicate ideas, opinions, and wants/ needs. Treatment Activities Continued LSVT-Loud treatment. The pt completed the following: MPT = 12.8 s, Avg loudness 74. 8 dB Pitch Range: 109 - 424 Hz, Avg loudess highs 75 dB; Lows 74.8 dB Functional Phrases: 74.8 dB avg loudness Reading Words/Phrases: 75.9 avg loudness. To target word recall, text used included phrase completion and naming from description tasks. Min prompts required to maintain consistent loudness with added cognitive task. Pt exhibited difficulty achieving loudness from previous sessions, though differences in room and recording device may play a role. Assessment Patient Response to Treatment Good Rehab Potential Excellent Impairments Identified Speech Intelligibility,Vocal Quality Additional Impairments Identified Pt also reports occ mild dysphagia symptoms, which will be monitored Progress Towards Goals Good Progress Assessment of Overall Progress Improving Assessment of Improvement The pt demonstrated reduced loudness, which may be impacted by change in treatment room and recording device. Pt maintained good vocal quality across all tasks . During dual loudness and word recall tasks, the pt demonstrated difficulty maintaining target loudness levels, but benefitted from occ prompts. During reading tasks, pt exhibited a fast rate of speech and decreased inflection. Reviewed with Patient Goals,Progress Being Made,Home Exercise Program Patient/Caregiver Understanding Excellent Plan Amount of Therapy Recommended 1-2 Months Frequency of Treatment Four Times a Week Length of Session 60 Minutes Treatment Emphasis Next Session Cont LSVT-Loud protocol with words and phrases Therapeutic Contents Client Education,Home Exercise Program,Voice Training Additional Areas of Treatment Swallowing as indicated Provided Patient/Caregiver Instruction Home Exercise Program,Plan of Care,Questions/Concerns Therapy Recommendations Continue with Current Program
--- NOTE | 2021-07-19 12:26 | ST.OPTN ---
Visit Care Team Role Provider Type Milagro Walters PA-C Attending Provider Non-Staff Family Provider Primary Care Provider Referring Provider Address: [address] [place] [address], [id number] LICENSE ISSUER Treatment Note LICENSE ISSUER Treatment Note Start: 07/12/21 10:35 Freq: Status: Active Protocol: Document 07/19/21 12:19 NILA (Rec: 07/19/21 12:26 NILA [id number]) Speech Pathology Treatment Note Session Time Visit Start Time 10:30 Visit Stop Time 11:30 Total Visit Minutes 60 Visit Information Visit Number 07/24 Plan of Care Dates 07/12/21 - 10/07/21 Insurance Information Medicare Setting Treatment Setting Outpatient Care Visit Type Note Type Treatment Note Next Note Type Next Note Type Treatment Note General Information Patient History The pt is a 81-yr-old male who was diagnosed with Parkinson' s 2 yrs ago. He first noticed symptoms 4 yrs ago including slow right foot and leg movements and reduced handwriting ability and legibility and, in fact, reportedly broke his femur d/t bradykinesis 3 yrs ago. About 2 yrs ago he suddenly felt as if his tongue and lips were thick and slow moving, and this continues today in addition to people more frequently asking him to repeat himself. He finds that sometimes he doesn't have enough breath to complete sentences. He also noted occasional swallow difficulty, including coughing with food or liquid and sticking sensation with solids. He reported occasional pain at sternum area with swallow. This and the pharyngeal sticking sensation require liquid wash to clear. As a result, he avoids dry foods such as white meat. The pt also reported occasional WFDs which he thinks is probably age related. He denied other cognitive changes. Subjective Observations/Patient Presentation Pt arrived on time. No new complaints. He completed home tasks twice daily over the weekend and targeted speaking with his loud voice while visiting with family. Chief Complaint(s) Swallowing,Voice Rehab Expectation/Goals: Patient Goals Improve vocal loudness & quality; improve swallow function Patient Knowledge/Awareness of LICENSE ISSUER Role Good in Treatment Objective Short Term Goals 1. Pt will sustain vowel phonation for 20 sec at 75 dB or greater across 3 trials to increase breath support for speech and improve vocal quality/stability. 2. Pt perform pitch glide exercises with good vocal quality at avg of 75 dB or greater with min cues to increase pitch range and vocal stability at various pitches. 3. Pt will read Functional Phrases at avg of 72 dB or greater across 10 trials to increase speech intelligibility and promote carryover of vocal loudness into her/his functional environment. 4. Pt will read words/phrases with avg of 72 dB or greater with 90% accuracy and min cues to increase speech intelligibility. 5. Pt will maintain loudness levels no lower than 65 dB in [id number] remarks between structured tasks with min cues in 70% of opportunities to increase speech intelligibility and promote carryover of adequate loudness in spontaneous conversation. [facility] Goals 1. Pt will sustain vowel phonation for 25 sec at 75 dB or greater to increase/ maintain breath support for speech and vocal loudness. 2. Pt will produce prosodic features WFL in spontaneous conversation in 80% of opportunities to increase her/ his ability to communicate ideas, opinions, and wants/ needs. Treatment Activities Continued LSVT-Loud treatment. The pt completed the following: MPT = 19.9 s, Avg loudness 76 dB Pitch Range: 98-440 Hz, Avg loudess highs 77.3 dB; Lows 71.1 dB Functional Phrases: 81.3 dB avg loudness. Targeted varied inflection. Reading Sentences: 79 dB avg loudness. Conversation: Avg loudness early in the session was 70.5 dB. LICENSE ISSUER and pt noted that conversation after exercises was notably quieter. With verbal prompts, the pt increased loudness in conversation to 75 dB avg. Assessment Patient Response to Treatment Good Rehab Potential Excellent Impairments Identified Speech Intelligibility,Vocal Quality Additional Impairments Identified Pt also reports occ mild dysphagia symptoms, which will be monitored Progress Towards Goals Good Progress Assessment of Overall Progress Improving Assessment of Improvement The pt increased MPT and was perceptive and receptive to changes in loudness between structured tasks and conversation. He was responsive also to prompts to increase loudness, as well as those to increase laryngeal relaxation which resulted in improved vocal quality and duration of phonation. During reading tasks, pt exhibted a fast rate of speech and decreased inflection. When targeting inflection during functional phrases task, the pt exhibited appropriate variation. Reviewed with Patient Goals,Progress Being Made,Home Exercise Program Patient/Caregiver Understanding Excellent Plan Amount of Therapy Recommended 1-2 Months Frequency of Treatment Four Times a Week Length of Session 60 Minutes Treatment Emphasis Next Session Cont LSVT-Loud protocol with sentences Therapeutic Contents Client Education,Home Exercise Program,Voice Training Additional Areas of Treatment Swallowing as indicated Provided Patient/Caregiver Instruction Home Exercise Program,Plan of Care,Questions/Concerns Therapy Recommendations Continue with Current Program
--- NOTE | 2021-07-20 12:15 | ST.OPTN ---
Visit Care Team Role Provider Type Milagro Walters PA-C Attending Provider Non-Staff Family Provider Primary Care Provider Referring Provider Address: [address] [place] [address], [id number] ICT BUSINESS DEVELOPMENT MANAGER Treatment Note ICT BUSINESS DEVELOPMENT MANAGER Treatment Note Start: 07/12/21 10:35 Freq: Status: Active Protocol: Document 07/20/21 18:14 NILA (Rec: 07/20/21 18:15 NILA [id number]) Speech Pathology Treatment Note Session Time Visit Start Time 09:30 Visit Stop Time 10:30 Total Visit Minutes 60 Visit Information Visit Number 08/23 Plan of Care Dates 07/12/21 - 10/07/21 Insurance Information Medicare Setting Treatment Setting Outpatient Care Visit Type Note Type Treatment Note Next Note Type Next Note Type Treatment Note General Information Patient History The pt is a 81-yr-old male who was diagnosed with Parkinson' s 2 yrs ago. He first noticed symptoms 4 yrs ago including slow right foot and leg movements and reduced handwriting ability and legibility and, in fact, reportedly broke his femur d/t bradykinesis 3 yrs ago. About 2 yrs ago he suddenly felt as if his tongue and lips were thick and slow moving, and this continues today in addition to people more frequently asking him to repeat himself. He finds that sometimes he doesn't have enough breath to complete sentences. He also noted occasional swallow difficulty, including coughing with food or liquid and sticking sensation with solids. He reported occasional pain at sternum area with swallow. This and the pharyngeal sticking sensation require liquid wash to clear. As a result, he avoids dry foods such as white meat. The pt also reported occasional WFDs which he thinks is probably age related. He denied other cognitive changes. Subjective Observations/Patient Presentation Pt arrived on time. No new complaints. He has been compliant with HEP and carryover tasks. Chief Complaint(s) Swallowing,Voice Rehab Expectation/Goals: Patient Goals Improve vocal loudness & quality; improve swallow function Patient Knowledge/Awareness of ICT BUSINESS DEVELOPMENT MANAGER Role Good in Treatment Objective Short Term Goals 1. Pt will sustain vowel phonation for 20 sec at 75 dB or greater across 3 trials to increase breath support for speech and improve vocal quality/stability. 2. Pt perform pitch glide exercises with good vocal quality at avg of 75 dB or greater with min cues to increase pitch range and vocal stability at various pitches. 3. Pt will read Functional Phrases at avg of 72 dB or greater across 10 trials to increase speech intelligibility and promote carryover of vocal loudness into her/his functional environment. 4. Pt will read words/phrases with avg of 72 dB or greater with 90% accuracy and min cues to increase speech intelligibility. 5. Pt will maintain loudness levels no lower than 65 dB in ryc-eyt-rlls remarks between structured tasks with min cues in 70% of opportunities to increase speech intelligibility and promote carryover of adequate loudness in spontaneous conversation. 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 Pt will sustain vowel phonation for 25 sec at 75 dB or greater to increase/ maintain breath support for speech and vocal loudness. 2. Pt will produce prosodic features WFL in spontaneous conversation in 80% of opportunities to increase her/ his ability to communicate ideas, opinions, and wants/ needs. Treatment Activities Trained pt in yawn/sigh technique to reduce laryngeal tension and improve vocal quality. Continued LSVT-Loud treatment using this technique . The pt completed the following: MPT = 15.3 s, Avg loudness 77. 5 dB Pitch Range: 102-444 Hz, Avg loudess highs 77.7 dB; Lows 73.6 dB Functional Phrases: 81.7 dB avg loudness. Targeted varied inflection. Reading Sentences: 78 dB avg loudness. Pt completed tasks identifying similarities and differences between given objects to target word recall, increased cognitive demand while maintaining target loudness. Conversation: 73 dB avg loudness Assessment Patient Response to Treatment Good Rehab Potential Excellent Impairments Identified Speech Intelligibility,Vocal Quality Additional Impairments Identified Pt also reports occ mild dysphagia symptoms, which will be monitored Progress Towards Goals Good Progress Assessment of Overall Progress Improving Assessment of Improvement The pt continues to make excellent progress toward goals. He was responsive to training in laryngeal relaxation technique with improved vocal quality resulting. He maintained target loudness levels with min prompts during sentence level tasks with increased cognitive demand. Reviewed with Patient Goals,Progress Being Made,Home Exercise Program Patient/Caregiver Understanding Excellent Plan Amount of Therapy Recommended 1-2 Months Frequency of Treatment Four Times a Week Length of Session 60 Minutes Treatment Emphasis Next Session Cont LSVT-Loud protocol with sentences Therapeutic Contents Client Education,Home Exercise Program,Voice Training Additional Areas of Treatment Swallowing as indicated Provided Patient/Caregiver Instruction Home Exercise Program,Plan of Care,Questions/Concerns Therapy Recommendations Continue with Current Program
--- NOTE | 2021-07-21 12:25 | ST.OPTN ---
Visit Care Team Role Provider Type Milagro Walters PA-C Attending Provider Non-Staff Family Provider Primary Care Provider Referring Provider Address: [address] [place] [address], [id number] DIRECTOR ACCOUNT MANAGEMENT Treatment Note DIRECTOR ACCOUNT MANAGEMENT Treatment Note Start: 07/12/21 10:35 Freq: Status: Active Protocol: Document 07/21/21 12:15 NILA (Rec: 07/21/21 12:25 NILA [id number]) Speech Pathology Treatment Note Session Time Visit Start Time 09:30 Visit Stop Time 10:30 Total Visit Minutes 60 Visit Information Visit Number 09/23 Plan of Care Dates 07/12/21 - 10/07/21 Insurance Information Medicare Setting Treatment Setting Outpatient Care Visit Type Note Type Treatment Note Next Note Type Next Note Type Treatment Note General Information Patient History The pt is a 81-yr-old male who was diagnosed with Parkinson' s 2 yrs ago. He first noticed symptoms 4 yrs ago including slow right foot and leg movements and reduced handwriting ability and legibility and, in fact, reportedly broke his femur d/t bradykinesis 3 yrs ago. About 2 yrs ago he suddenly felt as if his tongue and lips were thick and slow moving, and this continues today in addition to people more frequently asking him to repeat himself. He finds that sometimes he doesn't have enough breath to complete sentences. He also noted occasional swallow difficulty, including coughing with food or liquid and sticking sensation with solids. He reported occasional pain at sternum area with swallow. This and the pharyngeal sticking sensation require liquid wash to clear. As a result, he avoids dry foods such as white meat. The pt also reported occasional WFDs which he thinks is probably age related. He denied other cognitive changes. Subjective Observations/Patient Presentation Pt arrived on time. No new complaints. He has been compliant with HEP and carryover tasks. He reported possible exposure to COVID-19. He was with a health care provider on Monday who tested positive yesterday. The pt reported no symptoms today. This DIRECTOR ACCOUNT MANAGEMENT contacted [facility] and was advised that both DIRECTOR ACCOUNT MANAGEMENT and pt should be masked and with protective eyewear throughout each session through next Monday, following CDC guidelines. Pt was informed of this and instructed to let his doctor know and get testing if he should experience any symptom and to cancel ST appts until symptoms are gone and he tests negative. He was in agreement . In that time, the pt is scheduled to be seen by another DIRECTOR ACCOUNT MANAGEMENT, Hesham Diaz, who has travel plans the day after their appt. Discussed with Hesham and pt and agreed that exposure risk for Hesham is too high and may prevent her ability to travel. The schedule was adjusted accordingly. Chief Complaint(s) Swallowing,Voice Rehab Expectation/Goals: Patient Goals Improve vocal loudness & quality; improve swallow function Patient Knowledge/Awareness of DIRECTOR ACCOUNT MANAGEMENT Role Good in Treatment Objective Short Term Goals 1. Pt will sustain vowel phonation for 20 sec at 75 dB or greater across 3 trials to increase breath support for speech and improve vocal quality/stability. 2. Pt perform pitch glide exercises with good vocal quality at avg of 75 dB or greater with min cues to increase pitch range and vocal stability at various pitches. 3. Pt will read Functional Phrases at avg of 72 dB or greater across 10 trials to increase speech intelligibility and promote carryover of vocal loudness into her/his functional environment. 4. Pt will read words/phrases with avg of 72 dB or greater with 90% accuracy and min cues to increase speech intelligibility. 5. Pt will maintain loudness levels no lower than 65 dB in [id number] remarks between structured tasks with min cues in 70% of opportunities to increase speech intelligibility and promote carryover of adequate loudness in spontaneous conversation. [facility] Goals 1. Pt will sustain vowel phonation for 25 sec at 75 dB or greater to increase/ maintain breath support for speech and vocal loudness. 2. Pt will produce prosodic features WFL in spontaneous conversation in 80% of opportunities to increase her/ his ability to communicate ideas, opinions, and wants/ needs. Treatment Activities Continued LSVT-Loud treatment. The pt completed the following: MPT = 16.5 s, Avg loudness 77 dB Pitch Range: 98-441 Hz, Avg loudess highs 77.9 dB; Lows 75.9 dB Functional Phrases recited with background noise of 74 dB added: 79 dB avg loudness. Reading Sentences: 71 dB avg loudness. Pt completed dual speaking and sorting tasks to increase cognitive load and recall/consistency of target loudness. Conversation: Not instrumentally measured. Perceived to meet target loudness consistently. Assessment Patient Response to Treatment Good Rehab Potential Excellent Impairments Identified Speech Intelligibility,Vocal Quality Additional Impairments Identified Pt also reports occ mild dysphagia symptoms, which will be monitored Progress Towards Goals Good Progress Assessment of Overall Progress Improving Assessment of Improvement The pt continues to make excellent progress toward goals. He maintained target loudness levels both with added background noise and in dual tasks. He reported reduced coughing with oral intake, indicating improvement in dysphagia symptoms as well . Reviewed with Patient Goals,Progress Being Made,Home Exercise Program Patient/Caregiver Understanding Excellent Plan Amount of Therapy Recommended 1-2 Months Frequency of Treatment Four Times a Week Length of Session 60 Minutes Treatment Emphasis Next Session Cont LSVT-Loud protocol with sentences Therapeutic Contents Client Education,Home Exercise Program,Voice Training Additional Areas of Treatment Swallowing as indicated Provided Patient/Caregiver Instruction Home Exercise Program,Plan of Care,Questions/Concerns Therapy Recommendations Continue with Current Program
--- NOTE | 2021-07-26 13:28 | ST.OPTN ---
Visit Care Team Role Provider Type Milagro Walters PA-C Attending Provider Non-Staff Family Provider Primary Care Provider Referring Provider Address: [address] [place] [address], [id number] AUTOMATIC BLOCKER Treatment Note AUTOMATIC BLOCKER Treatment Note Start: 07/12/21 10:35 Freq: Status: Active Protocol: Document 07/26/21 13:20 NILA (Rec: 07/26/21 13:27 NILA [id number]) Speech Pathology Treatment Note Session Time Visit Start Time 10:30 Visit Stop Time 11:30 Total Visit Minutes 60 Visit Information Visit Number 10/23 Plan of Care Dates 07/12/21 - 10/07/21 Insurance Information Medicare Setting Treatment Setting Outpatient Care Visit Type Note Type Treatment Note Next Note Type Next Note Type Treatment Note General Information Patient History The pt is a 81-yr-old male who was diagnosed with Parkinson' s 2 yrs ago. He first noticed symptoms 4 yrs ago including slow right foot and leg movements and reduced handwriting ability and legibility and, in fact, reportedly broke his femur d/t bradykinesis 3 yrs ago. About 2 yrs ago he suddenly felt as if his tongue and lips were thick and slow moving, and this continues today in addition to people more frequently asking him to repeat himself. He finds that sometimes he doesn't have enough breath to complete sentences. He also noted occasional swallow difficulty, including coughing with food or liquid and sticking sensation with solids. He reported occasional pain at sternum area with swallow. This and the pharyngeal sticking sensation require liquid wash to clear. As a result, he avoids dry foods such as white meat. The pt also reported occasional WFDs which he thinks is probably age related. He denied other cognitive changes. Subjective Observations/Patient Presentation Pt arrived on time. No new complaints. He has been compliant with HEP and carryover tasks. He has had no symptoms of COVID-19 and tested negative yesterday. Therefore, face andujar without masks were used by both the pt and AUTOMATIC BLOCKER in today's session. The pt did receive his second COVID booster yesterday and reported mild nausea this morning which had since resolved. Chief Complaint(s) Swallowing,Voice Rehab Expectation/Goals: Patient Goals Improve vocal loudness & quality; improve swallow function Patient Knowledge/Awareness of AUTOMATIC BLOCKER Role Good in Treatment Objective Short Term Goals 1. Pt will sustain vowel phonation for 20 sec at 75 dB or greater across 3 trials to increase breath support for speech and improve vocal quality/stability. 2. Pt perform pitch glide exercises with good vocal quality at avg of 75 dB or greater with min cues to increase pitch range and vocal stability at various pitches. 3. Pt will read Functional Phrases at avg of 72 dB or greater across 10 trials to increase speech intelligibility and promote carryover of vocal loudness into her/his functional environment. 4. Pt will read words/phrases with avg of 72 dB or greater with 90% accuracy and min cues to increase speech intelligibility. 5. Pt will maintain loudness levels no lower than 65 dB in ste-blb-lwez remarks between structured tasks with min cues in 70% of opportunities to increase speech intelligibility and promote carryover of adequate loudness in spontaneous conversation. Home Health Scheduler Goals 1. Pt will sustain vowel phonation for 25 sec at 75 dB or greater to increase/ maintain breath support for speech and vocal loudness. 2. Pt will produce prosodic features WFL in spontaneous conversation in 80% of opportunities to increase her/ his ability to communicate ideas, opinions, and wants/ needs. Treatment Activities Continued LSVT-Loud treatment. The pt completed the following: MPT = 15.5 s, Avg loudness 78. 3 dB Pitch Range: 94-447 Hz, Avg loudess highs 75.7 dB; Lows 73.8 dB Functional Phrases recited with background noise of 74 dB added: 81 dB avg loudness. Reading Sentences with background noise of 74 dB added: 81 dB avg loudness. Pt performed sentence completion tasks and word descriptions via Password game, targeting word recall in addition to vocal loudness to increase cognitive load. Conversation: 77 dB avg Assessment Patient Response to Treatment Good Rehab Potential Excellent Impairments Identified Speech Intelligibility,Vocal Quality Additional Impairments Identified Pt also reports occ mild dysphagia symptoms, which will be monitored Progress Towards Goals Good Progress Assessment of Overall Progress Improving Assessment of Improvement The pt continues to make excellent progress toward goals. He maintained target loudness levels both with added background noise in all speaking tasks. Occ decline in loudness occurred with off- the-cuff responses; the pt was immediately responsive to v/v prompts. Reviewed with Patient Goals,Progress Being Made,Home Exercise Program Patient/Caregiver Understanding Excellent Plan Amount of Therapy Recommended 1-2 Months Frequency of Treatment Four Times a Week Length of Session 60 Minutes Treatment Emphasis Next Session Cont LSVT-Loud protocol with paragraphs Therapeutic Contents Client Education,Home Exercise Program,Voice Training Additional Areas of Treatment Swallowing as indicated Provided Patient/Caregiver Instruction Home Exercise Program,Plan of Care,Questions/Concerns Therapy Recommendations Continue with Current Program
--- NOTE | 2021-07-27 16:36 | ST.OPTN ---
Visit Care Team Role Provider Type Milagro Walters PA-C Attending Provider Non-Staff Family Provider Primary Care Provider Referring Provider Address: [address] [place] [address], [id number] SUPERVISOR WELDING EQUIPMENT REPAIRER Treatment Note SUPERVISOR WELDING EQUIPMENT REPAIRER Treatment Note Start: 07/12/21 10:35 Freq: Status: Active Protocol: Document 07/27/21 14:43 NILA (Rec: 07/27/21 14:45 NILA [id number]) Speech Pathology Treatment Note Session Time Visit Start Time 10:30 Visit Stop Time 11:30 Total Visit Minutes 60 Visit Information Visit Number 11/23 Plan of Care Dates 07/12/21 - 10/07/21 Insurance Information Medicare Setting Treatment Setting Outpatient Care Visit Type Note Type Treatment Note Next Note Type Next Note Type Treatment Note General Information Patient History The pt is a 81-yr-old male who was diagnosed with Parkinson' s 2 yrs ago. He first noticed symptoms 4 yrs ago including slow right foot and leg movements and reduced handwriting ability and legibility and, in fact, reportedly broke his femur d/t bradykinesis 3 yrs ago. About 2 yrs ago he suddenly felt as if his tongue and lips were thick and slow moving, and this continues today in addition to people more frequently asking him to repeat himself. He finds that sometimes he doesn't have enough breath to complete sentences. He also noted occasional swallow difficulty, including coughing with food or liquid and sticking sensation with solids. He reported occasional pain at sternum area with swallow. This and the pharyngeal sticking sensation require liquid wash to clear. As a result, he avoids dry foods such as white meat. The pt also reported occasional WFDs which he thinks is probably age related. He denied other cognitive changes. Subjective Observations/Patient Presentation Pt arrived on time. No new complaints. He has been compliant with HEP and carryover tasks. Chief Complaint(s) Swallowing,Voice Rehab Expectation/Goals: Patient Goals Improve vocal loudness & quality; improve swallow function Patient Knowledge/Awareness of SUPERVISOR WELDING EQUIPMENT REPAIRER Role Good in Treatment Objective Short Term Goals 1. Pt will sustain vowel phonation for 20 sec at 75 dB or greater across 3 trials to increase breath support for speech and improve vocal quality/stability. 2. Pt perform pitch glide exercises with good vocal quality at avg of 75 dB or greater with min cues to increase pitch range and vocal stability at various pitches. 3. Pt will read Functional Phrases at avg of 72 dB or greater across 10 trials to increase speech intelligibility and promote carryover of vocal loudness into her/his functional environment. 4. Pt will read words/phrases with avg of 72 dB or greater with 90% accuracy and min cues to increase speech intelligibility. 5. Pt will maintain loudness levels no lower than 65 dB in [id number] remarks between structured tasks with min cues in 70% of opportunities to increase speech intelligibility and promote carryover of adequate loudness in spontaneous conversation. Genetic Engineer Goals 1. Pt will sustain vowel phonation for 25 sec at 75 dB or greater to increase/ maintain breath support for speech and vocal loudness. 2. Pt will produce prosodic features WFL in spontaneous conversation in 80% of opportunities to increase her/ his ability to communicate ideas, opinions, and wants/ needs. Treatment Activities Continued LSVT-Loud treatment. The pt completed the following: MPT = 16.6 s, Avg loudness 76. 8 dB Pitch Range: 106-443 Hz, Avg loudess highs 76.8 dB; Lows 76.7 dB Functional Phrases recited with background noise of 71-78 dB added: 81.5 dB avg loudness. Reading Paragraphs: 80.6 dB avg loudness. Conversation with background noise of 60 dB added: 78 dB avg Assessment Patient Response to Treatment Good Rehab Potential Excellent Impairments Identified Speech Intelligibility,Vocal Quality Additional Impairments Identified Pt also reports occ mild dysphagia symptoms, which will be monitored Progress Towards Goals Good Progress Assessment of Overall Progress Improving Assessment of Improvement The pt continues to make excellent progress toward goals. He maintained target loudness levels both with added background noise in all speaking tasks. Maintained target loudness in conversation with and without added background noise. Occ need for increased attention by SUPERVISOR WELDING EQUIPMENT REPAIRER to understand speech articulation, requiring 2 repeptitions. Pt adjusted loudness accordingly to meet the environmental challenge. Reviewed with Patient Goals,Progress Being Made,Home Exercise Program Patient/Caregiver Understanding Excellent Plan Amount of Therapy Recommended 1-2 Months Frequency of Treatment Four Times a Week Length of Session 60 Minutes Treatment Emphasis Next Session Cont LSVT-Loud protocol with paragraphs Therapeutic Contents Client Education,Home Exercise Program,Voice Training Additional Areas of Treatment Swallowing as indicated Provided Patient/Caregiver Instruction Home Exercise Program,Plan of Care,Questions/Concerns Therapy Recommendations Continue with Current Program
--- NOTE | 2021-07-28 15:36 | ST.OPTN ---
Visit Care Team Role Provider Type Milagro Walters PA-C Attending Provider Non-Staff Family Provider Primary Care Provider Referring Provider Address: [address] [place] [address], [id number] ELECTRICAL AND ELECTRONIC ASSEMBLER Treatment Note ELECTRICAL AND ELECTRONIC ASSEMBLER Treatment Note Start: 07/12/21 10:35 Freq: Status: Active Protocol: Document 07/28/21 15:28 NILA (Rec: 07/28/21 15:36 NILA [id number]) Speech Pathology Treatment Note Session Time Visit Start Time 10:30 Visit Stop Time 11:30 Total Visit Minutes 60 Visit Information Visit Number 12/24 Plan of Care Dates 07/12/21 - 10/07/21 Insurance Information Medicare Setting Treatment Setting Outpatient Care Visit Type Note Type Treatment Note Next Note Type Next Note Type Treatment Note General Information Patient History The pt is a 81-yr-old male who was diagnosed with Parkinson' s 2 yrs ago. He first noticed symptoms 4 yrs ago including slow right foot and leg movements and reduced handwriting ability and legibility and, in fact, reportedly broke his femur d/t bradykinesis 3 yrs ago. About 2 yrs ago he suddenly felt as if his tongue and lips were thick and slow moving, and this continues today in addition to people more frequently asking him to repeat himself. He finds that sometimes he doesn't have enough breath to complete sentences. He also noted occasional swallow difficulty, including coughing with food or liquid and sticking sensation with solids. He reported occasional pain at sternum area with swallow. This and the pharyngeal sticking sensation require liquid wash to clear. As a result, he avoids dry foods such as white meat. The pt also reported occasional WFDs which he thinks is probably age related. He denied other cognitive changes. Subjective Observations/Patient Presentation Pt arrived on time. No new complaints. He has been compliant with HEP and carryover tasks. Chief Complaint(s) Swallowing,Voice Rehab Expectation/Goals: Patient Goals Improve vocal loudness & quality; improve swallow function Patient Knowledge/Awareness of ELECTRICAL AND ELECTRONIC ASSEMBLER Role Good in Treatment Objective Short Term Goals 1. Pt will sustain vowel phonation for 20 sec at 75 dB or greater across 3 trials to increase breath support for speech and improve vocal quality/stability. 2. Pt perform pitch glide exercises with good vocal quality at avg of 75 dB or greater with min cues to increase pitch range and vocal stability at various pitches. 3. Pt will read Functional Phrases at avg of 72 dB or greater across 10 trials to increase speech intelligibility and promote carryover of vocal loudness into her/his functional environment. 4. Pt will read words/phrases with avg of 72 dB or greater with 90% accuracy and min cues to increase speech intelligibility. 5. Pt will maintain loudness levels no lower than 65 dB in ree-hbb-jxny remarks between structured tasks with min cues in 70% of opportunities to increase speech intelligibility and promote carryover of adequate loudness in spontaneous conversation. Tower Equipment Repairer Goals 1. Pt will sustain vowel phonation for 25 sec at 75 dB or greater to increase/ maintain breath support for speech and vocal loudness. 2. Pt will produce prosodic features WFL in spontaneous conversation in 80% of opportunities to increase her/ his ability to communicate ideas, opinions, and wants/ needs. Treatment Activities Continued [facility] treatment. The pt completed the following: MPT = 14.5 s, Avg loudness 76. 4 dB Pitch Range: 103-419 Hz, Avg loudess highs 75.3 dB; Lows 72 dB Functional Phrases recited with background noise of 73 dB added: 82.6 dB avg loudness. Reading Paragraphs with background noise of 70 dB added: 78 dB avg loudness. Speech intelligibility was ~90 % d/t decreased enunciation with rapid reading rate and background noise competition. Conversation: 80 dB avg Assessment Patient Response to Treatment Good Rehab Potential Excellent Impairments Identified Speech Intelligibility,Vocal Quality Additional Impairments Identified Pt also reports occ mild dysphagia symptoms, which will be monitored Progress Towards Goals Good Progress Assessment of Overall Progress Improving Assessment of Improvement The pt continues to make excellent progress toward goals. He maintained target loudness levels both with added background noise in all speaking tasks. Mildly decreased speech intelligibility was noted during paragraph reading task when background noise was added. The pt read factual information accurately but quickly with minimal vocal inflection (consistent with factual content of reading), which clouded enunciation, particularly with auditory competition from background noise. The pt was responsive to feedback and prompts. He maintained target loudness and exhibited excellent vocal inflection and facial expression in conversation. Pt adjusted loudness accordingly to meet the environmental challenge. Reviewed with Patient Goals,Progress Being Made,Home Exercise Program Patient/Caregiver Understanding Excellent Plan Amount of Therapy Recommended 1-2 Months Frequency of Treatment Four Times a Week Length of Session 60 Minutes Treatment Emphasis Next Session Cont LSVT-Loud protocol with paragraphs Therapeutic Contents Client Education,Home Exercise Program,Voice Training Additional Areas of Treatment Swallowing as indicated Provided Patient/Caregiver Instruction Home Exercise Program,Plan of Care,Questions/Concerns Therapy Recommendations Continue with Current Program
--- NOTE | 2021-08-02 11:42 | ST.OPTN ---
Visit Care Team Role Provider Type Milagro Walters PA-C Attending Provider Non-Staff Family Provider Primary Care Provider Referring Provider Address: [address] [place] [address], [id number] WELL TREATMENT OFFSIDER Treatment Note WELL TREATMENT OFFSIDER Treatment Note Start: 07/12/21 10:35 Freq: Status: Active Protocol: Document 08/02/21 11:36 NILA (Rec: 08/02/21 11:42 NILA [id number]) Speech Pathology Treatment Note Session Time Visit Start Time 10:30 Visit Stop Time 11:30 Total Visit Minutes 60 Visit Information Visit Number 01/23 Plan of Care Dates 07/12/21 - 10/07/21 Insurance Information Medicare Setting Treatment Setting Outpatient Care Visit Type Note Type Progress Note Next Note Type Next Note Type Treatment Note General Information Patient History The pt is a 81-yr-old male who was diagnosed with Parkinson' s 2 yrs ago. He first noticed symptoms 4 yrs ago including slow right foot and leg movements and reduced handwriting ability and legibility and, in fact, reportedly broke his femur d/t bradykinesis 3 yrs ago. About 2 yrs ago he suddenly felt as if his tongue and lips were thick and slow moving, and this continues today in addition to people more frequently asking him to repeat himself. He finds that sometimes he doesn't have enough breath to complete sentences. He also noted occasional swallow difficulty, including coughing with food or liquid and sticking sensation with solids. He reported occasional pain at sternum area with swallow. This and the pharyngeal sticking sensation require liquid wash to clear. As a result, he avoids dry foods such as white meat. The pt also reported occasional WFDs which he thinks is probably age related. He denied other cognitive changes. Subjective Observations/Patient Presentation Pt arrived on time. No new complaints. He has been compliant with HEP and carryover tasks. He reported sustaining phonation for 21 seconds during home practice. Chief Complaint(s) Swallowing,Voice Rehab Expectation/Goals: Patient Goals Improve vocal loudness & quality; improve swallow function Patient Knowledge/Awareness of WELL TREATMENT OFFSIDER Role Excellent in Treatment Patient/Caregiver Compliance with Home Excellent Exercise Program Objective Short Term Goals 1. Pt will sustain vowel phonation for 20 sec at 75 dB or greater across 3 trials to increase breath support for speech and improve vocal quality/stability. 2. Pt perform pitch glide exercises with good vocal quality at g of 75 dB or greater with min cues to increase pitch range and vocal stability at various pitches. 3. Pt will read Functional Phrases at avg of 72 dB or greater across 10 trials to increase speech intelligibility and promote carryover of vocal loudness into her/his functional environment. 4. Pt will read words/phrases with avg of 72 dB or greater with 90% accuracy and min cues to increase speech intelligibility. 5. Pt will maintain loudness levels no lower than 65 dB in cgf-zpz-zkey remarks between structured tasks with min cues in 70% of opportunities to increase speech intelligibility and promote carryover of adequate loudness in spontaneous conversation. Preconstruction Manager Goals 1. Pt will sustain vowel phonation for 25 sec at 75 dB or greater to increase/ maintain breath support for speech and vocal loudness. 2. Pt will produce prosodic features WFL in spontaneous conversation in 80% of opportunities to increase her/ his ability to communicate ideas, opinions, and wants/ needs. Treatment Activities Continued LSAR-Loud treatment. The pt completed the following: MPT = 17.4 s, Avg loudness 71 dB Pitch Range: 101-436 Hz, Avg loudess highs 78dB; Lows 72.4 dB Functional Phrases: 80 dB avg loudness. Loudness was noted to decline over the duration of continuous reading of phrases but remained at or above target levels. Skilled feedback was provided RE the importance of exercises that target loudness above normal conversation levels in order to increase muscular strength and allow for a buffer if loudness in conversation declines somewhat, as seen in this task. Paragraphs: The pt described various photographs with 79 dB avg loudness. Decline in loudness noted when pt was considering concepts represented by the photographs and when reading their captions. All loudness remained at or above target levels. Conversation: 74 dB avg Assessment Patient Response to Treatment Good Rehab Potential Excellent Impairments Identified Speech Intelligibility,Vocal Quality Additional Impairments Identified Pt also reports occ mild dysphagia symptoms, which will be monitored Progress Towards Goals Good Progress Assessment of Overall Progress Improving Assessment of Improvement The pt continues to make excellent progress toward goals. He maintained target loudness levels even when loudness declines over the progression of a speaking task . Will continue to promote self-monitoring and cuing. Reviewed with Patient Goals,Progress Being Made,Home Exercise Program Patient/Caregiver Understanding Excellent Plan Amount of Therapy Recommended 1-2 Months Frequency of Treatment Four Times a Week Length of Session 60 Minutes Treatment Emphasis Next Session Cont LSVT-Loud protocol with paragraphs Therapeutic Contents Client Education,Home Exercise Program,Voice Training Additional Areas of Treatment Swallowing as indicated Provided Patient/Caregiver Instruction Home Exercise Program,Plan of Care,Questions/Concerns Therapy Recommendations Continue with Current Program
--- NOTE | 2021-08-06 14:33 | ST.OPTN ---
Visit Care Team Role Provider Type Milagro Walters PA-C Attending Provider Non-Staff Family Provider Primary Care Provider Referring Provider Address: [address] [place] [address], [id number] TELECOMMUNICATIONS MANAGER Treatment Note TELECOMMUNICATIONS MANAGER Treatment Note Start: 07/12/21 10:35 Freq: Status: Active Protocol: Document 08/06/21 14:25 ZS (Rec: 08/06/21 14:33 ZS [id number]) Speech Pathology Treatment Note Session Time Visit Start Time 13:30 Visit Stop Time 14:30 Total Visit Minutes 60 Visit Information Visit Number 03/25 Plan of Care Dates 07/12/21 - 10/07/21 Insurance Information Medicare Setting Treatment Setting Outpatient Care Visit Type Note Type Treatment Note Next Note Type Next Note Type Treatment Note General Information Patient History The pt is a 81-yr-old male who was diagnosed with Parkinson' s 2 yrs ago. He first noticed symptoms 4 yrs ago including slow right foot and leg movements and reduced handwriting ability and legibility and, in fact, reportedly broke his femur d/t bradykinesis 3 yrs ago. About 2 yrs ago he suddenly felt as if his tongue and lips were thick and slow moving, and this continues today in addition to people more frequently asking him to repeat himself. He finds that sometimes he doesn't have enough breath to complete sentences. He also noted occasional swallow difficulty, including coughing with food or liquid and sticking sensation with solids. He reported occasional pain at sternum area with swallow. This and the pharyngeal sticking sensation require liquid wash to clear. As a result, he avoids dry foods such as white meat. The pt also reported occasional WFDs which he thinks is probably age related. He denied other cognitive changes. Subjective Observations/Patient Presentation Pt arrived on time. No new complaints. He has been compliant with HEP and carryover tasks. He reported having trouble being heard when there is background noise present (e.g., at the grocery store or restaurants). Chief Complaint(s) Swallowing,Voice Rehab Expectation/Goals: Patient Goals Improve vocal loudness & quality; improve swallow function Patient Knowledge/Awareness of TELECOMMUNICATIONS MANAGER Role Excellent in Treatment Patient/Caregiver Compliance with Home Excellent Exercise Program Objective Short Term Goals 1. Pt will sustain vowel phonation for 20 sec at 75 dB or greater across 3 trials to increase breath support for speech and improve vocal quality/stability. 2. Pt perform pitch glide exercises with good vocal quality at avg of 75 dB or greater with min cues to increase pitch range and vocal stability at various pitches. 3. Pt will read Functional Phrases at avg of 72 dB or greater across 10 trials to increase speech intelligibility and promote carryover of vocal loudness into her/his functional environment. 4. Pt will read words/phrases with avg of 72 dB or greater with 90% accuracy and min cues to increase speech intelligibility. 5. Pt will maintain loudness levels no lower than 65 dB in [id number] remarks between structured tasks with min cues in 70% of opportunities to increase speech intelligibility and promote carryover of adequate loudness in spontaneous conversation. Longterm Goals 1. Pt will sustain vowel phonation for 25 sec at 75 dB or greater to increase/ maintain breath support for speech and vocal loudness. 2. Pt will produce prosodic features WFL in spontaneous conversation in 80% of opportunities to increase her/ his ability to communicate ideas, opinions, and wants/ needs. Treatment Activities Continued LSVT-Loud treatment. The pt completed the following: MPT = 9.2 s, Avg loudness 75.2 dB Pitch Range: 112 - 408 Hz, Avg loudess highs 74.8 dB; Lows 76.0 dB Functional Phrases: functional phrases were not completed this session. Paragraphs: The pt described pictures in a book and read captions with 70.6 dB avg loudness. He maintained this loudness with background noise (e.g., coffee shop sounds) playing and adjusted loudness as volume of background noise changed. Conversation: 72 dB avg Assessment Patient Response to Treatment Good Rehab Potential Excellent Progress Towards Goals Good Progress Assessment of Overall Progress Improving Assessment of Improvement The pt continues to make excellent progress toward goals. He maintained functional loudness levels with background sounds playing and adjusted his volume to an appropriate loudness given changing volume of background noise. Reviewed with Patient Goals,Progress Being Made,Home Exercise Program Patient/Caregiver Understanding Excellent Plan Amount of Therapy Recommended 1-2 Months Frequency of Treatment Four Times a Week Length of Session 60 Minutes Treatment Emphasis Next Session Cont LSVT-Loud protocol with conversation in various environments. Therapeutic Contents Client Education,Home Exercise Program,Voice Training Additional Areas of Treatment Swallowing as indicated Provided Patient/Caregiver Instruction Home Exercise Program,Plan of Care,Questions/Concerns Therapy Recommendations Continue with Current Program
--- NOTE | 2021-08-09 17:47 | ST.OPTN ---
Visit Care Team Role Provider Type Milagro Walters PA-C Attending Provider Non-Staff Family Provider Primary Care Provider Referring Provider Address: [address] [place] [address], [id number] SEAMING INSPECTOR Treatment Note SEAMING INSPECTOR Treatment Note Start: 07/12/21 10:35 Freq: Status: Active Protocol: Document 08/09/21 17:37 NILA (Rec: 08/09/21 17:47 NILA [id number]) Speech Pathology Treatment Note Session Time Visit Start Time 10:30 Visit Stop Time 11:30 Total Visit Minutes 60 Visit Information Visit Number Plan of Care Dates 07/12/21 - 10/07/21 Insurance Information Medicare Setting Treatment Setting Outpatient Care Visit Type Note Type Treatment Note Next Note Type Next Note Type Treatment Note General Information Patient History The pt is a 81-yr-old male who was diagnosed with Parkinson' s 2 yrs ago. He first noticed symptoms 4 yrs ago including slow right foot and leg movements and reduced handwriting ability and legibility and, in fact, reportedly broke his femur d/t bradykinesis 3 yrs ago. About 2 yrs ago he suddenly felt as if his tongue and lips were thick and slow moving, and this continues today in addition to people more frequently asking him to repeat himself. He finds that sometimes he doesn't have enough breath to complete sentences. He also noted occasional swallow difficulty, including coughing with food or liquid and sticking sensation with solids. He reported occasional pain at sternum area with swallow. This and the pharyngeal sticking sensation require liquid wash to clear. As a result, he avoids dry foods such as white meat. The pt also reported occasional WFDs which he thinks is probably age related. He denied other cognitive changes. Subjective Observations/Patient Presentation Pt arrived on time. No new complaints. He has been compliant with HEP and carryover tasks. Chief Complaint(s) Swallowing,Voice Rehab Expectation/Goals: Patient Goals Improve vocal loudness & quality; improve swallow function Patient Knowledge/Awareness of SEAMING INSPECTOR Role Excellent in Treatment Patient/Caregiver Compliance with Home Excellent Exercise Program Objective Short Term Goals 1. Pt will sustain vowel phonation for 20 sec at 75 dB or greater across 3 trials to increase breath support for speech and improve vocal quality/stability. 2. Pt perform pitch glide exercises with good vocal quality at avg of 75 dB or greater with min cues to increase pitch range and vocal stability at various pitches. 3. Pt will read Functional Phrases at avg of 72 dB or greater across 10 trials to increase speech intelligibility and promote carryover of vocal loudness into her/his functional environment. 4. Pt will read words/phrases with avg of 72 dB or greater with 90% accuracy and min cues to increase speech intelligibility. 5. Pt will maintain loudness levels no lower than 65 dB in [id number] remarks between structured tasks with min cues in 70% of opportunities to increase speech intelligibility and promote carryover of adequate loudness in spontaneous conversation. Accounting Software Specialist Goals 1. Pt will sustain vowel phonation for 25 sec at 75 dB or greater to increase/ maintain breath support for speech and vocal loudness. 2. Pt will produce prosodic features WFL in spontaneous conversation in 80% of opportunities to increase her/ his ability to communicate ideas, opinions, and wants/ needs. Treatment Activities Continued LSVT-Loud treatment. The pt completed the following: MPT = 21.1 s, Avg loudness 76 dB Pitch Range: 105-416 Hz, Avg loudess highs 76.3 dB; Lows 74.8 dB Functional Phrases: Avg loudness 79 dB. Initially the pt was noted to decline in loudness over duration of task . With feedback, he increased improved consistency of loudness over the following sets. Conversation in hospital cafeterial with 66-69 dB background noise: Not instrumentally measured. The pt was 100% intelligible to this listener with good hearing, demonstrating appropriate adjustment of loudness for setting and audience. If the listener was [place], it is anticipated s/he would have difficulty hearing the pt's voice. Will target increasing loudness at next session. Assessment Patient Response to Treatment Good Rehab Potential Excellent Progress Towards Goals Good Progress Assessment of Overall Progress Improving Assessment of Improvement The pt continues to make excellent progress toward goals. Mild decline in loudness noted over duration of functional phrases. Pt corrected with min prompts. Speech intelligibility was WNL for this listener in a busy environment. Reviewed with Patient Goals,Progress Being Made,Home Exercise Program Patient/Caregiver Understanding Excellent Plan Amount of Therapy Recommended 1-2 Months Frequency of Treatment Four Times a Week Length of Session 60 Minutes Treatment Emphasis Next Session Cont LSVT-Loud protocol with conversation in various environments. Therapeutic Contents Client Education,Home Exercise Program,Voice Training Additional Areas of Treatment Swallowing as indicated Provided Patient/Caregiver Instruction Home Exercise Program,Plan of Care,Questions/Concerns Therapy Recommendations Continue with Current Program
--- NOTE | 2021-08-10 17:11 | ST.OPTN ---
Visit Care Team Role Provider Type Milagro Walters PA-C Attending Provider Non-Staff Family Provider Primary Care Provider Referring Provider Address: [address] [place] [address], [id number] COMBINATION WELDER Treatment Note COMBINATION WELDER Treatment Note Start: 07/12/21 10:35 Freq: Status: Active Protocol: Document 08/10/21 17:06 NILA (Rec: 08/10/21 17:11 NILA [id number]) Speech Pathology Treatment Note Session Time Visit Start Time 10:30 Visit Stop Time 11:30 Total Visit Minutes 60 Visit Information Visit Number Plan of Care Dates 07/12/21 - 10/07/21 Insurance Information Medicare Setting Treatment Setting Outpatient Care Visit Type Note Type Treatment Note Next Note Type Next Note Type Treatment Note General Information Patient History The pt is a 81-yr-old male who was diagnosed with Parkinson' s 2 yrs ago. He first noticed symptoms 4 yrs ago including slow right foot and leg movements and reduced handwriting ability and legibility and, in fact, reportedly broke his femur d/t bradykinesis 3 yrs ago. About 2 yrs ago he suddenly felt as if his tongue and lips were thick and slow moving, and this continues today in addition to people more frequently asking him to repeat himself. He finds that sometimes he doesn't have enough breath to complete sentences. He also noted occasional swallow difficulty, including coughing with food or liquid and sticking sensation with solids. He reported occasional pain at sternum area with swallow. This and the pharyngeal sticking sensation require liquid wash to clear. As a result, he avoids dry foods such as white meat. The pt also reported occasional WFDs which he thinks is probably age related. He denied other cognitive changes. Subjective Observations/Patient Presentation Pt arrived on time. No new complaints. He has been compliant with HEP and carryover tasks. He reported really no swallow problem now and also reported being tired today. Chief Complaint(s) Swallowing,Voice Rehab Expectation/Goals: Patient Goals Improve vocal loudness & quality; improve swallow function Patient Knowledge/Awareness of COMBINATION WELDER Role Excellent in Treatment Patient/Caregiver Compliance with Home Excellent Exercise Program Objective Short Term Goals 1. Pt will sustain vowel phonation for 20 sec at 75 dB or greater across 3 trials to increase breath support for speech and improve vocal quality/stability. 2. Pt perform pitch glide exercises with good vocal quality at avg of 75 dB or greater with min cues to increase pitch range and vocal stability at various pitches. 3. Pt will read Functional Phrases at avg of 72 dB or greater across 10 trials to increase speech intelligibility and promote carryover of vocal loudness into her/his functional environment. 4. Pt will read words/phrases with avg of 72 dB or greater with 90% accuracy and min cues to increase speech intelligibility. 5. Pt will maintain loudness levels no lower than 65 dB in [id number]-kii-[id number] remarks between structured tasks with min cues in 70% of opportunities to increase speech intelligibility and promote carryover of adequate loudness in spontaneous conversation. Hot Molder Goals 1. Pt will sustain vowel phonation for 25 sec at 75 dB or greater to increase/ maintain breath support for speech and vocal loudness. 2. Pt will produce prosodic features WFL in spontaneous conversation in 80% of opportunities to increase her/ his ability to communicate ideas, opinions, and wants/ needs. Treatment Activities Continued LSVT-Loud treatment. The pt completed the following: MPT = 16.2 s, Avg loudness 73 dB Pitch Range: 105-413 Hz, Avg loudess highs 76.4 dB; Lows 75.2 dB Functional Phrases: Avg loudness 83 dB. Improved consistency of loudness as compared to yesterday. Conversation in hospital cafeterial with 66-69 dB background noise: Not instrumentally measured. The pt was 100% intelligible to this listener, mildly increased and appropriate loudness as compared to yesterday. Good facial expression noted as well. Assessment Patient Response to Treatment Good Rehab Potential Excellent Progress Towards Goals Good Progress Assessment of Overall Progress Improving Assessment of Improvement The pt continues to make excellent progress toward goals. Swallowing function is perceived by the pt to be improved as well. Diplophonia was perceived by both pt and COMBINATION WELDER during sustained phonation , and intermittent hoarseness was perceived in conversation. Attempted to shape the voice with laryngeal relaxation techniques, which were occasionally helpful but only for short durations. The pt also demonstrated increased freezing gait. Suspect these changes are secondary to fatigue, as the pt reported not having slept well last night and was observed to yawn several time during the session. Reviewed with Patient Goals,Progress Being Made,Home Exercise Program Patient/Caregiver Understanding Excellent Plan Amount of Therapy Recommended 1-2 Months Frequency of Treatment Four Times a Week Length of Session 60 Minutes Treatment Emphasis Next Session Cont LSVT-Loud protocol with conversation in various environments. Therapeutic Contents Client Education,Home Exercise Program,Voice Training Additional Areas of Treatment Swallowing as indicated Provided Patient/Caregiver Instruction Home Exercise Program,Plan of Care,Questions/Concerns Therapy Recommendations Continue with Current Program
--- NOTE | 2021-08-16 18:30 | ST.OPTN ---
Visit Care Team Role Provider Type Milagro Walters PA-C Attending Provider Non-Staff Family Provider Primary Care Provider Referring Provider Address: [address] [place] [address], [id number] WORKERS' COMPENSATION HEARINGS OFFICER Treatment Note WORKERS' COMPENSATION HEARINGS OFFICER Treatment Note Start: 07/12/21 10:35 Freq: Status: Active Protocol: Document 08/16/21 18:27 NILA (Rec: 08/16/21 18:30 NILA [id number]) Speech Pathology Treatment Note Session Time Visit Start Time 15:30 Visit Stop Time 16:30 Total Visit Minutes 60 Visit Information Visit Number Plan of Care Dates 07/12/21 - 10/07/21 Insurance Information Medicare Setting Treatment Setting Outpatient Care Visit Type Note Type Treatment Note Next Note Type Next Note Type Treatment Note General Information Patient History The pt is a 81-yr-old male who was diagnosed with Parkinson' s 2 yrs ago. He first noticed symptoms 4 yrs ago including slow right foot and leg movements and reduced handwriting ability and legibility and, in fact, reportedly broke his femur d/t bradykinesis 3 yrs ago. About 2 yrs ago he suddenly felt as if his tongue and lips were thick and slow moving, and this continues today in addition to people more frequently asking him to repeat himself. He finds that sometimes he doesn't have enough breath to complete sentences. He also noted occasional swallow difficulty, including coughing with food or liquid and sticking sensation with solids. He reported occasional pain at sternum area with swallow. This and the pharyngeal sticking sensation require liquid wash to clear. As a result, he avoids dry foods such as white meat. The pt also reported occasional WFDs which he thinks is probably age related. He denied other cognitive changes. Subjective Observations/Patient Presentation Pt arrived on time. No new complaints. He has been compliant with HEP and carryover tasks. He reported MPT = 23 sec during home practice but reduced today, he suspected because he was tired. Chief Complaint(s) Swallowing,Voice Rehab Expectation/Goals: Patient Goals Improve vocal loudness & quality; improve swallow function Patient Knowledge/Awareness of WORKERS' COMPENSATION HEARINGS OFFICER Role Excellent in Treatment Patient/Caregiver Compliance with Home Excellent Exercise Program Objective Short Term Goals 1. Pt will sustain vowel phonation for 20 sec at 75 dB or greater across 3 trials to increase breath support for speech and improve vocal quality/stability. 2. Pt perform pitch glide exercises with good vocal quality at avg of 75 dB or greater with min cues to increase pitch range and vocal stability at various pitches. 3. Pt will read Functional Phrases at avg of 72 dB or greater across 10 trials to increase speech intelligibility and promote carryover of vocal loudness into her/his functional environment. 4. Pt will read words/phrases with avg of 72 dB or greater with 90% accuracy and min cues to increase speech intelligibility. 5. Pt will maintain loudness levels no lower than 65 dB in asq-pfo-wuiu remarks between structured tasks with min cues in 70% of opportunities to increase speech intelligibility and promote carryover of adequate loudness in spontaneous conversation. Detention Goals 1. Pt will sustain vowel phonation for 25 sec at 75 dB or greater to increase/ maintain breath support for speech and vocal loudness. 2. Pt will produce prosodic features WFL in spontaneous conversation in 80% of opportunities to increase her/ his ability to communicate ideas, opinions, and wants/ needs. Treatment Activities Continued LSVT-Loud treatment. The pt completed the following: MPT = 17.3 s, Avg loudness 77. 7 dB Pitch Range: 105-417 Hz, Avg loudess highs 74.3 dB; Lows 74.9 dB Functional Phrases: Avg loudness 83 dB. Conversation in hospital cafeterial with 66-69 dB background noise: Not instrumentally measured. The pt was 100% intelligible to this listener without effort. Good facial expression noted as well. Assessment Patient Response to Treatment Good Rehab Potential Excellent Impairments Identified Voice Progress Towards Goals Excellent Progress,Good Progress Assessment of Overall Progress Improving Assessment of Improvement The pt continues to make excellent progress toward goals. Improved vocal quality without diplophonia noted today. The pt maintained adequate loudness during conversation in a noisy environment without prompts. Reviewed with Patient Goals,Progress Being Made,Home Exercise Program Patient/Caregiver Understanding Excellent Plan Amount of Therapy Recommended 1-2 Months Frequency of Treatment Four Times a Week Length of Session 60 Minutes Treatment Emphasis Next Session Cont LSVT-Loud protocol with conversation in various environments. Therapeutic Contents Client Education,Home Exercise Program,Voice Training Additional Areas of Treatment Swallowing as indicated Provided Patient/Caregiver Instruction Home Exercise Program,Plan of Care,Questions/Concerns Therapy Recommendations Continue with Current Program
--- NOTE | 2021-08-18 17:58 | ST.OPDS ---
Visit Care Team Role Provider Type Milagro Walters PA-C Attending Provider Non-Staff Family Provider Primary Care Provider Referring Provider Address: [address] [place] [address], [id number] DIRECTOR OF SUSTAINABLE DESIGN Treatment Note DIRECTOR OF SUSTAINABLE DESIGN Treatment Note Start: 07/12/21 10:35 Freq: Status: Active Protocol: Document 08/18/21 18:23 NILA (Rec: 08/18/21 18:24 NILA [id number]) Speech Pathology Treatment Note Session Time Visit Start Time 14:30 Visit Stop Time 15:30 Total Visit Minutes 60 Visit Information Visit Number Plan of Care Dates 07/12/21 - 10/07/21 Insurance Information Medicare Setting Treatment Setting Outpatient Care Visit Type Note Type Discharge Summary Next Note Type Next Note Type Treatment Note General Information Patient History The pt is a 81-yr-old male who was diagnosed with Parkinson' s 2 yrs ago. He first noticed symptoms 4 yrs ago including slow right foot and leg movements and reduced handwriting ability and legibility and, in fact, reportedly broke his femur d/t bradykinesis 3 yrs ago. About 2 yrs ago he suddenly felt as if his tongue and lips were thick and slow moving, and this continues today in addition to people more frequently asking him to repeat himself. He finds that sometimes he doesn't have enough breath to complete sentences. He also noted occasional swallow difficulty, including coughing with food or liquid and sticking sensation with solids. He reported occasional pain at sternum area with swallow. This and the pharyngeal sticking sensation require liquid wash to clear. As a result, he avoids dry foods such as white meat. The pt also reported occasional WFDs which he thinks is probably age related. He denied other cognitive changes. Subjective Observations/Patient Presentation Pt arrived on time. No new complaints. He has been compliant with HEP and carryover tasks. Chief Complaint(s) Swallowing,Voice Rehab Expectation/Goals: Patient Goals Improve vocal loudness & quality; improve swallow function Patient Knowledge/Awareness of DIRECTOR OF SUSTAINABLE DESIGN Role Excellent in Treatment Patient/Caregiver Compliance with Home Excellent Exercise Program Objective Short Term Goals 1. Pt will sustain vowel phonation for 20 sec at 75 dB or greater across 3 trials to increase breath support for speech and improve vocal quality/stability. GOAL NOT MET IN TREATMENT BUT REPORTEDLY MET IN HOME PRACTICE 2. Pt perform pitch glide exercises with good vocal quality at avg of 75 dB or greater with min cues to increase pitch range and vocal stability at various pitches. GOAL MET 3. Pt will read Functional Phrases at avg of 72 dB or greater across 10 trials to increase speech intelligibility and promote carryover of vocal loudness into her/his functional environment. GOAL MET 4. Pt will read words/phrases with avg of 72 dB or greater with 90% accuracy and min cues to increase speech intelligibility. GOAL MET 5. Pt will maintain loudness levels no lower than 65 dB in [id number] remarks between structured tasks with min cues in 70% of opportunities to increase speech intelligibility and promote carryover of adequate loudness in spontaneous conversation. GOAL MET Care Home Goals 1. Pt will sustain vowel phonation for 25 sec at 75 dB or greater to increase/ maintain breath support for speech and vocal loudness. GOAL NOT MET. LONGEST REPORTED BY PT = 23 SEC 2. Pt will produce prosodic features WFL in spontaneous conversation in 80% of opportunities to increase her/ his ability to communicate ideas, opinions, and wants/ needs. GOAL MET 3. Pt will produce conversational loudness WNL in >75% of opportunities. GOAL MET Treatment Activities Continued LSVT-Loud treatment. The pt completed the following: MPT = 15.4 s, Avg loudness 77. 2 dB Pitch Range: 110-369 Hz, Avg loudess highs 73 dB; Lows 73.5 dB Functional Phrases: Avg loudness 79 dB. Conversation in hospital cafeterial with 66-69 dB background noise: Not instrumentally measured. The pt was 100% intelligible to this listener without effort. Good facial expression noted as well. VHI: 1/120 (Minimal Impact) compared to 54/120 (Moderate Impact) at SOC. CAPE-V: Overall Severity: 18% (Mild), improved from 46% (Moderate) at SOC Roughness: 7% (Minimal), improved from 31% (Moderate) at SOC Breathiness: 0% (WNL), improved from 6% (Minimal) at SOC Strain: 0% (WNL), improved from 6% (Minimal) at SOC Pitch: : 6% (Minimal), improved from 18% (Mild- Moderate) at SOC Loudness: 20% (Mild-Moderate), improved from 52% (Moderate- Severe) at SOC EAT-10: 2/40 (Mild) improved from 5/40 (Mild) at SOC Jitter: 0.106% (WNL) improved from 1.52% (outside normal limits) at SOC Shimmer: 0.963% (WNL) improved from 4.72 (outside normal limits) at SOC Assessment Patient Response to Treatment Good Rehab Potential Excellent Impairments Identified Voice Progress Towards Goals Excellent Progress Assessment of Overall Progress Improving Assessment of Improvement The pt has made excellent progress over the course of treatment, increasing average conversational loudness from below to within normal levels with in >75% of opportunities (65-75 dB, according to environmental demands). Most notably, the stability of his voice has improved significantly, represented by jitter and shimmer measurements. He consistently has maintained or exceeded target loudness levels in structured exercises and reading tasks and has been highly compliant with HEP. He reports others commenting that his voice sounds better and a significant decrease in requests from others to repeat himself. Additionally, he reports improved swallow function with only occasional difficulty with dry food sticking in his throat and pain with eating d/t a broken tooth, which the pt has scheduled to be fixed. Reviewed with Patient Goals,Progress Being Made,Home Exercise Program Patient/Caregiver Understanding Excellent Plan Amount of Therapy Recommended No Further Therapy Provided Patient/Caregiver Instruction Home Exercise Program,Plan of Care,Questions/Concerns Therapy Recommendations Discharge to Home Exercise Program Comment Participate in [facility] via online now or in-person if /when available
== END 2021-08-18 18:00 ==
LOC: SP 14:30
PROVIDERS: Family Provider Physician Assistant; PCP Physician Assistant; Referring Provider Physician Assistant; Visit Provider Physician Assistant
DX: G20 Parkinson's disease (principal)
CPT/HCPCS: 92507; 92520; 92524

== ENCOUNTER → 2022-01-20 07:17 | Outpatient (CLI) | payer MEDICARE, OTHER, SELFPAY ==
[2021-01-06 16:58] VITALS: BMI 25.0
[2022-01-20 08:18] LABS: Add Manual Diff / Slide Review NO; Basophils Absolute Auto 100 /uL (0-100); Basophils Percent Auto 1.1 % (0-2); Eosinophils Absolute Auto 300 /uL (0-450); Eosinophils Percent Auto 5.4 % (2-4); Hematocrit 40.4 % (41-53); Hemoglobin 13.8 g/dL (13.5-17.5); Lymphocytes Absolute Auto 1300 /uL (1100-4500); Lymphocytes Percent Auto 25.6 % (25-40); Mean Corpuscular HGB Conc 34.1 % (30-36); Mean Corpuscular Hemoglobin 30.7 PG (26-34); Monocytes Absolute Auto 400 /uL (0-900); Monocytes Percent Auto 7.4 % (3-14); Neutrophils Absolute Auto 3100 /uL (1500-7000); Neutrophils Percent Auto 60.5 % (50-75); Platelet Count 194 X10^3/uL (150-400); Red Blood Cell Count 4.49 X10^6/uL (4.5-5.9); Red Cell Distribution Width 13.1 % (11.6-14.8); White Blood Cell Count 5.1 X10^3/uL (4.5-11.0)
[2022-01-20 08:30] LABS: Alanine Aminotransferase 10 IU/L (<50); Albumin 4.4 g/dL (3.5-5.0); Albumin Globulin Ratio 1.5 (1.0-2.8); Alkaline Phosphatase 87 U/L (38-126); Aspartate Aminotransferase 20 IU/L (17-59); BUN Creatinine Ratio 20.4 (6-22); Bilirubin Total 0.9 mg/dL (0.2-1.3); Blood Urea Nitrogen 19 mg/dL (9-20); Calcium 8.7 mg/dL (8.4-10.2); Carbon Dioxide 28 mmol/L (22-32); Chloride 104 mmol/L (98-107); Cholesterol 128 mg/dL (140-199); Estimated Glomerular Filt Rate > 60 mL/min (>60); Globulin 2.9 g/dL (1.7-4.1); Glucose 91 mg/dL (80-110); HDL Cholesterol 52 mg/dL (40-60); HEMOLYSIS < 15 (0-50); LDL Cholesterol Calculated 65 mg/dL (<100); Potassium 4.4 mmol/L (3.4-5.1); Sodium 140 mmol/L (137-145); Total Protein 7.3 g/dL (6.3-8.2); Triglycerides 54 mg/dL (35-150)
[2022-01-20 08:34] LABS: High Sensitivity CRP - Cardiac 1.2 mg/L (1.0-3.0)
[2022-01-20 08:59] LABS: Prostate Specific Antigen 4.44 ng/mL (0.10-4.00)
[2022-01-20 09:14] LABS: Erythrocyte Sedimentation Rate 10 MM/HR (0-15)
== END ==
PROVIDERS: Family Provider Physician Assistant; PCP Physician Assistant; Referring Provider Family Medicine; Visit Provider Family Medicine
DX: I10 Essential (primary) hypertension (principal); N40.0 Benign prostatic hyperplasia without lower urinary tract symptoms
CPT/HCPCS: 36415; 80053; 80061; 84153; 84443; 85025; 85651; 86140

== ENCOUNTER → 2022-01-27 12:14 | Outpatient (CLI) | payer MEDICARE, OTHER, SELFPAY ==
[2021-01-06 16:58] VITALS: BMI 25.0
== END ==
PROVIDERS: Family Provider Physician Assistant; PCP Physician Assistant; Referring Provider Family Medicine; Visit Provider Family Medicine
DX: M85.852 Other specified disorders of bone density and structure, left thigh (principal); Z87.81 Personal history of (healed) traumatic fracture; R29.6 Repeated falls; Z13.820 Encounter for screening for osteoporosis
CPT/HCPCS: 77080; 77081

== ENCOUNTER → 2022-08-19 10:20 | Outpatient (CLI) | payer MEDICARE, SELFPAY ==
[2021-01-06 16:58] VITALS: BMI 25.0
[2022-08-19 11:38] LABS: Add Manual Diff / Slide Review NO; Basophils Absolute Auto 0 /uL (0-100); Basophils Percent Auto 0.9 % (0-2); Eosinophils Absolute Auto 200 /uL (0-450); Eosinophils Percent Auto 3.2 % (2-4); Hematocrit 39.4 % (41-53); Hemoglobin 13.7 g/dL (13.5-17.5); Lymphocytes Absolute Auto 1400 /uL (1100-4500); Lymphocytes Percent Auto 25.5 % (25-40); Mean Corpuscular HGB Conc 34.6 % (30-36); Mean Corpuscular Hemoglobin 31.1 PG (26-34); Mean Corpuscular Volume 89.8 fL (80-100); Monocytes Absolute Auto 400 /uL (0-900); Monocytes Percent Auto 8.1 % (3-14); Neutrophils Absolute Auto 3400 /uL (1500-7000); Neutrophils Percent Auto 62.3 % (50-75); Platelet Count 188 X10^3/uL (150-400); Red Blood Cell Count 4.39 X10^6/uL (4.5-5.9); Red Cell Distribution Width 13.4 % (11.6-14.8); White Blood Cell Count 5.5 X10^3/uL (4.5-11.0)
[2022-08-19 11:55] LABS: Alanine Aminotransferase 19 IU/L (<50); Albumin 4.3 g/dL (3.5-5.0); Albumin Globulin Ratio 1.4 (1.0-2.8); Alkaline Phosphatase 78 U/L (38-126); Aspartate Aminotransferase 23 IU/L (17-59); BUN Creatinine Ratio 21.2 (6-22); Bilirubin Total 0.9 mg/dL (0.2-1.3); Blood Urea Nitrogen 22 mg/dL (9-20); Calcium 8.6 mg/dL (8.4-10.2); Carbon Dioxide 25 mmol/L (22-32); Chloride 106 mmol/L (98-107); Estimated Glomerular Filt Rate > 60 mL/min (>60); Glucose 108 mg/dL (80-110); HEMOLYSIS < 15 (0-50); Potassium 4.4 mmol/L (3.4-5.1); Sodium 139 mmol/L (137-145); Total Protein 7.3 g/dL (6.3-8.2)
[2022-08-19 12:16] LABS: HEMOLYSIS < 15 (0-50); Iron 121 ug/dL (49-181)
[2022-08-19 12:20] LABS: Prostate Specific Antigen 4.93 ng/mL (0.10-4.00)
[2022-08-19 12:24] LABS: Ferritin 110 ng/mL (18-464)
[2022-08-19 12:27] LABS: Percent Iron Saturation 41 % (20-50); Total Iron Binding Capacity 296 ug/dL (261-462); Transferrin 211 mg/dL (206-381)
[2022-08-19 12:47] LABS: Thyroid Stimulating Hormone 2.04 uIU/mL (0.47-4.68)
[2022-08-19 12:55] LABS: Folate 14.3 ng/mL (2.76-20.0); Vitamin B12 268 pg/mL (239-931)
[2022-08-29 13:09] LABS: Percent Free Testosterone 1.63 % (1.50-4.20); Testosterone Free 4.35 ng/dL (5.00-21.00); Testosterone Total 267.1 ng/dL (264.0-916.0)
== END ==
PROVIDERS: Family Provider Physician Assistant; PCP Nurse Practitioner Family; Referring Provider Nurse Practitioner Family; Visit Provider Nurse Practitioner Family
DX: R53.0 Neoplastic (malignant) related fatigue (principal); D64.9 Anemia, unspecified; N40.1 Benign prostatic hyperplasia with lower urinary tract symptoms; G47.00 Insomnia, unspecified; I10 Essential (primary) hypertension; G20 Parkinson's disease
CPT/HCPCS: 36415; 80053; 82607; 82728; 82746; 83540; 83550; 84153; 84402; 84403; 84443; 85025

== ENCOUNTER → 2022-11-15 10:45 | Outpatient (CLI) | payer MEDICARE, SELFPAY ==
[2021-01-06 16:58] VITALS: BMI 25.0
[2022-11-15 15:12] LABS: Add Manual Diff / Slide Review NO; Basophils Absolute Auto 100 /uL (0-100); Basophils Percent Auto 1.1 % (0-2); Eosinophils Absolute Auto 300 /uL (0-450); Eosinophils Percent Auto 4.2 % (2-4); Hematocrit 40.3 % (41-53); Hemoglobin 13.8 g/dL (13.5-17.5); Lymphocytes Absolute Auto 1400 /uL (1100-4500); Lymphocytes Percent Auto 24.3 % (25-40); Mean Corpuscular HGB Conc 34.2 % (30-36); Mean Corpuscular Hemoglobin 31.1 PG (26-34); Mean Corpuscular Volume 91.2 fL (80-100); Monocytes Absolute Auto 400 /uL (0-900); Monocytes Percent Auto 6.4 % (3-14); Neutrophils Absolute Auto 3800 /uL (1500-7000); Platelet Count 191 X10^3/uL (150-400); Red Blood Cell Count 4.42 X10^6/uL (4.5-5.9); Red Cell Distribution Width 13.2 % (11.6-14.8); White Blood Cell Count 5.9 X10^3/uL (4.5-11.0)
[2022-11-15 16:13] LABS: Alanine Aminotransferase 16 IU/L (<50); Albumin 4.1 g/dL (3.5-5.0); Albumin Globulin Ratio 1.6 (1.0-2.8); Alkaline Phosphatase 79 U/L (38-126); Aspartate Aminotransferase 21 IU/L (17-59); BUN Creatinine Ratio 18.7 (6-22); Bilirubin Total 0.6 mg/dL (0.2-1.3); Blood Urea Nitrogen 17 mg/dL (9-20); Calcium 8.5 mg/dL (8.4-10.2); Carbon Dioxide 26 mmol/L (22-32); Chloride 105 mmol/L (98-107); Estimated Glomerular Filt Rate > 60 mL/min (>60); Globulin 2.5 g/dL (1.7-4.1); Glucose 105 mg/dL (80-110); HEMOLYSIS < 15 (0-50); Potassium 4.2 mmol/L (3.4-5.1); Sodium 139 mmol/L (137-145); Total Protein 6.6 g/dL (6.3-8.2)
[2022-11-15 16:36] LABS: Testosterone 262 ng/dL (71.8-623)
[2022-11-15 16:53] LABS: Vitamin B12 405 pg/mL (239-931)
[2022-11-17 09:09] LABS: PSA Free % 22.8 % (.)
== END ==
PROVIDERS: Family Provider Physician Assistant; PCP Nurse Practitioner Family; Referring Provider Nurse Practitioner Family; Visit Provider Nurse Practitioner Family
DX: R97.20 Elevated prostate specific antigen [PSA] (principal); D64.9 Anemia, unspecified; Z51.81 Encounter for therapeutic drug level monitoring; Z79.890 Hormone replacement therapy; R60.9 Edema, unspecified
CPT/HCPCS: 36415; 80053; 82607; 84153; 84154; 84403; 85025

== ENCOUNTER → 2023-02-08 13:04 | Outpatient (CLI) | payer MEDICARE, SELFPAY ==
[2021-01-06 16:58] VITALS: BMI 25.0
[2023-02-08 14:06] LABS: Add Manual Diff / Slide Review NO; Basophils Absolute Auto 100 /uL (0-100); Basophils Percent Auto 0.8 % (0-2); Eosinophils Absolute Auto 300 /uL (0-450); Eosinophils Percent Auto 4.1 % (2-4); Hematocrit 40.6 % (41-53); Hemoglobin 13.9 g/dL (13.5-17.5); Lymphocytes Absolute Auto 1600 /uL (1100-4500); Lymphocytes Percent Auto 23.5 % (25-40); Mean Corpuscular HGB Conc 34.2 % (30-36); Mean Corpuscular Hemoglobin 31.1 PG (26-34); Mean Corpuscular Volume 90.9 fL (80-100); Monocytes Absolute Auto 400 /uL (0-900); Monocytes Percent Auto 6.7 % (3-14); Neutrophils Absolute Auto 4300 /uL (1500-7000); Neutrophils Percent Auto 64.9 % (50-75); Platelet Count 196 X10^3/uL (150-400); Red Blood Cell Count 4.47 X10^6/uL (4.5-5.9); Red Cell Distribution Width 12.7 % (11.6-14.8); White Blood Cell Count 6.7 X10^3/uL (4.5-11.0)
[2023-02-08 14:28] LABS: Alanine Aminotransferase 17 IU/L (<50); Albumin 4.4 g/dL (3.5-5.0); Albumin Globulin Ratio 1.6 (1.0-2.8); Alkaline Phosphatase 71 U/L (38-126); Aspartate Aminotransferase 21 IU/L (17-59); BUN Creatinine Ratio 21.3 (6-22); Bilirubin Total 0.6 mg/dL (0.2-1.3); Blood Urea Nitrogen 23 mg/dL (9-20); Calcium 9.6 mg/dL (8.4-10.2); Carbon Dioxide 27 mmol/L (22-32); Chloride 102 mmol/L (98-107); Estimated Glomerular Filt Rate > 60 mL/min (>60); Globulin 2.8 g/dL (1.7-4.1); Glucose 105 mg/dL (80-110); HEMOLYSIS < 15 (0-50); Sodium 138 mmol/L (137-145); Total Protein 7.2 g/dL (6.3-8.2)
[2023-02-08 14:59] LABS: Testosterone 231 ng/dL (71.8-623)
[2023-02-08 15:15] LABS: Vitamin B12 524 pg/mL (239-931)
[2023-02-10 14:08] LABS: PSA Free % 21.9 % (.)
== END ==
PROVIDERS: Family Provider Physician Assistant; PCP Nurse Practitioner Family; Referring Provider Specialist; Visit Provider Specialist
DX: D64.9 Anemia, unspecified (principal); R97.20 Elevated prostate specific antigen [PSA]; Z51.81 Encounter for therapeutic drug level monitoring; Z79.890 Hormone replacement therapy; R60.9 Edema, unspecified; N40.0 Benign prostatic hyperplasia without lower urinary tract symptoms
CPT/HCPCS: 36415; 80053; 82607; 84153; 84154; 84403; 85025

== ENCOUNTER → 2023-03-01 10:33 | Outpatient (CLI) | payer MEDICARE, SELFPAY ==
[2021-01-06 16:58] VITALS: BMI 25.0
== END ==
PROVIDERS: Family Provider Physician Assistant; PCP Nurse Practitioner Family; Visit Provider Specialist
DX: N40.0 Benign prostatic hyperplasia without lower urinary tract symptoms (principal); R97.20 Elevated prostate specific antigen [PSA]; Z68.25 Body mass index [BMI] 25.0-25.9, adult
CPT/HCPCS: 51798; 81002; 87086; 99214

== ENCOUNTER → 2023-03-31 13:13 | Outpatient (CLI) | payer MEDICARE, SELFPAY ==
[2021-01-06 16:58] VITALS: BMI 25.0
[2023-04-04 01:06] LABS: PSA Free % 23.4 % (.); PSA, Total 6.8 ng/mL (0.0-4.0)
== END ==
PROVIDERS: Family Provider Physician Assistant; PCP Nurse Practitioner Family; Referring Provider Specialist; Visit Provider Specialist
DX: R97.20 Elevated prostate specific antigen [PSA] (principal)
CPT/HCPCS: 36415; 84153; 84154

== ENCOUNTER → 2023-05-07 15:54 | Outpatient (CLI) | payer MEDICARE, SELFPAY ==
[2021-01-06 16:58] VITALS: BMI 25.0
--- NOTE | 2023-05-07 15:58 | DI.MRI.S_ITS ---
PROCEDURE: MR PELVIC PROSTATE PROTOCOL INDICATIONS: Elevated PSA TECHNIQUE: Coronal HASTE, axial T1 FSE with fat saturation, 3-plane nonbreath-hold T2 FSE. After the administration of contrast, dynamic axial, delayed axial and coronal VIBE or 2-D FLASH with fat saturation through the pelvis. Diffusion weighted imaging and ADC was performed. COMPARISON: None. FINDINGS: Image quality: Diffusion weighted and dynamic contrast enhanced images are diagnostic. Motion on a few sequences prevents precise measurements. Right hip arthroplasty artifact diminishes accuracy of diffusion weighting and ADC map. Prostate: Gland size is 6.4 x 6.7 x 4.5 cm; ellipsoid gland volume is 100 mL. Lesion 1: Location: Left anterior periurethral peripheral zone at the apex, on axial series 5, image 20 and coronal series 6, image 10. Size: 1.2 cm measured on axial postcontrast imaging T2W signal: Hypointense, erased charcoal. DWI signal: Moderately hyperintense ADC signal: Markedly hypointense Enhancement: Yes Extracapsular extension: Questionable bulging of the gland contour. PI-RADS score: 5 Lesion 2: Location: Right anterior peripheral zone at the apex, on axial series 5, image 19 and coronal series 6, image 8. Size: 1.0 cm. T2W signal: Hypointense, erased charcoal. There is questionable encapsulation seen on the sagittal image raising possibility of an extruded BPH nodule. DWI signal: Minimally hyperintense ADC signal: Mildly hypointense Enhancement: No Extracapsular extension: No PI-RADS score: 3 Genitourinary system: Bladder wall thickness is normal. Distal ureters are non distended. Bowel and peritoneum: No pathologic free pelvic fluid. Inferior colon and small bowel loops are normal in caliber. Nodes and vessels: No pelvic or inguinal adenopathy by size criteria. Iliac vessels are normal in caliber. Soft tissues: Small fat containing right inguinal hernia. Bones: Marrow demonstrates normal overall signal, without lesions to suggest metastases. Right hip arthroplasty change. IMPRESSION: 1.2 cm PI-RADS 5 lesion in the left apical peripheral zone. Questionable, PI-RADS 3 lesion in the right apical peripheral zone. No pelvic lymphadenopathy by size criteria. No aggressive osseous abnormality. Dictated by: Jessica Martínez M.D. on 05/08/2023 at 11:35 Approved by: Jessica Martínez M.D. on 05/08/2023 at 11:48
== END ==
PROVIDERS: Family Provider Physician Assistant; PCP Nurse Practitioner Family; Referring Provider Specialist; Visit Provider Specialist
DX: N42.9 Disorder of prostate, unspecified (principal); R97.20 Elevated prostate specific antigen [PSA]
CPT/HCPCS: 72197; A9579

== ENCOUNTER → 2023-06-28 14:05 | Outpatient (CLI) | payer MEDICARE, SELFPAY ==
[2021-01-06 16:58] VITALS: BMI 25.0
[2023-06-30 08:10] LABS: PSA Free % 31.4 % (.); PSA, Total 8.5 ng/mL (0.0-4.0)
== END ==
PROVIDERS: Family Provider Physician Assistant; PCP Nurse Practitioner Family; Referring Provider Specialist; Visit Provider Specialist
DX: R97.20 Elevated prostate specific antigen [PSA] (principal)
CPT/HCPCS: 36415; 84153; 84154

== ENCOUNTER → 2023-07-06 11:18 | Outpatient (CLI) | payer MEDICARE, SELFPAY ==
[2021-01-06 16:58] VITALS: BMI 25.0
== END ==
PROVIDERS: Family Provider Physician Assistant; PCP Nurse Practitioner Family; Visit Provider Specialist
DX: N40.0 Benign prostatic hyperplasia without lower urinary tract symptoms (principal); R97.20 Elevated prostate specific antigen [PSA]
CPT/HCPCS: 51798; 81002; 87086; 99214

== ENCOUNTER 2023-09-05 17:25 | Emergency (ER) | payer MEDICARE, SELFPAY ==
[2023-07-06 11:32] VITALS: BMI 25.0
[2023-09-05 17:37] VITALS: BP 161/89; PULSE 89; RESP 16; TEMP 36.6; O2SAT 98; BMI 26.2
--- NOTE | 2023-09-05 17:54 | DI.US.S_ITS ---
PROCEDURE: US PERIPH VENOUS LOW EXTREM RT INDICATIONS: R leg pain TECHNIQUE: Real-time imaging, as well as color and pulse Doppler interrogation, were performed of the lower extremity deep veins from the inguinal ligament to the popliteal fossa, with documentation of the visualized calf veins. COMPARISON: None. FINDINGS: The common femoral, femoral, popliteal, and the visualized calf veins are normally compressible, and free of intraluminal thrombus. Color and pulse Doppler demonstrate normal phasic intraluminal flow. There is normal augmentation response to distal compression maneuver. IMPRESSION: No findings of lower extremity deep venous thrombosis. Approved by: Rigoberto Valadez M.D. on 09/05/2023 at 20:32
--- NOTE | 2023-09-05 18:05 | ED.EXTPRO ---
HPI - Extremity Problem <Ramona Ivory PA-C - Last Filed: 09/05/23 18:48> General Chief complaint: Extremity Problem,Nontraumatic Stated complaint: leg px, sore muscle inside thigh, sent by pcp Time Seen by Provider: 09/05/23 17:43 Source: patient Mode of arrival: Ambulatory History of Present Illness HPI Narrative: 83-year-old male with past medical history Parkinson's disease, hypothyroidism presents to the ED with 2 days of right-sided thigh and calf pain. Patient is not on blood thinners. Patient denies any new trauma. Patient states that his skin over the right leg feels sensitive as well. No prior history of blood clots. Patient denies fever, chills, chest pain, shortness of breath, lightheadedness, dizziness, syncope. Patient also has a small wound on the right kneecap, with overlying erythema. Patient endorses that given his Parkinson's, he falls often on that right knee, re-injuring that wound. Related Data Home Medications Medication Instructions Recorded Confirmed magnesium 200 mg tablet 200 mg PO DAILY 07/13/23 08/01/23 Allergies Allergy/AdvReac Type Severity Reaction Status Date / Time colistin [COLISTIN] Allergy Unknown PAIN AND Verified 09/05/23 17:40 SWELLING (FROM CORTISPORIN TC) THONZONIUM Allergy Unknown LOCAL PAIN Uncoded 09/05/23 17:40 AND SWELLING (FROM CORTISPORIN TC) Review of Systems <Ramona Ivory PA-C - Last Filed: 09/05/23 18:48> Constitutional Constitutional: Denies chills, Denies fatigue, Denies fever(s), Denies frequent falls, Denies lethargy and Denies weakness Eyes Eyes: Denies change in vision, Denies eye discharge, Denies irritation and Denies loss of vision ENT Ears, Nose, Mouth, and Throat: Denies change in voice, Denies dizziness, Denies neck pain, Denies sore throat and Denies throat swelling Cardiovascular Cardiovascular: Denies chest pain, Denies irregular heart rhythm, Denies lightheadedness, Denies palpitations, Denies dyspnea, Denies dyspnea on exertion and Denies orthopnea Respiratory Respiratory: Denies cough, Denies dyspnea, Denies dyspnea on exertion and Denies wheezing Gastrointestinal Gastrointestinal: Denies abdominal pain, Denies change in bowel habits, Denies diarrhea, Denies nausea and Denies vomiting Musculoskeletal Musculoskeletal: Denies neck pain and Denies numbness Comments: R thigh and calf pain Integumentary/Breasts Skin/Breast: Denies pruritus, Denies erythema, Denies rash and Denies wounds Neurologic Neurologic: Denies behavioral changes, Denies confusion, Denies dizziness, Denies frequent falls, Denies loss of vision, Denies numbness and Denies weakness Psychiatric Psychiatric: Denies anxiety, Denies behavioral changes, Denies confusion, Denies depression, Denies homicidal ideation and Denies suicidal ideation Endocrine Endocrine: Denies fatigue, Denies flushing and Denies palpitations Hematologic/Lymphatic Hematologic/Lymphatic: Denies easy bruising Allergic/Immunologic Allergic/Immunologic: Denies urticaria, Denies throat swelling and Denies wheezing Patient History <Ramona Ivory PA-C - Last Filed: 09/05/23 18:48> Medical History Prostate cancer BPH loc w/o ur obs/LUTS Elevated PSA Parkinson disease Acquired hypothyroidism Former cigarette smoker Back pain Eczema Irregular heartbeat Allergic rhinitis due to other allergen (09/16/11) Essential hypertension (07/25/17) Surgical History S/P right inguinal hernia repair (~02/2019) History of hip surgery (10/09/18) Social History household members: none Smoking Status: Former smoker alcohol intake: current Smoking Status: Former smoker alcohol intake frequency: holidays/special occasions only Substance Use Type: marijuana Exam <Ramona Ivory PA-C - Last Filed: 09/05/23 18:48> Narrative Exam Narrative: Const General:?cooperative, healthy appearing and comfortable [facility] Head:?normal to inspection Ears:?hearing grossly normal bilaterally Nose:?external nose normal Face and sinus:?normal facial exam and sinuses nontender Mouth:?oral mucosae normal Throat:?posterior oropharynx normal Eyes General:?appearance normal, both eyes and all related structures Neck Neck:?normal visual inspection and no lymphadenopathy noted Resp Effort & Inspection:?normal respiratory effort Auscultation:?clear to auscultation bilaterally Cardio Rate:?regular rate Rhythm:?regular rhythm Musculoskeletal No tenderness to palpation of the right leg. No bruises or deformities. There is a small healing wound to the right patella with overlying erythema, suspicious for cellulitis. Neuro General:?patient alert, patient awake and patient oriented x3 Initial Vital Signs Initial Vital Signs: Vital Signs Temperature 98 F 09/05/23 17:37 Pulse Rate 89 09/05/23 17:37 Respiratory Rate 16 09/05/23 17:37 Blood Pressure 161/89 H 09/05/23 17:37 Pulse Oximetry 98 09/05/23 17:37 Oxygen Delivery Method Room Air 09/05/23 17:37 <Ksenia Washington MD - Last Filed: 09/06/23 00:34> Initial Vital Signs Initial Vital Signs: Vital Signs Temperature 98 F 09/05/23 17:37 Pulse Rate 89 09/05/23 17:37 Respiratory Rate 16 09/05/23 17:37 Blood Pressure 161/89 H 09/05/23 17:37 Pulse Oximetry 98 09/05/23 17:37 Oxygen Delivery Method Room Air 09/05/23 17:37 Course <Ramona Ivory PA-C - Last Filed: 09/05/23 18:48> Orders Ordered: ED Orders 09/05/23 17:54 US periph venous low extrem rt Stat Vital Signs Vital signs: Vital Signs - 8 hr 09/05/23 17:37 09/05/23 21:14 09/05/23 21:15 Temperature 98 F Pulse Rate 89 82 82 Respiratory Rate 16 17 16 Blood Pressure 161/89 H 178/88 H 178/88 H Pulse Oximetry 98 99 99 Oxygen Delivery Method Room Air Room Air <Ksenia Washington MD - Last Filed: 09/06/23 00:34> Orders Ordered: ED Orders 09/05/23 17:54 US periph venous low extrem rt Stat Vital Signs Vital signs: Vital Signs - 8 hr 09/05/23 17:37 09/05/23 21:14 09/05/23 21:15 Temperature 98 F Pulse Rate 89 82 82 Respiratory Rate 16 17 16 Blood Pressure 161/89 H 178/88 H 178/88 H Pulse Oximetry 98 99 99 Oxygen Delivery Method Room Air Room Air MDM - Extremity (Nontraumatic) <Ramona Ivory PA-C - Last Filed: 09/05/23 18:48> [facility] Narrative Medical decision making narrative: 83-year-old male with past medical history Parkinson's disease, hypothyroidism presents to the ED with 2 days of right-sided thigh and calf pain. Concern for DVT versus cellulitis versus musculoskeletal sprain/strain versus other. Will obtain ultrasound of the right lower extremity. Will prescribe antibiotics for the cellulitis. Patient signed out to Dr. Ksenia Wsahington. <Ksenia Washington MD - Last Filed: 09/06/23 00:34> [facility] Narrative Medical decision making narrative: 83-year-old male with past medical history Parkinson's disease, hypothyroidism presents to the ED with 2 days of right-sided thigh and calf pain. Concern for DVT versus cellulitis versus musculoskeletal sprain/strain versus other. Will obtain ultrasound of the right lower extremity. Will prescribe antibiotics for the cellulitis. Patient signed out to Dr. Ksenia Washington. Dr. Washington -care of patient is signed out to me. Independently reviewed patient and assessed. Ultrasound negative for acute findings. Patient has no complaints of pain or tenderness on his kneecap, we will defer any antibiotic treatment at this time. Patient also requested a referral to ear nose and throat due to ongoing, chronic issues with drainage from his sinuses that does not respond to Flonase or saline sprays. A number was provided in his paperwork for Dr. Glaser, who may call for an available appointment. Patient informed of his negative ultrasound results, recommended that he continue Tylenol and magnesium supplements. PCP follow up advised. Discharge Plan Departure Patient Disposition: Home Clinical Impression: Lower extremity edema Instructions: DI for Peripheral Edema-Unilateral Activity Restrictions/Additional Instructions: Your ultrasound today did not show any evidence of a blood clot in your leg. I do not know the reason that you were having pain in your inner thigh, however I recommend continuing taking your Tylenol and magnesium supplements. Follow up with your primary care doctor. For your chronic sinus issue a number has been provided in your paperwork to an ear nose and throat doctor. Please call for an available appointment. Prescriptions: No Action magnesium 200 mg tablet 200 mg PO DAILY Referrals: Hayden Glaser MD [Physician] - Nan Burch RN [Primary Care Provider] - Stand Alone Forms: Patient Portal/API
[2023-09-05 21:14] VITALS: BP 178/88; PULSE 82; RESP 17; O2SAT 99
[2023-09-05 21:15] VITALS: BP 178/88; PULSE 82; RESP 16; O2SAT 99
== END 2023-09-05 21:16 | disposition home or self-care (01) ==
PROVIDERS: Emergency Provider Emergency Medicine; Family Provider Physician Assistant; PCP Nurse Practitioner Family
DX: R60.0 Localized edema (principal)
CPT/HCPCS: 93971; 99283

== ENCOUNTER → 2024-01-24 12:30 | Outpatient (CLI) | payer MEDICARE, SELFPAY ==
[2023-07-06 11:32] VITALS: BMI 25.0
[2024-01-24 14:13] LABS: Prostate Specific Antigen 6.37 ng/mL (0.10-4.00)
== END ==
LOC: LAB 12:32
PROVIDERS: Family Provider Physician Assistant; PCP Nurse Practitioner Family; Referring Provider Urology; Visit Provider Urology
DX: N40.0 Benign prostatic hyperplasia without lower urinary tract symptoms (principal); R97.20 Elevated prostate specific antigen [PSA]
CPT/HCPCS: 36415; 84153

== ENCOUNTER → 2024-02-13 14:38 | Outpatient (CLI) | payer MEDICARE, SELFPAY ==
[2023-07-06 11:32] VITALS: BMI 25.0
[2024-02-13 18:18] LABS: BUN Creatinine Ratio 22.5 (6-22); Blood Urea Nitrogen 27 mg/dL (9-20); Carbon Dioxide 20 mmol/L (22-32); Chloride 106 mmol/L (98-107); Estimated Glomerular Filt Rate > 60 mL/min (>60); Glucose 114 mg/dL (80-110); HEMOLYSIS 26 (0-50); Potassium 4.2 mmol/L (3.4-5.1); Sodium 138 mmol/L (137-145)
== END ==
LOC: LAB 14:42
PROVIDERS: Family Provider Physician Assistant
DX: I10 Essential (primary) hypertension (principal)
CPT/HCPCS: 36415; 80048

== ENCOUNTER 2024-02-26 13:43 | Emergency (ER) | payer MEDICARE, SELFPAY ==
[2023-07-06 11:32] VITALS: BMI 25.0
[2024-02-26] VITALS (9 sets, daily range): BP systolic 120–146; BP diastolic 56–68; PULSE 57–81; RESP 17–20; TEMP 36.2; O2SAT 96–100; BMI 25.0
--- NOTE | 2024-02-26 14:00 | DI.CT.S_ITS ---
PROCEDURE: CT CERVICAL SPINE WO CON INDICATIONS: Head injury on thinners TECHNIQUE: Noncontrast 3 mm thick sections acquired from the skull base to the T4 level. Sagittal and coronal reformats were then constructed. For radiation dose reduction, the following was used: automated exposure control, adjustment of mA and/or kV according to patient size. COMPARISON: None. FINDINGS: Image quality: Excellent. Bones: No fractures or dislocations. Visualized superior ribs are intact. Mild to moderate, multilevel degenerative disc disease and diffuse facet arthrosis. Soft tissues: Prevertebral soft tissues are normal in thickness. No paravertebral hematomas. No apical pneumothoraces. IMPRESSION: No displaced fracture or traumatic subluxation. Dictated by: Raghav Fam M.D. on 02/26/2024 at 14:45 Approved by: Raghav Fam M.D. on 02/26/2024 at 14:47
--- NOTE | 2024-02-26 14:00 | DI.CT.S_ITS ---
PROCEDURE: CT HEAD/BRAIN WO CON INDICATIONS: Head injury on thinners TECHNIQUE: Noncontrast 4.5 mm thick angled axial sections acquired from the foramen magnum to the vertex, with coronal and sagittal reformats. For radiation dose reduction, the following was used: automated exposure control, adjustment of mA and/or kV according to patient size. COMPARISON: None. FINDINGS: Image quality: Diagnostic. CSF spaces: Basal cisterns are patent. No extra-axial fluid collections. The ventricles are symmetric in size and shape. Brain: No intracranial bleeds or masses. There is cerebral volume loss for age, with resultant ventricular and sulcal prominence. There are periventricular and deep white matter chronic small vessel ischemic changes. There is intracranial internal carotid artery atherosclerosis. Skull and face: Calvarium and visualized facial bones appear intact, without suspicious lesions. Sinuses: Visualized sinuses and mastoids are clear. IMPRESSION: No acute intracranial pathology. Dictated by: Raghav Fam M.D. on 02/26/2024 at 14:47 Approved by: Raghav Fam M.D. on 02/26/2024 at 14:48
--- NOTE | 2024-02-26 15:42 | ED_ITS ---
HPI - Head Injury General Chief complaint: Head Injury Stated complaint: fall, head laceration, +blood thinners Time Seen by Provider: 02/26/24 15:42 Source: patient, family, RN notes reviewed and old records reviewed Mode of arrival: Ambulatory Limitations: no limitations History of Present Illness HPI Narrative: 83-year-old history of Parkinson's disease, hypothyroidism on aspirin 81 mg daily who presents with complaint of ground level fall. Patient states he took several steps backwards and fell backwards striking the back of his head has 2 areas on the back of his head 1 with a small cut. No loss of consciousness. Denies any headache, no neck pain, no chest pain or shortness of breath. No back pain. No abdominal pain. No injuries or complaints of injury to his arms and legs. No new numbness tingling or weakness. States his extremities are working like they normally do. No other GI or urinary symptoms. No nausea or vomiting. No dizziness. Patient states he does take an aspirin daily, denies any other anticoagulants. He does not think his tetanus is up-to-date. Former smoker, no regular alcohol, no regular recreational drugs. Patient is accompanied by his girlfriend. Related Data Home Medications Medication Instructions Recorded Confirmed magnesium 200 mg tablet 200 mg PO DAILY 07/13/23 01/31/24 empagliflozin 25 mg tablet 25 mg PO DAILY 01/31/24 01/31/24 (Jardiance) Allergies Allergy/AdvReac Type Severity Reaction Status Date / Time colistin [COLISTIN] Allergy Unknown PAIN AND Verified 01/31/24 11:28 SWELLING (FROM CORTISPORIN TC) THONZONIUM Allergy Unknown LOCAL PAIN Uncoded 01/31/24 11:28 AND SWELLING (FROM CORTISPORIN TC) Review of Systems Review of Systems ROS Unobtainable: All systems reviewed & are unremarkable except as noted in HPI and below Patient History Medical History Prostate cancer BPH loc w/o ur obs/LUTS Elevated PSA Parkinson disease Acquired hypothyroidism Former cigarette smoker Back pain Eczema Irregular heartbeat Allergic rhinitis due to other allergen (09/16/11) Essential hypertension (07/25/17) Surgical History S/P right inguinal hernia repair (~02/2019) History of hip surgery (10/09/18) Social History household members: none Smoking Status: Former smoker alcohol intake: current Smoking Status: Former smoker alcohol intake frequency: holidays/special occasions only Substance Use Type: marijuana Exam Narrative Exam Narrative: GEN: Patient appears in mild distress. HEAD: Patient has not abrasion with a hematoma on the upper posterior scalp, also has a small laceration about a cm slightly gapped on the lower occipital scalp, no raccoon/Mccloud sign. NECK: Nontender, painless range of motion, trachea midline Negative Nexus criteria, midline line tenderness, distracting injury, altered mental status, neuro deficit, recent EtOH. EYES: PERRLA, EOMI ENT: External inspection normal, trachea is midline, hearing aids in place Nares are clear, no septal hematoma, no dental or oral injury, airway is normal and with normal occlusion, No bony tenderness RESP: Chest is nontender and has symmetric movement, no ecchymosis, breath sounds are normal no crackles, wheezes or rales CVS: Heart sounds are normal, no murmur noted, No JVD. ABG/GI: Nontender, soft, normal bowel sounds, no distention, no organomegaly, pelvic rock is negative NEURO: Oriented AOx3, neuro is grossly intact, sensation and motor is normal all 4 extremities moving, cranial nerves II through XII are intact, GCS is 15 PSYCH: Normal mood and affect SKIN: Intact, warm and dry, no crepitus and without decubitus BACK: No CVA tenderness, no vertebral tenderness, no step-off's, no crepitus EXT: Atraumatic, hips are nontender, normal range of motion, slight tremor. Nontender to palpation. Initial Vital Signs Initial Vital Signs: Vital Signs Temperature 97.2 F L 02/26/24 13:50 Pulse Rate 77 02/26/24 13:50 Respiratory Rate 18 02/26/24 13:50 Blood Pressure 141/63 H 02/26/24 13:50 Pulse Oximetry 100 02/26/24 13:50 Oxygen Delivery Method Room Air 02/26/24 13:50 Procedures Laceration Repair Laceration 1: Site: scalp Size (cm): 1.5 Description: linear Depth: simple, single layer Local Anesthetic: other anesthetic (Topical lidocaine) Pre-repair: wound explored, irrigated extensively and deep structures intact Skin layer closed with: vangie (#4) Scores [place] [facility] Head Rule Age <16 years old: No Patient on blood thinners: Yes (asa) Seizure after injury: No Exclusion: Patient meets exclusion criteria GCS < 15 at 2 hr post trauma: No Suspected open or depressed skull fracture: No Any sign of basilar skull fracture (hemotympanum, raccoon eyes, Mccloud's sign, CSF alcides-/rhinorrhea): No Two or more episodes of vomiting: No Age greater or equal to 65 years: Yes Retrograde amnesia to the event greater or equal to 30 min: No Dangerous Mechanism (pedestrian vs. mv, occupant ejected from mv, fall from >3 ft or > 5 stairs): No Recommendation: Consider CT. The [place] Head CT Rule cannot rule out need for Imaging. GCS Sridhar coma scale eye opening: Spontaneous S[place]har coma scale verbal response: Orientated S[place]har coma scale motor response: Obey commands [place] coma scale total score: 15 Nexus Score for C-Spine Focal Neurologic deficit present: No Midline spinal tenderness present: No Altered level of conciousness present: No Intoxication present: No Distracting Injury Present: No Nexus Criteria for C-spine: 0 Course Orders Ordered: Discontinued Medications Diphtheria/Tetanus/Acell Pertussis (Tet,Diph,Pertuss(Acell),Vac/Pf 0.5 Ml Syringe) 0.5 ml IM .ONCE ONE Stop: 02/26/24 15:56 Last Admin: 02/26/24 16:00 Dose: 0.5 ml Documented By: ZEB Lidocaine/Prilocaine (Lidocaine/Prilocaine 5 Gm) 5 gm TOP NOW ONE Stop: 02/26/24 15:56 Last Admin: 02/26/24 16:00 Dose: 5 gm Documented By: ZEB Vital Signs Vital signs: Vital Signs - 8 hr 02/26/24 13:50 02/26/24 14:02 02/26/24 14:16 Temperature 97.2 F L Pulse Rate 77 81 79 Respiratory Rate 18 20 20 Blood Pressure 141/63 H 139/68 137/63 Pulse Oximetry 100 97 96 Oxygen Delivery Method Room Air 02/26/24 14:30 02/26/24 15:00 02/26/24 15:30 Temperature Pulse Rate 64 63 58 L Respiratory Rate 19 18 17 Blood Pressure 130/59 L 120/56 L 131/61 Pulse Oximetry 98 98 99 Oxygen Delivery Method Room Air 02/26/24 16:00 Temperature Pulse Rate 58 L Respiratory Rate 18 Blood Pressure 130/60 Pulse Oximetry 97 Oxygen Delivery Method Room Air MDM - Head Injury Imaging Data CT scan - head: Radiologist's Impression: Close Head CT (Signed) Raghav Fam - 02/26/[address] (Signed) Raghav Fam - 02/26/24 Vascular Ultrasound (Signed) Rigoberto Valadez - 09/05/23 DI Result 07/13/23 Prostate MRI (Signed) Jessica Martínez - 05/07/23 Bone Densitometry 01/27/22 DEXA Result 01/27/[address] (Signed) Derek Patel - 01/06/21 Hip X-Ray (Signed) Brittney,Gutierrez - 01/06/21 Chest X-Ray (Signed) Mulugeta Matos - 09/27/20 Modified Barium Swallow (Signed) Tres Venegas - 08/06/20 Finger X-Ray (Signed) Call,Gutierrez - 05/08/19 Hip X-Ray (Signed) Mulugeta Matos - 10/09/18 Hip X-Ray (Signed) Mulugeta Matos - 10/09/18 [place] [address] [place] Scan Report Signed Patient: Dariusz Aguilar MR#: [id number] : 1940 Acct:[id number] Age/Sex: 83 / M Date of Service: 02/26/24 Loc: ED Accession Number: [id number] Procedure: CT head/brain wo con Ordering Provider: Ksenia Martell D.O. PROCEDURE: CT HEAD/BRAIN WO CON INDICATIONS: Head injury on thinners TECHNIQUE: Noncontrast 4.5 mm thick angled axial sections acquired from the foramen magnum to the vertex, with coronal and sagittal reformats. For radiation dose reduction, the following was used: automated exposure control, adjustment of mA and/or kV according to patient size. COMPARISON: None. FINDINGS: Image quality: Diagnostic. CSF spaces: Basal cisterns are patent. No extra-axial fluid collections. The ventricles are symmetric in size and shape. Brain: No intracranial bleeds or masses. There is cerebral volume loss for age, with resultant ventricular and sulcal prominence. There are periventricular and deep white matter chronic small vessel ischemic changes. There is intracranial internal carotid artery atherosclerosis. Skull and face: Calvarium and visualized facial bones appear intact, without suspicious lesions. Sinuses: Visualized sinuses and mastoids are clear. IMPRESSION: No acute intracranial pathology. Dictated by: Raghav Fam M.D. on 02/26/2024 at 14:47 Approved by: Raghav Fam M.D. on 02/26/2024 at 14:48 CT - cervical spine: Radiologist's Impression: [place] [address] CT Scan Report Signed Patient: Dariusz Aguilar MR#: [id number] : 1940 Acct:[id number] Age/Sex: 83 / M Date of Service: 02/26/24 Loc: ED Accession Number: [id number] Procedure: CT cervical spine wo con Ordering Provider: Ksenia Martell D.O. PROCEDURE: CT CERVICAL SPINE WO CON INDICATIONS: Head injury on thinners TECHNIQUE: Noncontrast 3 mm thick sections acquired from the skull base to the T4 level. Sagittal and coronal reformats were then constructed. For radiation dose reduction, the following was used: automated exposure control, adjustment of mA and/or kV according to patient size. COMPARISON: None. FINDINGS: Image quality: Excellent. Bones: No fractures or dislocations. Visualized superior ribs are intact. Mild to moderate, multilevel degenerative disc disease and diffuse facet arthrosis. Soft tissues: Prevertebral soft tissues are normal in thickness. No paravertebral hematomas. No apical pneumothoraces. IMPRESSION: No displaced fracture or traumatic subluxation. Dictated by: Raghav Fam M.D. on 02/26/2024 at 14:45 Approved by: Raghav Fam M.D. on 02/26/2024 at 14:47 [facility] Narrative Medical decision making narrative: 83-year-old male with a mechanical ground level fall on anticoagulants/aspirin, based on extremity age and injury patient was modified trauma. Had head CT and CT cervical spine obtained. Head CT shows no acute change CT cervical spine no displaced fracture or traumatic subluxation, [id number] multilevel degenerative disc disease and diffuse facet arthrosis. Tetanus was updated. Discussed with patient we will put some topical prilocaine after the area was cleansed and #4 vangie were placed. Patient tolerated procedure well. Discharge Plan Departure Patient Disposition: Home Clinical Impression: Hematoma of occipital region of scalp, Laceration of occipital region of scalp Instructions: DI for Laceration Repair -- [place], DI for Closed Head Injury Activity Restrictions/Additional Instructions: Please follow up for recheck and removal of your vangie in 7-10 days with primary care, urgent care or the emergency department. Wound Care: Keep wound(s) clean and dry. Wash daily with soap and water only. Do not use over the counter products (alcohol or peroxide)on the wounds unless instructed by a physician. If wound condition worsens (increased/expanding redness, developing fluid blisters, or worsening pain), either contact your doctor for an urgent re- assessment , or return to the Emergency Department. Return to the Emergency Department for any new or worsening symptoms. Return if fever greater than 100.4 Fahrenheit, increased swelling, increasing pain or worsening symptoms such as increased discharge or spreading redness, severe headaches, new neck or back pain, numbness tingling or weakness, persistent vomiting, new chest pain or shortness of breath, difficulty with movement or ambulation or other new or concerning changes. Prescriptions: No Action Jardiance 25 mg tablet 25 mg PO DAILY magnesium 200 mg tablet 200 mg PO DAILY Referrals: Heather Pillai FNP-C [Primary Care Provider] - Stand Alone Forms: Patient Portal/API/Survey
[2024-02-26] MEDS: LIDOCAINE/PRILOCAINE 5 GM TOP (16:00)
[2024-02-26] MEDS: TET,DIPH,PERTUSS(ACELL),VAC/PF 0.5 ML SYRINGE IM (16:00)
== END 2024-02-26 17:04 | disposition home or self-care (01) ==
PROVIDERS: Emergency Provider Emergency Medicine; Family Provider Physician Assistant
DX: S01.01XA Laceration without foreign body of scalp, initial encounter (principal); S00.03XA Contusion of scalp, initial encounter; W18.00XA Striking against unspecified object with subsequent fall, initial encounter; Z79.82 Long term (current) use of aspirin; G20.A1 Parkinson's disease without dyskinesia, without mention of fluctuations; R40.2412 Glasgow coma scale score 13-15, at arrival to emergency department; Z23 Encounter for immunization
CPT/HCPCS: 12001; 70450; 72125; 90471; 99284; 90715

== ENCOUNTER → 2024-05-20 16:05 | Outpatient (CLI) | payer MEDICARE, SELFPAY ==
[2023-07-06 11:32] VITALS: BMI 25.0
[2024-05-20 17:37] LABS: Blood Urea Nitrogen 26 mg/dL (9-20); Calcium 8.9 mg/dL (8.4-10.2); Carbon Dioxide 25 mmol/L (22-32); Chloride 104 mmol/L (98-107); Estimated Glomerular Filt Rate > 60 mL/min (>60); Glucose 95 mg/dL (80-110); HEMOLYSIS < 15 (0-50); Potassium 4.6 mmol/L (3.4-5.1); Sodium 139 mmol/L (137-145)
== END ==
PROVIDERS: Family Provider Physician Assistant; PCP Family Medicine; Referring Provider Physician Assistant; Visit Provider Physician Assistant
DX: I50.22 Chronic systolic (congestive) heart failure (principal)
CPT/HCPCS: 36415; 80048

== ENCOUNTER 2024-06-24 12:30 | Outpatient (RCR) | payer MEDICARE, SELFPAY ==
[2023-07-06 11:32] VITALS: BMI 25.0
--- OUTSIDE RECORDS SUMMARY | 2024-02-27 09:18 | XMS_ITS ---
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 Name Role Phone Kt Garsia Primary Care Provider [phone] Reason for Referral * Hospital - Outpatient (Routine) - Authorized Specialty Diagnoses / Procedures Referred By Quan benjamin Referred To Contact Diagnoses ST elevation myocardial infarction (STEMI), unspecified artery ([facility]) Coronary angioplasty status Garrett Vicente MD [address] [address] [place] [address] [address] Referral ID Status Reason Start Date Expiration Date V isits Requested Visits Authorized [id number] Authorized 01/19/2024 01/13/2025 36 36 Reason for Visit * Reason Comments Chest Pain * Auth/Cert (Routine) Specialty Diagnoses / Procedures Referred By Contsandra t Referred To Contact Diagnoses STEMI (ST elevation myocardial infarction) ([facility]) ST elevation myocardial infarction (STEMI), unspecified artery ([facility]) Procedures INPATIENT Referral ID Status Reason Start Date Expiration Date Visits Re quested Visits Authorized [id number] 1 1 Encounter Details Date Type Department Care Team (Latest Contact Info) Description 01/19/2024 5:18 AM PDT - 01/21/2024 3:35 PM PDT Hospital Encounter [facility] [address] [place] [address] Alexandra Tucker MD [address] [place] [address] Radha Goff MD [address], [place] [id number] Alejandra José DO [address] [place] [address] ST elevation myocardial infarction (STEMI), unspecified artery (CMS-HCC) (Primary Dx) Discharge Disposition: Home/Self Care Allergies No known active allergiesdocumented as of this encounter (statuses as of 01/29/2024) Medications Medication Sig Dispensed Refills Start Date End Date Status psyllium (METAMUCIL) 3.4 gram packet Take 1 packet by mouth daily Active mometasone (ELOCON) 0.1 % lotionIndications :Pruritus Instill 4 drops nightly after hearing aids removed as needed for itching, to affected ear or ears 30 mL 1 12/04/2023 Active atorvastatin (LIPITOR) 40 mg tablet Take 1 tablet (40 mg total) by mouth nightly 30 tablet 11 01/21/2024 01/20/2025 Active clopidogreL (PLAVIX) 75 mg tablet Take 1 tablet (75 mg total) by mouth daily 30 tablet 11 01/22/2024 01/21/2025 Active metoprolol succinate XL (TOPROL-XL) 25 mg 24 hr tablet Take 0.5 tablets (12.5 mg total) by mouth daily 15 tablet 11 01/22/2024 01/21/2025 Active losartan (COZAAR) 25 mg tablet Take 1 tablet (25 mg total) by mouth daily 30 tablet 11 01/22/2024 01/21/2025 Active empagliflozin (JARDIANCE) 10 mg tablet tablet Take 1 tablet (10 mg total) by mouth daily 30 tablet 2 01/21/2024 04/20/2024 Active aspirin 81 mg chewable tablet Take 1 tablet (81 mg total) by mouth daily 30 tablet 11 01/22/2024 01/21/2025 Active aspirin 325 mg EC tablet Take 1 tablet (325 mg total) by mouth as needed for mild pain (1-3) 01/21/2024 Discontinued (Stop Taking at Discharge) documented as of this encounter (statuses as of 01/29/2024) Active Problems Problem Noted Date Diagnosed Date Parkinson's disease 11/16/2020 documented as of this encounter (statuses as of 01/29/2024) Immunizations Name Administration Dates Next Due FLU High Dose 65+ Trivalent, PF (FLUZONE) 2023 documented as of this encounter Social History Tobacco Use Types Packs/Day Years Used Date Smoking Tobacco: Former Smokeless Tobacco: Never Comments:quit in 1968 Alcohol Use Standard Drinks/Week Comments Yes 0 (1 standard drink = 0.6 oz pur e alcohol) rare [facility] Utilities Answer Date Recorded In the past 12 months has th e V I O, gas, oil, or water Indexing threatened to shut off services in your home? No 01/19/2024 Humiliation, Afraid, Rape, and Kick questionnair e Answer Date Recorded Within the last year, have y ou been afraid of your partner or ex-partner? No 01/19/2024 Within the last year, have y ou been humiliated or emotionally abused in other ways by your partner or ex-partner? No Within the last year, have y ou been kicked, hit, slapped, or otherwise physically hurt by your partner or ex-partner? No 01/19/2024 Within the last year, have y ou been raped or forced to have any kind of sexual activity by your partner or ex-partner? No 01/19/2024 Overall Financial Resource Strain (CARDIA) Answe r Date Recorded How hard is it for you to pa y for the very basics like food, housing, medical care, and heating? Not very hard 01/19/2024 Hunger Vital Sign Answer Date Recorded Within the past 12 months, y ou worried that your food would run out before you got the money to buy more. Never true 01/19/20 24 Within the past 12 months, t he food you bought just didn't last and you didn't have money to get more. Never true 01/19/2024 PRAPARE - Transportation Answer Date Re corded In the past 12 months, has l ack of transportation kept you from medical appointments or from getting medications? No 01/08 In the past 12 months, has l ack of transportation kept you from meetings, work, or from getting things needed for daily living? No 01/19/2024 Housing Stability Vital Sign Answer John e Recorded In the last 12 months, was t here a time when you were not able to pay the mortgage or rent on time? No 01/19/2024 In the last 12 months, how many places have you lived? 1 01/19/2024 In the last 12 months, was t here a time when you did not have a steady place to sleep or slept in a custodial (including now)? No 01/19/2024 Sex and Gender Information Value Date Recorded Sex Assigned at Male 01/19/2024 2:48 PM PDT Gender Identity Male 01/19/2024 2:48 PM PDT Sexual Orientation Straight 01/19/2024 2: 48 PM PDT Job Start Date Occupation Industry Not on file Not on file Not on file documented as of this encounter Last Filed Vital Signs Vital Sign Reading Time Taken Comments Blood Pressure 124/65 01/21/2024 11:10 AM PDT Pulse 84 01/21/2024 11:10 AM PDT Temperature 36.5 ??C (97.7 ??F) 01/21/2024 7:51 AM PD T Respiratory Rate 18 01/21/2024 11:10 AM PDT Oxygen Saturation 95% 01/21/2024 11:10 AM PDT Inhaled Oxygen Concentration - - Weight 88.5 kg (195 lb) 01/21/2024 4:36 AM PDT Height 185.4 cm (6' 1) 01/20/2024 9:01 AM PDT Body Mass Index 25.73 01/20/2024 9:01 AM PDT documented in this encounter Discharge Summaries * Alejandra José DO - 01/21/2024 1:10 PM PDT [facility]: DISCHARGE SUMMARY Patient Name: Caitlyn Hooks Date of : 1940 Age: 83 y.o. Code Status: Full Code Primary Care Physician: Kt Garsia Admitting Provider: Alejandra José DO Attending Provider: Radha Goff MD Admit Date: 01/19/2024 Date of Service: 01/21/2024 Hospital Day: 2 Discharge destination: Home Follow up plan: Follow up with PCP (Kt Garsia) within 6 days. Please call tomorrow to make an appointment , patient and family agree to participate in this care step cardiac rehab and cardiology within 1 week PATIENT DISCHARGE INSTRUCTIONS- Physician's Instructions Dear Caitlyn Padilla Jeff, Thank you for allowing us to be a part of your care. You were admitted for a heart attack. Changes to your medications has been made as detailed below. Stop taking aspirin 325 mg and start taking aspirin 81 mg daily. This will help protect your heart arteries from getting blocked again. Start taking atorvastatin 40 mg nightly, this helps prevent that from building up in your arteries and getting clogged Start taking clopidogrel 75 mg daily this medication also helps stop your heart arteries from getting blood clots in them Start taking empagliflozin 10 mg daily, this medication will help keep your heart pumping an adequate amount of blood. Start taking losartan 25 mg daily this will help lower your blood pressure and help protect your heart Start taking metoprolol succinate 25 mg. This medication will help slow down your heart and keep itworking longer. Follow-up with cardiology in 1 week Please read and review the attached instructions as it lists what medications you should be taking & when. It also indicates when your next appointments are. Please follow-up with your primary care doctor in 1-2 weeks for a hospital follow-up visit. If your scheduled PCP appointment is not listed in this paperwork, then please call and make an appointment within 1-2 weeks. I will forward over a copy of your hospital records to them. *Please go to the emergency department for any new or worsening symptoms including any non-stop nausea or vomiting, new or worsening abdominal pain, new or worsening headache, new vision changes, newor worsening shortness of breath, new or worsening chest pain, one-sided weakness or numbness, fevers greater than 101.4??F, chills, or if there's anything else of concern to you. It was a pleasure treating you and I wish you the best. Alejandra José DO Brief Reason for Admission From the H&P performed by Alejandra José DO on 01/19/2024: Caitlyn Hooks is a 83 y.o. male with a past medical history of Parkinson's disease admitted [facility]. Patient states that they were awakened from sleep around 3 AM with chest pain that radiated to the neck and left arm. The patient reports that he has had sporadic chest pain for a number of years notnecessarily associated with physical activity. He denies any significant alcohol drug or tobacco use currently. He does have a distant history of smoking. He denies any family history of heart disease. Patient was taken to the catheterization lab emergently and found to have small diagonal. He denies any preceding heart failure symptoms such as shortness of breath, orthopnea. He does endorse leg s welling which has been a chronic issue for him. Consultants : cardiology Hospital Course Summary Statement: Patient was admitted for STEMI. He was treated with balloon angioplasty without stent to diagonal artery. Tolerated the procedure well started on GDMT medications as detailed above. No complications listed during the procedure. By problem: STEMI, present on admission, active -Balloon angioplasty without stent to diagonal artery. -HbA1c<5, LDL 72, normal TSH Plan: -Clopidogrel 75 mg daily -Aspirin 81 mg daily -Atorvastatin 40 mg nightly -Continue metoprolol succinate 12.5mg daily for goal HR 55 Heart failure mildly reduced ejection fraction, present on admission, active -As detected by TTE echo, ejection fraction 40 to 45% with akinesis of the mid distal anterior septum extending to the predominantly mid anterior wall. Slight chordae prolapse is also noted. Mild to moderate mitral regurgitation is noted as well as mild tricuspid regurgitation. Plan: -Start empagliflozin 10 mg daily -Start losartan 25 mg daily -Metoprolol succinate 12.5mg daily -Follow-up with cardiology Body mass index is 25.73 kg/m??. No results found for: [facility] [place] Admission Diagnosis(es) STEMI (ST elevation myocardial infarction) ([facility]) [I21.3] ST elevation myocardial infarction (STEMI), unspecified artery ([facility]) [I21.3] Present on Admission: None Discharge Diagnosis(es) Active Problems: No Active Problems: There are no active problems currently on the Problem List. Please update the Problem List and refresh. Hospital Operative Procedures * No surgery found * Disposition Caitlyn Hooks was discharged to Home in good condition. Discharge Medications Medication List START taking these medications aspirin 81 mg chewable tablet Take 1 tablet (81 mg total) by mouth daily Start taking on: January 22, 2024 Replaces: aspirin 325 mg EC tablet atorvastatin 40 mg tablet Commonly known as: LIPITOR Take 1 tablet (40 mg total) by mouth nightly clopidogreL 75 mg tablet Commonly known as: PLAVIX Take 1 tablet (75 mg total) by mouth daily Start taking on: January 22, 2024 empagliflozin 10 mg tablet tablet Commonly known as: JARDIANCE Take 1 tablet (10 mg total) by mouth daily losartan 25 mg tablet Commonly known as: COZAAR Take 1 tablet (25 mg total) by mouth daily Start taking on: January 22, 2024 metoprolol succinate XL 25 mg 24 hr tablet Commonly known as: TOPROL-XL Take 0.5 tablets (12.5 mg total) by mouth daily Start taking on: January 22, 2024 CONTINUE taking these medications mometasone 0.1 % lotion Commonly known as: ELOCON Instill 4 drops nightly after hearing aids removed as needed for itching, to affected ear or ears psyllium 3.4 gram packet Commonly known as: METAMUCIL STOP taking these medications aspirin 325 mg EC tablet Replaced by: aspirin 81 mg chewable tablet Where to Get Your Medications These medications were sent to [id number] - [place] - [address] [facility] [place] [address] aspirin 81 mg chewable tablet atorvastatin 40 mg tablet clopidogreL 75 mg tablet empagliflozin 10 mg tablet tablet losartan 25 mg tablet metoprolol succinate XL 25 mg 24 hr tablet OBJECTIVE First recorded vitals: Temp: 36.5 ??C (97.7 ??F) - BP: 165/92 - Heart Rate: 79 - Resp: 16 - SpO2: 99 % Most recent vitals: Temp: 36.5 ??C (97.7 ??F) - BP: 124/65 - Heart Rate: 84 - Resp: 18 - SpO2: 95 % Physical Exam Constitutional: General: He is not in acute distress. Appearance: He is well-developed. He is not diaphoretic. HENT: Head: Normocephalic and atraumatic. Mouth/Throat: Pharynx: No oropharyngeal exudate. Eyes: General: No scleral icterus. Right eye: No discharge. Left eye: No discharge. Conjunctiva/sclera: Conjunctivae normal. Neck: Trachea: No tracheal deviation. Cardiovascular: Rate and Rhythm: Normal rate and regular rhythm. Heart sounds: Normal heart sounds. No murmur heard. No friction rub. No gallop. Pulmonary: Effort: Pulmonary effort is normal. No respiratory distress. Breath sounds: Normal breath sounds. No stridor. No wheezing or rales. Chest: Chest wall: No tenderness. Abdominal: General: Bowel sounds are normal. There is no distension. Palpations: Abdomen is soft. Tenderness: There is no abdominal tenderness. There is no guarding. Musculoskeletal: General: No tenderness. Cervical back: Normal range of motion and neck supple. Lymphadenopathy: Cervical: No cervical adenopathy. Skin: General: Skin is warm and dry. Findings: No erythema or rash. Psychiatric: Behavior: Behavior normal. Thought Content: Thought content normal. Judgment: Judgment normal. I have seen and examined Caitlyn Hooks on 01/21/2024. LABS & DIAGNOSTICS Hematology Results from last 7 days Lab Units 01/20/24 0241 01/19/24 0521 WBC AUTO x10e3/uL 6.8 7.1 HEMOGLOBIN g/dL 13.3* 14.4 HEMATOCRIT % 40.4* 43.2 MCV fL 93 93 PLATELETS AUTO x10e3/uL 171 207 Chemistry Results from last 7 days Lab Units 01/20/24 0240 01/19/24 0521 SODIUM mmol/L 138 140 POTASSIUM mmol/L 4.0 3.8 CHLORIDE mmol/L 108* 105 CO2 mmol/L 24 23 BUN mg/dL 12.9 20.0 CREATININE mg/dL 0.91 1.01 GLUCOSE mg/dL 96 97 CALCIUM, SERUM mg/dL 8.7 9.2 MAGNESIUM mg/dL -- 2.1 AST U/L 92* 29 ALT U/L 28 21 BILIRUBIN TOTAL mg/dL 0.9 <0.9 ALBUMIN g/dL 4.0 4.8 TOTAL PROTEIN g/dL 6.3 7.5 Estimated Creatinine Clearance: 65.5 mL/min (by C-G formula based on SCr of 0.91 mg/dL). Optional Labs: Coagulation Studies: No lab exists for component: PROTIME Urinalysis: Cardiac Enzymes: Results from last 7 days Lab Units 01/19/24 0521 TROPONIN I ng/mL 0.273* Lipid Panel: Results from last 7 days Lab Units 01/20/24 0240 CHOLESTEROL mg/dL 130 HDL mg/dL 43* LDL CALCULATED mg/dL 72 VLDL CHOLESTEROL mg/dL 15 TRIGLYCERIDES mg/dL 74 ABG: Miscellaneous: Results from last 7 days Lab Units 01/20/24 0241 01/20/24 024 TSH uIU/mL -- 2.730 HEMOGLOBIN A1C % 4.9 -- IMAGING ECHOCARDIOGRAM COMPLETE Result Date: 01/20/2024 Narrative: [facility] + + Hospital : : [facility] : : [facility] : : [place], : : [place] [address] : : Phone: [phone] Echocardiogram Report +- + :Name: CAITLYN HOOKS Study Date: 01/20/2024 Height: 73 in : :[facility] ReadingLocation: Weight: 195 lb: : Gender: Male BSA: 2.1 m2 : :: 1940 Age: 83 yrs BP: 152/83 mmHg: :Reason For Study: STEMI : :Ordering Physician: ANGUS, : :RADHA Performed By: Lani Deleon : :Referring: ALEJANDRA JOSÉ : + + Interpretation Summary The left ventricle is normal in size. The ejection fraction is estimated to be 40-45%. There appears to be akinesis of mid to distal anteroseptum, extending into the predominantly mid anterior wall as well as mid to distal inferior lateral wall and distal anterolateral wall. The right ventricle is normal size. Right ventricular systolic function is mildly reduced. There appears to be slight chordae prolapse. No obvious flail leaflet. Mild to moderate mitral regurgitation. There is mild tricuspid regurgitation. The right ventricular systolic pressure is estimated to be at least 26 mmHg based on an estimated right atrial pressure of 3 mm Hg. Procedure: A two-dimensional transthoracic echocardiogram with color flow and Doppler was performed. The study quality was technically adequate. There is no prior echocardiogram noted for this patient. A contrast injection of Definity was performed to improve assessment of LV function. The study was done portably. The patient was in sinus rhythm with heart rates between 57-91 bpm during the exam. The patient had frequent PACs during the exam. The patient had occasional PVCs during the exam. Left Ventricle: The left ventricle is normal in size. Proximal septal thickening is noted. There is no thrombus. The ejection fraction is estimated to be 40- 45%. There appears to be akinesis of mid to distal anteroseptum, extending into the predominantly mid anterior wall as well as mid to distal inferior lateral wall and distal anterolateral wall. Diastolic parameters suggest a relaxation abnormality of the left ventricle, consistent with probable normal filling pressures. Right Ventricle: The right ventricle is normal size. Right ventricu lar systolic function is mildly reduced. Atria: Both atria are normal in size. There is no Doppler evidence for an interatrial shunt. Mitral Valve: The mitral valve leaflets appear mildly thickened, but open well. There appears to be slight chordae prolapse. No obvious flail leaflet. Mild to moderate mitral regurgitation. There is no mitral valve stenosis. There is mild mitral regurgitation. Aortic Valve: The aortic valve is trileaflet. The aortic valve opens well. There is mild aortic valve sclerosis. There is no aortic valve stenosis. There is trace aortic regurgitation. Tricuspid Valve: The tricuspid valve leaflets are thickened and/or calcified, but open well. There is mild tricuspid regurgitation. The right ventricular systolic pressure is estimated to be at least 26 mmHg based on anestimated right atrial pressure of 3 mm Hg. Pulmonic Valve: The pulmonic valve is not well seen, but is grossly normal. There is no pulmonic valvular stenosis. There is a trace or physiologic amount o f pulmonic regurgitation. Great Vessels: The aortic root is mildly dilated. The ascending aorta is at the upper limits of normal in size. The aortic arch could not be visualized. The IVC is of normaldiameter and collapses greater than 50% with a sniff. This suggests a low right atrial pressure of 3 mm Hg. Pericardium/ Pleura There is no pericardial effusion. MMode/2D Measurements & Calculations LVIDd: 4.8 cm AoV Openin.9 cm LVIDs: 3.2 cm LVOT diam: 2.2 cm IVSd: 0.98 cm Ao root diam: 4.0 cm LVPWd: 0.83 cm asc Aorta Diam: 3.8 cm LV barnhart. diameter/BSA (cm/m^2): 2.3 LV sys. diameter/BSA (cm/m^2): 1.5 FS: 34.1 % EPSS: 0.77 cm LA A2 area: 19.6 cm2 RA long axis: 5.7 cm LA A4 area: 20.0 cm2 RA area: 16.4 cm2 LA length (vol): 4.9 cm RA vol: 40.0 ml LA vol: 67.9 ml RA : 18.8 ml/m2 LA vol index: 31.9 ml/m2 ___ TAPSE: 1.3 cm IVC diam:1.4 cm Doppler Measurements & Calculations Ao V2 max: 93.3 cm/sec LVOT Max David: 76.9 cm/sec Ao V2 mean: 72.4 cm/sec LV V1 max P.4 mmHg Ao V2 VTI: 18.2 cm LV V1 VTI: 14.8 cm Ao max P.5 mmHg Ao mean P.2 mmHg PAU(I,D): 3.1 cm2 MV E max david: 39.5 cm/sec PAU(V,D): 3.1 cm2 MV A max david: 97.2 cm/sec PAU indexed to BSA (cm^2/m^2): 1.4 MV E/A: 0.41 sev ratio: 0.81 Med Peak E' David: 3.8 cm/sec E/E' med: 10.4 Lat Peak E' David: 4.8 cm/sec E/E' lat: 8.3 E/e' average: 9.3 MV dec time: 0.23 sec TR max david: 231.7 cm/sec MV mean P.94 mmHg TR max P.4 mmHg MVA(VTI): 2.7 cm2 PA V2 max: 110.1 cm/sec MV V2 mean: 42.5 cm/sec PA V2 mean: 73.0 cm/sec MV V2 VTI: 20.6 cm PA mean P.5 mmHg PA pr(Accel): 55.0 mmHg SV(LVOT): 56.1 ml Reading Physician:03:47 PM XR CHEST 1 VIEW Result Date: 01/19/2024 Narrative: [place] [address] PATIENT NAME: CAITLYN HOOKS : 1940 GENDER: M EXAM DATE: 01/19/2024 5:45 ORDERED FROM: [facility] ORDERING PHYSICIAN: ALEXANDRA TUCKER CC: -- - - - CONTRAST: READING STATION ID: [id number] mGy: PROCEDURE: XR CHEST 1 VIEW INDICATIONS: chest pain TECHNIQUE: Oneview of the chest was acquired. COMPARISON: [facility], , XR CHEST 1 VIEW, 10/09/2018,12:35. FINDINGS: Surgical changes and devices: None. Lungs and pleura: Lungs are clear. No pleural effusions or pneumothorax. Mediastinum: Mediastinal contours appear normal. Heart size is normal. Bones and chest wall: No suspicious bony lesions. Overlying soft tissues appear unremarkable. IMPRESSION: No acute cardiopulmonary abnormality is seen. Reviewed by: Raghav Fam M.D. on 01/19/2024 at 8:58 Approved by: Raghav Fam M.D. on 01/19/2024 at 8:59 SI CORONARIES ONLY Result Date: 01/19/2024 Narrative: Cardiac Cath Report Date of Service 01/19/24 Procedure: SI CORONARIES ONLY Indications: AL Vascular Access Right Femoral Artery using 6 Fr sheath, closure with Closure Device. Procedure Details Left heart cath details: The patient was brought to the cardiac catheterization lab in a fasting state. Patient was laid supine on the cardiac catheterization table and the vascular access site was prepped and draped in the usual sterile fashion. One percent Lidocaine was infiltrated over the Right Femoral Artery and vascular access was achieved. Guide wire was used to advance the catheter through the sheath and up into the aortic sinuses. After coronary angiography was completed, guide wire was advanced through the catheter ahead of the tip of the catheter and the guide wire along with the catheter were pulled together out of the sheath. Findings 1) Coronary angiography: right dominance A. Left main: No significant disease B. Left Anterior Descending (LAD) Artery: Transapical vesselminor luminal irregularities the first diagonal is totally occluded at its origin. C. Left Circumflex (LCx): Nondominant free of any significant disease D. Right Coronary Artery: Dominant vessel freeof any significant disease 2) INTERVENTIONAL DETAILS Using a VL 3.5 guide and a run-through wire wewere able to get into this diagonal. It was predilated with a 1.5 mm balloon. This vessel is a small 1.5 mm or less in diameter. In view of this no stent was placed. There was about 10% residual in the end. Complications There were no periprocedural complications identified Summary: Plain old balloon angioplasty of the diagonal. The case was delayed by almost an hour, because of lack of adequate staff to run the Geography Department Chair. Recommendations: GDMT per inpatient hospitalist team as well as inpatient cardiology team. Garrett Vicente MD Activity Usual activity as tolerated. Functional status prior to admission: Functional status : Ambulatory Functional expectation at discharge : Functional status : Ambulatory Advanced Care Planning Code Status: Full Code Electronically signed by: Alejandra José DO 01/21/2024 1:10 PM Note: Initial certification and orders must be signed and dated by attending physicians. The home health orders portion of the form for resumption of care or an update to the initial certification can be completed by any provider. Portions of today's documentation have been created with the assistance of voice recognition software. Therefore, it may contain anomalous punctuation, anomalous independent misrecognitions, word substitutions, insertions or omissions. Occasional wrong-word or phonetically similar substitutions mayalso occur, all due to the inherent limitations of voice recognition software. Attempts to correct the above have been made by Alejandra José DO but it is recommended that the chart be read carefully to recognize, using context, where the substitutions may have occurred. Allergies No Known Allergies This discharge summary has been routed to Kt Garsia via [employer] message or fax. Readmission Prevention: Has the discharge teach-back been completed: Yes Has a PCP appt been ordered post hospitalization 6 days after DC? Yes Has this been communicated with the PCP by the time the DC has taken place? N/A I spent 35 minutes in preparation of discharge for Caitlyn Hooks. Greater than 50% of that timewas dedicated to patient counseling and coordination of care. Thank you for allowing me to participate in the care of Caitlyn Hooks. Electronically signed by: Alejandra José DO 01/21/2024 1:10 PM Portions of today's documentation have been created with the assistance of voice recognition software. Therefore, it may contain anomalous punctuation, anomalous independent misrecognitions, word substitutions, insertions or omissions. Occasional wrong-word or phonetically similar substitutions mayalso occur, all due to the inherent limitations of voice recognition software. Attempts to correct the above have been made by Alejandra José DO but it is recommended that the chart be read carefully to recognize, using context, where the substitutions may have occurred. Associated attestation - Radha Goff MD - 01/25/2024 6:53 PM PDT I saw the patient on the day of discharge and agree with the discharge plans and disposition. documented in this encounter Discharge Instructions * Discharge Instructions* Alejandra José DO - 01/21/2024 1:00 PM PDT Physician's Instructions Dear Caitlyn Hooks, Thank you for allowing us to be a part of your care. You were admitted for a heart attack. Changes to your medications has been made as detailed below. Stop taking aspirin 325 mg and start taking aspirin 81 mg daily. This will help protect your heart arteries from getting blocked again. Start taking atorvastatin 40 mg nightly, this helps prevent that from building up in your arteries and getting clogged Start taking clopidogrel 75 mg daily this medication also helps stop your heart arteries from getting blood clots in them Start taking empagliflozin 10 mg, this medication will help keep your heart pumping an adequate amount of blood. Start taking losartan 25 mg daily this will help lower your blood pressure and help protect your heart Start taking metoprolol succinate 25 mg. This medication will help slow down your heart and keep itworking longer. Follow-up with cardiology in 1 week Please read and review the attached instructions as it lists what medications you should be taking & when. It also indicates when your next appointments are. Please follow-up with your primary care doctor in 1-2 weeks for a hospital follow-up visit. If your scheduled PCP appointment is not listed in this paperwork, then please call and make an appointment within 1-2 weeks. I will forward over a copy of your hospital records to them. *Please go to the emergency department for any new or worsening symptoms including any non-stop nausea or vomiting, new or worsening abdominal pain, new or worsening headache, new vision changes, newor worsening shortness of breath, new or worsening chest pain, one-sided weakness or numbness, fevers greater than 101.4??F, chills, or if there's anything else of concern to you. It was a pleasure treating you and I wish you the best. Alejandra José DO * Appointments* Gisselle Morse CNA - 01/21/2024 1:18 PM PDT Patient will need to call Dr Garsia office ph#[phone] in am Mon- to make a hospital follow up appointment in 7-10 days Office closed for weekend May need a referral for Cardiology at this appointment Patient will need to [facility] ph#[phone] in am on Monday to make a hospital follow up appointment. Office closed for weekend * Attachments The following attachments cannot be sent through Care Everywhere. * Empagliflozin, ADULT (Venezuelan) * Metoprolol, ADULT ([place]an) * Heart failure with reduced ejection fraction (Venezuelan) * Cardiac Catheterization Discharge Instructions (Venezuelan) documented in this encounter Medications at Time of Discharge Medication Sig Dispensed Refills Start Date End Date aspirin 81 mg chewable tablet Take 1 tablet (81 mg total) by mouth daily 30 tablet 11 01/22/2024 01/21/2025 atorvastatin (LIPITOR) 40 mg tablet Take 1 tablet (40 mg total) by mouth nightly 30 tablet 11 01/21/2024 01/20/2025 clopidogreL (PLAVIX) 75 mg tablet Take 1 tablet (75 mg total) by mouth daily 30 tablet 11 01/22/2024 01/21/2025 empagliflozin (JARDIANCE) 10 mg tablet tablet Take 1 tablet (10 mg total) by mouth daily 30 tablet 2 01/21/2024 04/20/2024 losartan (COZAAR) 25 mg tablet Take 1 tablet (25 mg total) by mouth daily 30 tablet 11 01/22/2024 01/21/2025 metoprolol succinate XL (TOPROL-XL) 25 mg 24 hr tablet Take 0.5 tablets (12.5 mg total) by mouth daily 15 tablet 11 01/22/2024 01/21/2025 mometasone (ELOCON) 0.1 % lotionIndications:Pruri tus Instill 4 drops nightly after hearing aids removed as needed for itching, to affected ear or ears 30 mL 1 12/04/2023 psyllium (METAMUCIL) 3.4 gram packet Take 1 packet by mouth daily documented as of this encounter Progress Notes * Stacia Cotton RN - 01/21/2024 2:29 PM PDT CASE MANAGEMENT: DISCHARGE Data: EMR reviewed. Pt is on day 2 for Problem List Items Addressed This Visit None Visit Diagnoses ST elevation myocardial infarction (STEMI), unspecified artery ([facility]) - Primary Relevant Medications nitroprusside (NIPRIDE) 25 mg/mL injection - ADS Override Pull (Completed) nitroprusside 100 mcg/ml injection (Completed) aspirin chewable tablet 81 mg clopidogreL (PLAVIX) tablet 300 mg (Completed) clopidogreL (PLAVIX) tablet 75 mg clopidogreL (PLAVIX) tablet (Completed) atorvastatin (LIPITOR) tablet 40 mg metoprolol succinate XL (TOPROL-XL) 24 hr split tablet 12.5 mg losartan (COZAAR) tablet 25 mg atorvastatin (LIPITOR) 40 mg tablet clopidogreL (PLAVIX) 75 mg tablet (Start on 01/22/2024) metoprolol succinate XL (TOPROL-XL) 25 mg 24 hr tablet (Start on 01/22/2024) losartan (COZAAR) 25 mg tablet (Start on 01/22/2024) aspirin 81 mg chewable tablet (Start on 01/22/2024) Other Relevant Orders Ambulatory Referral to Cardiac Rehabilitation Pt is medically ready for discharge. Pt will be discharging home. Transportation will be provided by family. Case Management met with patient At bedside to confirm discharge plan and assess for unidentified needs. They are agreeable to this discharge plan. They do not identify barriers or concerns to this plan. Patient discharging home today. Visited patient at bedside to see if he had a ride home. He reportshe just heard from his son who can take him home and is driving over from [employer]. No questions or concerns. Assessment: alert and oriented x4. Plan: Pt to discharge home via POV. Case Management discussed d/c with patient, MD and bedside RN. All updated and agreeable to plan. Stacia Cotton RN * Monica Gutiérrez, PT - 01/21/2024 9:14 AM PDT Inpatient Physical Therapy Initial Evaluation Patient Name: Caitlyn Hooks MR#: [id number] Today's Date: 01/21/2024 Assessment: Assessment/Prognosis Assessment: Post admit day #2, arrived to the ED via ambulance with complaints of chest pain and STEMI. He underwent a balloon angiography on 01-19-24 with good results. Hx: Fx right femur 2017, Fx left hip 2021, plans to have a TKA left in the near future. Other history is significant for Parkinson's disease which he does not take any medications because he reports it did not do any good and made his stomach upset. PLOF: Lives with his signif. Other in a 1 story home. Independent with mobility and ADL's and gets assist for meals, shopping and household needs. Patient has a walker and a single point cane but admits he does not use them even though he has a history of multiple falls. 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 CLOF: Agrees to work with PT, hoping to see the MD and go home today. He reports he does not have any concerns about going home. Out of bed to his right side SBA. Gait X 100' and up/down 4 steps witha rail, CGA. Patient impulsive at times and needs cues to slow down and make sure his whole foot corona the step before he advances up. Patient needed standing rests secondary to some hip discomfort and left knee pain - not new and to allow initiation of gait challenged by his Parkinson's disease. Festinating gait creating a fall risk which the patient reports he is well aware of, he was encouraged to use his SPC for safety with mobility. He is a current patient in an outpatient PT clinic and plans to return for more visits. ROM and strength WFL, although he remains a high fall risk he confirms he is at his baseline and is ready to go home I will be fine. No further skilled PT indicated in this setting. Safe to return home to his prior living arrangement when medically stable. Prognosis: Good Recommendation and Plan: Treatment/Interventions: Bed mobility, Gait training Recommendation In-house recommendation: No skilled PT No Skilled PT: At baseline function, Safe to return home PT Frequency (in-house): One time visit Post-discharge recommendation: Home independently, Home with assist (significant other to assist asneeded) Discharge Transportation: Private vehicle Patient Active Problem List Diagnosis Parkinson's disease ([facility]) Past Medical History: Diagnosis Date Hernia, inguinal, right surgery scheduled at [facility] on 10/18/18 Past Surgical History: Procedure Laterality Date SKIN BIOPSY Precautions: Precautions General Precautions: Fall Weight Bearing Status: WBAT Home Environment: Home Living Type of Home: House Home Layout: One level Home Access: Stairs to enter with rails (2 steps) Bathroom Shower/Tub: Walk-in shower Bathroom Toilet: ADA height Bathroom Equipment: Grab bars in shower Bathroom Accessibility: Accessible Mobility Equipment: Front wheeled walker, Single point cane (does not use) Additional Comments: reports history of falls but still does not use DME at home Prior Function Level of Morrison: Independent with ADLs and functional transfers, Needs assistance with homemaking Lives With: Significant other Receives Help From: Friend(s) (signif. 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 turns) Motor Planning: (has his own stratigies for mobility) Perseveration: Moderate Mobility: Mobility Rolling: Modified independent with railing Supine to Sit: Stand by assistance Sit to Supine: Stand by assistance Sit to Stand: Contact guard assistance Sit-Stand Devices Used: No AD Stand to Sit: Independent (sits quickly at times) Stand-Sit Devices Used: No AD Ambulation: Contact guard assistance Ambulation: Devices Used: No AD Ambulation Distance (Feet): 100 Feet Stairs: Contact guard assistance (X4 with rail) Stairs: Devices Used: Right handrail, Left handrail Sitting Balance: Supports self independently Standing Balance: Impaired Extremities: RUE Assessment RUE Assessment: Within Functional Limits LUE Assessment LUE Assessment: Within Functional Limits (pain at endrange of shoulder flexion since fall) RLE Assessment RLE Assessment: Within Functional Limits LLE Assessment LLE Assessment: Within Functional Limits Electronically signed by Monica Gutiérrez PT * Radha Goff MD - 01/20/2024 5:47 PM PDT [facility]: INPATIENT PROGRESS NOTE Patient Name: Caitlyn Hooks Date of : 1940 Age: 83 y.o. Code Status: Full Code Primary Care Physician: Kt Garsia Admitting Provider: Alejandra Hofmeister, DO Attending Provider: Radha Goff MD Admit Date: 01/19/2024 Hospital Day: 1 [facility] ASSESSMENT & PLAN Caitlyn Hooks is a 83 y.o. male with a past medical history of Parkinson's disease admitted [facility] . Carried forward daily. Active medical problems and status (all reviewed 01/20/24), present on admission: STEMI, present on admission, active -Balloon angioplasty without stent to diagonal artery. -HbA1c<5, LDL 72, normal TSH Plan: -Clopidogrel 75 mg daily -Aspirin 81 mg daily -Atorvastatin 40 mg nightly -Start metoprolol succinate 12.5mg daily for goal HR 55 -Per discussion with cardiology today regarding TTE findings, probable plan for discharge home tomorrow Chronic problems: Parkinson's disease: Patient has been prescribed carbidopa levodopa in the past but does not take this medication due to side effects. Current rose indication: No ROSE VTE Prophylaxis: heparin subcutaneous Code Status: Full code Disposition: Anticipate discharge to : Home within 2 days, suspect 01/20 Functional status : Ambulatory SUBJECTIVE Chief Complaint Patient presents with Chest Pain Patient's Update Patient was seen and evaluated bedside. Today, patient denies any chest pain, SOB, or nausea Plan of care was discussed with patient and questions were solicited and answered in a satisfactorymanner. Interval Update: Interval history : Stable Overnight reports: RN report : None, no issues over night. All nursing notes, labs and pertinent imaging reviewed. No other issues upon chart review. OBJECTIVE First recorded vitals: Temp: 36.5 ??C (97.7 ??F) - BP: 165/92 - Heart Rate: 79 - Resp: 16 - SpO2: 99 % Most recent vitals: Temp: 36.9 ??C (98.4 ??F) - BP: (!) 142/80 - Heart Rate: 76 - Resp: (!) 22 - SpO2: 96 % LDA: Lines: PIV Constitutional: General: He is not in acute distress. Appearance: He is well-developed. He is not diaphoretic. HENT: Head: Normocephalic and atraumatic. Mouth/Throat: Pharynx: No oropharyngeal exudate. Eyes: General: No scleral icterus. Right eye: No discharge. Left eye: No discharge. Conjunctiva/sclera: Conjunctivae normal. Neck: Trachea: No tracheal deviation. Cardiovascular: Rate and Rhythm: Normal rate and regular rhythm. Heart sounds: Normal heart sounds. No murmur heard. No friction rub. No gallop. Pulmonary: Effort: Pulmonary effort is normal. No respiratory distress. Breath sounds: Normal breath sounds. No stridor. No wheezing or rales. Chest: Chest wall: No tenderness. Abdominal: General: Bowel sounds are normal. There is no distension. Palpations: Abdomen is soft. Tenderness: There is no abdominal tenderness. There is no guarding. Musculoskeletal: General: No tenderness. Cervical back: Normal range of motion and neck supple. Lymphadenopathy: Cervical: No cervical adenopathy. Skin: General: Skin is warm and dry. Findings: No erythema or rash. R femoral access site appears c/d/I Psychiatric: Behavior: Behavior normal. Thought Content: Thought content normal. Judgment: Judgment normal. Scheduled Hospital Meds: aspirin, 81 mg, oral, Daily atorvastatin, 40 mg, oral, Nightly clopidogreL, 75 mg, oral, Daily senna, 1 tablet, oral, Daily LABS & DIAGNOSTICS Hematology Results from last 7 days Lab Units 01/20/24 0241 01/19/24 0521 WBC AUTO x10e3/uL 6.8 7.1 HEMOGLOBIN g/dL 13.3* 14.4 HEMATOCRIT % 40.4* 43.2 MCV fL 93 93 PLATELETS AUTO x10e3/uL 171 207 Chemistry Results from last 7 days Lab Units 01/20/24 0240 01/19/24 0521 SODIUM mmol/L 138 140 POTASSIUM mmol/L 4.0 3.8 CHLORIDE mmol/L 108* 105 CO2 mmol/L 24 23 BUN mg/dL 12.9 20.0 CREATININE mg/dL 0.91 1.01 GLUCOSE mg/dL 96 97 CALCIUM, SERUM mg/dL 8.7 9.2 MAGNESIUM mg/dL -- 2.1 AST U/L 92* 29 ALT U/L 28 21 BILIRUBIN TOTAL mg/dL 0.9 <0.9 ALBUMIN g/dL 4.0 4.8 TOTAL PROTEIN g/dL 6.3 7.5 Estimated Creatinine Clearance: 65.5 mL/min (by C-G formula based on SCr of 0.91 mg/dL). IMAGING Imaging results: ECHOCARDIOGRAM [facility] + + Hospital : : [address] : : [place], : : [place] [id number] : : Phone: [phone] Echocardiogram Report + + :Name: CAITLYN HOOKS Study Date: 01/20/2024 Height: 73 in : :[facility] ReadingLocation: Weight: 195 lb : : Gender: Male BSA: 2.1 m2 : :: 1940 Age: 83 yrs BP: 152/83 mmHg: :Reason For Study: STEMI : :Ordering Physician: ANGUS, : :RADHA Performed By: Lani Deleon : :Referring: ALEJANDRA JOSÉ : + + Interpretation Summary The left ventricle is normal in size. The ejection fraction is estimated to be 40-45%. There appears to be akinesis of mid to distal anteroseptum, extending into the predominantly mid anterior wall as well as mid to distal inferior lateral wall and distal anterolateral wall. The right ventricle is normal size. Right ventricular systolic function is mildly reduced. There appears to be slight chordae prolapse. No obvious flail leaflet. Mild to moderate mitral regurgitation. There is mild tricuspid regurgitation. The right ventricular systolic pressure is estimated to be at least 26 mmHg based on an estimated right atrial pressure of 3 mm Hg. Procedure: A two-dimensional transthoracic echocardiogram with color flow and Doppler was performed. The study quality was technically adequate. There is no prior echocardiogram noted for this patient. A contrast injection of Definity was performed to improve assessment of LV function. The study was done portably. The patient was in sinus rhythm with heart rates between 57-91 bpm during the exam. The patient had frequent PACs during the exam. The patient had occasional PVCs during the exam. Left Ventricle: The left ventricle is normal in size. Proximal septal thickening is noted. There is no thrombus. The ejection fraction is estimated to be 40-45%. There appears to be akinesis of mid to distal anteroseptum, extending into the predominantly mid anterior wall as well as mid to distal inferior lateral wall and distal anterolateral wall. Diastolic parameters suggest a relaxation abnormality of the left ventricle, consistent with probable normal filling pressures. Right Ventricle: The right ventricle is normal size. Right ventricular systolic function is mildly reduced. Atria: Both atria are normal in size. There is no Doppler evidence for an interatrial shunt. Mitral Valve: The mitral valve leaflets appear mildly thickened, but open well. There appears to be slight chordae prolapse. No obvious flail leaflet. Mild to moderate mitral regurgitation. There is no mitral valve stenosis. There is mild mitral regurgitation. Aortic Valve: The aortic valve is trileaflet. The aortic valve opens well. There is mild aortic valve sclerosis. There is no aortic valve stenosis. There is trace aortic regurgitation. Tricuspid Valve: The tricuspid valve leaflets are thickened and/or calcified, but open well. There is mild tricuspid regurgitation. The right ventricular systolic pressure is estimated to be at least 26 mmHg based on an estimated right atrial pressure of 3 mm Hg. Pulmonic Valve: The pulmonic valve is not well seen, but is grossly normal. There is no pulmonic valvular stenosis. There is a trace or physiologic amount of pulmonic regurgitation. Great Vessels: The aortic root is mildly dilated. The ascending aorta is at the upper limits of normal in size. The aortic arch could not be visualized. The IVC is of normal diameter and collapses greater than 50% with a sniff. This suggests a low right atrial pressure of 3 mm Hg. Pericardium/ Pleura There is no pericardial effusion. MMode/2D Measurements & Calculations LVIDd: 4.8 cm AoV Openin.9 cm LVIDs: 3.2 cm LVOT diam: 2.2 cm IVSd: 0.98 cm Ao root diam: 4.0 cm LVPWd: 0.83 cm asc Aorta Diam: 3.8 cm LV barnhart. diameter/BSA (cm/m^2): 2.3 LV sys. diameter/BSA (cm/m^2): 1.5 FS: 34.1 % EPSS: 0.77 cm LA A2 area: 19.6 cm2 RA long axis: 5.7 cm LA A4 area: 20.0 cm2 RA area: 16.4 cm2 LA length (vol): 4.9 cm RA vol: 40.0 ml LA vol: 67.9 ml RA : 18.8 ml/m2 LA vol index: 31.9 ml/m2 TAPSE: 1.3 cm IVC diam: 1.4 cm Doppler Measurements & Calculations Ao V2 max: 93.3 cm/sec LVOT Max David: 76.9 cm/sec Ao V2 mean: 72.4 cm/sec LV V1 max P.4 mmHg Ao V2 VTI: 18.2 cm LV V1 VTI: 14.8 cm Ao max P.5 mmHg Ao mean P.2 mmHg PAU(I,D): 3.1 cm2 MV E max david: 39.5 cm/sec PAU(V,D): 3.1 cm2 MV A max david: 97.2 cm/sec PAU indexed to BSA (cm^2/m^2): 1.4 MV E/A: 0.41 sev ratio: 0.81 Med Peak E' David: 3.8 cm/sec E/E' med: 10.4 Lat Peak E' David: 4.8 cm/sec E/E' lat: 8.3 E/e' average: 9.3 MV dec time: 0.23 sec TR max david: 231.7 cm/sec MV mean P.94 mmHg TR max P.4 mmHg MVA(VTI): 2.7 cm2 PA V2 max: 110.1 cm/sec MV V2 mean: 42.5 cm/sec PA V2 mean: 73.0 cm/sec MV V2 VTI: 20.6 cm PA mean P.5 mmHg PA pr(Accel): 55.0 mmHg SV(LVOT): 56.1 ml Reading Physician:03:47 PM Electronically signed by: Radha Goff MD 01/20/2024 5:47 PM Portions of today's documentation have been created with the assistance of voice recognition software. Therefore, it may contain anomalous punctuation, anomalous independent misrecognitions, word substitutions, insertions or omissions. Occasional wrong-word or phonetically similar substitutions mayalso occur, all due to the inherent limitations of voice recognition software. Attempts to correct the above have been made by Radha Goff MD but it is recommended that the chart be read carefullyto recognize, using context, where the substitutions may have occurred. documented in this encounter H&P Notes * Alejandra José DO - 01/19/2024 2:57 PM PDT HOSPITALISTNOTESLIST: [facility]: HISTORY & PHYSICAL Patient Name: Caitlyn Hooks Date of : 1940 Age: 83 y.o. Code Status: Full Code Primary Care Physician: Kt Garsia Admitting Provider: Alejandra José DO Attending Provider: Radha Goff MD Admit Date: 01/19/2024 Date of Service: 01/19/2024 Hospital Day: 0 BMI Body mass index is 25.73 kg/m??. ASSESSMENT & PLAN Consultants : cardiology Caitlyn Hooks is a 83 y.o. male with a past medical history of Parkinson's disease admitted [facility]. ACTIVELY MANAGED PROBLEMS/PLANS (itemized): Active problems: STEMI, present on admission, active -Balloon angioplasty without stent to diagonal artery. 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 Plan: -Clopidogrel 75 mg daily -Aspirin 81 mg daily -Atorvastatin 40 mg nightly -Morning draw for TSH hemoglobin A1c and lipid panel -Echo ordered for tomorrow morning -Consider beta-ronald pending heart rate evaluation Chronic problems: Parkinson's disease: Patient has been prescribed carbidopa levodopa in the past but does not take this medication due to side effects. VTE Prophylaxis: heparin subcutaneous Tobacco/Marijuana Dependence: Former smoker Code Status: Full code. Patient Status: Patient's expected length of stay: Greater than 2 midnights. Patient is under Inpatient status due to severity of presenting symptoms, complexity of treatment plan, and risk of adverse event. Functional status prior to admission: Independent. Functional expectation at discharge (including NSOC): Independent. How will the patient get home from the hospital?: To be determined Are there any known barriers to discharge on admission?: None SUBJECTIVE Chief Complaint Patient presents with Chest Pain Source of History: The patient & chart review History of Present Illness Caitlyn Hooks is a 83 y.o. male with a past medical history of Parkinson's disease admitted [facility]. Patient states that they were awakened from sleep around 3 AM with chest pain that radiated to the neck and left arm. The patient reports that he has had sporadic chest pain for a number of years notnecessarily associated with physical activity. He denies any significant alcohol drug or tobacco use currently. He does have a distant history of smoking. He denies any family history of heart disease. Patient was taken to the catheterization lab emergently and found to have small diagonal. He denies any preceding heart failure symptoms such as shortness of breath, orthopnea. He does endorse leg s welling which has been a chronic issue for him. Review of Systems A comprehensive review of systems was conducted and found to be negative, except as above in the History of Present Illness. Allergies No Known Allergies Current Medications Medications Prior to Admission Medication Sig Dispense Refill Last Dose aspirin 325 mg EC tablet Take 1 tablet (325 mg total) by mouth as needed for mild pain (1-3) mometasone (ELOCON) 0.1 % lotion Instill 4 drops nightly after hearing aids removed as needed for itching, to affected ear or ears 30 mL 1 psyllium (METAMUCIL) 3.4 gram packet Take 1 packet by mouth daily Current Outpatient Medications Medication Instructions aspirin 325 mg, oral, As needed mometasone (ELOCON) 0.1 % lotion Instill 4 drops nightly after hearing aids removed as needed for itching, to affected ear or ears psyllium (METAMUCIL) 3.4 gram packet 1 packet, oral, Daily Past Medical History Past Medical History: Diagnosis Date Hernia, inguinal, right surgery scheduled at [facility] on 10/18/18 Past Surgical History Past Surgical History: Procedure Laterality Date SKIN BIOPSY Family History family history is not on file. Social History The patient reports that he has quit smoking. He has never used smokeless tobacco. He reports current alcohol use. He reports that he does not use drugs. Social History Social History Narrative Not on file OBJECTIVE First recorded vitals: Temp: 36.5 ??C (97.7 ??F) - BP: 165/92 - Heart Rate: 79 - Respirations: 16 - SpO2: 99 % Most recent vitals: Temp: 36.7 ??C (98 ??F) - BP: 152/83 - Heart Rate: 83 - Respirations: 20 - SpO2: 95 % Physical Exam Constitutional: General: He is not in acute distress. Appearance: He is well-developed. He is not diaphoretic. HENT: Head: Normocephalic and atraumatic. Mouth/Throat: Pharynx: No oropharyngeal exudate. Eyes: General: No scleral icterus. Right eye: No discharge. Left eye: No discharge. Conjunctiva/sclera: Conjunctivae normal. Neck: Trachea: No tracheal deviation. Cardiovascular: Rate and Rhythm: Normal rate and regular rhythm. Heart sounds: Normal heart sounds. No murmur heard. No friction rub. No gallop. Pulmonary: Effort: Pulmonary effort is normal. No respiratory distress. Breath sounds: Normal breath sounds. No stridor. No wheezing or rales. Chest: Chest wall: No tenderness. Abdominal: General: Bowel sounds are normal. There is no distension. Palpations: Abdomen is soft. Tenderness: There is no abdominal tenderness. There is no guarding. Musculoskeletal: General: No tenderness. Cervical back: Normal range of motion and neck supple. Lymphadenopathy: Cervical: No cervical adenopathy. Skin: General: Skin is warm and dry. Findings: No erythema or rash. Psychiatric: Behavior: Behavior normal. Thought Content: Thought content normal. Judgment: Judgment normal. LABS & DIAGNOSTICS Hematology: Results from last 7 days Lab Units 01/19/24 0521 WBC AUTO x10e3/uL 7.1 HEMOGLOBIN g/dL 14.4 HEMATOCRIT % 43.2 MCV fL 93 PLATELETS AUTO x10e3/uL 207 Chemistries: Results from last 7 days Lab Units 01/19/24 0521 SODIUM mmol/L 140 POTASSIUM mmol/L 3.8 CHLORIDE mmol/L 105 CO2 mmol/L 23 BUN mg/dL 20.0 CREATININE mg/dL 1.01 GLUCOSE mg/dL 97 CALCIUM, SERUM mg/dL 9.2 MAGNESIUM mg/dL 2.1 AST U/L 29 ALT U/L 21 BILIRUBIN TOTAL mg/dL <0.9 ALBUMIN g/dL 4.8 TOTAL PROTEIN g/dL 7.5 Estimated Creatinine Clearance: 64.8 mL/min (by C-G formula based on SCr of 1.01 mg/dL). Other labs (optional): Coagulation Studies: No lab exists for component: PROTIME Urinalysis: Cardiac Enzymes: Results from last 7 days Lab Units 01/19/24 0521 TROPONIN I ng/mL 0.273* IMAGING XR CHEST 1 VIEW Result Date: 01/19/2024 Narrative: [place] [address] PATIENT NAME: CAITLYN HOOKS : 1940 GENDER: M EXAM DATE: 01/19/2024 5:45 ORDERED FROM: [facility] ORDERING PHYSICIAN: ALEXANDRA TUCKER CC: -- - - - CONTRAST: READING STATION ID: [id number] mGy: PROCEDURE: XR CHEST 1 VIEW INDICATIONS: chest pain TECHNIQUE: Oneview of the chest was acquired. COMPARISON: [facility], XR CHEST 1 VIEW, 10/09/2018,12:35. FINDINGS: Surgical changes and devices: None. Lungs and pleura: Lungs are clear. No pleural effusions or pneumothorax. Mediastinum: Mediastinal contours appear normal. Heart size is normal. Bones and chest wall: No suspicious bony lesions. Overlying soft tissues appear unremarkable. IMPRESSION: No acute cardiopulmonary abnormality is seen. Reviewed by: Raghav Fam M.D. on 01/19/2024 at 8:58 Approved by: Raghav Fam M.D. on 01/19/2024 at 8:59 SI CORONARIES ONLY Result Date: 01/19/2024 Narrative: Cardiac Cath Report Date of Service 01/19/24 Procedure: SI CORONARIES ONLY Indications: AL Vascular Access Right Femoral Artery using 6 Fr sheath, closure with Closure Device. Procedure Details Left heart cath details: The patient was brought to the cardiac catheterization lab in a fasting state. Patient was laid supine on the cardiac catheterization table and the vascular access site was prepped and draped in the usual sterile fashion. One percent Lidocaine was infiltrated over the Right Femoral Artery and vascular access was achieved. Guide wire was used to advance the catheter through the sheath and up into the aortic sinuses. After coronary angiography was completed, guide wire was advanced through the catheter ahead of the tip of the catheter and the guide wire along with the catheter were pulled together out of the sheath. Findings 1) Coronary angiography: right dominance A. Left main: No significant disease B. Left Anterior Descending (LAD) Artery: Transapical vesselminor luminal irregularities the first diagonal is totally occluded at its origin. C. Left Circumflex (LCx): Nondominant free of any significant disease D. Right Coronary Artery: Dominant vessel freeof any significant disease 2) INTERVENTIONAL DETAILS Using a VL 3.5 guide and a run-through wire wewere able to get into this diagonal. It was predilated with a 1.5 mm balloon. This vessel is a small 1.5 mm or less in diameter. In view of this no stent was placed. There was about 10% residual in the end. Complications There were no periprocedural complications identified Summary: Plain old balloon angioplasty of the diagonal. The case was delayed by almost an hour, because of lack of adequate staff to run the Geography Department Chair. Recommendations: GDMT per inpatient hospitalist team as well as inpatient cardiology team. Garrett Vicente MD Electronically signed by: Alejandra José DO 01/19/2024 2:58 PM Portions of today's documentation have been created with the assistance of voice recognition software. Therefore, it may contain anomalous punctuation, anomalous independent misrecognitions, word substitutions, insertions or omissions. Occasional wrong-word or phonetically similar substitutions mayalso occur, all due to the inherent limitations of voice recognition software. Attempts to correct the above have been made by Alejandra José DO but it is recommended that the chart be read carefully to recognize, using context, where the substitutions may have occurred. Associated attestation - Radha Goff MD - 01/19/2024 8:41 PM PDT I saw and evaluated the patient, participating in the sy portions of the service. I reviewed the resident???s note. I agree with the resident???s findings and plan. Discussed with cardiology. Right groin side post cath was also examined, appears c/d/I with minimal oozing * Garrett Vicente MD - 01/19/2024 7:42 AM PDT Images from the original note were not included. Preprocedure History and Physical Indication for procedure: The encounter diagnosis was ST elevation myocardial infarction (STEMI), unspecified artery ([facility]). HPI: This patient was brought in via ambulance with complaints of chest discomfort that started around 3AM. I saw the patient in the emergency room. The patient stated his discomfort was more so in the upper part of his chest and his neck. It did not cause him to throw up all made him nauseous. Off-and-on he has been having similar discomfort but it has been going away by itself fairly quickly so he did not pay any attention to it. An EKG done in the field showed an anterolateral AL. This was confirmed by an EKG done in the hospital. The patient denied any GI/ bleeding no upcoming surgeries. He does not take any medications on a regular basis His past medical history significant mainly for Parkinson's for which she takes no medications. Assessment and plan The patient presented with an acute AL. I gave him his treatment options. The patient agreed to proceed ahead with angiography. The details are reported elsewhere. Briefly had a small diagonal that was totally occluded. This was treated with balloon angioplasty. Of note the case was delayed by almost an hour because of his not enough staff. Relevant past medical/surgical history: Past Surgical History: Procedure Laterality Date SKIN BIOPSY . Past Medical History: Diagnosis Date Hernia, inguinal, right surgery scheduled at [facility] on 10/18/18 Current medications: Current Facility-Administered Medications: fentaNYL (SUBLIMAZE) injection, , intravenous, PRN, Garrett Vicente MD, 50 mcg at 01/19/24 0718 heparin (porcine) injection, , intravenous, PRN, Garrett Vicente MD, 4,000 Units at 01/19/24 0721 midazolam (VERSED) injection, , intravenous, PRN, Garrett Vicente MD, 1 mg at 01/19/24 0718 nitroglycerin (TRIDIL) infusion 200 mcg/mL, 5-300 mcg/min, intravenous, Titrated, Alexandra Tucker MD, Last Rate: 3 mL/hr at 01/19/24 0556, 10 mcg/min at 01/19/24 0556 nitroprusside 100 mcg/ml injection, , , PRN, Garrett Vicente MD, 400 mcg at 01/19/24 0724 Current Outpatient Medications: aspirin 325 mg EC tablet, Take 1 tablet (325 mg total) by mouth as needed for mild pain (1-3), Disp: , Rfl: mometasone (ELOCON) 0.1 % lotion, Instill 4 drops nightly after hearing aids removed as needed for itching, to affected ear or ears, Disp: 30 mL, Rfl: 1 psyllium (METAMUCIL) 3.4 gram packet, Take 1 packet by mouth daily, Disp: , Rfl: Relevant family history: Non-contributory Relevant review of systems: Non-contributory Allergies: Patient has no known allergies. Relevant Labs: Lab Results Component Value Date CREATININE 1.01 01/19/2024 EGFR 75 01/19/2024 INR 1.1 10/09/2018 Directed physical examination: Alert/Oriented: Normal HEENT: Normal Chest/Lungs: Normal Heart: Normal Abdomen: Normal Mallampati: II (hard and soft palate, upper portion of tonsils anduvula visible) ASA Score: ASA 2 - Patient with mild systemic disease with no functional limitations documented in this encounter Nursing Notes * Sarah Gardner - 01/21/2024 2:55 PM PDT Patient ordered for discharge home. Discharge instructions and medications reviewed with patient at bedside, all questions answered appropriately. Patient escorted out to front lobby with all belongings at about 1535 via wheelchair, accompanied by staff. * Mecca Redmond RN - 01/21/2024 2:50 AM PDT End of Shift/ Care Plan Summary: Pt is A&Ox4, 1 PA w/ FWW, & SR on tele. Pt denies pain. Fall precautions in place, cares & hourly rounding complete. * Sarah Gardner - 01/20/2024 6:34 PM PDT Patient A&Ox4, no complaints of pain during shift. Tele in place, SR, rates in the 90s. SPO2 WNL on RA, VSS. Patient had run of vtach during shift, MD notified. PIVx2 SL. Patient 1PA with FWW to BR. Patient having good urine output during shift. Bed in low and locked position, call light within reach, hourly rounding and safety checks performed, handoff given to nightshift RN. * Sarah Gardner - 01/20/2024 6:27 PM PDT Identify possible barriers to meeting goals/advancing plan of care: Cardiac monitoring, PT eval End of Shift/ Care Plan Summary: See nursing note Problem: Pain - Adult Goal: Verbalizes/displays adequate comfort level based on patient stated goal Outcome: Progressing Flowsheets (Taken 01/20/20241825) Addressed this shift: Verbalizes/displays adequate comfort level or baseline comfort level: Encourage patient to monitor pain and request assistance Assess pain using appropriate pain scale Note: Patient denied pain throughout duration of shift. Problem: Safety Adult - Fall Goal: Free from fall injury Outcome: Progressing Flowsheets (Taken 01/19/2024 2252 by Moira Sweeney RN) Addressed this shift: Free from fall injury: Identify cognitive and physical deficits and behaviors that affect risk of falls Assess patient frequently for physical needs Note: Patient remained free of falls throughout duration of shift. Problem: Cardiovascular - Adult Goal: Absence of cardiac dysrhythmias or at baseline Outcome: Not Progressing Flowsheets (Taken 01/20/20241825) Addressed this shift: Absence of cardiac dysrhythmias or at baseline: Administer antiarrhythmic andheart rate control medications as ordered Note: Patient had run of vtach during shift. * Moira Sweeney RN - 01/19/2024 10:53 PM PDT Problem: Safety Adult - Fall Goal: Free from fall injury Outcome: Progressing Addressed this shift: Free from fall injury: Identify cognitive and physical deficits and behaviors that affect risk of falls Assess patient frequently for physical needs Problem: Cardiovascular - Adult Goal: Maintains optimal cardiac output and hemodynamic stability Outcome: Progressing End of Shift/ Care Plan Summary: Patient A&O x4, VSS, SR with PVCs on Tele, denies pain. 2 RN R Femoral groin check done at bedside at beginning and end of shift. No acute events or changes during shift. Patient asleep in bed, call light within reach, and hourly rounding completed. * Mary Altamirano RN - 01/19/2024 2:24 PM PDT Assumed care of Caitlyn Hooks ~0800 from track repair laborer RN who arrives s/p POBA. Bedside safety checkand access site completed with vocational technical education teacher. Allergies reviewed and white board updated. Care continues. Identify possible barriers to meeting goals/advancing plan of care: Status post STEMI End of Shift/ Care Plan Summary: Dez arrives alert, oriented, and able to make needs known. Vitals are stable with HR maintaining high to low 60s with frequent PVCs, BP WNL, afebrile, and denies pain. His access site remains C/D/I, soft, with weak but palpable pedal pulses. His appetite is good, fluid intake is appropriate, UOP appropirate as well. Dez's movements are slightly unsteady due to his Parkinson's disease causing him to shuffle when ambulating. He denies use of a walker at home; however, after ambulating w/o one here, I educated him on the value and safety of the device. PT evaluation discussed with . Dez is delightful to care for and cooperative with care. Cares and hourly monitoring complete, call light within reach, bed low and locked. Safe patient handoff to NOC RN. Bedside safety check complete. Problem: Cardiovascular - Adult Goal: Maintains optimal cardiac output and hemodynamic stability Flowsheets (Taken 01/19/20241423) Addressed this shift: Maintain optimal cardiac output and hemodynamic stability: Monitor vital signs, rhythm, and trends Monitor for bleeding, hypotension and signs of decreased cardiac output Monitor arterial and/or venous puncture sites for bleeding and/or hematoma Assess quality of pulses, skin color and temperature Assess for signs of decreased coronary artery perfusion - ex. angina Goal: Absence of cardiac dysrhythmias or at baseline Flowsheets (Taken 01/19/20241423) Addressed this shift: Absence of cardiac dysrhythmias or at baseline: Continuous cardiac monitoring, monitor vital signs, obtain 12 lead EKG if indicated Administer antiarrhythmic and heart rate control medications as ordered Initiate emergency measures for life threatening arrhythmias Monitor electrolytes and administer replacement therapy as ordered documented in this encounter ED Notes * Gita Niño RN - 01/19/2024 6:[address] Tucker notified face to face of critical troponin. Gita Niño RN 01/19/24 0602 * Gita Niño RN - 01/19/2024 5:28 AM PDT Brought in by M14 c/o L sided CP that pt describes as stabbing. Px started at 0300. Nitrogylcyerin x 3, Morphine 4mg and ASA 324mg given en route. notified of medics EKG. * Alexandra Tucker MD - 01/19/2024 5:18 AM PDTAssociated Order(s): Critical Care Demographics Patient Name: Caitlyn Hooks Date of : 1940 KEON: [id number] Subjective History of Present Illness Caitlyn Hooks is a 83 y.o. male with a hx notable for Parkinson's disease who presents to the ED for evaluation of chest pain. The patient arrives via EMS, with medics reporting that the patient was woken from sleep at 3:00 AM with substernal chest pain radiating up to his jaw. Medics arrived to find him with 7/10 chest pain, which spiked to 10/10. They provided him with 324mg of aspirin, three sprays of nitroglycerin, and 4mg of morphine which improved his pain to 5/10. He states that he has never had symptoms like this in the past. He is not diaphoretic. Primary Care Provider: Kt Garsia Past Medical History: Diagnosis Date Hernia, inguinal, right surgery scheduled at [facility] on 10/18/18 Past Surgical History: Procedure Laterality Date SKIN BIOPSY History reviewed. No pertinent family history. Social History Patient reports that he has quit smoking. He has never used smokeless tobacco. He reports current alcohol use. He reports that he does not use drugs. No Known Allergies ROS: Pertinent aspects of review of systems included above in the HPI Objective Vital Signs BP 142/83 Pulse 80 Temp 36.5 ??C (97.7 ??F) (Oral) Resp 12 Wt 88.5 kg SpO2 99% BMI 25.73 kg/m?? ED Triage Vitals [01/19/24 0525] Temp Heart Rate Resp BP SpO2 36.5 ??C (97.7 ??F) 79 16 165/92 99 % Temp Source Heart Rate Source Patient Position BP Location FiO2 (%) Oral Monitor Semi-Cancino's -- -- Physical Exam Vitals and nursing note reviewed. Constitutional: Appearance: Normal appearance. Comments: Ill-appearing. HENT: Head: Normocephalic. Nose: Nose normal. Mouth/Throat: Mouth: Mucous membranes are moist. Pharynx: Oropharynx is clear. Eyes: Conjunctiva/sclera: Conjunctivae normal. Cardiovascular: Rate and Rhythm: Normal rate and regular rhythm. Pulses: Normal pulses. Heart sounds: Normal heart sounds. Pulmonary: Effort: Pulmonary effort is normal. Breath sounds: Normal breath sounds. Abdominal: Palpations: Abdomen is soft. Musculoskeletal: General: Normal range of motion. Cervical back: Normal range of motion and neck supple. Skin: General: Skin is warm. Comments: Slightly clammy. Neurological: General: No focal deficit present. Mental Status: He is alert. Labs Reviewed COMPREHENSIVE METABOLIC PANEL (CMP) - Abnormal Result Value Sodium, Serum/Plasma 140 Potassium, Serum/Plasma 3.8 Chloride, Serum/Plasma 105 CO2, Serum/Plasma 23 Anion Gap, Serum/Plasma 12 (*) Urea Nitrogen, Serum/Plasma 20.0 Creatinine, Serum/Plasma 1.01 Glucose, Serum/Plasma 97 Calcium, Serum/Plasma 9.2 AST, Serum/Plasma 29 ALT, Serum/Plasma 21 Alkaline Phosphatase, Serum/Plasma 74 Total Protein, Serum/Plasma 7.5 eGFR, Serum/Plasma (CKD-EPI 2020) 75 Albumin, Serum/Plasma 4.8 Bilirubin, Total, Serum/Plasma <0.9 BUN/Creatinine Ratio, Serum/Plasma 19.8 MAGNESIUM - Normal Magnesium, Serum/Plasma 2.1 COMPLETE BLOOD COUNT WITH DIFF Narrative: The following orders were created for panel order CBC with diff. Procedure Abnormality Status --------- ------ Complete blood count with...[[id number]] In process Please view results for these tests on the individual orders. TROPONIN WITH REFLEX TO CK AND CK-MB RAINBOW DRAW Narrative: The following orders were created for panel order [place] draw. Procedure Abnormality Status --------- ------ Hold Red Top[[id number]] In process Hold Blue Top - NaCitrate...[[id number]] In process Please view results for these tests on the individual orders. HOLD BLUE TOP - NACITRATE TUBE POCT GLUCOSE (ADULT) COMPLETE BLOOD COUNT WITH DIFF RESULT HOLD RED TOP XR CHEST 1 VIEW (Results Pending) Assessment and Plan Progress Notes and Consults: 5:12 AM: Consult with Dr. Vicente, Interventional Cardiology, who recommends sending him the EKG when the patient arrives. 5:24 AM: Consult with Dr. Vicente, Interventional Cardiology, who recommends activating the slab off mill tender. He requests a nitroglycerin drip. 5:25 AM: Catheterization lab activated. Meds Given this Visit: ED Medication Administration from 01/19/2024 0518 to 01/19/2024 0543 Date/Time Order Dose Route Action Action by 01/19/202436 PDT heparin (porcine) injection 4,150 Units 4,150 Units intravenous Given Renay Shelli 01/19/2024 0543 PDT nitroglycerin (TRIDIL) infusion 200 mcg/mL 5 mcg/min intravenous New Bag Shelli Niño 01/19/2024 0535 PDT morphine injection 4 mg 4 mg intravenous Given Shelli Niño Critical Care Performed by: Alexandra Tucker MD Authorized by: Alexandra Tucker MD Critical care provider statement: Critical care time (minutes): 35 Critical care time was exclusive of: Separately billable procedures and treating other patients Critical care was necessary to treat or prevent imminent or life-threatening deterioration of the following conditions: Cardiac failure Critical care was time spent personally by me on the following activities: Development of treatmentplan with patient or surrogate, discussions with consultants, examination of patient, obtaining history from patient or surrogate, ordering and review of laboratory studies, ordering and review of rad iographic studies, pulse oximetry and re-evaluation of patient's condition I assumed direction of critical care for this patient from another provider in my specialty: no Care discussed with: admitting provider Last Vitals: BP: 142/83 Temp: 36.5 ??C (97.7 ??F) Heart Rate: 80 Resp: 12 SpO2: 99 % Medical Decision Making: Medical Decision Making Amount and/or Complexity of Data Reviewed Independent Historian: EMS External Data Reviewed: notes. Details: reviewed otolaryngology notes from 12/04/23 Labs: ordered. Decision-making details documented in ED Course. Radiology: ordered and independent interpretation performed. Decision-making details documented in ED Course. ECG/medicine tests: ordered and independent interpretation performed. Decision- making details documented in ED Course. Risk OTC drugs. Prescription drug management. Decision regarding hospitalization. Patient is an 83-year-old male with history of Parkinson's who arrives via EMS. Was notified in thefield of EKG that appeared consistent with an anterior lateral STEMI and cardiology interventionalists was notified. He recommended repeat EKG upon arrival. Repeat EKG was persistently consistent with anterior lateral STEMI. Patient was started on heparin and a nitro drip based on cardiology recommendations. He had already received aspirin in the field. He remained hemodynamically stable and hypertension improved with nitroglycerin. Patient was taken directly to the Geography Department Chair from the ED. Discussed with hospitalist, Dr. Ramirez, for admission after Geography Department Chair procedure who accepted patient. Impression: 1. ST elevation myocardial infarction (STEMI), unspecified artery ([facility]) Disposition: Admit Scribe attestation: I, Mecca Mtz, am serving as scribe to document services personally performed by Alexandra Tucker MD, based on my observation and the provider's statements to me. Scribe: Mecca Mtz, scribing for and in the presence of Alexandra Tucker MD Provider: I, Alexandra Tucker MD, personally performed the services described in the documentation, reviewed and edited the documentation which was dictated to the scribe in my presence, and it accurately records my words and actions Electronically signed by: Alexandra Tucker MD, 01/19/2024, 5:43 AM. Portions of today's documentation have been created with the assistance of voice recognition software. Therefore, it may contain anomalous punctuation, anomalous independent misrecognitions, word substitutions, insertions or omissions. Occasional wrong-word or sound- alike substitutions may also occur, all due to the inherent limitations of voice recognition software. Attempts to correct the above have been made by Alexandra Tucker MD, but it is recommended that the chart be read carefully torecognize, using context, where the substitutions may have occurred. MECCA MTZ 01/19/24 0543 MECCA MTZ 01/19/24 0543 Alexandra Tucker MD 01/19/24 1822 documented in this encounter Plan of Treatment Upcoming Encounters Date Type Department Care Team (Late st Contact Info) Description 04/01/2024 11:00 AM PST Office Visit [facility] [address] [place] [address] [place] [id number] Hayden Glaser MD [address] [place] [address] [phone] Scheduled Referrals Name Type Priority Associated Diagnoses Order Schedule Ambulatory Referral to Cardiac Rehabilitation Outpatient Referral Routine ST elevation myocardial infarction (STEMI), unspecified artery (CMS-HCC) 1 Occurrences starting 01/19/2024 until 07/19/2024 documented as of this encounter Medical Devices Implanted 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 Device 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 Shelf Expiration Date Model / Serial / Lot Crescencio Zamudio - [id number] Implanted:Qty: 1 on 01/19/2024 at [facility] Implant Suture Groin [place]AS [id number] / / [id number] documented as of this encounter Procedures Procedure Name Priority Date/Time Associated Diagnosis Comments DISCHARGE PATIENT Routine 01/21/2024 1:1 0 PM PDT ECHOCARDIOGRAM COMPLETE Routine 01/20/20 12:55 PM PDT OXYGEN THERAPY STAT 01/20/2024 8:00 AM PDT COMPLETE BLOOD COUNT WITH DIFF RESULT Routine 01/20/2024 2:41 AM PDT COMPLETE BLOOD COUNT WITH DIFF Routine 01/20/2024 2:41 AM PDT HEMOGLOBIN A1C Routine 01/20/2024 2:41 AM PDT THYROID STIMULATING HORMONE, REFLEX TO FREE T4 Routine 01/20/2024 2:40 AM PDT LIPID PANEL Routine 01/20/2024 2:40 AM PDT COMPREHENSIVE METABOLIC PANEL Routine 01/20/2024 2:40 AM PDT OXYGEN THERAPY STAT 01/19/2024 8:00 PM PDT ECG 12-LEAD STAT 01/19/2024 11:32 AM PDT ECG 12-LEAD STAT 01/19/2024 9:10 AM PDT OXYGEN THERAPY STAT 01/19/2024 8:00 AM PDT SI CORONARIES ONLY Routine 01/19/2024 7: 36 AM PDT XR CHEST 1 VIEW STAT 01/19/2024 5:49 AM PDT ECG 12-LEAD STAT 01/19/2024 5:21 AM PDT COMPLETE BLOOD COUNT WITH DIFF RESULT STAT 01/19/2024 5:21 AM PDT RED TOP STAT 01/19/2024 5:21 AM PDT HOLD BLUE TOP - NACITRATE TUBE STAT 01/19/2024 5:21 AM PDT RAINBOW DRAW STAT 01/19/2024 5:21 AM PDT COMPLETE BLOOD COUNT WITH DIFF STAT 01/19/2024 5:21 AM PDT TROPONIN WITH REFLEX TO CK AND CK-MB STAT 01/19/2024 5:21 AM PDT MAGNESIUM STAT 01/19/2024 5:21 AM PDT COMPREHENSIVE METABOLIC PANEL STAT 01/19/2024 5:21 AM PDT OXYGEN THERAPY STAT 01/19/2024 5:19 AM PDT OXYGEN THERAPY STAT 01/19/2024 5:19 AM PDT OXYGEN THERAPY STAT 01/19/2024 5:19 AM PDT ED CRITICAL CARE Routine 01/19/2024 5:18 AM PDT TELEMETRY EXTERNAL RESULTS 01/19/2024 TELEMETRY EXTERNAL RESULTS 01/19/2024 documented in this encounter Results * ECHOCARDIOGRAM COMPLETE (01/20/2024 12:55 PM PDT) Anatomical Region Laterality Modality N/A Echocardiography 01/20/2024 12:1 1 PM PDT Narrative 01/20/2024 3:47 PM PDT ? [facility] + + ? [facility] : ?: ?[address] : ?: ?[address] : ?: ?[place], : ?: ? [place] [address] : ?: ?Phone: [phone] ? Echocardiogram Report + + :Name: CAITLYN HOOKS ?Study Date: 01/20/2024 ?Height: 73 in ??: [id number] ? ReadingLocation: ?Weight: 195 lb : : ?Gender: Male ?BSA: 2.1 m2 ?: :: 1940 ? Age: 83 yrs ? BP: 152/83 mmHg: :Reason For Study: STEMI ?: :Ordering Physician: ANGUS, ?: :RADHA ?Performed By: Lani Deleon ?: :Referring: ALEJANDRA JOSÉ ? : + + Interpretation Summary The left ventricle is normal in size. The ejection fraction is estimated to be 40-45%. There appears to be akinesis of mid to distal anteroseptum, extending into the predominantly mid anterior wall as well as mid to distal inferior lateral wall and distal anterolateral wall. The right ventricle is normal size. Right ventricular systolic function is mildly reduced. There appears to be slight chordae prolapse. No obvious flail leaflet. Mild to moderate mitral regurgitation. There is mild tricuspid regurgitation. The right ventricular systolic pressure is estimated to be at least 26 mmHg based on an estimated right atrial pressure of 3 mm Hg. Procedure: ?? A two-dimensional transthoracic echocardiogram with color flow and Doppler was performed. The study quality was technically adequate. There is no prior echocardiogram noted for this patient. A contrast injection of Definity was performed to improve assessment of LV function. The study was done portably. The patient was in sinus rhythm with heart rates between 57-91 bpm during the exam. The patient had frequent PACs during the exam. The patient had occasional PVCs during the exam. Left Ventricle: ?? The left ventricle is normal in size. Proximal septal thickening is noted. There is no thrombus. The ejection fraction is estimated to be 40-45%. There appears to be akinesis of mid to distal anteroseptum, extending into the predominantly mid anterior wall as well as mid to distal inferior lateral wall and distal anterolateral wall. Diastolic parameters suggest a relaxation abnormality of the left ventricle, consistent with probable normal filling pressures. Right Ventricle: ?? The right ventricle is normal size. Right ventricular systolic function is mildly reduced. Atria: ?? Both atria are normal in size. There is no Doppler evidence for an interatrial shunt. Mitral Valve: ?? The mitral valve leaflets appear mildly thickened, but open well. There appears to be slight chordae prolapse. No obvious flail leaflet. Mild to moderate mitral regurgitation. There is no mitral valve stenosis. There is mild mitral regurgitation. Aortic Valve: ?? The aortic valve is trileaflet. The aortic valve opens well. There is mild aortic valve sclerosis. There is no aortic valve stenosis. There is trace aortic regurgitation. Tricuspid Valve: ?? The tricuspid valve leaflets are thickened and/or calcified, but open well. There is mild tricuspid regurgitation. The right ventricular systolic pressure is estimated to be at least 26 mmHg based on an estimated right atrial pressure of 3 mm Hg. Pulmonic Valve: ?? The pulmonic valve is not well seen, but is grossly normal. There is no pulmonic valvular stenosis. There is a trace or physiologic amount of pulmonic regurgitation. Great Vessels: ?? The aortic root is mildly dilated. The ascending aorta is at the upper limits of normal in size. The aortic arch could not be visualized. The IVC is of normal diameter and collapses greater than 50% with a sniff. This suggests a low right atrial pressure of 3 mm Hg. Pericardium/ Pleura ?? There is no pericardial effusion. MMode/2D Measurements & Calculations LVIDd: 4.8 cm ? AoV Openin.9 cm LVIDs: 3.2 cm ? LVOT diam: 2.2 cm IVSd: 0.98 cm ? Ao root diam: 4.0 cm LVPWd: 0.83 cm ?asc Aorta Diam: 3.8 cm LV barnhart. diameter/BSA (cm/m^2): 2.3 LV sys. diameter/BSA (cm/m^2): 1.5 FS: 34.1 % EPSS: 0.77 cm ? LA A2 area: 19.6 cm2 ?RA long axis: 5.7 cm LA A4 area: 20.0 cm2 ?RA area: 16.4 cm2 LA length (vol): 4.9 cm ? RA vol: 40.0 ml LA vol: 67.9 ml ? RA : 18.8 ml/m2 LA vol index: 31.9 ml/m2 ? TAPSE: 1.3 cm ? IVC diam: 1.4 cm Doppler Measurements & Calculations Ao V2 max: 93.3 cm/sec ?LVOT Max David: 76.9 cm/sec Ao V2 mean: 72.4 cm/sec ? LV V1 max P.4 mmHg Ao V2 VTI: 18.2 cm ?LV V1 VTI: 14.8 cm Ao max P.5 mmHg Ao mean P.2 mmHg ? PAU(I,D): 3.1 cm2 ? MV E max david: 39.5 cm/sec PAU(V,D): 3.1 cm2 ? MV A max david: 97.2 cm/sec PAU indexed to BSA (cm^2/m^2): 1.4 ?MV E/A: 0.41 sev ratio: 0.81 ?Med Peak E' David: 3.8 cm/sec ?E/E' med: 10.4 ?Lat Peak E' David: 4.8 cm/sec ?E/E' lat: 8.3 ?E/e' average: 9.3 ? MV dec time: 0.23 sec ? TR max david: 231.7 cm/sec MV mean P.94 mmHg ? TR max P.4 mmHg MVA(VTI): 2.7 cm2 ? PA V2 max: 110.1 cm/sec ? MV V2 mean: 42.5 cm/sec PA V2 mean: 73.0 cm/sec ? MV V2 VTI: 20.6 cm PA mean P.5 mmHg PA pr(Accel): 55.0 mmHg ? SV(LVOT): 56.1 ml ? Reading Physician:03:47 PM Procedure Note Klaus Chavez MD - 01/20/2024 [facility] + + Hospital : : [address] : : [place], : : [place] [address] : : Phone: [phone] Echocardiogram Report + + :Name: CAITLYN HOOKS Study Date: 01/20/2024 Height: 73in : :[facility] ReadingLocation: Weight: 195lb : : Gender: Male BSA: 2.1 m2: :: 1940 Age: 83 yrs BP: 152/83mmHg: :Reason For Study: STEMI: :Ordering Physician: ANGUS,: :RADHA Performed By: Lani Deleon: :Referring: ALEJANDRA JOSÉ: + + Interpretation Summary The left ventricle is normal in size. The ejection fraction is estimated to be 40-45%. There appears to be akinesis of mid to distal anteroseptum, extending intothe predominantly mid anterior wall as well as mid to distal inferior lateralwall and distal anterolateral wall. The right ventricle is normal size. Right ventricular systolic function is mildly reduced. There appears to be slight chordae prolapse. No obvious flail leaflet.Mild to moderate mitral regurgitation. There is mild tricuspid regurgitation. The right ventricular systolic pressure is estimated to be at least 26mmHg based on an estimated right atrial pressure of 3 mm Hg. Procedure: A two-dimensional transthoracic echocardiogram with colorflow and Doppler was performed. The study quality was technically adequate.There is no prior echocardiogram noted for this patient. A contrast injectionof Definity was performed to improve assessment of LV function. The studywas done portably. The patient was in sinus rhythm with heart rates [id number] bpm during the exam. The patient had frequent PACs during the exam. The patient had occasional PVCs during the exam. Left Ventricle: The left ventricle is normal in size. Proximal septal thickening is noted. There is no thrombus. The ejection fraction isestimated to be 40-45%. There appears to be akinesis of mid to distalanteroseptum, extending into the predominantly mid anterior wall as well as mid todistal inferior lateral wall and distal anterolateral wall. Diastolicparameters suggest a relaxation abnormality of the left ventricle, consistent with probable normal filling pressures. Right Ventricle: The right ventricle is normal size. Right ventricular systolic function is mildly reduced. Atria: Both atria are normal in size. There is no Doppler evidence maya interatrial shunt. Mitral Valve: The mitral valve leaflets appear mildly thickened, butopen well. There appears to be slight chordae prolapse. No obvious flailleaflet. Mild to moderate mitral regurgitation. There is no mitral valvestenosis. There is mild mitral regurgitation. Aortic Valve: The aortic valve is trileaflet. The aortic valve openswell. There is mild aortic valve sclerosis. There is no aortic valve stenosis.There is trace aortic regurgitation. Tricuspid Valve: The tricuspid valve leaflets are thickened and/or calcified, but open well. There is mild tricuspid regurgitation. Theright ventricular systolic pressure is estimated to be at least 26 mmHg based carine estimated right atrial pressure of 3 mm Hg. Pulmonic Valve: The pulmonic valve is not well seen, but is grosslynormal. There is no pulmonic valvular stenosis. There is a trace or physiologicamount of pulmonic regurgitation. Great Vessels: The aortic root is mildly dilated. The ascending aorta isat the upper limits of normal in size. The aortic arch could not bevisualized. The IVC is of normal diameter and collapses greater than 50% with asniff. This suggests a low right atrial pressure of 3 mm Hg. Pericardium/ Pleura There is no pericardial effusion. MMode/2D Measurements & Calculations LVIDd: 4.8 cm AoV Openin.9 cm LVIDs: 3.2 cm LVOT diam: 2.2 cm IVSd: 0.98 cm Ao root diam: 4.0 cm LVPWd: 0.83 cm asc Aorta Diam: 3.8 cm LV barnhart. diameter/BSA (cm/m^2): 2.3 LV sys. diameter/BSA (cm/m^2): 1.5 FS: 34.1 % EPSS: 0.77 cm LA A2 area: 19.6 cm2 RA long axis: 5.7 cm LA A4 area: 20.0 cm2 RA area: 16.4 cm2 LA length (vol): 4.9 cm RA vol: 40.0 ml LA vol: 67.9 ml RA : 18.8 ml/m2 LA vol index: 31.9 ml/m2 TAPSE: 1.3 cm IVC diam: 1.4 cm Doppler Measurements & Calculations Ao V2 max: 93.3 cm/sec LVOT Max David: 76.9 cm/sec Ao V2 mean: 72.4 cm/sec LV V1 max P.4 mmHg Ao V2 VTI: 18.2 cm LV V1 VTI: 14.8 cm Ao max P.5 mmHg Ao mean P.2 mmHg PAU(I,D): 3.1 cm2 MV E max david: 39.5 cm/sec PAU(V,D): 3.1 cm2 MV A max david: 97.2 cm/sec PAU indexed to BSA (cm^2/m^2): 1.4 MV E/A: 0.41 sev ratio: 0.81 Med Peak E' David: 3.8 cm/sec E/E' med: 10.4 Lat Peak E' David: 4.8 cm/sec E/E' lat: 8.3 E/e' average: 9.3 MV dec time: 0.23 sec TR max david: 231.7 cm/sec MV mean P.94 mmHg TR max P.4 mmHg MVA(VTI): 2.7 cm2 PA V2 max: 110.1 cm/sec MV V2 mean: 42.5 cm/sec PA V2 mean: 73.0 cm/sec MV V2 VTI: 20.6 cm PA mean P.5 mmHg PA pr(Accel): 55.0 mmHg SV(LVOT): 56.1 ml Electronically signed by: Klaus Chavez on01/20/2024 Reading Physician:03:47 PM Radha Goff MD [facility]IS [facility] ECHO PROCEDU RES * (ABNORMAL) Complete blood count with diff (01/20/2024 2:41 AM PDT) WBC Auto 6.8 3.8 - 10.1 x10e3/uL 01/20/2024 2:57 AM PDT [facility] RBC 4.33(L) 4.40 - 5.80 x10e6/uL 01/20/2024 2:57 AM PDT [facility] Hemoglobin 13.3(L) 13.8 - 17.2 g/dL 01/20/2024 2:57 AM PDT [facility] Hematocrit 40.4(L) 41.0 - 50.0 % 01/20/2024 2:57 AM PDT [facility] MCV 93 81 - 100 fL 01/20/2024 2:57 AM PDT [facility] MCH 30.7 27.0 - 35.0 pg 01/20/2024 2:57 AM PDT [facility] MCHC 32.9 32.0 - 37.0 g/dL 01/20/2024 2:57 AM PDT [facility] RDW 12.2(L) 12.3 - 15.4 % 01/20/2024 2:57 AM PDT [facility] Platelets 171 150 - 400 x10e3/uL 01/20/2024 2:57 AM [facility] MPV 10.1 7.4 - 10.4 fL 01/20/2024 2:57 AM [facility] NRBC % 0 0 /100 WBCs 01/20/2024 2:57 AM [facility] Abs. NRBC 0.0 x10e3/uL 01/20/2024 2:57 AM [facility] % Neutrophils 68 % 01/20/2024 2:57 AM [facility] % Lymphocytes 19 % 01/20/2024 2:57 AM PDT [facility] % Monocytes 9 % 01/20/2024 2:57 AM PDT [facility] % Eosinophils 3 % 01/20/2024 2:57 AM PDT [facility] % Basophils 1 % 01/20/2024 2:57 AM PDT [facility] Abs. Neutrophils 4.7 1.6 - 6.9 x10e3/uL 01/20/2024 2:57 AM PDT [facility] Abs. Lymphocytes 1.3 1.1 - 4.8 x10e3/uL 01/20/2024 2:57 AM PDT [facility] Abs. Monocytes 0.6 0.0 - 1.0 x10e3/uL 01/20/2024 2:57 AM PDT [facility] Abs. Eosinophils 0.2 0.0 - 0.5 x10e3/uL 01/20/2024 2:57 AM PDT [facility] Abs. Basophils 0.1 0.0 - 0.4 x10e3/uL 01/20/2024 2:57 AM PDT [facility] Abs. Neutrophils (Auto) 4,700.0 1,600.0 - 6,900.0 /uL 01/20/2024 2:57 AM PDT [facility] Blood Venous blood / Unknown Venipuncture / Unknown 01/20/2024 2:41 AM PDT 01/20/2024 2:47 AM PDT Radha Goff MD LAB BLOOD ORDERABLES Performing Organization Address [facility] Co de Phone Number [facility] [address] [place] [address], * Hemoglobin A1c (01/20/2024 2:41 AM PDT) [facility] Signature Hemoglobin A1c 4.9 4.8 - 5.6 % LAB CHEMISTRY METHOD 01/20/2024 3:17 AM PDT [facility] Comment: Reference Ranges: Normal: 4.8% to 5.6% Prediabetes: 5.7% to 6.4% Diabetes: 6.5% or higher Estimated Average Glucose (eAG) 94 No Reference Range Established mg/dL 01/20/2024 3:17 AM PDT [facility] Blood Venous blood / Unknown Venipuncture / Unknown 01/20/2024 2:41 AM PDT 01/20/2024 2:47 AM PDT Narrative [facility] - 01/20/2024 3:17 AM PDT Specimens containing high amount of Hgb F (>7%) may result in lower than expected %A1c values. Radha Goff MD LAB BLOOD ORDERABLES Performing Organization Address City/[facility]/ZIP Co de Phone Number [facility] [address] [place] [address], * (ABNORMAL) Lipid panel (01/20/2024 2:40 AM PDT) Triglycerides Level, Serum/Plasma 74 <150 (NCEP reference range for fasting specimens) mg/dL LAB CHEMISTRY METHOD 01/20/2024 3:12 AM [facility] Total Cholesterol, Serum/Plasma 130 <200 (Reference Range for fasting specimens) mg/dL LAB CHEMISTRY METHOD 01/20/2024 3:12 AM [facility] LDL Cholesterol, Serum/Plasma, Calculated 72 <100 mg/dL 01/20/2024 3:12 AM [facility] HDL Cholesterol, Serum/Plasma 43(L) >=60 (NCEP reference range for fasting specimens) mg/dL LAB CHEMISTRY METHOD 01/20/2024 3:12 AM [facility] VLDL Cholesterol, Serum/Plasma 15 No Reference Range Established mg/dL 01/20/2024 3:12 AM [facility] CHOL/HDL Ratio, Serum/Plasma 3.0 No Reference Range Established 01/20/2024 3:12 AM [facility] Cholesterol Ratio (LDL/HDL), Serum/Plasma 1.7 No Reference Range Established ratio units 01/20/2024 3:12 AM [facility] Non-HDL Cholesterol, Serum/Plasma 87 <130 mg/dl 01/20/2024 3:12 AM [facility] Blood Venous blood / Unknown Venipuncture / Unknown 01/20/2024 2:40 AM PDT 01/20/2024 2:47 AM PDT [facility] - 01/20/2024 3:12 AM PDT ?NATIONAL CHOLESTEROL GUIDELINES [facility]ATIONAL [facility] ([facility]) guidelines for classification, testing and management of cholesterol levels in adults over 20 years of age. This new classification creates three categories of risk for coronary heart disease, regardless of age or sex, according to total and LDL cholesterol levels: ? Based on total cholesterol level Desirable ?<200 mg/dl Borderline-high ?200-239 mg/dl High ? >=240 mg/dl ? Based on cholesterol ratio CHD RISK ? CHOL/HDL RATIO ? MALE ?FEMALE 0.5 x Average ?3.4 ?3.3 1.0 x Average ?5.0 ?4.4 2.0 x Average ?9.6 ?7.1 3.0 x Average ?13.5 ? 11.0 Radha Goff MD LAB BLOOD ORDERABLES Performing Organization Address City/State/[facility] Co de Phone Number [facility] [address] [place] [address], * Thyroid Stimulating Hormone, Reflex to Free T4 (01/20/2024 2:40 AM PDT) TSH, Serum/Plasma 2.730 0.450 - 4.500 uIU/mL LAB CHEMISTRY METHOD 01/20/2024 3:41 AM [facility] Comment:Patients taking Biot in supplements may have falsely decreased HCG, Ferritin, PSA, Troponin, or TSH test values. Blood Venous blood / Unknown Venipuncture / Unknown 01/20/2024 2:40 AM PDT 01/20/2024 2:47 AM PDT Radha Goff MD LAB BLOOD ORDERABLES [facility] [address] [place] [address], * (ABNORMAL) Comprehensive Metabolic Panel (01/20/2024 2:40 AM PDT) Sodium, Serum/Plasma 138 135 - 145 mmol/L LAB CHEMISTRY METHOD 01/20/2024 3:19 AM [facility] Potassium, Serum/Plasma 4.0 3.5 - 5.2 mmol/L LAB CHEMISTRY METHOD 01/20/2024 3:19 AM [facility] Chloride, Serum/Plasma 108(H) 98 - 107 mmol/L LAB CHEMISTRY METHOD 01/20/2024 3:19 AM [facility] CO2, Serum/Plasma 24 22 - 30 mmol/L LAB CHEMISTRY METHOD 01/20/2024 3:19 AM [facility] Anion Gap, Serum/Plasma 6 3 - 11 mmol/L 01/20/2024 3:19 AM [facility] Urea Nitrogen, Serum/Plasma 12.9 8.0 - 27.0 mg/dL LAB CHEMISTRY METHOD 01/20/2024 3:19 AM [facility] Creatinine, Serum/Plasma 0.91 0.76 - 1.27 mg/dL LAB CHEMISTRY METHOD 01/20/2024 3:19 AM [facility] Glucose, Serum/Plasma 96 65 - 99 mg/dL LAB CHEMISTRY METHOD 01/20/2024 3:19 AM [facility] Calcium, Serum/Plasma 8.7 8.5 - 10.1 mg/dL LAB CHEMISTRY METHOD 01/20/2024 3:19 AM [facility] AST, Serum/Plasma 92(H) 17 - 59 U/L LAB CHEMISTRY METHOD 01/20/2024 3:19 AM PDT [facility] ALT, Serum/Plasma 28 <50 U/L LAB CHEMISTRY METHOD 01/20/2024 3:19 AM [facility] Alkaline Phosphatase, Serum/Plasma 68 25 - 160 U/L LAB CHEMISTRY METHOD 01/20/2024 3:19 AM PDT [facility] Total Protein, Serum/Plasma 6.3 6.3 - 8.2 g/dL LAB CHEMISTRY METHOD 01/20/2024 3:19 AM [facility] eGFR, Serum/Plasma (CKD-EPI 2020) 85 >60 (CKD-EPI 2020) mL/min/1. 73 m2 01/20/2024 3:19 AM [facility] Comment:eGFR calculation has been updated by recommendation of the National Kid[employer] (NKF) without the race variable. This change was made on June 27, 2022 Albumin, Serum/Plasma 4.0 3.4 - 5.0 g/dL LAB CHEMISTRY METHOD 01/20/2024 3:19 AM [facility] Bilirubin, Total, Serum/Plasma 0.9 0.2 - 1.3 mg/dL LAB CHEMISTRY METHOD 01/20/2024 3:19 AM [facility] BUN/Creatinine Ratio, Serum/Plasma 14.2 6.0 - 24.0 01/20/2024 3:19 AM [facility] Blood Venous blood / Unknown Venipuncture / Unknown 01/20/2024 2:40 AM PDT 01/20/2024 2:47 AM PDT Radha Goff MD LAB BLOOD ORDERABLES [facility] [address] [place] [address], * ECG 12 lead (01/19/2024 11:32 AM PDT) HR 60 bpm [facility] I[facility]G RR 1,004 ms [facility] NV 213 ms [facility] QRSD 83 ms [facility] QT 442 ms [facility] QTc 441 ms [facility] QRS 32 deg [facility] T 67 deg [facility] Impression - ABNORMAL ECG - [facility] I[facility]G Impression Sinus rhythm [facility] Impression Ventricular premature complex [facility] Impression Borderline prolonged NV interval [facility] Impression Probable anteroseptal infarct, recent [facility] Impression When compared with ECG of 19-Jan-2024 09:10:36, [facility] I[facility] Impression No significant change [facility] I[facility]G 01/19/2024 11:3 2 AM PDT Radha Goff MD ECG ORDERABLES Performing Organization Address [facility] Co de Phone Number [facility] * ECG 12 lead- now if intervention performed (01/19/2024 9:10 AM PDT) HR 61 bpm [facility] I[facility]G RR 1,072 ms [facility] I[facility]G NV 211 ms [facility] QRSD 79 ms [facility] QT 456 ms [facility]G QTc 440 ms [facility] QRS 35 deg [facility] T 73 deg [facility] Impression - ABNORMAL ECG - [facility]G Impression Sinus rhythm [facility] Impression Atrial premature complexes in couplets [facility] Impression Probable anteroseptal infarct, recent [facility] Impression When compared with ECG of 19-Jan-2024 05:21:31, [facility] I[facility]G Impression Significant rate decrease [facility] 01/19/2024 9:10 AM PDT Garrett Vicente MD ECG ORDERABLES Performing Organization Address [facility] Co de Phone Number [facility] * SI CORONARIES ONLY (01/19/2024 7:36 AM PDT) Anatomical Region Laterality Modality N/A Catheterization/ Interventional Lab Narrative 01/19/2024 7:41 AM PDT Cardiac Cath Report Date of Service 01/19/24 Procedure: SI CORONARIES ONLY Indications: AL Vascular Access Right Femoral Artery using 6 Fr sheath, closure with Closure Device. Procedure Details Left heart cath details: The patient was brought to the cardiac catheterization lab in a fasting state. Patient was laid supine on the cardiac catheterization table and the vascular access site was prepped and draped in the usual sterile fashion. One percent Lidocaine was infiltrated over the Right Femoral Artery and vascular access was achieved. Guide wire was used to advance the catheter through the sheath and up into the aortic sinuses. After coronary angiography was completed, guide wire was advanced through the catheter ahead of the tip of the catheter and the guide wire along with the catheter were pulled together out of the sheath. Findings 1) Coronary angiography: right dominance A. Left main: No significant disease B. Left Anterior Descending (LAD) Artery: Transapical vessel minor luminal irregularities the first diagonal is totally occluded at its origin. C. Left Circumflex (LCx): Nondominant free of any significant disease D. Right Coronary Artery: Dominant vessel free of any significant disease 2) INTERVENTIONAL DETAILS Using a VL 3.5 guide and a run-through wire we were able to get into this diagonal. ??It was predilated with a 1.5 mm balloon. ??This vessel is a small 1.5 mm or less in diameter. ??In view of this no stent was placed. ?? There was about 10% residual in the end. Complications There were no periprocedural complications identified Summary: Plain old balloon angioplasty of the diagonal. ??The case was ?? delayed by almost an hour, because of lack of adequate staff to run the Geography Department Chair. Recommendations: GDMT per inpatient hospitalist team as well as inpatient cardiology team. Garrett Vicente MD Garrett Vicente MD [facility] SI PROCEDURE S * XR CHEST 1 VIEW (01/19/2024 5:49 AM PDT) Anatomical Region Laterality Modality Body N/A Radiographic Elizabeth ging 01/19/2024 8:59 AM PDT Narrative 01/19/2024 8:59 [place]. [address] PATIENT NAME: CAITLYN HOOKS : 1940 GENDER: M EXAM DATE: 01/19/2024 ?? 5:45 ORDERED FROM: [facility] ORDERING PHYSICIAN: ALEXANDRA TUCKER CC: ??-- ??- ??- ??- CONTRAST: ? READING STATION ID: [id number] mGy: PROCEDURE: ??XR CHEST 1 VIEW INDICATIONS: ??chest pain TECHNIQUE: ??One view of the chest was acquired. ?? COMPARISON: ??[facility], CR, XR CHEST 1 VIEW, 10/09/2018, 12:35. FINDINGS: ?? Surgical changes and devices: ??None. ?? Lungs and pleura: ??Lungs are clear. ??No pleural effusions or pneumothorax. ?? Mediastinum: ??Mediastinal contours appear normal. ??Heart size is normal. ?? Bones and chest wall: ??No suspicious bony lesions. ??Overlying soft tissues appear unremarkable. ?? IMPRESSION: ?? No acute cardiopulmonary abnormality is seen. Reviewed by: Raghav Fam M.D. on 01/19/2024 at 8:58 ? Approved by: Raghav Fam M.D. on 01/19/2024 at 8:59 ? Procedure Note Raghav Fam MD - 01/19/2024 [place]. [address] PATIENT NAME: CAITLYN HOOKS : 1940 GENDER: Wesly EXAM DATE: 01/19/2024 5:45 ORDERED FROM: [facility] ORDERING PHYSICIAN: ALEXANDRA TUCKER CC: -- - - - CONTRAST: READING STATION ID: [id number] mGy: PROCEDURE: XR CHEST 1 VIEW INDICATIONS: chest pain TECHNIQUE: One view of the chest was acquired. COMPARISON: [facility], CR, XR CHEST 1 VIEW, 10/09/2018,12:35. FINDINGS: Surgical changes and devices: None. Lungs and pleura: Lungs are clear. No pleural effusions or pneumothorax. Mediastinum: Mediastinal contours appear normal. Heart size is normal. Bones and chest wall: No suspicious bony lesions. Overlying soft tissuesappear unremarkable. IMPRESSION: No acute cardiopulmonary abnormality is seen. Reviewed by: Raghav Fam M.D. on 01/19/2024 at 8:58 Approved by: Raghav Fam M.D. on 01/19/2024 at 8:59 Alexandra Tucker MD RIS [facility] XR PROCEDUR ES * ECG 12 lead (01/19/2024 5:21 AM PDT) HR 86 bpm [facility] IECG RR 720 ms [facility] IECG NV 195 ms [facility] IECG QRSD 86 ms [facility] IECG QT 387 ms [facility] IECG QTc 456 ms [facility] IECG QRS 2 deg [facility] IECG T -39 deg [facility] IECG Impression - ABNORMAL ECG - [facility] IECG Impression Sinus rhythm [facility] IECG Impression Multiform ventricular premature complexes [facility] IECG Impression Probable anteroseptal infarct, recent [facility] IECG Impression >>> Acute AL <<< [facility] IECG Impression ST elevation, acute lateral wall injury [facility] IECG Impression When compared with ECG of 09-Oct-2018 13:16:36, [facility] IECG Impression Significant rate increase [facility] IECG Impression Acute myocardial infarction [facility] IECG 01/19/2024 5:21 AM PDT Alexandra Tucker MD ECG ORDERABLES [facility] IECG * Hold Blue Top - NaCitrate Tube (01/19/2024 5:21 AM PDT) Extra Tube Hold for add-ons. 01/19/2024 7:02 AM PDT [facility] Comment:Auto resulted. Blood Venous blood / Unknown Venipuncture / Unknown 01/19/2024 5:21 AM PDT 01/19/2024 5:24 AM PDT Alexandra Tucker MD LAB BLOOD ORDERABLE S [facility] [address] [place] [address], * Hold Red Top (01/19/2024 5:21 AM PDT) Extra Tube Hold for add-ons. 01/19/2024 7:02 AM [facility] Comment:Auto resulted. Blood Venous blood / Unknown Venipuncture / Unknown 01/19/2024 5:21 AM PDT 01/19/2024 5:24 AM PDT Alexandra Tucker MD LAB BLOOD ORDERABLE S [facility] [address] [place] [address], * (ABNORMAL) Complete blood count with diff (01/19/2024 5:21 AM PDT) WBC Auto 7.1 3.8 - 10.1 x10e3/uL 01/19/2024 5:46 AM [facility] RBC 4.65 4.40 - 5.80 x10e6/uL 01/19/2024 5:46 AM [facility] Hemoglobin 14.4 13.8 - 17.2 g/dL 01/19/2024 5:46 AM [facility] Hematocrit 43.2 41.0 - 50.0 % 01/19/2024 5:46 AM [facility] MCV 93 81 - 100 fL 01/19/2024 5:46 AM [facility] MCH 31.0 27.0 - 35.0 pg 01/19/2024 5:46 AM [facility] MCHC 33.3 32.0 - 37.0 g/dL 01/19/2024 5:46 AM [facility] RDW 12.2(L) 12.3 - 15.4 % 01/19/2024 5:46 AM [facility] Platelets 207 150 - 400 x10e3/uL 01/19/2024 5:46 AM [facility] MPV 10.2 7.4 - 10.4 fL 01/19/2024 5:46 AM [facility] NRBC % 0 0 /100 WBCs 01/19/2024 5:46 AM [facility] Abs. NRBC 0.0 x10e3/uL 01/19/2024 5:46 AM [facility] % Neutrophils 47 % 01/19/2024 5:46 AM PDT [facility] % Lymphocytes 36 % 01/19/2024 5:46 AM PDT [facility] % Monocytes 9 % 01/19/2024 5:46 AM PDT [facility] % Eosinophils 7 % 01/19/2024 5:46 AM PDT [facility] % Basophils 1 % 01/19/2024 5:46 AM PDT [facility] Abs. Neutrophils 3.3 1.6 - 6.9 x10e3/uL 01/19/2024 5:46 AM PDT [facility] Abs. Lymphocytes 2.5 1.1 - 4.8 x10e3/uL 01/19/2024 5:46 AM PDT [facility] Abs. Monocytes 0.6 0.0 - 1.0 x10e3/uL 01/19/2024 5:46 AM PDT [facility] Abs. Eosinophils 0.5 0.0 - 0.5 x10e3/uL 01/19/2024 5:46 AM PDT [facility] Abs. Basophils 0.1 0.0 - 0.4 x10e3/uL 01/19/2024 5:46 AM [facility] Abs. Neutrophils (Auto) 3,300.0 1,600.0 - 6,900.0 /uL 01/19/2024 5:46 AM [facility] Blood Venous blood / Unknown Venipuncture / Unknown 01/19/2024 5:21 AM PDT 01/19/2024 5:24 AM PDT Alexandra Tucker MD LAB BLOOD ORDERABLE S [facility] [address] [place] [address], * (ABNORMAL) Troponin (01/19/2024 5:21 AM PDT) Troponin I, Serum/Plasma 0.273(HC) <0.034 ng/mL LAB CHEMISTRY METHOD 01/19/2024 6:10 AM PDT [facility] Comment:Patients taking Biot in supplements may have falsely decreased HCG, Ferritin, PSA, Troponin, or TSH test values. Blood Venous blood / Unknown Venipuncture / Unknown 01/19/2024 5:21 AM PDT 01/19/2024 5:24 AM PDT Alexandra Tucker MD LAB BLOOD ORDERABLE S Performing Organization Address [facility] Co de Phone Number [facility] [address] [place] [address], * Magnesium (01/19/2024 5:21 AM PDT) Magnesium, Serum/Plasma 2.1 1.6 - 2.4 mg/dL LAB CHEMISTRY METHOD 01/19/2024 5:43 AM PDT [facility] Blood Venous blood / Unknown Venipuncture / Unknown 01/19/2024 5:21 AM PDT 01/19/2024 5:24 AM PDT Alexandra Tucker MD LAB BLOOD ORDERABLE S Performing Organization Address [facility] de Phone Number [facility] [address] [place] [address], * (ABNORMAL) CMP (01/19/2024 5:21 AM PDT) Sodium, Serum/Plasma 140 135 - 145 mmol/L LAB CHEMISTRY METHOD 01/19/2024 5:43 AM PDT [facility] Potassium, Serum/Plasma 3.8 3.5 - 5.2 mmol/L LAB CHEMISTRY METHOD 01/19/2024 5:43 AM PDT [facility] Chloride, Serum/Plasma 105 98 - 107 mmol/L LAB CHEMISTRY METHOD 01/19/2024 5:43 AM PDT [facility] CO2, Serum/Plasma 23 22 - 30 mmol/L LAB CHEMISTRY METHOD 01/19/2024 5:43 AM [facility] Anion Gap, Serum/Plasma 12(H) 3 - 11 mmol/L 01/19/2024 5:43 AM PDT [facility] Urea Nitrogen, Serum/Plasma 20.0 8.0 - 27.0 mg/dL LAB CHEMISTRY METHOD 01/19/2024 5:43 AM [facility] Creatinine, Serum/Plasma 1.01 0.76 - 1.27 mg/dL LAB CHEMISTRY METHOD 01/19/2024 5:43 AM [facility] Glucose, Serum/Plasma 97 65 - 99 mg/dL LAB CHEMISTRY METHOD 01/19/2024 5:43 AM [facility] Calcium, Serum/Plasma 9.2 8.5 - 10.1 mg/dL LAB CHEMISTRY METHOD 01/19/2024 5:43 AM [facility] AST, Serum/Plasma 29 17 - 59 U/L LAB CHEMISTRY METHOD 01/19/2024 5:43 AM [facility] ALT, Serum/Plasma 21 <50 U/L LAB CHEMISTRY METHOD 01/19/2024 5:43 AM [facility] Alkaline Phosphatase, Serum/Plasma 74 25 - 160 U/L LAB CHEMISTRY METHOD 01/19/2024 5:43 AM [facility] Total Protein, Serum/Plasma 7.5 6.3 - 8.2 g/dL LAB CHEMISTRY METHOD 01/19/2024 5:43 AM [facility] eGFR, Serum/Plasma (CKD-EPI 2020) 75 >60 (CKD-EPI 2020) mL/min/1. 73 m2 01/19/2024 5:43 AM [facility] Comment:eGFR calculation has been updated by recommendation of the National Kidney [employer] (NKF) without the race variable. This change was made on June 27, 2022 Albumin, Serum/Plasma 4.8 3.4 - 5.0 g/dL LAB CHEMISTRY METHOD 01/19/2024 5:43 AM [facility] Bilirubin, Total, Serum/Plasma <0.9 0.2 - 1.3 mg/dL LAB CHEMISTRY METHOD 01/19/2024 5:43 AM [facility] BUN/Creatinine Ratio, Serum/Plasma 19.8 6.0 - 24.0 01/19/2024 5:43 AM [facility] Blood Venous blood / Unknown Venipuncture / Unknown 01/19/2024 5:21 AM PDT 01/19/2024 5:24 AM PDT Alexandra Tucker MD LAB BLOOD ORDERABLE S Performing Organization Address [facility] Phone Number [facility] [address] [place] [address], [place] [phone] * Critical Care (01/19/2024 5:18 AM PDT) Narrative [facility] (CLIA [id number]) - 01/19/2024 5:18 AM PDT Alexandra Tucker MD ? 01/19/2024 ??6:22 PM Critical Care Performed by: Alexandra Tucker MD Authorized by: Alexandra Tucker MD ?? Critical care provider statement: ??Critical care time (minutes): ??35 ??Critical care time was exclusive of: ??Separately billable procedures and treating other patients ??Critical care was necessary to treat or prevent imminent or life-threatening deterioration of the following conditions: ??Cardiac failure ??Critical care was time spent personally by me on the following activities: ??Development of treatment plan with patient or surrogate, discussions with consultants, examination of patient, obtaining history from patient or surrogate, ordering and review of laboratory studies, ordering and review of radiographic studies, pulse oximetry and re-evaluation of patient's condition ??I assumed direction of critical care for this patient from another provider in my specialty: no ?Care discussed with: admitting provider ?? Alexandra Tucker MD IN CLINIC/BEDSIDE O RDERABLES Performing Organization Address [facility] de Phone Number [facility] (CLIA [id number]) [address] [place] [address], [place] [phone] * TELEMETRY EXTERNAL RESULTS (01/19/2024) Narrative 01/19/2024 Ordered by an unspecified provider. Provider External [facility] PROCEDURES * TELEMETRY EXTERNAL RESULTS (01/19/2024) Narrative 01/19/2024 Ordered by an unspecified provider. Provider External MD [facility] PROCEDURES documented in this encounter Visit Diagnoses Diagnosis ST elevation myocardial infarction (STEMI), unspecified artery (CMS-HCC)- Primary * Initial Assessments - Remedios Arzola SPEEDY - 01/19/2024 3:50 PM PDT CASE MANAGEMENT : INITIAL ASSESSMENT Data: Per EMR review, patient is a 83 y.o. male with Payor: [employer] MEDICARE MANAGED / Plan: AARP MEDICARE COMPLETE HMO / Product Type: *No Product type* / . PCP is Kt Garsia. Advance directives are completed- Requested Copy for Chart. Pt admitted on 01/19/2024 for STEMI (ST elevation myocardial infarction) (CMS- HCC) [I21.3] ST elevation myocardial infarction (STEMI), unspecified artery (CMS-HCC) [I21.3]. Extended Emergency Contact Information Primary Emergency Contact: Yvonne Chavez Mobile Relation: Friend Preferred language: Venezuelan Face Painter needed? No Secondary Emergency Contact: Yvonne Shah Mobile Relation: Daughter Preferred language: [place]an Face Painter needed? No In communication with provider, discharge needs have not been identified. Social Work consults to coordinate discharge services have not been ordered by provider at this time. CITY COUNCILMAN met with patient At bedside. Social work role explained, contact information and discharge planning checklist provided. Pt resides in [place] with a significant other in a private home. Pt does not have a history with home health and/or intermediate services. Pt lives with his significant other (girlfriend not legally ) in a single level home and is independent at baseline. Pt does not use any DME for ambulation normally. Pt typically drives and his significant other will be his ride home when medically ready. Pt is a but denies service connection with the [employer] for disability. Pt denies any food, housing, or transportation concerns. Assessment: alert and oriented x4. Plan: Anticipated discharge home via POV when medically ready. CM available if any needs arise. 01/19/24 7331 Discharge Planning Chart Reviewed Yes EHR Review The patient has been identified as low risk of requiring posthospital services, please consult Case Management if new needs are identified. Source of Information Patient Initial DC Planning Assessment Yes Lives with Spouse/significant other Support Systems Spouse/significant other Level of [place] Independent in all regards Assistance Needed None Living Arrangements Private residence Home Layout One level Mobility Equipment (No DME) Home Care Services No Patient expects to be discharged to: HOME Has a discharge transport plan been identified? (Pt signficiant other) Barriers to Discharge No barriers Insurance Coverage Prescription Drug Coverage Patient has prescription drug coverage Are you currenty receiving any VA benefits? No Do you currenty have Dental Hygienist Care insurance? No Anticipated Discharge Needs Anticipated Discharge Needs None needed Anticipated Discharge Destination Home with family Equipment (DME) Recommendations None needed Who can help/be your primary caregiver at discharge? None needed SPEEDY Ruiz documented in this encounter Administered Medications Inactive Administered Medications - up to 3 most recent administrations Medication Order MAR Action Action Date Dose Rate Site acetaminophen (TYLENOL) tablet 650 mg 650 mg, oral, Every 4 hours PRN, mild pain (1-3), (1-3), Starting on Mon01/19/24 at 0905, total Acetaminophen dose from ALL sources including combination products should not exceed 4,000 mg in a 24 hour period. Can be given concurrently with ibuprofen. aspirin chewable tablet 81 mg 81 mg, oral, Daily, First dose on Mon01/20/24 at 0900, Postprocedure (SI) Given 01/21/2024 9:45 AM PDT 81 mg Given 01/20/2024 9:02 AM PDT 81 mg atorvastatin (LIPITOR) tablet 40 mg 40 mg, oral, Nightly, First dose on Mon01/19/24 at 2100 Given 01/20/2024 9:14 PM PDT 40 mg Given 01/19/2024 9:10 PM PDT 40 mg atropine injection (abboject) 0.5-1 mg 0.5-1 mg, intravenous, Every 5 min PRN, bradycardia, symptomatic bradycardia, Starting on Mon01/19/24 at 0817, Postprocedure (SI), Repeat as directed. bismuth subsalicylate (PEPTO BISMOL) chewable tablet 524 mg 524 mg, oral, Every 6 hours PRN, indigestion, diarrhea, heartburn, Starting on Mon01/19/24 at 2002 Given 01/20/2024 6:36 PM PDT 524 mg Given 01/19/2024 10:00 PM PDT 524 mg clopidogreL (PLAVIX) tablet 75 mg 75 mg, oral, Daily, First dose on Mon01/20/24 at 0900, Postprocedure (SI) Given 01/21/2024 9:45 AM PDT 75 mg Given 01/20/2024 9:02 AM PDT 75 mg clopidogreL (PLAVIX) tablet oral, As needed, Starting on Mon01/19/24 at 0747, Intra-op Given 01/19/2024 7:47 AM PDT 300 mg fentaNYL (SUBLIMAZE) injection intravenous, As needed, Starting on Mon01/19/24 at 0718, Intra-op Given 01/19/2024 7:18 AM PDT 50 mcg flumazeniL (ROMAZICON) injection 0.2 mg 0.2 mg, intravenous, As needed, for suspected benzodiazepine overdose, Starting on Mon01/19/24 at 0817, Postprocedure (SI), every 20 min prn for suspected benzodiazepine overdose heparin (porcine) injection 4,150 Units 4,150 Units, intravenous, Once, On Mon01/19/24 at 0527, For 1 dose Given 01/19/2024 5:36 AM PDT 4,150 Units heparin (porcine) injection 5,000 Units 5,000 Units, subcutaneous, Every 12 hours scheduled, First dose on Mon01/20/24 at 2100 Given 01/21/2024 9:45 AM PDT 5,000 Units Right Lower Abdomen Given 01/20/2024 9:14 PM PDT 5,000 Units R ight Lower Abdomen heparin (porcine) injection intravenous, As needed, Starting on Mon01/19/24 at 0721, Intra-op Given 01/19/2024 7:21 AM PDT 4,000 Units heparin 25,000 units in 500 mL 0.45% NS (premix) 1,000 Units/hr (20 mL/hr), intravenous, Titrated, Starting on Mon01/19/24 at 0533, Indication of use: ACS New Bag 01/19/2024 5:49 AM PDT 1,000 Units/ hr 20 mL/hr iopamidoL (ISOVUE-370) 370 mg iodine /mL (76 %) injection As needed, Starting on Mon01/19/24 at 0743, Intra-op Given 01/19/2024 7:43 AM PDT 90 mL lidocaine (XYLOCAINE) 10 mg/mL (1 %) injection 1 mL 1 mL, infiltration, Once as needed, for use as anesthetic for IV start, Starting on Mon01/19/24 at 0904, For 1 dose losartan (COZAAR) tablet 25 mg 25 mg, oral, Daily, First dose on 01/21/24 at 1000 Given 01/21/2024 11:10 AM PDT 25 mg melatonin tablet 5 mg 5 mg, oral, Nightly PRN, sleep, Starting on Mon01/19/24 at 0905 metoprolol succinate XL (TOPROL-XL) 24 hr split tablet 12.5 mg 12.5 mg, oral, Daily, First dose on 01/20/24 at 1800 Given 01/21/2024 9:45 AM PDT 12.5 mg Given 01/20/2024 6:17 PM PDT 12.5 mg midazolam (VERSED) injection intravenous, As needed, Starting on Mon01/19/24 at 0718, Intra-op Given 01/19/2024 7:18 AM PDT 1 mg morphine injection 4 mg 4 mg, intravenous, Once, On Mon01/19/24 at 0527, For 1 dose Given 01/19/2024 5:35 AM PDT 4 mg naloxone (NARCAN) injection 0.04 mg 0.04 mg, intravenous, As needed, opioid reversal, respiratory depression, respiratory rate less than 8, Starting on Mon01/19/24 at 0904, Every 1 Minute PRN For Opiate Reversal 1. Draw up 0.4 mg (1 mL) in 10 mL syringe, and dilute with 9 mL of saline for an naloxone concentration of 0.04 mg/mL. 2. Give 0.04 mg (1 mL) IV push flushing solution into vein and repeat every min until resp rate greater than 10 per min and level of sedation improved. 3. Notify Provider STAT., Indications: opioid-induced respiratory depression naloxone (NARCAN) injection 0.4 mg 0.4 mg, intravenous, As needed, opioid reversal, respiratory depression, Starting on Mon01/19/24 at 0817, Postprocedure (SI) nitroglycerin (TRIDIL) infusion 200 mcg/mL 5-300 mcg/min (1.5-90 mL/hr), intravenous, Titrated, Starting on Mon01/19/24 at 0527, Initial Infusion rate: 5 mcg/min if goal Chest Pain free Titrate to keep goal Chest Pain free Maintenance infusion rate: 5-300 mcg/min Titrate by 5 mcg/min every 3 min to goal. Rate/Dose Change 01/19/2024 5:56 AM PDT 10 mcg/min 3 mL/hr New Bag 01/19/2024 5:43 AM PDT 5 mcg/min 1.5 mL/hr nitroprusside 100 mcg/ml injection As needed, Starting on Mon01/19/24 at 0724, Intra-op Given 01/19/2024 7:24 AM PDT 400 mcg perflutren lipid microsphere (DEFINITY) injection 1.5 mL 1.5 mL, intravenous, Once in imaging, First dose on 01/20/24 at 1300, For 1 dose Given 01/20/2024 12:56 PM PDT 1.5 mL polyethylene glycol (GLYCOLAX) packet 17 g 17 g, oral, Daily PRN, constipation, Starting on Mon01/19/24 at 0905, Tier One Bowel Management: INITIATE on first morning of hospitalization. Hold for adequate stooling or loose stools., Indications: constipation senna (SENOKOT) tablet 8.6 mg 8.6 mg (1 tablet), oral, Daily, First dose (after last reorder) on 01/20/24 at 0900, Tier One Bowel Management: INITIATE on first morning of hospitalization. Hold for adequate stooling or loose stools., Indications: constipation Given 01/20/2024 9:02 AM PDT 8.6 mg sodium chloride (NS) 0.9 % infusion 100 mL/hr, intravenous, Continuous, Starting on Mon01/19/24 at 0818, For 4 hours, Postprocedure (SI), then saline lock until patient ready for discharge. Restarted 01/19/2024 10:22 AM PDT 100 mL/hr 100 mL/hr sodium chloride 0.9 % flush 10 mL 10 mL, intravenous, As needed, line care, Starting on Mon01/19/24 at 0904 documented in this encounter Active and Recently Administered Medications Times are shown in PDT. Scheduled Medication Order 01/19/2024 01/20/2024 01/21/2024 aspirin chewable tablet 81 mg 81 mg, oral, Daily, First dose on 01/20/24 at 0900, Postprocedure (SI) 0902 (Given - Provider: Sarah Gardner) 0945 (Given - Provider: Sarah Gardner) atorvastatin (LIPITOR) tablet 40 mg 40 mg, oral, Nightly, First dose on Mon01/19/24 at 2100 2110 (Given - Provider: Moira Sweeney, JEANIE) 2113 (Given - Provider: Mecca Redmond, JEANIE) clopidogreL (PLAVIX) tablet 75 mg(Linked Group 1) 75 mg, oral, Daily, First dose on Mon01/20/24 at 0900, Postprocedure (SI) 0902 (Given - Provider: Sarah Gardner) 0945 (Given - Provider: Sarah Gardner) heparin (porcine) injection 4,150 Units (COMPLETED) 4,150 Units, intravenous, Once, On Mon01/19/24 at 0527, For 1 dose 0536 (Given - Provider: Gita Niño RN) heparin (porcine) injection 5,000 Units 5,000 Units, subcutaneous, Every 12 hours scheduled, First dose on Mon01/20/24 at 2100 2114 (Given - Provider: Mecca Redmond RN) 0945 (Given - Provider: Sarah Gardner) losartan (COZAAR) tablet 25 mg 25 mg, oral, Daily, First dose on Mon01/21/24 at 1000 1110 (Given - Provider: Sarah Gardner) metoprolol succinate XL (TOPROL-XL) 24 hr split tablet 12.5 mg 12.5 mg, oral, Daily, First dose on Mon01/20/24 at 1800 1817 (Given - Provider: Sarah Gardner) 0945 (Given - Provider: Sarah Gardner) morphine injection 4 mg (COMPLETED) 4 mg, intravenous, Once, On Mon01/19/24 at 0527, For 1 dose 0535 (Given - Provider: Gita Niño, JEANIE) perflutren lipid microsphere (DEFINITY) injection 1.5 mL (COMPLETED) 1.5 mL, intravenous, Once in imaging, First dose on Mon01/20/24 at 1300, For 1 dose 1256 (Given - Provider: Lani Deleon, RT) senna (SENOKOT) tablet 8.6 mg 8.6 mg (1 tablet), oral, Daily, First dose (after last reorder) on Mon01/20/24 at 0900, Tier One Bowel Management: INITIATE on first morning of hospitalization. Hold for adequate stooling or loose stools., Indications: constipation 0902 (Given - Provider: Sarah Gardner) 0900 (Not Given - Provider: Sarah Gardner - Reason: Order parameters not met - Comment: Patient having multiple loose stools) Continuous Medication Order 01/19/2024 01/20/2024 01/21/2024 heparin 25,000 units in 500 mL 0.45% NS (premix) (CANCELED) 1,000 Units/hr (20 mL/hr), intravenous, Titrated, Starting on Mon01/19/24 at 0533, Indication of use: ACS 0549 (New Bag - Provider: Gita Niño, JEANIE)0700 (Stopped - Provider: Mary Altamirano, JEANIE) nitroglycerin (TRIDIL) infusion 200 mcg/mL (CANCELED) 5-300 mcg/min (1.5-90 mL/hr), intravenous, Titrated, Starting on Mon01/19/24 at 0527, Initial Infusion rate: 5 mcg/min if goal Chest Pain free Titrate to keep goal Chest Pain free Maintenance infusion rate: 5-300 mcg/min Titrate by 5 mcg/min every 3 min to goal. 0543 (New Bag - Provider: Gita Niño, JEANIE)0556 (Rate/Dose Change - Provider: Gita Niño RN)0815 (Stopped - Provider: Mary Altamirano RN) sodium chloride (NS) 0.9 % infusion () 100 mL/hr, intravenous, Continuous, Starting on Mon01/19/24 at 0818, For 4 hours, Postprocedure (SI), then saline lock until patient ready for discharge. 0729 (Override Pull - Provider: Cathryn Damon RN)0730 (Stopped - Provider: Mary Altamirano RN)1022 (Restarted - Provider: Mary Altamirano RN)1408 (Stopped - Provider: Mary Altamirano RN) PRN Medication Order 01/19/2024 01/20/2024 01/21/2024 acetaminophen (TYLENOL) tablet 650 mg 650 mg, oral, Every 4 hours PRN, mild pain (1-3), (1-3), Starting on Mon01/19/24 at 0905, total Acetaminophen dose from ALL sources including combination products should not exceed 4,000 mg in a 24 hour period. Can be given concurrently with ibuprofen. atropine injection (abboject) 0.5-1 mg 0.5-1 mg, intravenous, Every 5 min PRN, bradycardia, symptomatic bradycardia, Starting on Mon01/19/24 at 0817, Postprocedure (SI), Repeat as directed. bismuth subsalicylate (PEPTO BISMOL) chewable tablet 524 mg 524 mg, oral, Every 6 hours PRN, indigestion, diarrhea, heartburn, Starting on Mon01/19/24 at 2002 2200 (Given - Provider: Moira Sweeney RN) 1836 (Given - Provider: Sarah Gardner) clopidogreL (PLAVIX) tablet (COMPLETED) oral, As needed, Starting on Mon01/19/24 at 0747, Intra-op 0747 (Given - Provider: Cathryn Damon RN) fentaNYL (SUBLIMAZE) injection (COMPLETED) intravenous, As needed, Starting on Mon01/19/24 at 0718, Intra-op 0718 (Given - Provider: Cathryn Damon RN) flumazeniL (ROMAZICON) injection 0.2 mg 0.2 mg, intravenous, As needed, for suspected benzodiazepine overdose, Starting on Mon01/19/24 at 0817, Postprocedure (SI), every 20 min prn for suspected benzodiazepine overdose heparin (porcine) injection (COMPLETED) intravenous, As needed, Starting on Mon01/19/24 at 0721, Intra-op 0721 (Given - Provider: Cathryn Damon RN) iopamidoL (ISOVUE-370) 370 mg iodine /mL (76 %) injection (COMPLETED) As needed, Starting on Mon01/19/24 at 0743, Intra-op 0743 (Given - Provider: Cathryn Damon RN) lidocaine (XYLOCAINE) 10 mg/mL (1 %) injection 1 mL(Linked Group 2) 1 mL, infiltration, Once as needed, for use as anesthetic for IV start, Starting on Mon01/19/24 at 0904, For 1 dose melatonin tablet 5 mg 5 mg, oral, Nightly PRN, sleep, Starting on Mon01/19/24 at 0905 midazolam (VERSED) injection (COMPLETED) intravenous, As needed, Starting on Mon01/19/24 at 0718, Intra-op 0718 (Given - Provider: Cathryn Damon RN) naloxone (NARCAN) injection 0.04 mg 0.04 mg, intravenous, As needed, opioid reversal, respiratory depression, respiratory rate less than 8, Starting on Mon01/19/24 at 0904, Every 1 Minute PRN For Opiate Reversal 1. Draw up 0.4 mg (1 mL) in 10 mL syringe, and dilute with 9 mL of saline for an naloxone concentration of 0.04 mg/mL. 2. Give 0.04 mg (1 mL) IV push flushing solution into vein and repeat every min until resp rate greater than 10 per min and level of sedation improved. 3. Notify Provider STAT., Indications: opioid-induced respiratory depression naloxone (NARCAN) injection 0.4 mg 0.4 mg, intravenous, As needed, opioid reversal, respiratory depression, Starting on Mon01/19/24 at 0817, Postprocedure (SI) nitroprusside 100 mcg/ml injection (COMPLETED) As needed, Starting on Mon01/19/24 at 0724, Intra-op 0724 (Given - Provider: Garrett Vicente MD) polyethylene glycol (GLYCOLAX) packet 17 g 17 g, oral, Daily PRN, constipation, Starting on Mon01/19/24 at 0905, Tier One Bowel Management: INITIATE on first morning of hospitalization. Hold for adequate stooling or loose stools., Indications: constipation sodium chloride 0.9 % flush 10 mL(Linked Group 2) 10 mL, intravenous, As needed, line care, Starting on Mon01/19/24 at 0904 Linked Groups Order Group 1: clopidogreL (PLAVIX) tablet 300 mg (COMPLETED) 300 mg, oral, Once, On Mon01/19/24 at 0836, For 1 dose, Postprocedure (SI) And clopidogreL (PLAVIX) tablet 75 mgJump to med 75 mg, oral, Daily, First dose on Mon01/20/24 at 0900, Postprocedure (SI) Group 2: Insert peripheral IV (CANCELED) Once, On Mon01/19/24 at 0905, For 1 occurrence And lidocaine (XYLOCAINE) 10 mg/mL (1 %) injection 1 mLJump to med 1 mL, infiltration, Once as needed, for use as anesthetic for IV start, Starting on Mon01/19/24 at 0904, For 1 dose And Maintain IV access (CANCELED) Until discontinued, Starting on Mon01/19/24 at 0905, Until Specified And Saline lock IV (CANCELED) Once, On Mon01/19/24 at 0905, For 1 occurrence And sodium chloride 0.9 % flush 10 mLJump to med 10 mL, intravenous, As needed, line care, Starting on Mon01/19/24 at 0904 documented in this encounter Advance Directives * Full Code (Latest Code Status on File) Date Activated Date Inactivated Comments 01/19/2024 9:06 AM 01/21/2024 5:48 PM * Full Code Date Activated Date Inactivated Comments 01/19/2024 8:17 AM 01/19/2024 9:06 AM Care Teams [employer] 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
== END 2024-06-24 14:30 ==
LOC: CAR 12:30
PROVIDERS: Family Provider Physician Assistant; PCP Family Medicine; Referring Provider Internal Medicine Cardiovascular Disease; Visit Provider Internal Medicine Cardiovascular Disease
DX: I21.3 ST elevation (STEMI) myocardial infarction of unspecified site (principal)
CPT/HCPCS: 93798

== ENCOUNTER → 2024-07-24 15:49 | Outpatient (CLI) | payer MEDICARE, SELFPAY ==
[2023-07-06 11:32] VITALS: BMI 25.0
[2024-07-24 17:56] LABS: Prostate Specific Antigen 5.75 ng/mL (0.10-4.00)
== END ==
PROVIDERS: Family Provider Physician Assistant; PCP Family Medicine; Referring Provider Urology; Visit Provider Urology
DX: C61 Malignant neoplasm of prostate (principal); N40.0 Benign prostatic hyperplasia without lower urinary tract symptoms; R97.20 Elevated prostate specific antigen [PSA]
CPT/HCPCS: 36415; 84153

== ENCOUNTER → 2025-01-20 13:37 | Outpatient (CLI) | payer MEDICARE, SELFPAY ==
[2023-07-06 11:32] VITALS: BMI 25.0
[2025-01-20 15:48] LABS: Prostate Specific Antigen 8.34 ng/mL (0.10-4.00)
== END ==
PROVIDERS: Family Provider Physician Assistant; PCP Family Medicine; Referring Provider Urology; Visit Provider Urology
DX: C61 Malignant neoplasm of prostate (principal)
CPT/HCPCS: 36415; 84153